=== PATIENT | female | born 1960 | race African-American/Black ===

== ENCOUNTER → 2016-05-15 | Outpatient (CLI) | payer BC ==
[~2016-05-15] MED LIST: AMLO10TA PO; AMLO5TAB2 PO; CARV25TA PO; CLAR1TAB2 PO; CO Q100C10 PO; CO Q1CAP PO; CYCL10CAP PO; CYCLO25CA PO; DIOV160T2 PO; DIOV80TA3 PO; DRIS50002 PO; FISH1000 PO; FISH5CAP PO; FLON1SPR; FLUT1SPR2; FLUTISP; FOSR1000 PO; GING500C3 PO; HEPA1000VL IV; INSUDET SC; INSUH10VL SC; LASI40TA PO; LEVA500T PO; LEVE1INJ5 SC; LORA10TA2 PO; MUPI2OI TOP; MYCO500T PO; NIFE30TA7 PO; ONDA1TAB15 PO; POTA10CA PO; PRAV80TA PO; PRAV80TA2 PO; RENATAB5 PO; RENV2TAB PO; ROCA0.5C PO; SENS60TA PO; VALS1TAB47 PO; ZOFR20TA PO; [UNRECOGNIZED DRUG - CODE] INJ
[2016-05-15 21:17] LABS: MEAN CORPUSCULAR HEMOGLOBIN 33.4 pg (27.0-33.0); MEAN CORPUSCULAR HGB CONC 32.1 g/dl (32.0-36.5); RED CELL DISTRIBUTION WIDTH 14.9 % (11.5-14.5); WHITE BLOOD COUNT 7.8 K/mm3 (4.0-10.0)
[2016-05-15 21:40] LABS: CALCIUM LEVEL 9.4 MG/DL (8.5-10.1); CREATININE FOR GFR 5.35 MG/DL (0.55-1.02); GLOMERULAR FILTRATION RATE 10.7 (>51); POTASSIUM SERUM 4.2 MEQ/L (3.5-5.1)
== END ==
LOC: M LAB 20:28
PROVIDERS: ATTEND Dentist
DX: K04.7 Periapical abscess without sinus (principal)

== ENCOUNTER → 2016-05-31 | Outpatient (REF) | payer BC ==
[2016-05-31 12:00] LABS: BASO % 0.6 % (0.0-1.0); EOS # 0.1 K/mm3 (0.0-0.50); EOS % 2.6 % (0.0-3.0); LARGE UNSTAINED CELL # 0.1 K/mm3 (0.0-0.4); LARGE UNSTAINED CELL % 2.2 % (0.0-4.0); LYMPH # 1.5 K/mm3 (1.5-4.5); MEAN CORPUSCULAR HEMOGLOBIN 33.9 pg (27.0-33.0); MEAN CORPUSCULAR HGB CONC 32.8 g/dl (32.0-36.5); MEAN CORPUSCULAR VOLUME 103.4 fl (80.0-96.0); MONO # 0.3 K/mm3 (0.0-0.8); MONO % 5.1 % (0.0-5.0); NEUTROPHILS # 3.5 K/mm3 (1.8-7.7); NEUTROPHILS % 63.5 % (36.0-66.0); PLATELET COUNT, AUTOMATED 199 k/mm3 (150-450); RED CELL DISTRIBUTION WIDTH 14.3 % (11.5-14.5); WHITE BLOOD COUNT 5.5 K/mm3 (4.0-10.0)
[2016-05-31 12:13] LABS: ALBUMIN 3.8 GM/DL (3.2-5.2); ALKALINE PHOSPHATASE 172 U/L (45-117); ALT/SGPT 23 U/L (12-78); ANION GAP 14 MEQ/L (8-16); AST/SGOT 20 U/L (15-37); BILIRUBIN,TOTAL 0.5 MG/DL (0.2-1.0); BLOOD UREA NITROGEN 32 MG/DL (7-18); CALCIUM LEVEL 8.4 MG/DL (8.5-10.1); CARBON DIOXIDE LEVEL 27 MEQ/L (21-32); CHLORIDE LEVEL 100 MEQ/L (98-107); CHOLESTEROL LEVEL 134 MG/DL (<200); CREATININE FOR GFR 8.91 MG/DL (0.55-1.02); GLOMERULAR FILTRATION RATE 5.9 (>51); GLUCOSE, FASTING 216 MG/DL (70-105); POTASSIUM SERUM 4.1 MEQ/L (3.5-5.1); SODIUM LEVEL 141 MEQ/L (136-145); TOTAL PROTEIN 7.6 GM/DL (6.4-8.2); TRIGLYCERIDES LEVEL 171 MG/DL (<150); URIC ACID 4.4 MG/DL (2.6-6.0)
[2016-05-31 12:19] LABS: VITAMIN B12 LEVEL 1923 PG/ML
[2016-05-31 12:20] LABS: FOLATE > 24.0 NG/ML
== END ==
LOC: M LABDRAW1 11:43
PROVIDERS: ATTEND Family Medicine
DX: E11.29 Type 2 diabetes mellitus with other diabetic kidney complication (principal); D63.1 Anemia in chronic kidney disease; I12.0 Hypertensive chronic kidney disease with stage 5 chronic kidney disease or end stage renal disease; N18.5 Chronic kidney disease, stage 5; E78.2 Mixed hyperlipidemia

== ENCOUNTER → 2016-06-11 | Outpatient (REF) | payer BC, MEDICARE, MEDICAID | LOC: M SFHCWAGY 12:52 | PROVIDERS: ATTEND Nurse Practitioner Family | DX: Z12.4 Encounter for screening for malignant neoplasm of cervix (principal) ==

== ENCOUNTER → 2016-06-11 | Outpatient (CLI) | payer BC, MEDICARE, MEDICAID ==
--- NOTE | 2016-06-11 12:07 | REPMRS ---
Patient History The patient states she had a clinical breast exam in 05/2016. Patient is postmenopausal. No known family history of cancer. Digital Woman Screen Mammo: June 11, 2016 - Exam #: [id number] Bilateral CC and MLO view(s) were taken. Technologist: Dolores Sewell, Technologist Prior study comparison: June 02, 2015, digital woman screen mammo performed at [facility]. 2009, bilateral screening mammogram, performed at [place], [place]. FINDINGS: The breast tissue is heterogeneously dense. This may lower the sensitivity of mammography. There has been no change in the appearance of the mammogram from the prior studies. There is a moderate amount of residual fibroglandular tissue which is fairly symmetric. There is no interval development of dominant mass, areas of architectural distortion, or clustered microcalcification typical of malignancy. ASSESSMENT: BI-RADS/ACR category 1 mammogram. Negative. Recommendation Routine screening mammogram in 1 year (for women over age 40). This mammogram was interpreted with the aid of an FDA-approved computer-aided dectection system. Electronically Signed By: Tay Bell MD 06/11/16 [id number]
== END ==
LOC: M WHC 10:32
PROVIDERS: ATTEND Nurse Practitioner Family
DX: Z12.31 Encounter for screening mammogram for malignant neoplasm of breast (principal)

== ENCOUNTER → 2016-06-18 | Outpatient (CLI) | payer BC, MEDICARE, MEDICAID ==
--- NOTE | 2016-06-18 11:59 | REP ---
Clinical: Right adnexal pain and possible mass . Technique: Transabdominal pelvic ultrasound followed by transvaginal examination for better evaluation of the endometrium and adnexa. Findings: Bladder is collapsed. Anteverted uterus measures 7.9 x 6.4 x 5.4 cm with sub centimeter right anterior intramural fibroid. The endometrial complex measures up to 12 mm thickness. No discrete endometrial abnormalities are appreciated. Bilateral ovaries are normal in appearance and vascularity without evidence for torsion. Right ovary measures 3.1 x 2.5 x 2.5. Left ovary measures 4.1 x 3.3 x 2.0 cm. Transplant kidney in the right hemipelvis measures 9.0 x 5.9 x 5.3 cm and without hydronephrosis. Impression: 1. Anteverted uterus with sub centimeter intramural fibroid. 2. Transplant kidney in the right hemipelvis.
== END ==
LOC: M WHC 09:17
PROVIDERS: ATTEND Nurse Practitioner Family
DX: N85.4 Malposition of uterus (principal); D25.1 Intramural leiomyoma of uterus; Z94.0 Kidney transplant status

== ENCOUNTER → 2016-07-02 | Outpatient (CLI) | payer BC, MEDICARE, MEDICAID ==
--- NOTE | 2016-07-02 13:24 | REP ---
RIGHT HIP, TWO VIEWS: HISTORY: Pain. There is no acute fracture or dislocation. There joint space is normal in appearance. A 1 cm lucency is present in the distal iliac bone. This likely represents a subchondral cyst. A catheter is present in the pelvis. IMPRESSION: There is no acute fracture or dislocation. Signed by Abdoulaye Perry MD 07/02/2016 01:26 P
== END ==
LOC: M RAD 11:54
PROVIDERS: ATTEND Internal Medicine Nephrology
DX: M25.551 Pain in right hip (principal); N18.6 End stage renal disease; N25.81 Secondary hyperparathyroidism of renal origin

== ENCOUNTER → 2016-08-10 | Outpatient (CLI) | payer BC, MEDICARE, MEDICAID ==
[2016-08-10 09:46] LABS: BASO % 0.7 % (0.0-1.0); EOS # 0.2 K/mm3 (0.0-0.50); EOS % 2.4 % (0.0-3.0); LARGE UNSTAINED CELL # 0.1 K/mm3 (0.0-0.4); LARGE UNSTAINED CELL % 2.1 % (0.0-4.0); LYMPH # 1.6 K/mm3 (1.5-4.5); LYMPH % 23.9 % (24.0-44.0); MEAN CORPUSCULAR HEMOGLOBIN 32.6 pg (27.0-33.0); MEAN CORPUSCULAR HGB CONC 31.8 g/dl (32.0-36.5); MEAN CORPUSCULAR VOLUME 102.3 fl (80.0-96.0); MONO # 0.4 K/mm3 (0.0-0.8); MONO % 5.7 % (0.0-5.0); NEUTROPHILS # 4.3 K/mm3 (1.8-7.7); NEUTROPHILS % 65.2 % (36.0-66.0); PLATELET COUNT, AUTOMATED 172 k/mm3 (150-450); RED CELL DISTRIBUTION WIDTH 13.7 % (11.5-14.5); WHITE BLOOD COUNT 6.6 K/mm3 (4.0-10.0)
[2016-08-10 09:59] LABS: INR 1.14
[2016-08-10 10:03] LABS: CALCIUM LEVEL 9.3 MG/DL (8.5-10.1); CREATININE FOR GFR 8.49 MG/DL (0.55-1.02); GLOMERULAR FILTRATION RATE 6.2 (>51)
== END ==
LOC: M LAB 08:58
DX: Z01.812 Encounter for preprocedural laboratory examination (principal)

== ENCOUNTER → 2016-10-21 | Outpatient (REF) | payer BC, MEDICARE ==
[2016-10-21 19:20] LABS: BASO % 0.4 % (0.0-1.0); EOS # 0.1 K/mm3 (0.0-0.50); EOS % 0.8 % (0.0-3.0); LARGE UNSTAINED CELL # 0.1 K/mm3 (0.0-0.4); LYMPH # 1.5 K/mm3 (1.5-4.5); LYMPH % 16.7 % (24.0-44.0); MEAN CORPUSCULAR HEMOGLOBIN 33.8 pg (27.0-33.0); MEAN CORPUSCULAR HGB CONC 32.5 g/dl (32.0-36.5); MONO # 0.4 K/mm3 (0.0-0.8); MONO % 5.2 % (0.0-5.0); NEUTROPHILS # 6.3 K/mm3 (1.8-7.7); NEUTROPHILS % 75.9 % (36.0-66.0); PLATELET COUNT, AUTOMATED 184 k/mm3 (150-450); RED CELL DISTRIBUTION WIDTH 14.2 % (11.5-14.5); WHITE BLOOD COUNT 8.3 K/mm3 (4.0-10.0)
[2016-10-21 20:13] LABS: CALCIUM LEVEL 8.6 MG/DL (8.5-10.1); CREATININE FOR GFR 12.2 MG/DL (0.55-1.02); GLOMERULAR FILTRATION RATE 4.1 (>51)
[2016-10-21 20:25] LABS: POTASSIUM SERUM 5.7 MEQ/L (3.5-5.1)
== END ==
LOC: M LABDRAW1 17:22
PROVIDERS: ATTEND Family Medicine
DX: E11.29 Type 2 diabetes mellitus with other diabetic kidney complication (principal); D63.1 Anemia in chronic kidney disease; N18.5 Chronic kidney disease, stage 5

== ENCOUNTER 2016-12-03 09:35 | Day surgery (SDC) | payer BC, MEDICARE ==
[~2016-12-03] VITALS: Ht 168.9 cm; Wt 86.2 kg
[~2016-12-03 09:35] MED LIST changes: +CO Q100C PO; -CO Q1CAP PO; +INSUHUMDS SC; +LEVA1TAB2 PO; -LEVA500T PO; -ONDA1TAB15 PO; +ONDA4TAB5 PO; +TOUJ1.2I SC
[2016-12-03] MEDS ORDERED: MIDAZOLAM INJ 2 MG/2 ML VIAL (J2250) As Ordered ONE (09:45)
[2016-12-03] MEDS ORDERED: PROPOFOL 200 MG/20 ML VIAL As Ordered ONE (09:45)
[2016-12-03] MEDS ORDERED: fentaNYL 100 MCG/2 ML INJECTION (J3010) As Ordered ONE (09:45)
[2016-12-03] MEDS ORDERED: D5W/0.2% SODIUM CHLORIDE 250 ML IV ONE (09:45)
[2016-12-03] MEDS ORDERED: NS 1,000 ML IV SCH (09:45)
[2016-12-03] MEDS ORDERED: LIDOCAINE 2% INJ 100 MG/5 ML SDV (FOR ANES.) As Ordered ONE (09:45)
[2016-12-03] MEDS ORDERED: LIDOCAINE 1% SDV INJ 30 ML VIAL As Ordered ONE (10:23)
[2016-12-03] MEDS ORDERED: DEXTROSE 50% 50 ML SYRINGE As Ordered ONE (11:20)
[2016-12-03] MEDS ORDERED: DEXTROSE 50% 50 ML SYRINGE IV ONE (11:30)
[2016-12-03] MEDS ORDERED: dexameTHASONE 4 MG/ML 1ML VIAL (J1100) As Ordered ONE (12:45)
[2016-12-03] MEDS ORDERED: ONDANSETRON 4MG/2ML VIAL (J2405) As Ordered ONE (12:45)
[2016-12-03] MEDS ORDERED: BUPIVACAINE/EPIN 0.25% 30 ML VIAL As Ordered ONE (13:02)
[2016-12-03] MEDS ORDERED: KETAMINE HCL 200 MG/20 ML VIAL As Ordered ONE (13:11)
[2016-12-03 14:25] VITALS: BP 153/70
[2016-12-03] MEDS ORDERED: NORCO, ANEXSIA 5/325MG TABLET (HYDROcodone/ACETAMINOPHEN) As Ordered ONE (14:48)
[2016-12-03] MEDS ORDERED: ONDANSETRON 4MG/2ML VIAL (J2405) IV PRN (15:00)
[2016-12-03] MEDS ORDERED: NORCO, ANEXSIA 5/325MG TABLET (HYDROcodone/ACETAMINOPHEN) PO PRN (15:00)
[2016-12-03] MEDS ORDERED: LR 1,000 ML IV SCH (15:00)
--- NOTE | 2017-01-22 06:19 | RO ---
DATE OF PROCEDURE: 12/03/2016 PREOPERATIVE DIAGNOSIS: Nonfunctioning/infected peritoneal dialysis catheter. POSTOPERATIVE DIAGNOSIS: Nonfunctioning/infected peritoneal dialysis catheter. PROCEDURE: Removal of infected dialysis catheter. SURGEON: Dr. Willem Silva CUSHION ASSEMBLER: ANESTHESIA: Local with sedation. BRIEF PROCEDURE SUMMARY: The patient was brought to the operating room and was given IV sedation. She was prepped and draped in the usual sterile fashion. The patient had a dialysis catheter that was in place and right at the dialysis catheter site there was some purulent discharge around the exit site. This was new since the last time I had seen her, but definitely she had developed some cellulitis in this area, inflammation and some purulent discharge, all consistent with an infected dialysis catheter. This has been nonfunctioning for quite awhile now and she is getting hemodialysis as we speak. In any case, an elliptical incision was made around the abscess/exit site to include this abscess/inflamed tissue and I anticipate that this was a cuff that was infected at the skin level with some drainage. I was able to get past this area into the deeper subcutaneous tissue down mobilizing the tissue itself using a combination of blunt and sharp dissection all the way to the level of fascia. The catheter could be seen going up to the fascia and the cuff was incorporated into the rectus muscles/abdominal wall fascia. This was dissected off this tissue using some blunt dissection as well as electrocautery and eventually the catheter was able to be removed in its entirety. The site was closed with a [id number] #0 Vicryl suture. Given that this was an infected wound, I felt that closing this wound it would overwhelmingly become infected again. Thus, it was packed with gauze and after closing some minimal tissue over the fascia itself and the skin incision was left open, a dry sterile gauze was placed over the packing. The patient was awakened from her sedation and brought to the recovery room awake, alert and hemodynamically stable. Sponge and needle counts correct times two.
== END 2016-12-03 15:05 | disposition home or self-care (01) ==
LOC: M SDC 09:35
PROVIDERS: ATTEND Surgery
DX: T85.691A Other mechanical complication of intraperitoneal dialysis catheter, initial encounter (principal); N18.9 Chronic kidney disease, unspecified; I10 Essential (primary) hypertension; E78.00 Pure hypercholesterolemia, unspecified; E10.9 Type 1 diabetes mellitus without complications; Z79.4 Long term (current) use of insulin; D64.9 Anemia, unspecified; E21.3 Hyperparathyroidism, unspecified; Z88.8 Allergy status to other drugs, medicaments and biological substances; Z79.899 Other long term (current) drug therapy
CPT/HCPCS: 36415; 49422; 84132; 85014; 85018; 87070; 87077; 87186; 88300; J1100; J2250; J2405; J3010

== ENCOUNTER → 2016-12-16 | Outpatient (REF) | payer BC, MEDICARE | LOC: M LAB REF 10:36 | PROVIDERS: ATTEND Surgery | DX: S31.105D Unspecified open wound of abdominal wall, periumbilic region without penetration into peritoneal cavity, subsequent encounter (principal); X58.XXXA Exposure to other specified factors, initial encounter; Y92.9 Unspecified place or not applicable ==

== ENCOUNTER 2017-05-19 19:22 | Emergency (ER) | payer BC, MEDICARE, MEDICAID | END 2017-05-19 22:00 | disposition home or self-care (01) | LOC: M ED 19:22 | DX: S93.402A Sprain of unspecified ligament of left ankle, initial encounter (principal); S70.01XA Contusion of right hip, initial encounter; S80.02XA Contusion of left knee, initial encounter; W01.198A Fall on same level from slipping, tripping and stumbling with subsequent striking against other object, initial encounter; Y92.099 Unspecified place in other non-institutional residence as the place of occurrence of the external cause; Y93.01 Activity, walking, marching and hiking | CPT/HCPCS: 73560 ==

== ENCOUNTER → 2017-06-04 | Outpatient (REF) | payer BC, MEDICARE ==
[2017-06-04 14:42] LABS: HEMATOCRIT 26.9 % (36.0-47.0); HEMOGLOBIN 8.9 g/dl (12.0-16.0); MEAN CORPUSCULAR HEMOGLOBIN 33.5 pg (27.0-33.0); MEAN CORPUSCULAR HGB CONC 33.1 g/dl (32.0-36.5); MEAN CORPUSCULAR VOLUME 101.1 fl (80.0-96.0); PLATELET COUNT, AUTOMATED 169 10^3/uL (150-450); RED BLOOD COUNT 2.66 10^6/uL (4.00-5.40); RED CELL DISTRIBUTION WIDTH 12.5 % (11.5-14.5)
[2017-06-04 15:08] LABS: ALBUMIN 3.8 GM/DL (3.2-5.2); ALBUMIN/GLOBULIN RATIO 1.15 (1.00-1.93); ALKALINE PHOSPHATASE 288 U/L (45-117); ALT/SGPT 17 U/L (12-78); ANION GAP 11 MEQ/L (8-16); AST/SGOT 13 U/L (7-37); BILIRUBIN,TOTAL 0.5 MG/DL (0.2-1.0); BLOOD UREA NITROGEN 62 MG/DL (7-18); CALCIUM LEVEL 8.6 MG/DL (8.5-10.1); CARBON DIOXIDE LEVEL 30 MEQ/L (21-32); CHLORIDE LEVEL 92 MEQ/L (98-107); GLOMERULAR FILTRATION RATE 5.5 (>51); GLUCOSE, FASTING 205 MG/DL (70-100); PHOSPHORUS LEVEL 3.7 MG/DL (2.5-4.9); POTASSIUM SERUM 4.1 MEQ/L (3.5-5.1); SODIUM LEVEL 133 MEQ/L (136-145); TOTAL PROTEIN 7.1 GM/DL (6.4-8.2)
[2017-06-04 15:38] LABS: CREATININE FOR GFR 9.52 MG/DL (0.55-1.30)
[2017-06-04 16:23] LABS: BLOOD UREA NITROGEN 30 MG/DL (7-18)
== END ==
LOC: M LAB REF 14:29
DX: N18.6 End stage renal disease (principal)
CPT/HCPCS: 84100

== ENCOUNTER → 2017-07-02 | Outpatient (REF) | payer BC, MEDICARE ==
[2017-07-02 12:09] LABS: HEMATOCRIT 24.5 % (36.0-47.0); HEMOGLOBIN 7.8 g/dl (12.0-16.0); MEAN CORPUSCULAR HEMOGLOBIN 33.1 pg (27.0-33.0); MEAN CORPUSCULAR HGB CONC 31.8 g/dl (32.0-36.5); MEAN CORPUSCULAR VOLUME 103.8 fl (80.0-96.0); PLATELET COUNT, AUTOMATED 187 10^3/uL (150-450); RED BLOOD COUNT 2.36 10^6/uL (4.00-5.40); WHITE BLOOD COUNT 7.7 10^3/uL (4.0-10.0)
[2017-07-02 12:38] LABS: BLOOD UREA NITROGEN 21 MG/DL (7-18)
[2017-07-02 12:55] LABS: PTH INTACT 1031.5 PG/ML (18.5-88.0)
[2017-07-02 13:10] LABS: ALBUMIN 3.4 GM/DL (3.2-5.2); ALBUMIN/GLOBULIN RATIO 0.97 (1.00-1.93); ALKALINE PHOSPHATASE 213 U/L (45-117); ALT/SGPT 12 U/L (12-78); ANION GAP 11 MEQ/L (8-16); AST/SGOT 17 U/L (7-37); BILIRUBIN,TOTAL 0.5 MG/DL (0.2-1.0); BLOOD UREA NITROGEN 42 MG/DL (7-18); CALCIUM LEVEL 8.6 MG/DL (8.5-10.1); CARBON DIOXIDE LEVEL 31 MEQ/L (21-32); CHLORIDE LEVEL 94 MEQ/L (98-107); GLOMERULAR FILTRATION RATE 6.5 (>51); GLUCOSE, FASTING 87 MG/DL (70-100); PHOSPHORUS LEVEL 3.2 MG/DL (2.5-4.9); POTASSIUM SERUM 4.1 MEQ/L (3.5-5.1); SODIUM LEVEL 136 MEQ/L (136-145); TOTAL PROTEIN 6.9 GM/DL (6.4-8.2)
[2017-07-02 13:34] LABS: CREATININE FOR GFR 8.23 MG/DL (0.55-1.30)
[2017-07-05 00:07] LABS: QUANTIFERON GOLD TB Negative (Negative); TB Test (QFT) Antigen 0.04 IU/mL (.); TB Test (QFT) Mitogen >10.00 IU/mL (.); TB Test (QFT) Nil 0.04 IU/mL (.)
== END ==
LOC: M LAB REF 11:47
DX: N18.6 End stage renal disease (principal)
CPT/HCPCS: 84100

== ENCOUNTER → 2017-07-07 | Outpatient (REF) | payer BC, MEDICARE ==
[2017-07-07 16:40] LABS: HEMATOCRIT 23.1 % (36.0-47.0); HEMOGLOBIN 7.2 g/dl (12.0-16.0)
[2017-07-07 17:34] LABS: FERRITIN 916 NG/ML (8-252); IRON (FE) 33 UG/DL (50-170); PERCENT SATURATION 15.7 % (13.2-45.0); TOTAL IRON BINDING CAPACITY 210 UG/DL (250-450)
== END ==
LOC: M LAB REF 16:21
DX: N18.6 End stage renal disease (principal)
CPT/HCPCS: 83550

== ENCOUNTER → 2017-07-14 | Outpatient (REF) | payer BC, MEDICARE ==
[2017-07-14 09:58] LABS: HEMATOCRIT 22.5 % (36.0-47.0); HEMOGLOBIN 7.4 g/dl (12.0-16.0)
[2017-07-14 10:24] LABS: FERRITIN 1087 NG/ML (8-252); IRON (FE) 48 UG/DL (50-170); PERCENT SATURATION 22.6 % (13.2-45.0); TOTAL IRON BINDING CAPACITY 212 UG/DL (250-450)
== END ==
LOC: M LAB REF 09:47
DX: N18.6 End stage renal disease (principal); Z88.8 Allergy status to other drugs, medicaments and biological substances
CPT/HCPCS: 83550

== ENCOUNTER 2017-07-16 00:30 | Observation (INO) | payer BC, MEDICARE ==
[2017-07-16] MEDS: ASPIRIN 81 MG CHEW TABLET PO ×3 (02:09)
[2017-07-16] MEDS: NITROGLYCERIN 0.4 MG SUBL TABLET SL ×3 (02:09)
[2017-07-16 02:14] LABS: ALBUMIN 3.2 GM/DL (3.2-5.2); ALBUMIN/GLOBULIN RATIO 0.86 (1.00-1.93); ALKALINE PHOSPHATASE 207 U/L (45-117); ALT/SGPT 17 U/L (12-78); ANION GAP 10 MEQ/L (8-16); AST/SGOT 16 U/L (7-37); BILIRUBIN,DIRECT 0.1 MG/DL (0.0-0.2); BILIRUBIN,TOTAL 0.4 MG/DL (0.2-1.0); BLOOD UREA NITROGEN 36 MG/DL (7-18); CARBON DIOXIDE LEVEL 32 MEQ/L (21-32); CHLORIDE LEVEL 94 MEQ/L (98-107); CPK CREATINE PHOSPHOKINASE 104 U/L (26-192); CREATININE FOR GFR 7.59 MG/DL (0.55-1.30); FREE T4 1.09 NG/DL (0.76-1.46); GLOMERULAR FILTRATION RATE 7.1 (>51); GLUCOSE, FASTING 101 MG/DL (70-100); LIPASE 245 U/L (73-393); SODIUM LEVEL 136 MEQ/L (136-145); TOTAL PROTEIN 6.9 GM/DL (6.4-8.2); TROPONIN I 0.02 NG/ML (< 0.10)
[2017-07-16 02:20] LABS: MB/CK RELATIVE INDEX 0.96 (< OR =4)
[2017-07-16 02:41] LABS: BASO % 0.4 % (0.0-1.0); EOS # 0.2 10^3/uL (0.0-0.50); EOS % 2.4 % (0.0-3.0); HEMATOCRIT 21.5 % (36.0-47.0); IMMATURE GRANULOCYTE % 0.4 % (0-3.0); LYMPH # 1.5 10^3/uL (1.5-4.5); LYMPH % 17.7 % (24.0-44.0); MEAN CORPUSCULAR HEMOGLOBIN 32.9 pg (27.0-33.0); MEAN CORPUSCULAR HGB CONC 32.6 g/dl (32.0-36.5); MEAN CORPUSCULAR VOLUME 100.9 fl (80.0-96.0); MONO # 0.8 10^3/uL (0.0-0.8); MONO % 9.4 % (0.0-5.0); NEUTROPHILS # 5.9 10^3/uL (1.8-7.7); NEUTROPHILS % 69.7 % (36.0-66.0); PLATELET COUNT, AUTOMATED 150 10^3/uL (150-450); RED BLOOD COUNT 2.13 10^6/uL (4.00-5.40); RED CELL DISTRIBUTION WIDTH 12.9 % (11.5-14.5); WHITE BLOOD COUNT 8.4 10^3/uL (4.0-10.0)
[2017-07-16 02:55] LABS: PROTHROMBIN TIME 14.4 SECONDS (12.4-14.5)
[2017-07-16 02:56] LABS: PARTIAL THROMBOPLASTIN TIME 45.3 SECONDS (26.8-37.9)
[2017-07-16] MEDS ORDERED: ACETAMINOPHEN TAB 650MG DOSE (2X325MG) PO ×3 (04:15)
[2017-07-16] MEDS ORDERED: GLUCAGON FOR INJ 1 MG VIAL (J1610) SC ×3 (04:15)
[2017-07-16] MEDS ORDERED: DEXTROSE 50% 50 ML SYRINGE IV ×3 (04:15)
[2017-07-16] MEDS ORDERED: GLUCOSE 4 GM CHEW TABLET PO ×3 (04:15)
[2017-07-16 04:50] LABS: IMMEDIATE SPIN CROSSMATCH 1 2
[2017-07-16] MEDS: HEPARIN SOD (PORCINE) 5000 UNITS/ML VIAL SC ×3 (06:49)
[2017-07-16 07:22] LABS: MEAN CORPUSCULAR HEMOGLOBIN 32.9 pg (27.0-33.0); MEAN CORPUSCULAR HGB CONC 33.3 g/dl (32.0-36.5); MEAN CORPUSCULAR VOLUME 98.8 fl (80.0-96.0); PLATELET COUNT, AUTOMATED 154 10^3/uL (150-450); RED BLOOD COUNT 2.43 10^6/uL (4.00-5.40); RED CELL DISTRIBUTION WIDTH 13.9 % (11.5-14.5); WHITE BLOOD COUNT 7.7 10^3/uL (4.0-10.0)
[2017-07-16] MEDS: HumaLOG INSULIN (NovoLOG) PER UNIT SC ×3 (07:30)
[2017-07-16 07:38] LABS: ANION GAP 8 MEQ/L (8-16); BLOOD UREA NITROGEN 43 MG/DL (7-18); CALCIUM LEVEL 8.1 MG/DL (8.5-10.1); CARBON DIOXIDE LEVEL 32 MEQ/L (21-32); CHLORIDE LEVEL 96 MEQ/L (98-107); GLOMERULAR FILTRATION RATE 6.5 (>51); GLUCOSE, FASTING 84 MG/DL (70-100); POTASSIUM SERUM 3.8 MEQ/L (3.5-5.1); SODIUM LEVEL 136 MEQ/L (136-145)
[2017-07-16 07:46] LABS: CREATININE FOR GFR 8.18 MG/DL (0.55-1.30)
[2017-07-16] MEDS: ASCORBIC ACID 500 MG TAB PO ×3 (08:28)
[2017-07-16] MEDS: CINACALCET 30 MG TAB (SENSIPAR) PO ×3 (08:28)
[2017-07-16] MEDS: VALSARTAN 80 MG TAB (DIOVAN) PO ×3 (08:29)
[2017-07-16] MEDS: LANTHANUM CARBONATE 500 MG CHEW TABLET PO ×3 (08:29)
[2017-07-16] MEDS: CALCITRIOL 0.25 MCG CAP (S0169) PO ×3 (08:29)
[2017-07-16] MEDS: CARVedilol 12.5 MG TAB PO ×3 (08:30)
[2017-07-16 10:51] LABS: HEMATOCRIT 28.6 % (36.0-47.0); HEMOGLOBIN 9.4 g/dl (12.0-16.0)
[2017-07-16] MEDS ORDERED: amLODIPine 5 MG TAB PO ×3 (21:00)
[2017-07-16] MEDS ORDERED: CARVedilol 12.5 MG TAB PO ×3 (21:00)
[2017-07-16] MEDS ORDERED: PRAVASTATIN 20 MG TAB PO ×3 (21:00)
[2017-07-16] MEDS ORDERED: HumaLOG INSULIN (NovoLOG) PER UNIT SC ×3 (21:00)
[2017-07-16] MEDS ORDERED: LEVEMIR (INSULIN DETEMIR) 1 UNITS/0.01ML SC ×3 (21:00)
[2017-07-17] MEDS ORDERED: FERROUS SULFATE 325MG TAB PO ×3 (12:00)
== END 2017-07-16 11:30 | disposition home or self-care (01) ==
LOC: M ED 00:30 → M ED INP 00:31
DX: D53.8 Other specified nutritional anemias (principal); D63.1 Anemia in chronic kidney disease; N18.6 End stage renal disease; Z99.2 Dependence on renal dialysis; E11.9 Type 2 diabetes mellitus without complications; I12.0 Hypertensive chronic kidney disease with stage 5 chronic kidney disease or end stage renal disease; E21.3 Hyperparathyroidism, unspecified; Z94.0 Kidney transplant status; Z88.8 Allergy status to other drugs, medicaments and biological substances; Z91.048 Other nonmedicinal substance allergy status; Z79.899 Other long term (current) drug therapy; Z79.4 Long term (current) use of insulin
CPT/HCPCS: 71046

== ENCOUNTER → 2017-07-28 | Outpatient (REF) | payer BC, MEDICARE ==
[2017-07-28 14:28] LABS: HEMATOCRIT 25.6 % (36.0-47.0); HEMOGLOBIN 8.3 g/dl (12.0-15.5)
== END ==
LOC: M LAB REF 13:57
DX: N18.6 End stage renal disease (principal)
CPT/HCPCS: 85014

== ENCOUNTER → 2017-07-29 | Outpatient (REF) | payer MEDICARE, BC | LOC: M LAB REF 09:09 | DX: N18.6 End stage renal disease (principal) | CPT/HCPCS: 82270 ==

== ENCOUNTER 2017-07-30 15:29 | Observation (INO) | payer MEDICARE, BC ==
[2017-07-30 16:31] LABS: BASO # 0.1 10^3/uL (0.0-0.2); BASO % 0.8 % (0.0-1.0); EOS # 0.2 10^3/uL (0.0-0.50); EOS % 2.8 % (0.0-3.0); HEMATOCRIT 26.2 % (36.0-47.0); HEMOGLOBIN 8.7 g/dl (12.0-15.5); IMMATURE GRANULOCYTE % 0.1 % (0-3.0); LYMPH # 1.3 10^3/uL (1.5-4.5); LYMPH % 16.7 % (24.0-44.0); MEAN CORPUSCULAR HEMOGLOBIN 32.2 pg (27.0-33.0); MEAN CORPUSCULAR HGB CONC 33.2 g/dl (32.0-36.5); MONO # 0.6 10^3/uL (0.0-0.8); MONO % 8.2 % (0.0-5.0); NEUTROPHILS # 5.4 10^3/uL (1.8-7.7); NEUTROPHILS % 71.4 % (36.0-66.0); PLATELET COUNT, AUTOMATED 138 10^3/uL (150-450); RED CELL DISTRIBUTION WIDTH 13.4 % (11.5-14.5); WHITE BLOOD COUNT 7.6 10^3/uL (4.0-10.0)
[2017-07-30 16:43] LABS: PROTHROMBIN TIME 14.4 SECONDS (12.4-14.5)
[2017-07-30 17:05] LABS: ALBUMIN 3.6 GM/DL (3.2-5.2); ALKALINE PHOSPHATASE 224 U/L (45-117); ALT/SGPT 18 U/L (12-78); ANION GAP 7 MEQ/L (8-16); AST/SGOT 15 U/L (7-37); BILIRUBIN,DIRECT 0.1 MG/DL (0.0-0.2); BILIRUBIN,TOTAL 0.4 MG/DL (0.2-1.0); BLOOD UREA NITROGEN 29 MG/DL (7-18); CARBON DIOXIDE LEVEL 33 MEQ/L (21-32); CHLORIDE LEVEL 93 MEQ/L (98-107); CPK CREATINE PHOSPHOKINASE 134 U/L (26-192); GLOMERULAR FILTRATION RATE 10.7 (>51); GLUCOSE, FASTING 179 MG/DL (70-100); LIPASE 210 U/L (73-393); POTASSIUM SERUM 3.6 MEQ/L (3.5-5.1); SODIUM LEVEL 133 MEQ/L (136-145); TOTAL PROTEIN 7.2 GM/DL (6.4-8.2); TROPONIN I 0.02 NG/ML (< 0.10)
[2017-07-30 17:10] LABS: CK-MB VALUE MASS 1.3 NG/ML (<3.6); MB/CK RELATIVE INDEX 0.97 (< OR =4); NT-PRO BNP 4857 PG/ML (<125)
[2017-07-30] MEDS: ASPIRIN 81 MG CHEW TABLET PO (17:41)
[2017-07-30] MEDS ORDERED: ACETAMINOPHEN TAB 650MG DOSE (2X325MG) PO (20:00)
[2017-07-30 20:23] LABS: IMMEDIATE SPIN CROSSMATCH 1 1
[2017-07-30] MEDS ORDERED: DEXTROSE 50% 50 ML SYRINGE IV (21:00)
[2017-07-30] MEDS ORDERED: GLUCOSE 4 GM CHEW TABLET PO (21:00)
[2017-07-30] MEDS ORDERED: GLUCAGON FOR INJ 1 MG VIAL (J1610) SC (21:00)
[2017-07-30] MEDS: HumaLOG INSULIN (NovoLOG) PER UNIT SC (21:00)
[2017-07-30] MEDS: PRAVASTATIN 20 MG TAB PO (21:00)
[2017-07-30] MEDS: CARVedilol 12.5 MG TAB PO (21:26)
[2017-07-30] MEDS: amLODIPine 5 MG TAB PO (21:26)
[2017-07-30] MEDS: LEVEMIR (INSULIN DETEMIR) 1 UNITS/0.01ML SC (21:27)
[2017-07-30 21:29] LABS: BEDSIDE GLUCOSE 155 MG/DL (70-105)
[2017-07-31 06:56] LABS: HEMATOCRIT 30.5 % (36.0-47.0); MEAN CORPUSCULAR HEMOGLOBIN 31.3 pg (27.0-33.0); MEAN CORPUSCULAR HGB CONC 32.8 g/dl (32.0-36.5); MEAN CORPUSCULAR VOLUME 95.6 fl (80.0-96.0); PLATELET COUNT, AUTOMATED 148 10^3/uL (150-450); RED BLOOD COUNT 3.19 10^6/uL (4.00-5.40); RED CELL DISTRIBUTION WIDTH 13.9 % (11.5-14.5); WHITE BLOOD COUNT 7.7 10^3/uL (4.0-10.0)
[2017-07-31 07:25] LABS: TROPONIN I 0.03 NG/ML (< 0.10)
[2017-07-31] MEDS: HumaLOG INSULIN (NovoLOG) PER UNIT SC ×4 (07:30→21:00)
[2017-07-31 07:45] LABS: RETIC HEMOGLOBIN EQUIVALENT 36.4 pg (24-36); RETICULOCYTE # 92.9 10^9/L (17-77); RETICULOCYTE % 2.9 % (0.5-1.5)
[2017-07-31 07:48] LABS: REASON FOR REVIEW ANEMIA / RBC MORPH; SLIDE REVIEW Report; SOURCE PERIPHERAL SMEAR
[2017-07-31] MEDS: CALCITRIOL 0.25 MCG CAP (S0169) PO (08:21)
[2017-07-31] MEDS: CARVedilol 12.5 MG TAB PO ×2 (08:22→21:42)
[2017-07-31] MEDS: VALSARTAN 80 MG TAB (DIOVAN) PO (08:22)
[2017-07-31] MEDS: LANTHANUM CARBONATE 500 MG CHEW TABLET PO ×3 (08:22→17:47)
[2017-07-31] MEDS: CINACALCET 30 MG TAB (SENSIPAR) PO (08:23)
[2017-07-31 08:26] LABS: BEDSIDE GLUCOSE 66 MG/DL (70-105)
[2017-07-31 08:41] LABS: FERRITIN 1274 NG/ML (8-252); IRON (FE) 75 UG/DL (50-170); PERCENT SATURATION 34.1 % (13.2-45.0); TOTAL IRON BINDING CAPACITY 220 UG/DL (250-450)
[2017-07-31] MEDS: SENOKOT S TAB PO ×2 (09:00→21:00)
[2017-07-31 11:47] LABS: VITAMIN B12 LEVEL 1656 PG/ML (247-911)
[2017-07-31 11:47] LABS: FOLATE > 24.0 NG/ML (>5.4)
[2017-07-31 11:48] LABS: CK-MB VALUE MASS < 1.0 NG/ML (<3.6); CPK CREATINE PHOSPHOKINASE 102 U/L (26-192); MB/CK RELATIVE INDEX 0.98 (< OR =4); TROPONIN I 0.02 NG/ML (< 0.10)
[2017-07-31] MEDS ORDERED: FERROUS SULFATE 325MG TAB PO (12:00)
[2017-07-31 17:17] LABS: BEDSIDE GLUCOSE 140 MG/DL (70-105)
[2017-07-31 20:44] LABS: HEMATOCRIT 28.8 % (36.0-47.0); HEMOGLOBIN 9.6 g/dl (12.0-15.5)
[2017-07-31 21:02] LABS: CK-MB VALUE MASS < 1.0 NG/ML (<3.6); CPK CREATINE PHOSPHOKINASE 107 U/L (26-192); MB/CK RELATIVE INDEX 0.93 (< OR =4); TROPONIN I < 0.02 NG/ML (< 0.10)
[2017-07-31] MEDS: amLODIPine 5 MG TAB PO (21:42)
[2017-07-31] MEDS: PRAVASTATIN 20 MG TAB PO (21:42)
[2017-07-31] MEDS: FERROUS SULFATE 325MG TAB PO (21:43)
[2017-07-31] MEDS: LEVEMIR (INSULIN DETEMIR) 1 UNITS/0.01ML SC (21:43)
[2017-07-31] MEDS: SIMETHICONE 80 MG CHEW TAB PO (22:53)
[2017-08-01 02:37] LABS: BEDSIDE GLUCOSE 181 MG/DL (70-105)
[2017-08-01 02:37] LABS: BEDSIDE GLUCOSE 277 MG/DL (70-105)
[2017-08-01 07:29] LABS: HEMATOCRIT 31.5 % (36.0-47.0); HEMOGLOBIN 10.5 g/dl (12.0-15.5); MEAN CORPUSCULAR HEMOGLOBIN 32.4 pg (27.0-33.0); MEAN CORPUSCULAR HGB CONC 33.3 g/dl (32.0-36.5); MEAN CORPUSCULAR VOLUME 97.2 fl (80.0-96.0); PLATELET COUNT, AUTOMATED 152 10^3/uL (150-450); RED BLOOD COUNT 3.24 10^6/uL (4.00-5.40); RED CELL DISTRIBUTION WIDTH 13.7 % (11.5-14.5); WHITE BLOOD COUNT 9.1 10^3/uL (4.0-10.0)
[2017-08-01] MEDS: HumaLOG INSULIN (NovoLOG) PER UNIT SC (07:30)
[2017-08-01 07:51] LABS: ALBUMIN 3.5 GM/DL (3.2-5.2); ANION GAP 12 MEQ/L (8-16); BLOOD UREA NITROGEN 60 MG/DL (7-18); CALCIUM LEVEL 8.5 MG/DL (8.5-10.1); CARBON DIOXIDE LEVEL 29 MEQ/L (21-32); CHLORIDE LEVEL 95 MEQ/L (98-107); GLOMERULAR FILTRATION RATE 5.1 (>51); GLUCOSE, FASTING 63 MG/DL (70-100); MAGNESIUM LEVEL 2.6 MG/DL (1.8-2.4); PHOSPHORUS LEVEL 4.5 MG/DL (2.5-4.9); POTASSIUM SERUM 3.8 MEQ/L (3.5-5.1); SODIUM LEVEL 136 MEQ/L (136-145)
[2017-08-01 08:46] LABS: LDH LACTATE DEHYDROGENASE 212 U/L (84-246)
[2017-08-01] MEDS: FERROUS SULFATE 325MG TAB PO (09:00)
[2017-08-01] MEDS: SENOKOT S TAB PO (09:00)
[2017-08-01] MEDS: LANTHANUM CARBONATE 500 MG CHEW TABLET PO (09:43)
[2017-08-01] MEDS: CARVedilol 12.5 MG TAB PO (09:44)
[2017-08-01] MEDS: VALSARTAN 80 MG TAB (DIOVAN) PO (09:44)
[2017-08-01] MEDS: CALCITRIOL 0.25 MCG CAP (S0169) PO (09:45)
[2017-08-01] MEDS: CINACALCET 30 MG TAB (SENSIPAR) PO (09:45)
[2017-08-01 10:02] LABS: TOTAL PROTEIN 7.3 GM/DL (6.4-8.2)
[2017-08-01 12:28] LABS: URINE TOTAL PROTEIN 228.9 MG/DL (0-12)
[2017-08-02 08:06] LABS: HAPTOGLOBIN 156 mg/dL (34-200)
[2017-08-04 14:27] LABS: ALBUMIN % 60.3 % (55.8-66.1); ALPHA-1-GLOBULINS 0.37 GM/DL (0.17-0.41); ALPHA-2-GLOBULINS 0.74 GM/DL (0.42-0.99); ALPHA-2-GLOBULINS % 10.2 % (7.1-11.8); BETA-1-GLOBULINS 0.34 GM/DL (0.28-0.60); BETA-1-GLOBULINS % 4.7 % (4.7-7.2); BETA-2-GLOBULINS 0.38 GM/DL (0.19-0.55); BETA-2-GLOBULINS % 5.2 % (3.2-6.5); GAMMA GLOBULIN % 14.6 % (11.1-18.8); GAMMA GLOBULINS 1.07 GM/DL (0.65-1.58)
[2017-08-07 14:51] LABS: UPEP INTERPRETATION NO M-SPIKE NOTED; URINE VOLUME RANDOM ML
== END 2017-08-01 13:00 | disposition home or self-care (01) ==
LOC: M ED 15:29 → M ED INP 19:56
DX: R07.89 Other chest pain (principal); D63.1 Anemia in chronic kidney disease; N18.6 End stage renal disease; Z99.2 Dependence on renal dialysis; E11.9 Type 2 diabetes mellitus without complications; E88.81 Metabolic syndrome and other insulin resistance; N25.0 Renal osteodystrophy; I51.7 Cardiomegaly; N25.81 Secondary hyperparathyroidism of renal origin; E78.5 Hyperlipidemia, unspecified; Z94.0 Kidney transplant status; Z79.899 Other long term (current) drug therapy; Z79.4 Long term (current) use of insulin; Z88.8 Allergy status to other drugs, medicaments and biological substances; Z91.048 Other nonmedicinal substance allergy status
CPT/HCPCS: 71045

== ENCOUNTER → 2017-08-11 | Outpatient (REF) | payer MEDICARE, BC, MEDICAID ==
[2017-08-11 11:01] LABS: HEMATOCRIT 28.4 % (36.0-47.0); HEMOGLOBIN 9.4 g/dl (12.0-15.5)
== END ==
LOC: M LAB REF 10:54
DX: N18.6 End stage renal disease (principal)
CPT/HCPCS: 85014

== ENCOUNTER 2017-08-12 07:54 | Outpatient (CLI) | payer MEDICARE, BC ==
[2017-08-12] MEDS: IRON SUCROSE 100 MG in NS 100 ML IV (08:54)
== END 2017-08-12 11:15 | disposition home or self-care (01) ==
LOC: M INFU 07:54
DX: D50.9 Iron deficiency anemia, unspecified (principal); I12.0 Hypertensive chronic kidney disease with stage 5 chronic kidney disease or end stage renal disease; N18.6 End stage renal disease; E21.3 Hyperparathyroidism, unspecified; E11.9 Type 2 diabetes mellitus without complications; Z79.899 Other long term (current) drug therapy; Z79.4 Long term (current) use of insulin; Z88.8 Allergy status to other drugs, medicaments and biological substances
CPT/HCPCS: J1756

== ENCOUNTER 2017-08-18 13:37 | Outpatient (CLI) | payer MEDICARE, BC ==
[2017-08-18] MEDS: IRON SUCROSE 100 MG in NS 100 ML IV (13:57)
== END 2017-08-18 16:30 | disposition home or self-care (01) ==
LOC: M INFU 13:37
DX: D50.9 Iron deficiency anemia, unspecified (principal); I12.0 Hypertensive chronic kidney disease with stage 5 chronic kidney disease or end stage renal disease; N18.6 End stage renal disease; E03.9 Hypothyroidism, unspecified; E11.9 Type 2 diabetes mellitus without complications; Z88.8 Allergy status to other drugs, medicaments and biological substances; Z91.048 Other nonmedicinal substance allergy status; Z79.4 Long term (current) use of insulin; Z79.899 Other long term (current) drug therapy
CPT/HCPCS: J1756

== ENCOUNTER → 2017-08-19 | Outpatient (REF) | payer MEDICARE, BC ==
[2017-08-19 11:33] LABS: HEMATOCRIT 24.5 % (36.0-47.0)
[2017-08-19 12:16] LABS: FERRITIN 1251 NG/ML (8-252); IRON (FE) 80 UG/DL (50-170); PERCENT SATURATION 41.5 % (13.2-45.0); TOTAL IRON BINDING CAPACITY 193 UG/DL (250-450)
== END ==
LOC: M LAB REF 09:37
DX: N18.6 End stage renal disease (principal)
CPT/HCPCS: 83550

== ENCOUNTER → 2017-08-25 | Outpatient (REF) | payer MEDICARE, BC ==
[2017-08-25 12:23] LABS: HEMATOCRIT 27.2 % (36.0-47.0); HEMOGLOBIN 8.9 g/dl (12.0-15.5)
[2017-08-25 12:41] LABS: FERRITIN 1291 NG/ML (8-252); IRON (FE) 66 UG/DL (50-170); PERCENT SATURATION 29.7 % (13.2-45.0); TOTAL IRON BINDING CAPACITY 222 UG/DL (250-450)
== END ==
LOC: M LAB REF 11:29
DX: N18.6 End stage renal disease (principal)
CPT/HCPCS: 83550

== ENCOUNTER → 2017-09-01 | Outpatient (REF) | payer MEDICARE, BC ==
[2017-09-01 13:51] LABS: HEMATOCRIT 25.2 % (36.0-47.0); HEMOGLOBIN 8.3 g/dl (12.0-15.5)
== END ==
LOC: M LAB REF 12:50
DX: N18.6 End stage renal disease (principal)
CPT/HCPCS: 85014

== ENCOUNTER → 2017-09-03 | Outpatient (CLI) | payer MEDICARE, BC ==
[2017-09-03 08:22] LABS: HEMATOCRIT 27.7 % (36.0-47.0); HEMOGLOBIN 9.2 g/dl (12.0-15.5)
[2017-09-04 17:48] LABS: IMMEDIATE SPIN CROSSMATCH 1 2
== END ==
LOC: M LAB 07:50
DX: D64.9 Anemia, unspecified (principal)
CPT/HCPCS: 85014

== ENCOUNTER 2017-09-04 13:06 | Outpatient (CLI) | payer MEDICARE, BC ==
[2017-09-04 13:58] LABS: BEDSIDE GLUCOSE 258 MG/DL (70-105)
[2017-09-04 18:15] LABS: BEDSIDE GLUCOSE 218 MG/DL (70-105)
== END 2017-09-04 21:45 | disposition home or self-care (01) ==
LOC: M OPCLI4PV 13:06 → M MSPAV 13:30 → M OPCLI4PV 21:45
DX: N18.9 Chronic kidney disease, unspecified (principal); D63.1 Anemia in chronic kidney disease; Z79.4 Long term (current) use of insulin; Z79.899 Other long term (current) drug therapy; Z91.048 Other nonmedicinal substance allergy status; Z88.8 Allergy status to other drugs, medicaments and biological substances
CPT/HCPCS: 36430

== ENCOUNTER → 2017-09-05 | Outpatient (REF) | payer MEDICARE, BC ==
[2017-09-05 11:32] LABS: HEMATOCRIT 29.7 % (36.0-47.0); HEMOGLOBIN 9.9 g/dl (12.0-15.5)
== END ==
LOC: M LAB REF 11:12
DX: N18.6 End stage renal disease (principal)
CPT/HCPCS: 85014

== ENCOUNTER → 2017-09-08 | Outpatient (REF) | payer MEDICARE, BC ==
[2017-09-08 17:49] LABS: HEMATOCRIT 30.7 % (36.0-47.0)
== END ==
LOC: M LAB REF 16:15
DX: N18.6 End stage renal disease (principal)
CPT/HCPCS: 85014

== ENCOUNTER → 2017-09-15 | Outpatient (REF) | payer MEDICARE, BC ==
[2017-09-15 14:26] LABS: HEMOGLOBIN 10.2 g/dl (12.0-15.5)
== END ==
LOC: M LAB REF 13:44
DX: N18.6 End stage renal disease (principal)
CPT/HCPCS: 85014

== ENCOUNTER → 2017-09-22 | Outpatient (REF) | payer MEDICARE, BC ==
[2017-09-22 12:11] LABS: HEMOGLOBIN 10.4 g/dl (12.0-15.5)
== END ==
LOC: M LAB REF 11:00
DX: N18.6 End stage renal disease (principal)
CPT/HCPCS: 85014

== ENCOUNTER → 2017-09-28 | Outpatient (REF) | payer MEDICARE, BC ==
[2017-09-29 09:43] LABS: HEMATOCRIT 33.3 % (36.0-47.0); HEMOGLOBIN 10.9 g/dl (12.0-15.5)
== END ==
LOC: M LAB REF 09-29 09:29
DX: N18.6 End stage renal disease (principal)
CPT/HCPCS: 85014

== ENCOUNTER → 2017-10-06 | Outpatient (REF) | payer MEDICARE, BC ==
[2017-10-06 18:47] LABS: HEMATOCRIT 32.8 % (36.0-47.0); HEMOGLOBIN 10.6 g/dl (12.0-15.5)
== END ==
LOC: M LAB REF 16:32
DX: N18.6 End stage renal disease (principal)
CPT/HCPCS: 85014

== ENCOUNTER → 2017-10-14 | Outpatient (REF) | payer MEDICARE, BC ==
[2017-10-14 19:16] LABS: BLOOD UREA NITROGEN 29 MG/DL (7-18)
[2017-10-14 19:23] LABS: ALBUMIN 3.7 GM/DL (3.2-5.2); ALBUMIN/GLOBULIN RATIO 1.48 (1.00-1.93); ALKALINE PHOSPHATASE 357 U/L (45-117); ALT/SGPT 22 U/L (12-78); ANION GAP 16 MEQ/L (8-16); AST/SGOT 20 U/L (7-37); BILIRUBIN,TOTAL 0.5 MG/DL (0.2-1.0); BLOOD UREA NITROGEN 60 MG/DL (7-18); CARBON DIOXIDE LEVEL 27 MEQ/L (21-32); CHLORIDE LEVEL 90 MEQ/L (98-107); GLOMERULAR FILTRATION RATE 5.8 (>51); GLUCOSE, FASTING 83 MG/DL (70-100); PHOSPHORUS LEVEL 3.9 MG/DL (2.5-4.9); POTASSIUM SERUM 4.4 MEQ/L (3.5-5.1); SODIUM LEVEL 133 MEQ/L (136-145); TOTAL PROTEIN 6.2 GM/DL (6.4-8.2)
[2017-10-14 19:26] LABS: CREATININE FOR GFR 8.97 MG/DL (0.55-1.30)
[2017-10-14 20:06] LABS: PTH INTACT 909.5 PG/ML (18.5-88.0)
== END ==
LOC: M LAB REF 16:36
DX: N18.6 End stage renal disease (principal)
CPT/HCPCS: 84100

== ENCOUNTER → 2017-10-27 | Outpatient (REF) | payer MEDICARE, BC ==
[2017-10-27 16:00] LABS: HEMATOCRIT 32.5 % (36.0-47.0); HEMOGLOBIN 10.5 g/dl (12.0-15.5)
== END ==
LOC: M LAB REF 15:36
DX: N18.6 End stage renal disease (principal)
CPT/HCPCS: 85014

== ENCOUNTER → 2017-11-10 | Outpatient (REF) | payer MEDICARE, BC ==
[2017-11-10 17:32] LABS: HEMATOCRIT 33.7 % (36.0-47.0); HEMOGLOBIN 10.8 g/dl (12.0-15.5)
== END ==
LOC: M LAB REF 16:32
DX: N18.6 End stage renal disease (principal)
CPT/HCPCS: 85014

== ENCOUNTER → 2017-11-18 | Outpatient (REF) | payer MEDICARE, BC ==
[2017-11-18 13:59] LABS: HEMATOCRIT 33.8 % (36.0-47.0); HEMOGLOBIN 10.6 g/dl (12.0-15.5)
== END ==
LOC: M LAB REF 13:43
DX: N18.6 End stage renal disease (principal)
CPT/HCPCS: 85014

== ENCOUNTER → 2017-11-24 | Outpatient (REF) | payer MEDICARE, BC ==
[2017-11-24 18:18] LABS: HEMATOCRIT 32.5 % (36.0-47.0); HEMOGLOBIN 10.5 g/dl (12.0-15.5)
== END ==
LOC: M LAB REF 17:50
DX: D50.9 Iron deficiency anemia, unspecified (principal)
CPT/HCPCS: 85014

== ENCOUNTER → 2017-12-08 | Outpatient (REF) | payer MEDICARE, BC ==
[2017-12-08 14:06] LABS: HEMATOCRIT 32.2 % (36.0-47.0); HEMOGLOBIN 10.5 g/dl (12.0-15.5)
== END ==
LOC: M LAB REF 13:28
DX: N18.6 End stage renal disease (principal)
CPT/HCPCS: 85014

== ENCOUNTER → 2017-12-08 | Outpatient (REF) | payer MEDICARE, BC | LOC: M LAB REF 13:17 | DX: N18.6 End stage renal disease (principal) ==

== ENCOUNTER → 2017-12-21 | Outpatient (REF) | payer MEDICARE, BC ==
[2017-12-21 17:46] LABS: HEMATOCRIT 34.6 % (36.0-47.0)
[2017-12-21 17:46] LABS: HEMOGLOBIN 11.5 g/dl (12.0-15.5)
== END ==
LOC: M LAB REF 17:26
DX: N18.6 End stage renal disease (principal)
CPT/HCPCS: 85014

== ENCOUNTER → 2018-02-02 | Outpatient (REF) | payer MEDICARE, BC ==
[2018-02-02 18:15] LABS: HEMATOCRIT 25.9 % (36.0-47.0); HEMOGLOBIN 8.3 g/dl (12.0-15.5)
== END ==
LOC: M LAB REF 17:29
DX: N18.6 End stage renal disease (principal)
CPT/HCPCS: 85014

== ENCOUNTER → 2018-02-09 | Outpatient (REF) | payer MEDICARE, BC ==
[2018-02-09 19:12] LABS: HEMATOCRIT 25.8 % (36.0-47.0); HEMOGLOBIN 8.2 g/dl (12.0-15.5)
== END ==
LOC: M LAB REF 17:25
DX: N18.6 End stage renal disease (principal)
CPT/HCPCS: 85014

== ENCOUNTER → 2018-02-15 | Outpatient (REF) | payer MEDICARE, BC | LOC: M LAB REF 23:00 | DX: N18.6 End stage renal disease (principal) | CPT/HCPCS: 85014 ==

== ENCOUNTER → 2018-02-22 | Outpatient (REF) | payer MEDICARE, BC ==
[2018-02-23 10:13] LABS: HEMATOCRIT 26.6 % (36.0-47.0); HEMOGLOBIN 8.2 g/dl (12.0-15.5)
== END ==
LOC: M LAB REF 02-23 09:09
DX: N18.6 End stage renal disease (principal)
CPT/HCPCS: 85014

== ENCOUNTER → 2018-03-02 | Outpatient (REF) | payer MEDICARE, BC ==
[2018-03-02 22:26] LABS: HEMATOCRIT 25.9 % (36.0-47.0)
[2018-03-02 22:26] LABS: HEMOGLOBIN 8.6 g/dl (12.0-15.5)
== END ==
LOC: M LAB REF 22:17
DX: N18.6 End stage renal disease (principal)
CPT/HCPCS: 85014

== ENCOUNTER → 2018-03-09 | Outpatient (REF) | payer BC, MEDICARE ==
[~2018-03-09] MED LIST changes: -AMLO5TAB2 PO; +AMLO5TAB6 PO; +AUGM875T28 PO; +CALC1CAP31 PO; +CARV12.5 PO; +DIOV40TA PO; -DRIS50002 PO; +DRIS50003 PO; +FERR1TAB8 PO; +FISH7.5C PO; +HUMA100I3 SC; +KLOR10TA76 PO; +KRIL1000 PO; -LASI40TA PO; +LASI40TA9 PO; +LORA-243 PO; -LORA10TA2 PO; +LOSA25TA14 PO; -POTA10CA PO; +SENS90TA PO; +TURM450C PO; +VALS1TAB46 PO; -ZOFR20TA PO; +ZOFR4TAB16 PO; +tumeric PO
[2018-03-10 00:20] LABS: HEMATOCRIT 26.2 % (36.0-47.0); HEMOGLOBIN 8.4 g/dl (12.0-15.5)
== END ==
LOC: M LAB 23:34 → EDSTATUS 05-12 15:19
PROVIDERS: ATTEND Internal Medicine
DX: N18.6 End stage renal disease (principal); Z88.8 Allergy status to other drugs, medicaments and biological substances

== ENCOUNTER → 2018-03-15 | Outpatient (REF) | payer MEDICARE, BC ==
[2018-03-15 15:13] LABS: HEMATOCRIT 27.5 % (36.0-47.0)
[2018-03-15 15:13] LABS: HEMOGLOBIN 8.8 g/dl (12.0-15.5)
== END ==
LOC: M LAB REF 14:53
DX: N18.9 Chronic kidney disease, unspecified (principal); D63.1 Anemia in chronic kidney disease
CPT/HCPCS: 85014

== ENCOUNTER → 2018-03-22 | Outpatient (REF) | payer MEDICARE, BC ==
[2018-03-22 18:36] LABS: HEMOGLOBIN 8.9 g/dl (12.0-15.5)
== END ==
LOC: M LAB REF 03-23 15:39
DX: N18.6 End stage renal disease (principal); D63.1 Anemia in chronic kidney disease
CPT/HCPCS: 85014

== ENCOUNTER 2018-03-28 18:37 | Inpatient (IN) | payer MEDICARE, BC ==
[2018-03-28 21:15] LABS: BASO # 0.1 10^3/uL (0.0-0.2); BASO % 0.6 % (0.0-1.0); EOS # 0.1 10^3/uL (0.0-0.50); EOS % 1.8 % (0.0-3.0); HEMATOCRIT 32.7 % (36.0-47.0); HEMOGLOBIN 10.9 g/dl (12.0-15.5); IMMATURE GRANULOCYTE % 0.3 % (0-3.0); LYMPH % 12.7 % (24.0-44.0); MEAN CORPUSCULAR HEMOGLOBIN 32.9 pg (27.0-33.0); MEAN CORPUSCULAR HGB CONC 33.3 g/dl (32.0-36.5); MEAN CORPUSCULAR VOLUME 98.8 fl (80.0-96.0); MONO # 0.8 10^3/uL (0.0-0.8); MONO % 9.6 % (0.0-5.0); NEUTROPHILS # 5.8 10^3/uL (1.8-7.7); PLATELET COUNT, AUTOMATED 157 10^3/uL (150-450); RED BLOOD COUNT 3.31 10^6/uL (4.00-5.40); RED CELL DISTRIBUTION WIDTH 14.9 % (11.5-14.5); WHITE BLOOD COUNT 7.8 10^3/uL (4.0-10.0)
[2018-03-28] MEDS ORDERED: ONDANSETRON 4MG/2ML VIAL (J2405) As Ordered (21:54)
[2018-03-28] MEDS: hydrALAZINE INJ 20 MG/ML VIAL IV ×2 (21:57→22:50)
[2018-03-28] MEDS: ONDANSETRON 4MG/2ML VIAL (J2405) IV (22:02)
[2018-03-28 23:26] LABS: ALBUMIN 3.9 GM/DL (3.2-5.2); ALBUMIN/GLOBULIN RATIO 1.03 (1.00-1.93); ALKALINE PHOSPHATASE 233 U/L (45-117); ALT/SGPT 28 U/L (12-78); ANION GAP 9 MEQ/L (8-16); AST/SGOT 61 U/L (7-37); BILIRUBIN,DIRECT 0.3 MG/DL (0.0-0.2); BILIRUBIN,TOTAL 1.7 MG/DL (0.2-1.0); BLOOD UREA NITROGEN 37 MG/DL (7-18); CALCIUM LEVEL 9.2 MG/DL (8.5-10.1); CARBON DIOXIDE LEVEL 32 MEQ/L (21-32); CHLORIDE LEVEL 95 MEQ/L (98-107); CPK CREATINE PHOSPHOKINASE 238 U/L (26-192); CREATININE FOR GFR 4.82 MG/DL (0.55-1.30); GLUCOSE, FASTING 146 MG/DL (70-100); LIPASE 306 U/L (73-393); MB/CK RELATIVE INDEX 0.59 (< OR =4); POTASSIUM SERUM 3.6 MEQ/L (3.5-5.1); SODIUM LEVEL 136 MEQ/L (136-145); TOTAL PROTEIN 7.7 GM/DL (6.4-8.2); TROPONIN I 0.09 NG/ML (< 0.10)
[2018-03-29] MEDS ORDERED: DEXTROSE 50% 50 ML SYRINGE IV (02:00)
[2018-03-29] MEDS ORDERED: GLUCAGON FOR INJ 1 MG VIAL (J1610) SC (02:00)
[2018-03-29] MEDS ORDERED: GLUCOSE 4 GM CHEW TABLET PO (02:00)
[2018-03-29] MEDS ORDERED: ONDANSETRON 4MG/2ML VIAL (J2405) IV (02:00)
[2018-03-29] MEDS: PIPERACILLIN/TAZOBACTAM SOD 2.25 GM in D5W MINI-BAG PLUS 50 ML IV ×3 (02:53→17:23)
[2018-03-29] MEDS: hydrALAZINE INJ 20 MG/ML VIAL IV ×2 (02:53→06:50)
[2018-03-29] MEDS: NS 1,000 ML IV (04:37)
[2018-03-29] MEDS: METOPROLOL 5 MG/5 ML VIAL IV (04:59)
[2018-03-29 06:14] LABS: BASO % 0.5 % (0.0-1.0); EOS # 0.1 10^3/uL (0.0-0.50); EOS % 1.5 % (0.0-3.0); HEMATOCRIT 35.3 % (36.0-47.0); HEMOGLOBIN 11.7 g/dl (12.0-15.5); IMMATURE GRANULOCYTE % 0.3 % (0-3.0); MEAN CORPUSCULAR HEMOGLOBIN 33.2 pg (27.0-33.0); MEAN CORPUSCULAR HGB CONC 33.1 g/dl (32.0-36.5); MEAN CORPUSCULAR VOLUME 100.3 fl (80.0-96.0); MONO # 0.9 10^3/uL (0.0-0.8); MONO % 10.4 % (0.0-5.0); NEUTROPHILS # 6.7 10^3/uL (1.8-7.7); NEUTROPHILS % 76.3 % (36.0-66.0); PLATELET COUNT, AUTOMATED 161 10^3/uL (150-450); RED BLOOD COUNT 3.52 10^6/uL (4.00-5.40); RED CELL DISTRIBUTION WIDTH 15.1 % (11.5-14.5); WHITE BLOOD COUNT 8.8 10^3/uL (4.0-10.0)
[2018-03-29 06:48] LABS: BEDSIDE GLUCOSE 159 MG/DL (70-105)
[2018-03-29] MEDS: HEPARIN SOD (PORCINE) 5000 UNITS/ML VIAL SC ×3 (06:50→21:17)
[2018-03-29] MEDS: HumaLOG INSULIN (NovoLOG) PER UNIT SC ×4 (06:51→21:22)
[2018-03-29 07:14] LABS: ALBUMIN 3.4 GM/DL (3.2-5.2); ALBUMIN/GLOBULIN RATIO 0.94 (1.00-1.93); ALKALINE PHOSPHATASE 214 U/L (45-117); ALT/SGPT 22 U/L (12-78); ANION GAP 11 MEQ/L (8-16); AST/SGOT 39 U/L (7-37); BILIRUBIN,TOTAL 1.1 MG/DL (0.2-1.0); BLOOD UREA NITROGEN 39 MG/DL (7-18); CALCIUM LEVEL 8.8 MG/DL (8.5-10.1); CARBON DIOXIDE LEVEL 31 MEQ/L (21-32); CHLORIDE LEVEL 95 MEQ/L (98-107); CPK CREATINE PHOSPHOKINASE 216 U/L (26-192); CREATININE FOR GFR 5.72 MG/DL (0.55-1.30); GLOMERULAR FILTRATION RATE 9.8 (>51); GLUCOSE, FASTING 157 MG/DL (70-100); MAGNESIUM LEVEL 1.9 MG/DL (1.8-2.4); MB/CK RELATIVE INDEX 0.51 (< OR =4); POTASSIUM SERUM 3.2 MEQ/L (3.5-5.1); SODIUM LEVEL 137 MEQ/L (136-145)
[2018-03-29] MEDS: LANTHANUM CARBONATE 500 MG CHEW TABLET PO ×3 (08:00→17:45)
[2018-03-29] MEDS: amLODIPine 5 MG TAB PO ×2 (09:16→21:23)
[2018-03-29] MEDS: CARVedilol 12.5 MG TAB PO ×2 (09:17→21:22)
[2018-03-29] MEDS: LOSARTAN 25 MG TAB PO (09:17)
[2018-03-29] MEDS: CINACALCET 30 MG TAB (SENSIPAR) PO ×2 (10:48→21:16)
[2018-03-29] MEDS: FERROUS SULFATE 325MG TAB PO ×2 (10:49→21:17)
[2018-03-29] MEDS: OMEGA-3 1000MG CAPSULE PO (10:49)
[2018-03-29] MEDS: CALCITRIOL 0.25 MCG CAP (S0169) PO (10:49)
[2018-03-29 12:38] LABS: BEDSIDE GLUCOSE 208 MG/DL (70-105)
[2018-03-29 17:27] LABS: BEDSIDE GLUCOSE 83 MG/DL (70-105)
[2018-03-29] MEDS: PRAVASTATIN 20 MG TAB PO (21:16)
[2018-03-29] MEDS: ACETAMINOPHEN TAB 650MG DOSE (2X325MG) PO (21:18)
[2018-03-29] MEDS: LEVEMIR (INSULIN DETEMIR) 1 UNITS/0.01ML SC (21:21)
[2018-03-29 21:31] LABS: BEDSIDE GLUCOSE 261 MG/DL (70-105)
[2018-03-30] MEDS: PIPERACILLIN/TAZOBACTAM SOD 2.25 GM in D5W MINI-BAG PLUS 50 ML IV ×3 (01:13→18:09)
[2018-03-30 04:32] LABS: HEMATOCRIT 32.6 % (36.0-47.0); HEMOGLOBIN 10.6 g/dl (12.0-15.5); MEAN CORPUSCULAR HEMOGLOBIN 32.4 pg (27.0-33.0); MEAN CORPUSCULAR HGB CONC 32.5 g/dl (32.0-36.5); MEAN CORPUSCULAR VOLUME 99.7 fl (80.0-96.0); PLATELET COUNT, AUTOMATED 160 10^3/uL (150-450); RED BLOOD COUNT 3.27 10^6/uL (4.00-5.40); RED CELL DISTRIBUTION WIDTH 14.5 % (11.5-14.5); WHITE BLOOD COUNT 7.7 10^3/uL (4.0-10.0)
[2018-03-30 04:58] LABS: ALBUMIN 3.3 GM/DL (3.2-5.2); ALBUMIN/GLOBULIN RATIO 0.97 (1.00-1.93); ALKALINE PHOSPHATASE 182 U/L (45-117); ALT/SGPT 16 U/L (12-78); ANION GAP 11 MEQ/L (8-16); AST/SGOT 18 U/L (7-37); BILIRUBIN,TOTAL 0.8 MG/DL (0.2-1.0); BLOOD UREA NITROGEN 64 MG/DL (7-18); CALCIUM LEVEL 8.3 MG/DL (8.5-10.1); CARBON DIOXIDE LEVEL 29 MEQ/L (21-32); CHLORIDE LEVEL 94 MEQ/L (98-107); CREATININE FOR GFR 8.93 MG/DL (0.55-1.30); GLOMERULAR FILTRATION RATE 5.9 (>51); GLUCOSE, FASTING 124 MG/DL (70-100); MAGNESIUM LEVEL 1.9 MG/DL (1.8-2.4); POTASSIUM SERUM 3.3 MEQ/L (3.5-5.1); SODIUM LEVEL 134 MEQ/L (136-145); TOTAL PROTEIN 6.7 GM/DL (6.4-8.2)
[2018-03-30] MEDS: HEPARIN SOD (PORCINE) 5000 UNITS/ML VIAL SC ×3 (06:00→21:08)
[2018-03-30] MEDS: OMEGA-3 1000MG CAPSULE PO (08:47)
[2018-03-30] MEDS: LANTHANUM CARBONATE 500 MG CHEW TABLET PO ×3 (08:47→18:10)
[2018-03-30] MEDS: HumaLOG INSULIN (NovoLOG) PER UNIT SC ×4 (08:47→21:00)
[2018-03-30] MEDS: CINACALCET 30 MG TAB (SENSIPAR) PO ×2 (08:47→21:08)
[2018-03-30] MEDS: CALCITRIOL 0.25 MCG CAP (S0169) PO (08:47)
[2018-03-30] MEDS: FERROUS SULFATE 325MG TAB PO ×2 (08:48→21:09)
[2018-03-30] MEDS: CARVedilol 12.5 MG TAB PO ×2 (08:48→21:09)
[2018-03-30] MEDS: LOSARTAN 25 MG TAB PO (08:48)
[2018-03-30 12:13] LABS: BEDSIDE GLUCOSE 215 MG/DL (70-105)
[2018-03-30 17:16] LABS: BEDSIDE GLUCOSE 174 MG/DL (70-105)
[2018-03-30] MEDS: PRAVASTATIN 20 MG TAB PO (21:08)
[2018-03-30] MEDS: amLODIPine 5 MG TAB PO (21:09)
[2018-03-30 21:17] LABS: BEDSIDE GLUCOSE 207 MG/DL (70-105)
[2018-03-30] MEDS: LEVEMIR (INSULIN DETEMIR) 1 UNITS/0.01ML SC (21:18)
[2018-03-31] MEDS: PIPERACILLIN/TAZOBACTAM SOD 2.25 GM in D5W MINI-BAG PLUS 50 ML IV ×2 (01:36→10:28)
[2018-03-31 05:02] LABS: HEMATOCRIT 29.8 % (36.0-47.0); HEMOGLOBIN 9.9 g/dl (12.0-15.5); MEAN CORPUSCULAR HGB CONC 33.2 g/dl (32.0-36.5); MEAN CORPUSCULAR VOLUME 99.3 fl (80.0-96.0); PLATELET COUNT, AUTOMATED 146 10^3/uL (150-450); RED CELL DISTRIBUTION WIDTH 13.7 % (11.5-14.5); WHITE BLOOD COUNT 8.3 10^3/uL (4.0-10.0)
[2018-03-31 05:36] LABS: ALBUMIN 3.1 GM/DL (3.2-5.2); ALBUMIN/GLOBULIN RATIO 0.89 (1.00-1.93); ALKALINE PHOSPHATASE 171 U/L (45-117); ALT/SGPT 19 U/L (12-78); ANION GAP 12 MEQ/L (8-16); AST/SGOT 19 U/L (7-37); BILIRUBIN,TOTAL 0.4 MG/DL (0.2-1.0); BLOOD UREA NITROGEN 75 MG/DL (7-18); CALCIUM LEVEL 7.6 MG/DL (8.5-10.1); CARBON DIOXIDE LEVEL 29 MEQ/L (21-32); CHLORIDE LEVEL 94 MEQ/L (98-107); GLOMERULAR FILTRATION RATE 4.5 (>51); GLUCOSE, FASTING 203 MG/DL (70-100); POTASSIUM SERUM 3.3 MEQ/L (3.5-5.1); SODIUM LEVEL 135 MEQ/L (136-145); TOTAL PROTEIN 6.6 GM/DL (6.4-8.2)
[2018-03-31] MEDS: HEPARIN SOD (PORCINE) 5000 UNITS/ML VIAL SC (05:39)
[2018-03-31 07:54] LABS: BEDSIDE GLUCOSE 166 MG/DL (70-105)
[2018-03-31] MEDS: FERROUS SULFATE 325MG TAB PO (08:22)
[2018-03-31] MEDS: OMEGA-3 1000MG CAPSULE PO (08:22)
[2018-03-31] MEDS: CINACALCET 30 MG TAB (SENSIPAR) PO (08:22)
[2018-03-31] MEDS: CALCITRIOL 0.25 MCG CAP (S0169) PO (08:22)
[2018-03-31] MEDS: LANTHANUM CARBONATE 500 MG CHEW TABLET PO (08:23)
[2018-03-31] MEDS: HumaLOG INSULIN (NovoLOG) PER UNIT SC (08:23)
[2018-03-31] MEDS: CARVedilol 12.5 MG TAB PO (08:23)
[2018-03-31] MEDS: LOSARTAN 25 MG TAB PO (08:24)
== END 2018-03-31 11:30 | disposition home or self-care (01) | DRG 391 ==
LOC: M ED INP 03-29 01:50 → M ICU 03-29 04:13 → M ED 18:37
DX: R11.2 Nausea with vomiting, unspecified (principal); N18.6 End stage renal disease; Z94.0 Kidney transplant status; N25.81 Secondary hyperparathyroidism of renal origin; I16.0 Hypertensive urgency; E11.9 Type 2 diabetes mellitus without complications; E78.5 Hyperlipidemia, unspecified; D63.1 Anemia in chronic kidney disease; Z79.899 Other long term (current) drug therapy; D50.9 Iron deficiency anemia, unspecified

== ENCOUNTER → 2018-04-03 | Outpatient (REF) | payer MEDICARE, BC ==
[2018-04-03 18:03] LABS: BASO # 0.1 10^3/uL (0.0-0.2); BASO % 0.8 % (0.0-1.0); EOS # 0.1 10^3/uL (0.0-0.50); EOS % 2.2 % (0.0-3.0); HEMATOCRIT 31.2 % (36.0-47.0); HEMOGLOBIN 10.2 g/dl (12.0-15.5); IMMATURE GRANULOCYTE % 0.2 % (0-3.0); LYMPH # 1.1 10^3/uL (1.5-4.5); LYMPH % 17.4 % (24.0-44.0); MEAN CORPUSCULAR HEMOGLOBIN 31.9 pg (27.0-33.0); MEAN CORPUSCULAR HGB CONC 32.7 g/dl (32.0-36.5); MEAN CORPUSCULAR VOLUME 97.5 fl (80.0-96.0); MONO # 0.7 10^3/uL (0.0-0.8); MONO % 11.5 % (0.0-5.0); NEUTROPHILS # 4.3 10^3/uL (1.8-7.7); NEUTROPHILS % 67.9 % (36.0-66.0); PLATELET COUNT, AUTOMATED 147 10^3/uL (150-450); RED CELL DISTRIBUTION WIDTH 13.2 % (11.5-14.5); WHITE BLOOD COUNT 6.3 10^3/uL (4.0-10.0)
[2018-04-03 18:07] LABS: ANION GAP 13 MEQ/L (8-16); BLOOD UREA NITROGEN 32 MG/DL (7-18); CARBON DIOXIDE LEVEL 31 MEQ/L (21-32); CHLORIDE LEVEL 93 MEQ/L (98-107); CREATININE FOR GFR 4.65 MG/DL (0.55-1.30); GLOMERULAR FILTRATION RATE 12.5 (>51); GLUCOSE, FASTING 96 MG/DL (70-100); POTASSIUM SERUM 3.2 MEQ/L (3.5-5.1); SODIUM LEVEL 137 MEQ/L (136-145)
== END ==
LOC: M LABDRAW1 16:56
DX: N18.5 Chronic kidney disease, stage 5 (principal); D63.1 Anemia in chronic kidney disease
CPT/HCPCS: 80048

== ENCOUNTER → 2018-04-12 | Outpatient (REF) | payer MEDICARE, BC ==
[~2018-04-12] MED LIST changes: +AMLO5TAB4 PO; -AMLO5TAB6 PO; +LASI40TA PO; -LASI40TA9 PO; -LOSA25TA14 PO; +LOSA25TA33 PO
[2018-04-13 10:38] LABS: HEMATOCRIT 30.8 % (36.0-47.0); HEMOGLOBIN 9.8 g/dl (12.0-15.5)
== END ==
LOC: M LAB REF 10:11
PROVIDERS: ATTEND Internal Medicine
DX: N18.6 End stage renal disease (principal)

== ENCOUNTER → 2018-04-13 | Outpatient (REF) | payer MEDICARE, BC ==
[2018-04-14 10:02] LABS: HEMATOCRIT 28.7 % (36.0-47.0); HEMOGLOBIN 9.2 g/dl (12.0-15.5); MEAN CORPUSCULAR HEMOGLOBIN 32.6 pg (27.0-33.0); MEAN CORPUSCULAR HGB CONC 32.1 g/dl (32.0-36.5); MEAN CORPUSCULAR VOLUME 101.8 fl (80.0-96.0); PLATELET COUNT, AUTOMATED 161 10^3/uL (150-450); RED BLOOD COUNT 2.82 10^6/uL (4.00-5.40); WHITE BLOOD COUNT 7.6 10^3/uL (4.0-10.0)
[2018-04-14 11:06] LABS: ALBUMIN 3.6 GM/DL (3.2-5.2); BILIRUBIN,TOTAL 0.5 MG/DL (0.2-1.0); CALCIUM LEVEL 8.3 MG/DL (8.5-10.1); CREATININE FOR GFR 8.29 MG/DL (0.55-1.30); GLOMERULAR FILTRATION RATE 6.4 (>51); PHOSPHORUS LEVEL 3.5 MG/DL (2.5-4.9); POTASSIUM SERUM 3.4 MEQ/L (3.5-5.1); TOTAL PROTEIN 6.9 GM/DL (6.4-8.2)
== END ==
LOC: M LAB REF 09:27
PROVIDERS: ATTEND Internal Medicine
DX: N18.6 End stage renal disease (principal)

== ENCOUNTER → 2018-05-04 | Outpatient (REF) | payer MEDICARE, BC ==
[~2018-05-04] MED LIST changes: -AMLO5TAB4 PO; +AMLO5TAB6 PO; -LASI40TA PO; +LASI40TA9 PO; +LOSA25TA14 PO; -LOSA25TA33 PO
[2018-05-04 14:48] LABS: HEMATOCRIT 24.7 % (36.0-47.0); HEMOGLOBIN 7.7 g/dl (12.0-15.5)
== END ==
LOC: M LAB REF 14:40
PROVIDERS: ATTEND Internal Medicine
DX: N18.6 End stage renal disease (principal); D63.1 Anemia in chronic kidney disease

== ENCOUNTER → 2018-05-11 | Outpatient (REF) | payer MEDICARE, BC ==
[2018-05-11 19:23] LABS: HEMATOCRIT 24.8 % (36.0-47.0); HEMOGLOBIN 7.8 g/dl (12.0-15.5)
== END ==
LOC: M LAB REF 17:32
PROVIDERS: ATTEND Internal Medicine
DX: N18.6 End stage renal disease (principal); D63.1 Anemia in chronic kidney disease

== ENCOUNTER → 2018-05-21 | Outpatient (CLI) | payer MEDICARE, BC ==
--- NOTE | 2018-05-21 17:06 | REP ---
PELVIS AND LEFT HIP: AP view of the pelvis and two views of the left hip are performed. There are no fracture or dislocation seen. There is mild bilateral joint space narrowing with subchondral sclerosis and spurring as well as mild subchondral cystic change in the acetabula. No pelvic phleboliths are seen in the pelvis. There are also scattered vascular calcifications extending into the lower extremities. IMPRESSION: Arthritic changes of the hips. Electronically Signed by Tay Bell MD 05/21/2018 07:46 P
== END ==
LOC: M WUC 15:15
PROVIDERS: ATTEND Physician Assistant
DX: M16.12 Unilateral primary osteoarthritis, left hip (principal); M25.552 Pain in left hip

== ENCOUNTER → 2018-05-25 | Outpatient (REF) | payer MEDICARE, BC ==
[2018-05-25 21:00] LABS: HEMATOCRIT 27.8 % (36.0-47.0); HEMOGLOBIN 8.6 g/dl (12.0-15.5)
== END ==
LOC: M LAB REF 19:07
PROVIDERS: ATTEND Internal Medicine
DX: N18.6 End stage renal disease (principal); D63.1 Anemia in chronic kidney disease

== ENCOUNTER → 2018-06-02 | Outpatient (REF) | payer MEDICARE, BC ==
[2018-06-02 13:54] LABS: HEMATOCRIT 25.1 % (36.0-47.0); HEMOGLOBIN 7.8 g/dl (12.0-15.5)
== END ==
LOC: M LAB REF 13:23
PROVIDERS: ATTEND Nurse Practitioner Gerontology
DX: N18.6 End stage renal disease (principal); D63.1 Anemia in chronic kidney disease

== ENCOUNTER → 2018-06-03 | Outpatient (REF) | payer MEDICARE, BC ==
[~2018-06-03] MED LIST changes: +AMLO10TA5 PO; +CLONI1TA PO; +COLA100C5 PO; +DARB100SYR IV; +MILK120011 PO; +RETA1000 INJ; +[UNRECOGNIZED DRUG - OTHER]
[2018-06-03 13:38] LABS: HEMATOCRIT 27.1 % (36.0-47.0); HEMOGLOBIN 8.6 g/dl (12.0-15.5); MEAN CORPUSCULAR HEMOGLOBIN 32.8 pg (27.0-33.0); MEAN CORPUSCULAR HGB CONC 31.7 g/dl (32.0-36.5); MEAN CORPUSCULAR VOLUME 103.4 fl (80.0-96.0); PLATELET COUNT, AUTOMATED 199 10^3/uL (150-450); RED BLOOD COUNT 2.62 10^6/uL (4.00-5.40); WHITE BLOOD COUNT 6.7 10^3/uL (4.0-10.0)
[2018-06-03 14:48] LABS: ALBUMIN 3.8 GM/DL (3.2-5.2); BILIRUBIN,TOTAL 0.6 MG/DL (0.2-1.0); CALCIUM LEVEL 8.6 MG/DL (8.5-10.1); CHOLESTEROL RISK RATIO 1.965 (<5); CREATININE FOR GFR 9.01 MG/DL (0.55-1.30); GLOMERULAR FILTRATION RATE 5.8 (>51); PHOSPHORUS LEVEL 3.9 MG/DL (2.5-4.9); POTASSIUM SERUM 3.9 MEQ/L (3.5-5.1); PTH INTACT 558.3 PG/ML (18.5-88.0); TOTAL PROTEIN 7.1 GM/DL (6.4-8.2)
== END ==
LOC: M LAB REF 12:29
PROVIDERS: ATTEND Internal Medicine
DX: N18.6 End stage renal disease (principal); D50.9 Iron deficiency anemia, unspecified

== ENCOUNTER → 2018-06-09 | Outpatient (REF) | payer MEDICARE, BC ==
[~2018-06-09] MED LIST changes: -AMLO10TA5 PO; -CLONI1TA PO; -COLA100C5 PO; -DARB100SYR IV; -MILK120011 PO; -RETA1000 INJ; -[UNRECOGNIZED DRUG - OTHER]
[2018-06-09 18:18] LABS: HEMATOCRIT 25.9 % (36.0-47.0); HEMOGLOBIN 8.5 g/dl (12.0-15.5)
== END ==
LOC: M LAB REF 16:55
PROVIDERS: ATTEND Internal Medicine
DX: N18.6 End stage renal disease (principal); D63.1 Anemia in chronic kidney disease

== ENCOUNTER → 2018-06-12 | Outpatient (REF) | payer MEDICARE, BC ==
[2018-06-12 21:05] LABS: HEMATOCRIT 26.8 % (36.0-47.0); HEMOGLOBIN 8.6 g/dl (12.0-15.5)
== END ==
LOC: M LAB REF 16:00
PROVIDERS: ATTEND Internal Medicine
DX: N18.6 End stage renal disease (principal); D63.1 Anemia in chronic kidney disease

== ENCOUNTER → 2018-06-16 | Outpatient (REF) | payer MEDICARE, BC ==
[2018-06-16 12:09] LABS: HEMATOCRIT 25.1 % (36.0-47.0); HEMOGLOBIN 8.2 g/dl (12.0-15.5)
== END ==
LOC: M LAB REF 10:03
PROVIDERS: ATTEND Internal Medicine
DX: N18.6 End stage renal disease (principal); D63.1 Anemia in chronic kidney disease

== ENCOUNTER → 2018-06-18 | Outpatient (REF) | payer MEDICARE, BC ==
[2018-06-18 20:28] LABS: HEMATOCRIT 26.2 % (36.0-47.0); HEMOGLOBIN 8.3 g/dl (12.0-15.5)
== END ==
LOC: M LAB REF 11:17
PROVIDERS: ATTEND Internal Medicine
DX: N18.6 End stage renal disease (principal); D63.1 Anemia in chronic kidney disease

== ENCOUNTER → 2018-06-24 | Outpatient (REF) | payer MEDICARE, BC ==
[~2018-06-24] MED LIST changes: +AMLO10TA5 PO; +CLONI1TA PO; +COLA100C5 PO; +DARB100SYR IV; +MILK120011 PO; +RETA1000 INJ; +[UNRECOGNIZED DRUG - OTHER]
[2018-06-24 13:48] LABS: HEMOGLOBIN 8.1 g/dl (12.0-15.5)
== END ==
LOC: M LAB REF 13:29
PROVIDERS: ATTEND Internal Medicine
DX: D64.9 Anemia, unspecified (principal)

== ENCOUNTER 2018-06-25 10:26 | Inpatient (IN) | payer MEDICARE ==
[~2018-06-25] VITALS: Ht 168.9 cm; Wt 90.1 kg
[~2018-06-25 10:26] MED LIST changes: -AMLO10TA5 PO; -CLONI1TA PO; -COLA100C5 PO; -DARB100SYR IV; -MILK120011 PO; -RETA1000 INJ; -[UNRECOGNIZED DRUG - OTHER]
[2018-06-25] MEDS ORDERED: [UNRECOGNIZED DRUG - OTHER] (11:57)
[2018-06-25 12:13] LABS: BASO % 0.4 % (0.0-1.0); EOS # 0.1 10^3/uL (0.0-0.50); EOS % 1.3 % (0.0-3.0); HEMATOCRIT 25.6 % (36.0-47.0); HEMOGLOBIN 8.4 g/dl (12.0-15.5); LYMPH # 0.8 10^3/uL (1.5-4.5); LYMPH % 11.6 % (24.0-44.0); MEAN CORPUSCULAR HEMOGLOBIN 33.6 pg (27.0-33.0); MEAN CORPUSCULAR HGB CONC 32.8 g/dl (32.0-36.5); MEAN CORPUSCULAR VOLUME 102.4 fl (80.0-96.0); MONO # 0.6 10^3/uL (0.0-0.8); MONO % 8.2 % (0.0-5.0); NEUTROPHILS # 5.3 10^3/uL (1.8-7.7); NEUTROPHILS % 78.1 % (36.0-66.0); PLATELET COUNT, AUTOMATED 155 10^3/uL (150-450); WHITE BLOOD COUNT 6.8 10^3/uL (4.0-10.0)
--- NOTE | 2018-06-25 12:38 | REP ---
Clinical: Cough and dyspnea. Comparison: 03/29/2018. Findings: Cardiomegaly and increased markings/opacities suggesting chronic change with possible superimposed pulmonary edema. No pneumothorax. Skeletal structures intact. Impression: Cardiomegaly and chronic appearing interstitial changes. Superimposed pulmonary edema cannot be excluded. Electronically Signed by Brian Gallardo MD 06/25/2018 12:28 P
[2018-06-25 12:55] LABS: BILIRUBIN,DIRECT 0.2 MG/DL (0.0-0.2); BILIRUBIN,TOTAL 0.6 MG/DL (0.2-1.0); CALCIUM LEVEL 8.3 MG/DL (8.5-10.1); CREATININE FOR GFR 4.61 MG/DL (0.55-1.30); GLOMERULAR FILTRATION RATE 12.5 (>51); MB/CK RELATIVE INDEX 1.13 (< OR =4); POTASSIUM SERUM 4.2 MEQ/L (3.5-5.1); TROPONIN I 0.04 NG/ML (< 0.10)
[2018-06-25 13:33] LABS: INFLUENZA A AMPLIFICATION NEGATIVE (NEGATIVE); INFLUENZA B AMPLIFICATION NEGATIVE (NEGATIVE)
[2018-06-25 17:39] VITALS: O2SAT 85
[2018-06-25] MEDS ORDERED: AMLO10TA5 PO (18:42)
[2018-06-25] MEDS ORDERED: COLA100C5 PO (18:42)
[2018-06-25] MEDS ORDERED: RETA1000 INJ (18:42)
[2018-06-25] MEDS ORDERED: MILK120011 PO (18:42)
[2018-06-25] MEDS ORDERED: CLONI1TA PO (18:42)
[2018-06-25] MEDS ORDERED: LEVEMIR (INSULIN DETEMIR) 1 UNITS/0.01ML SC SCH (21:00)
--- NOTE | 2018-06-25 21:56 | REPVR ---
EXAM: CT Chest Without Contrast EXAM DATE/TIME: 06/25/18 (8:53pm) CLINICAL HISTORY: 58 year old female with SOB TECHNIQUE: Axial computed tomography images of the chest without intravenous contrast. All CT scans at this facility use at least one of these dose optimization techniques: automated exposure control; mA and/or kV adjustment per patient size (includes targeted exams where dose is matched to clinical indication); or iterative reconstruction. Coronal and sagittal reformatted images were created and reviewed. MIP reconstructed images were created and reviewed. COMPARISON: CT CHEST of 07/30/17 FINDINGS: Lungs: No masses. Bibasilar atelectatic changes. Some consolidation and/or atelectasis at the right lung base. Possible vascular congestion. Pleural space: No pneumothorax. Small bilateral pleural effusions. Heart: Cardiomegaly. No pericardial effusion. Aorta: Normal. No aortic aneurysm. Lymph nodes: Nonspecific paratracheal adenopathy (unchanged). Bones/joints: No acute fracture. Generalized sclerosis of the bones (also seen 10 months ago). Soft tissues: Unremarkable. Thyroid gland: Enlarged thyroid gland (both lobes) (unchanged appearance). IMPRESSION: Small bilateral pleural effusions (not present 10 months ago). Bibasilar atelectatic changes. Cannot exclude RLL pneumonia (vs. atelectasis). Stable cardiomegaly. Possible vascular congestion. Generalized bony sclerosis (unchanged appearance). Enlarged thyroid gland (unchanged). See additional comments above. Electronically signed by: Melodie Yancey On 06/25/2018 21:56:16 PM
[2018-06-25] MEDS ORDERED: ACETAMINOPHEN TAB 650MG DOSE (2X325MG) PO ONE (22:15)
[2018-06-25] MEDS: CINACALCET 30 MG TAB (SENSIPAR) PO SCH (23:36)
[2018-06-25] MEDS: PRAVASTATIN 20 MG TAB PO SCH (23:37)
[2018-06-25] MEDS: LOSARTAN 25 MG TAB PO SCH (23:37)
[2018-06-25] MEDS: amLODIPine 10 MG TAB PO SCH (23:37)
[2018-06-25] MEDS: CARVedilol 12.5 MG TAB PO SCH (23:38)
[2018-06-25] MEDS: cloNIDine 0.1 MG TAB PO SCH (23:38)
[2018-06-26] MEDS: DOCUSATE SODIUM 100 MG CAP PO SCH ×2 (01:57→20:05)
[2018-06-26] MEDS: HEPARIN SOD (PORCINE) 5000 UNITS/ML VIAL SC SCH ×3 (05:54→22:24)
[2018-06-26 06:01] VITALS: BP 152/70
[2018-06-26 06:40] LABS: HEMATOCRIT 25.5 % (36.0-47.0); HEMOGLOBIN 8.2 g/dl (12.0-15.5); MEAN CORPUSCULAR HEMOGLOBIN 32.9 pg (27.0-33.0); MEAN CORPUSCULAR HGB CONC 32.2 g/dl (32.0-36.5); MEAN CORPUSCULAR VOLUME 102.4 fl (80.0-96.0); PLATELET COUNT, AUTOMATED 158 10^3/uL (150-450); RED BLOOD COUNT 2.49 10^6/uL (4.00-5.40); WHITE BLOOD COUNT 6.6 10^3/uL (4.0-10.0)
[2018-06-26 07:03] LABS: ALBUMIN 2.8 GM/DL (3.2-5.2); BILIRUBIN,TOTAL 0.5 MG/DL (0.2-1.0); CALCIUM LEVEL 8.3 MG/DL (8.5-10.1); CREATININE FOR GFR 6.97 MG/DL (0.55-1.30); GLOMERULAR FILTRATION RATE 7.8 (>51); POTASSIUM SERUM 3.8 MEQ/L (3.5-5.1)
[2018-06-26] MEDS: HumaLOG INSULIN (NovoLOG) PER UNIT SC SCH ×4 (07:30→20:47)
[2018-06-26 08:00] VITALS: BP 170/80
[2018-06-26] MEDS: LANTHANUM CARBONATE 500 MG CHEW TABLET PO SCH ×3 (08:00→18:53)
[2018-06-26] MEDS: FERROUS SULFATE 325MG TAB PO SCH (08:20)
[2018-06-26] MEDS: cloNIDine 0.1 MG TAB PO SCH ×2 (08:20→20:05)
[2018-06-26] MEDS: CALCITRIOL 0.25 MCG CAP (S0169) PO SCH ×2 (08:20→12:26)
[2018-06-26] MEDS: CARVedilol 12.5 MG TAB PO SCH ×2 (08:20→20:04)
[2018-06-26] MEDS: LOSARTAN 25 MG TAB PO SCH ×2 (08:21→20:05)
[2018-06-26] MEDS ORDERED: SLF 3 ML SYR IV PRN (08:45)
[2018-06-26 09:00] LABS: FERRITIN 857 NG/ML (8-252); IRON (FE) 39 UG/DL (50-170); THYROID STIMULATING HORMONE 0.852 uIU/ML (0.358-3.740); TROPONIN I 0.05 NG/ML (< 0.10)
[2018-06-26] MEDS ORDERED: GLUCAGON FOR INJ 1 MG VIAL (J1610) SC PRN (09:00)
[2018-06-26] MEDS ORDERED: DOCUSATE SODIUM 100 MG CAP PO SCH (09:00)
[2018-06-26] MEDS ORDERED: DEXTROSE 50% 50 ML SYRINGE IV PRN (09:00)
[2018-06-26] MEDS ORDERED: GLUCOSE 4 GM CHEW TABLET PO PRN (09:00)
[2018-06-26 09:31] LABS: HEPATITIS B SURFACE ANTIGEN NEGATIVE (NEGATIVE)
[2018-06-26 09:57] LABS: HEPATITIS B CORE ANTIBODY IGM NEGATIVE (NEGATIVE); HEPATITIS C VIRUS ABY INDEX < 0.0 INDEX (<0.8)
[2018-06-26 10:00] LABS: HEPATITIS A ANTIBODY IGM NEGATIVE (NEGATIVE)
--- NOTE | 2018-06-26 10:26 | HPE ---
DATE OF ADMISSION: 06/25/2018 CHIEF COMPLAINT: Progressive dyspnea on exertion. HISTORY OF PRESENT ILLNESS: The patient is a 58-year-old female. She has significant past medical history of end-stage renal disease (ESRD) on home dialysis. There is a documented history of noncompliance, hypertension, diabetes, hyperparathyroidism, anemia of chronic disease. She presents to the emergency room with worsening dyspnea on exertion for the past several weeks. She says exercise tolerance has diminished to the point that she can only walk a few steps before getting short of breath. She denies any chest pain. She also endorses some palpitations. She denies any abdominal pain, constipation. She no longer makes urine. The patient, as per documentation, again has history of noncompliance. She now does her dialysis at home for herself. She states she does it five times a week. She only removes 1.3 liters of fluid. X-ray of the chest appears to have chronic changes, possibly underlying pulmonary edema. She has peripheral edema on physical exam. She did spike a low-grade temperature in the emergency room. She no longer makes urine. She denies any cough, fevers, or chills at home. She does not appear toxic. She denies any abdominal pain, constipation, and diarrhea. PAST MEDICAL HISTORY: See history of present illness (HPI). PAST SURGICAL HISTORY: She has had arteriovenous (AV) fistula. She has a kidney transplant which failed in 2010, hernia repair, PD placement and replacement. FAMILY HISTORY: Of diabetes and hypertension. ALLERGIES: To LABETALOL, MORPHINE, NIFEDIPINE, and TAPE. REVIEW OF SYSTEMS: A 12-point review of system was completed, all of which were negative except those listed in the HPI. HOME MEDICATIONS: Include: - Norvasc - calcitriol - Coreg - Cinacalcet - clonidine - Colace - ferrous sulfate - Toujeo - losartan - milk of magnesium - Pravachol - Renetta-Guido SOCIAL HISTORY: She denies tobacco, alcohol, illicit drug use. VITAL SIGNS ON ADMISSION: Temperature 98.4, pulse of 77, maximum temperature (Tmax) of 100.5, blood pressure 185/81, saturating at 88% on room air. PHYSICAL EXAMINATION: GENERAL: She is well nourished, in no apparent distress. HEAD: Is normocephalic, atraumatic. EYES: Extraocular movements are intact. Pupils equal, round, reactive to light. NECK: Is supple. No JVP. LUNGS: Have diffuse crackles. No wheezing. CARDIOVASCULAR: Regular rate and rhythm. No murmurs, gallops, or rubs. ABDOMEN: Is soft, nontender, and nondistended. Positive bowel sounds. No rebound. No guarding. EXTREMITIES: 1+ pitting edema. No calf tenderness. SKIN: Is intact. No rashes, lesions, or breakdowns. NEUROLOGICAL EXAM: Alert and oriented (A and O) times three. No focal deficit appreciated on exam. LABS AND IMAGING COMPLETED IN THE EMERGENCY ROOM: White count of 6, hemoglobin and hematocrit of 8/25, platelet count of 155. Chemistry shows BUN and creatinine of 25/4.61, calcium of 8.3, lactate within normal limits. LFTs: AST 52, ALT 147, alkaline phosphatase of 147. Total bilirubin and direct bilirubin are within normal limits. Troponin is negative times one. Rapid flu is negative. Chest x-ray shows cardiomegaly and chronic appearing interstitial changes. Superimposed pulmonary edema, unable to rule out. ASSESSMENT AND PLAN: Acute hypoxic respiratory failure secondary to likely fluid overload, pulmonary edema in the setting of dialysis with inadequate fluid removal. Will also rule out a cardiac cause. Will get a baseline echocardiogram. Will trend troponin. Will get an EKG in the morning. Will check a thyroid-stimulating hormone (TSH). To be seen by renal in the morning. Patient no longer makes urine. Will continue oxygen as needed to maintain oxygen saturation greater than 94%. For anemia of chronic disease, to continue erythropoietin stimulating agents. Will continue iron supplements. Will check ferritin and iron. Hemoglobin at 8.4, which appears to be around her baseline. For hypertension, will continue Coreg, losartan, and clonidine. Hyperlipidemia. Will continue Pravachol. For elevated aminotransferases, which appears to be chronic, will send a hepatitis panel. Will continue to trend. Fever spike. The patient does not appear toxic. Blood culture sent. She does not make any urine. A CT of the chest, but she appears nontoxic, but also send a procalcitonin. Will continue to monitor off antibiotics. Supportive deep venous thrombosis (DVT) prophylaxis. Heparin subcutaneous. Gastrointestinal (GI) prophylaxis not indicated. Diet. Hemodialysis diet. For diabetes, will continue long-acting insulin as well as insulin sliding scale.
[2018-06-26] MEDS ORDERED: DARBEPOETIN 100 MCG/0.5 ML *DIALYSIS* SYRINGE (J0882) IV SCH (10:30)
[2018-06-26 10:49] LABS: PERCENT SATURATION 19.7 % (13.2-45.0)
[2018-06-26] MEDS ORDERED: IRON SUCROSE 100MG 5ML VIAL (J1756 PER 1MG) IV SCH (12:15)
[2018-06-26] MEDS: OMEGA-3 1000MG CAPSULE PO SCH (12:26)
[2018-06-26] MEDS: CINACALCET 30 MG TAB (SENSIPAR) PO SCH ×2 (12:31→20:05)
--- NOTE | 2018-06-26 13:11 | CR ---
DATE OF CONSULTATION: 06/26/2018 REQUESTING PHYSICIAN: Dr. Drew Leal from the emergency room. CONSULTING PHYSICIAN: Dr. Francisco REASON FOR CONSULTATION: Management of fluid overload in this patient with end-stage renal disease. CHIEF COMPLAINT: Patient presented to the emergency room yesterday with progressive shortness of breath on mild exertion. HISTORY OF PRESENT ILLNESS: Juany Zuñiga is a 58-year-old female with past medical history of end-stage renal disease, currently on home hemodialysis. She is well known to satellite installation technician's service from outpatient hemodialysis. She used to be a dialysis patient at [facility] in [place]; however, later on, because of her noncompliance, she left our center and went on home hemodialysis with another dialysis center. She is still noncompliant and does not follow the recommendations of her satellite installation technician. She was not pulling enough fluid with home hemodialysis, and she got progressive shortness of breath and presented to the emergency room yesterday. Imaging done in the emergency room showed evidence of pulmonary edema; however, patient is fixated at the idea that her current erythropoiesis stimulating agent is causing high blood pressure and shortness of breath. Patient is admitted under the hospitalist service overnight. Nephrology service was called for further help in the management of her fluid overload and arrangement of hemodialysis. I saw and evaluated the patient today morning at the bedside. She was getting the echocardiogram when I saw her. She was in mild respiratory distress, however, she was able to provide the history. She denies any chest pain at this point. PAST MEDICAL HISTORY: Past medical history of end-stage renal disease, currently on home hemodialysis, history of peritoneal dialysis in the past as well, hypertension with hypertensive heart disease, diabetes mellitus type 2, hyperlipidemia, anemia and end-stage renal disease, secondary hyperparathyroidism. PAST SURGICAL HISTORY: Status post right upper arm arteriovenous (AV) fistula placement. History of PD catheter placement in the past. History of a failed kidney transplant in 2010. Hernia repair surgery. ALLERGIES: She is ALLERGIC to LABETALOL, MORPHINE, NIFEDIPINE, TAPE. FAMILY HISTORY: No significant family history of end-stage renal disease requiring hemodialysis. There is positive family history of diabetes and hypertension. SOCIAL HISTORY: Patient lives at home. She has a boyfriend who helps her with the hemodialysis. She denies any smoking, illicit drug abuse, or alcohol abuse. REVIEW OF SYSTEMS: CONSTITUTIONAL: She denies any fevers or chills. EYES: She denies any blurry vision, double vision. EARS, NOSE, AND THROAT (ENT): She denies any dysphagia or odynophagia. CARDIOVASCULAR: She denies any chest pain, but she does report palpitation. RESPIRATORY: She reports shortness of breath on mild exertion. GASTROINTESTINAL (GI): She denies any nausea, vomiting. GENITOURINARY: She reports anuria. MUSCULOSKELETAL: She denies any muscle aches and pains. CENTRAL NERVOUS SYSTEM (INTERNAL GRINDING MACHINE OPERATOR): She denies any strokes or seizures. PSYCHIATRIC: She denies any depression or anxiety. SKIN: She denies any ulcers or rashes. ENDOCRINE: She reports history of secondary hyperparathyroidism and diabetes mellitus type 2. HEMATOLOGICAL/ONCOLOGICAL: She denies any easy bleeding or bruising. All other review of systems is negative. PHYSICAL EXAM: VITAL SIGNS: Temperature is 98.7 degrees Fahrenheit, blood pressure is 170.80, pulse is 72, respiratory rate of 19, saturating 97% on 2 liters via nasal cannula. INTAKE AND OUTPUT: Urine output only recorded as 200 mL overnight. GENERAL: Patient is awake, alert, oriented times three, lying in bed, no apparent distress. HEAD AND NECK EXAM: Extraocular muscles intact. Pupils equally round and reactive to light. Mucous membranes are moist. Neck is supple. There is moderately elevated jugular venous distention (JVD). CARDIOVASCULAR: S1, S2. Regular rate. 1+ edema in the bilateral lower extremities. RESPIRATORY: Mildly decreased breath sounds are the bases with mild inspiratory crackles bilaterally at the bases. ABDOMEN: Is soft, obese, positive bowel sounds. Nontender. No organomegaly. MUSCULOSKELETAL: No clubbing or cyanosis. 1+ edema in the bilateral lower extremities. CENTRAL NERVOUS SYSTEM (INTERNAL GRINDING MACHINE OPERATOR): No focal deficit. Power is 5/5 in all extremities. PSYCHOLOGICAL: Normal mood and affect. SKIN: No rashes or ulcers. ARTERIOVENOUS (AV) ACCESS: Right upper arm AV fistula with positive thrill and bruit. LAB REVIEW: CBC showed WBC 6.6, hemoglobin, 8.2, platelets 158. BMP showed sodium 135, potassium 3.8, chloride 94, bicarbonate 33, BUN is 38, creatinine is 6.9. Iron level is 41. Transferrin saturation is 19.7, ferritin is 857. Pro-BNP is 24,932, albumin is 2.8. MICROBIOLOGY: Her blood cultures are negative so far. IMAGING: A CAT scan of the chest was done yesterday, which showed small bilateral pleural effusions, bibasilar atelectasis, vascular congestion. CURRENT INPATIENT MEDICATIONS: Patient's inpatient medications include; - Tylenol P.M. - amlodipine 10 mg daily - calcitriol 0.5 mcg by mouth daily - Coreg 25 mg by mouth twice a day - Sensipar 60 mg by mouth twice a day - clonidine 0.1 mg by mouth twice a day - Colace 200 mg by mouth nightly - iron tablet 325 mg by mouth daily - heparin 5000 units subcu every 8 hourly - insulin Levemir, which has been stopped now - insulin lispro sliding scale - lanthanum 1 gram by mouth with meals - losartan 25 mg by mouth twice a day - omega 3 one capsule daily - pravastatin 80 mg nightly ASSESSMENT: 58-year-old female with history of end-stage renal disease on home hemodialysis five times a week, history of hypertension with hypertensive heart disease, diabetes mellitus type 2, anemia in end-stage renal disease, and secondary hyperparathyroidism, admitted this time with shortness of breath secondary to fluid overload. PLAN: 1. End-stage renal disease. Patient is home hemodialysis, however, she is noncompliant with the instructions of her satellite installation technician. She presented to the hospital with fluid overload because of inadequate dialysis and fluid removal at home. I am going to dialyze her for 3-1/2 hours today. I will try to remove at least 3 kg of fluid today as tolerated by her blood pressure. 2. Hypertension with hypertensive heart disease. Patient was getting echocardiogram when I saw her. Official report of echocardiogram is pending; however, whatever I could see on the imaging, she has left ventricular hypertrophy and diastolic dysfunction. Patient needs optimization of the volume status. Continue current dose of amlodipine 10 mg daily, Coreg 25 mg by mouth twice a day, clonidine 0.1 mg by mouth twice a day, losartan 25 mg by mouth twice a day. I believe if we optimize her volume status, she will need less antihypertensive medications. 3. Secondary hyperparathyroidism. Continue home dose of calcitriol 0.5 mcg daily and Sensipar 60 mg by mouth twice a day. 4. Anemia in end-stage renal disease. Patient reports that she was getting Procrit 10,000 units twice a week at home; however, Procrit is not available at the hospital. I have started her on Aranesp 100 mcg intravenous (IV) with hemodialysis. I am also going to start her on IV iron with hemodialysis because her transferrin saturation is low. 5. Hyponatremia. It is secondary to hypervolemia. Her pro-BNP is more than 24,000. Sodium level is expected to improve with improvement in the volume status. Thank you for involving me in the care of this patient. I shall be happy to follow the patient along with you tomorrow morning. Hopefully, once patient is hemodynamically stable by tomorrow morning, then she can be discharged and she can go home and do her home hemodialysis.
[2018-06-26] MEDS: SLF 3 ML SYR IV SCH ×2 (14:00→22:00)
--- NOTE | 2018-06-26 14:17 | ECGEPIP ---
Stationary ECG Study [facility] Test Date: 2018-06-26 Pat Name: GATITO MILLER Department: Room: [place] [id number] Gender: F It Technical Support Specialist: ARTURO : 1960 Requested By: RUSLAN FRIDAY Order Number: [id number] Reading MD: Ten Perdomo Measurements Intervals Noble Rate: 68 P: 60 NH: 204 QRS: 83 QRSD: 93 T: 34 QT: 430 QTc: 460 Interpretive Statements SINUS RHYTHM NONSPECIFIC ST & T-WAVE ABNORMALITY Electronically Signed On 06-26-2018 14:17:36 EST by Ten Perdomo
--- NOTE | 2018-06-26 17:50 | IPNPDOC ---
Text Note Date of Service The patient was seen on 06/26/18. NOTE Subjective: Patient is a 58 year old female with a PMHx of ESRD on home HD, HTN, DM2, Hyperparathyroidism, AOCD, Noncompliance who presented to the ER with complaints of worsening shortness of breath and a non-productive cough. Patient was admitted to the hospitalist service for fluid overload and nephrology was called on consultation. Patient was seen and examined at the bedside. This morning patient had some difficulty expressing herself and kept falling asleep. She denies any chest pain or palpitations. Reported some shortness of breath, but her cough has been pretty much at baseline. Denies any nausea, vomiting, abdominal pain, constipation, diarrhea. Patient notes that she seldomly makes urine. Objective: Vitals (See below) General: Lying in bed, no acute distress, comfortable, AAOx3 HEENT: NC, AT CVS: RRR, +S1S2 Lungs: Fair air entry b/l, auscultation with bilateral crackles noted, no evidence of wheezing or rhonchi Abdomen: Soft, ND, NT Extremities: +1 pitting edema b/l, - Calf tenderness Assessment and plan: Acute hypoxic respiratory failure - likely 2/2 fluid overload; less likely 2/2 infectious etiology - Patient noted increasing shortness of breath and has noted a weight gain over the last 1 week - Physical reveals 1+ pitting edema bilaterally and crackles at bilateral lung bases - Is requiring supplemental oxygen via 2 L nasal cannula - She remains afebrile - No evidence of leukocytosis or lactic acidosis - CXR 06/25: Cardiomegaly and chronic appearing interstitial changes. Superimposed pulmonary edema cannot be excluded. - CT chest 06/25: Small bilateral pleural effusions (not present 10 months ago). Bibasilar atelectatic changes. Cannot exclude RLL pneumonia (vs. atelectasis). Stable cardiomegaly. Possible vascular congestion. Generalized bony sclerosis (unchanged appearance). Enlarged thyroid gland (unchanged). See additional comments above. - Will repeat imaging after additional fluid is removed with dialysis Elevated liver enzymes - Hepatitis panel negative - Will check US abdomen HTN - BP moderately controlled - c/w Amlodipine, Carvedilol, Clonidine, Losartan IDDM2 with hypoglycemia - Patient had several episodes of hypoglycemia this morning - Will start ISS and reduce dose of Levemir by 50% DLP - c/w Pravastatin and Refugio 3 fatty acids Hyperparathyroidism - c/w Cinacalcet AOCD - Hg appears to be at baseline - Will continue to follow - c/w Venofer and Ferrous sulfate - c/w Darbepoetin Reported history of Noncompliance DVT prophylaxis - c/w Heparin VS,Fishbone, I+O VS, Fishbone, I+O Laboratory Tests 06/26/18 06:18 Red Blood Count 2.49 L, Mean Corpuscular Volume 102.4 H, Mean Corpuscular Hemoglobin 32.9, Mean Corpuscular Hemoglobin Concent 32.2, Red Cell Distribution Width 14.5, Calcium Level 8.3 L, Aspartate Amino Transf (AST/SGOT) 30, Alanine Aminotransferase (ALT/SGPT) 118 H, Alkaline Phosphatase 132 H, Total Bilirubin 0.5, Total Protein 6.0 L, Albumin 2.8 L Vital Signs Date Time Temp Pulse Resp B/P (MAP) Pulse Ox O2 Delivery O2 Flow Rate FiO2 06/26/18 08:21 170/80 06/26/18 08:20 72 06/26/18 08:00 98.7 19 97 2.0 06/25/18 18:11 Nasal Cannula I&O- Last 24 Hours up to 6 AM 06/26/18 06:00 Intake Total 0 ml Output Total 0 ml Balance 0 ml RACHEL MIRELES MD Jun 26, 2018 17:50
[2018-06-26 20:00] VITALS: BP 180/78
[2018-06-26] MEDS ORDERED: ACETAMINOPHEN TAB 650MG DOSE (2X325MG) PO PRN (20:00)
[2018-06-26] MEDS: PRAVASTATIN 20 MG TAB PO SCH (20:04)
[2018-06-26] MEDS: LEVEMIR (INSULIN DETEMIR) 1 UNITS/0.01ML SC SCH (20:06)
[2018-06-26] MEDS: amLODIPine 10 MG TAB PO SCH (20:06)
[2018-06-26 20:32] LABS: HEMATOCRIT 27.5 % (36.0-47.0); HEMOGLOBIN 8.8 g/dl (12.0-15.5); MEAN CORPUSCULAR HEMOGLOBIN 33.3 pg (27.0-33.0); MEAN CORPUSCULAR VOLUME 104.2 fl (80.0-96.0); PLATELET COUNT, AUTOMATED 164 10^3/uL (150-450); RED BLOOD COUNT 2.64 10^6/uL (4.00-5.40)
--- NOTE | 2018-06-26 20:56 | ECHO ---
DATE OF PROCEDURE: 06/26/2018 DATE OF : 1960 AGE: 58 REFERRING PROVIDER: Dr. Adame Friday PATIENT LOCATION: Room 3222 REASON FOR THE ECHOCARDIOGRAM: Shortness of breath. 2D MEASUREMENTS: IVS: 1.6 cm LV: 4.0 cm LVPW: 2.0 cm LA: 4.3 cm Aorta: 3.4 cm IVC: 2.2 cm DOPPLER MEASUREMENTS: Peak velocity across the aortic valve: 1.3 m/s Peak velocity across the LVOT: 1.2 m/s Mitral E: 1.3, Mitral A: 0.5 with a ratio of 2.6 Maximum tricuspid valve velocity: 3.3 m/s 2D COMMENTS: 1. Mildly increased left ventricular wall thickness with normal left ventricular size and normal global left ventricular systolic function. The estimated left ventricular systolic ejection fraction is 65-70%. 2. Mildly enlarged left atrium. The right atrium also appeared to be mildly enlarged. The right ventricular free wall was not well visualized. 3. The inferior vena cava appeared to be normal without evidence of defect or shunt. 4. Normal aortic root. 5. Trace pericardial effusion noted, no evidence of cardiac tamponade. 6. Mildly calcified aortic valve with normal leaflet excursion. Normal mitral valve and tricuspid valve. The pulmonic valve also appeared to be normal. The proximal pulmonary artery branches were not well visualized. 7. The inferior vena cava was mildly enlarged, central venous pressure might be elevated. DOPPLER: It detects mild to moderate mitral regurgitation, mild to moderate tricuspid regurgitation. The calculated pulmonary artery systolic pressure varies between 40-50 mmHg. A restrictive mitral inflow pattern was noted. IMPRESSION: 1. Normal global left ventricular systolic function. There were features of left ventricular diastolic dysfunction, a restrictive mitral inflow pattern was noted. 2. Mildly enlarged left atrium with mild to moderate mitral regurgitation. 3. Mild to moderate tricuspid regurgitation with moderate pulmonary hypertension and dilated right atrium. 4. There were features consistent with elevated central venous pressure, the inferior vena cava is mildly enlarged. 5. Trace pericardial effusion. 6. Above findings noted in this transthoracic echocardiogram have features of restrictive cardiomyopathy.
[2018-06-26 20:59] LABS: ERYTHROCYTE SEDIMENTATION RATE 37 mm/hr (0-30)
--- NOTE | 2018-06-26 21:42 | REP ---
Clinical: Shortness of breath. Comparison: 06/25/2018. Findings: Cardiac silhouette is stable. Diffuse bilateral alveolar infiltrates cannot be excluded but appears slightly improved when compared to prior examination and correlation is recommended. No obvious effusion. No pneumothorax. Skeletal structures intact. Impression: Continued scattered bilateral subtle alveolar infiltrates appear slightly improved as compared to prior examination. Electronically Signed by Brian Gallardo MD 06/26/2018 09:34 P
[2018-06-27 04:00] VITALS: BP 156/75
[2018-06-27] MEDS: SLF 3 ML SYR IV SCH ×3 (05:36→22:38)
[2018-06-27] MEDS: HEPARIN SOD (PORCINE) 5000 UNITS/ML VIAL SC SCH ×3 (05:36→22:37)
[2018-06-27 05:50] LABS: HEMOGLOBIN 8.6 g/dl (12.0-15.5); MEAN CORPUSCULAR HEMOGLOBIN 33.5 pg (27.0-33.0); MEAN CORPUSCULAR HGB CONC 31.9 g/dl (32.0-36.5); MEAN CORPUSCULAR VOLUME 105.1 fl (80.0-96.0); PLATELET COUNT, AUTOMATED 160 10^3/uL (150-450); RED BLOOD COUNT 2.57 10^6/uL (4.00-5.40); WHITE BLOOD COUNT 6.5 10^3/uL (4.0-10.0)
[2018-06-27 06:30] LABS: ALBUMIN 2.8 GM/DL (3.2-5.2); BILIRUBIN,TOTAL 0.5 MG/DL (0.2-1.0); CALCIUM LEVEL 8.5 MG/DL (8.5-10.1); CREATININE FOR GFR 5.23 MG/DL (0.55-1.30); GLOMERULAR FILTRATION RATE 10.8 (>51); POTASSIUM SERUM 4.8 MEQ/L (3.5-5.1); TOTAL PROTEIN 6.1 GM/DL (6.4-8.2)
--- NOTE | 2018-06-27 06:50 | ECGEPIP ---
Stationary ECG Study [facility] - ED Test Date: 2018-06-25 Pat Name: GATITO MILLER Department: Room: - Gender: F Aco Coordinator: INEZ : 1960 Requested By: Drew Page Order Number: [id number] Reading MD: Jackie Snow Measurements Intervals [place] Rate: 75 P: 80 IA: 220 QRS: 45 QRSD: 96 T: 85 QT: 397 QTc: 446 Interpretive Statements SINUS RHYTHM WITH FIRST DEGREE AV BLOCK NONSPECIFIC T-WAVE ABNORMALITY DELAYED R WAVE PROGRESSUIB 03/28/[address] T WAVE CHANGES Electronically Signed On 06-27-2018 6:50:01 EST by Jackie Snow
[2018-06-27 08:08] VITALS: BP 154/76
--- NOTE | 2018-06-27 08:14 | REP ---
Nickel: Fluid overload. Technique: PA and lateral. Comparison: 06/26/2018 Findings: Cardiomegaly is stable. Pulmonary vascular congestion cannot be excluded along with minimal bibasilar atelectasis (left greater than right). No effusion. No pneumothorax. Skeletal structures intact. Impression: Stable cardiomegaly. Cannot exclude mild pulmonary vascular congestion and trace basilar atelectasis Electronically Signed by Brian Gallardo MD 06/27/2018 08:06 A
--- NOTE | 2018-06-27 08:26 | REP ---
Clinical: Elevated liver function tests Technique: Bell scale ultrasound using curved array transducer. Findings: The liver and visualized pancreas are normal in contour, size, and echogenicity without focal hepatic or pancreatic lesions identified. Portions of the pancreas are incompletely evaluated due to interposed bowel gas. The The gallbladder is normal without gallstones, wall thickening or pericholecystic fluid. No biliary ductal dilatation is appreciated, and the common bile duct measures 3.9 mm diameter. The right kidney is echogenic and atrophic measuring 7.6 x 3.7 x 3.3 cm and includes few cysts including complex mid pole cyst measuring 1.6 x 1.1 x 1.5 cm. No hydronephrosis. No ascites in the visualized right upper quadrant. Impression: Atrophic and echogenic appearance to the right kidney including complex cyst suggesting medical renal disease. Electronically Signed by Brian Gallardo MD 06/27/2018 08:18 A
[2018-06-27] MEDS: CALCITRIOL 0.25 MCG CAP (S0169) PO SCH (09:07)
[2018-06-27] MEDS: CINACALCET 30 MG TAB (SENSIPAR) PO SCH ×2 (09:07→22:36)
[2018-06-27] MEDS: LANTHANUM CARBONATE 500 MG CHEW TABLET PO SCH ×3 (09:08→18:46)
[2018-06-27] MEDS: HumaLOG INSULIN (NovoLOG) PER UNIT SC SCH ×4 (09:08→22:37)
[2018-06-27] MEDS: LOSARTAN 25 MG TAB PO SCH ×2 (09:09→22:36)
[2018-06-27] MEDS: CARVedilol 12.5 MG TAB PO SCH ×2 (09:09→22:35)
[2018-06-27] MEDS: OMEGA-3 1000MG CAPSULE PO SCH (09:09)
[2018-06-27] MEDS: FERROUS SULFATE 325MG TAB PO SCH (09:10)
[2018-06-27] MEDS: cloNIDine 0.1 MG TAB PO SCH ×2 (09:10→22:34)
[2018-06-27 12:00] VITALS: BP 148/70
--- NOTE | 2018-06-27 12:42 | REP ---
Clinical: Fever and congestion. Technique: Axial noncontrast images from the thoracic inlet to the upper abdomen with coronal and sagittal re-formations. Comparison: 06/25/2018. Findings: The lung jennings demonstrate mild bibasilar and lingular atelectasis without significant focal consolidation. No effusion or pneumothorax. The tracheobronchial tree is patent. Evaluation of the mediastinum again demonstrates cardiomegaly along with atherosclerotic changes to the thoracic aorta and prominent pulmonary vasculature suggesting elements of pulmonary vascular congestion. Mediastinal adenopathy is again suggested and unchanged. Stable thyromegaly again noted. Musculoskeletal structures demonstrate degenerative changes. Limited upper abdomen demonstrates chronic renal disease. Impression: 1. Mild bibasilar and lingular atelectasis without focal consolidation or effusion. 2. Cardiomegaly and evidence for pulmonary vascular congestion. 3. Further chronic changes as described above. Electronically Signed by Brian Gallardo MD 06/27/2018 12:33 P
--- NOTE | 2018-06-27 14:04 | IPNPDOC ---
Text Note Date of Service The patient was seen on 06/27/18. NOTE Subjective: Patient is a 58 year old female with a PMHx of ESRD on home HD, HTN, DM2, Hyperparathyroidism, AOCD, Noncompliance who presented to the ER with complaints of worsening shortness of breath and a non-productive cough. Patient was admitted to the hospitalist service for fluid overload and nephrology was called on consultation. Patient was seen and examined at the bedside. Patient has received hemodialysis yesterday. This morning she is doing well and not as sleepy as she was. Blood glucose levels have remained normal. Patient still notes some shortness of breath. She notes some chest discomfort and palpitations. She denies any nausea, vomiting, abdominal pain, constipation or diarrhea. She does not make any significant amount of urine. Objective: Vitals (See below) General: Lying in bed, no acute distress, comfortable, AAOx3 HEENT: NC, AT CVS: RRR, +S1S2 Lungs: Fair air entry b/l, auscultation again reveals some bilateral crackles, no evidence of wheezing or rhonchi Abdomen: Soft, nondistended without tenderness Extremities: no significant LE edema, - Calf tenderness Assessment and plan: Acute hypoxic respiratory failure - likely 2/2 fluid overload; less likely 2/2 infectious etiology - Patient noted increasing shortness of breath and has noted a weight gain over the last 1 week - Physical reveals 1+ pitting edema bilaterally and crackles at bilateral lung bases - Requiring supplemental oxygen via 2 L nasal cannula; patient was ambulating this morning, but was experiencing episodes where her saturation dropped to 85% on RA - Yesterday evening patient had a fever of 101.3F - No evidence of leukocytosis or lactic acidosis - CXR 06/25: Cardiomegaly and chronic appearing interstitial changes. Superimposed pulmonary edema cannot be excluded. - CT chest 06/25: Small bilateral pleural effusions (not present 10 months ago). Bibasilar atelectatic changes. Cannot exclude RLL pneumonia (vs. atelectasis). Stable cardiomegaly. Possible vascular congestion. Generalized bony sclerosis (unchanged appearance). Enlarged thyroid gland (unchanged). See additional comments above. - CT chest 06/27: 1. Mild bibasilar and lingular atelectasis without focal consolidation or effusion. 2. Cardiomegaly and evidence for pulmonary vascular congestion. 3. Further chronic changes as described above. - Nephrology on consultation; will be going for additional HD today Elevated liver enzymes - Improving - Hepatitis panel negative - US abdomen 06/27: liver and visualized pancreas are normal in contour, size, and echogenicity without focal hepatic or pancreatic lesions identified. Atrophic and echogenic appearance to the right kidney including complex cyst suggesting medical renal disease. HTN - BP moderately controlled - c/w Amlodipine, Carvedilol, Clonidine, Losartan IDDM2 with hypoglycemia - Patient had several episodes of hypoglycemia this morning - c/w ISS and reduce dose of Levemir DLP - c/w Pravastatin and [place] 3 fatty acids Hyperparathyroidism - c/w Cinacalcet AOCD - Hg appears to be at baseline - Will continue to follow - c/w Venofer and Ferrous sulfate - c/w Darbepoetin Reported history of Noncompliance DVT prophylaxis - c/w Heparin VS,Fishbone, I+O VS, Fishbone, I+O Laboratory Tests 06/26/18 20:19 Red Blood Count 2.64 L, Mean Corpuscular Volume 104.2 H, Mean Corpuscular Hemoglobin 33.3 H, Mean Corpuscular Hemoglobin Concent 32.0, Red Cell Distribution Width 14.6 H 06/27/18 05:26 Red Blood Count 2.57 L, Mean Corpuscular Volume 105.1 H, Mean Corpuscular Hemoglobin 33.5 H, Mean Corpuscular Hemoglobin Concent 31.9 L, Red Cell Distribution Width 14.6 H, Calcium Level 8.5, Aspartate Amino Transf (AST/SGOT) 25, Alanine Aminotransferase (ALT/SGPT) 99 H, Alkaline Phosphatase 130 H, Total Bilirubin 0.5, Total Protein 6.1 L, Albumin 2.8 L Vital Signs Date Time Temp Pulse Resp B/P (MAP) Pulse Ox O2 Delivery O2 Flow Rate FiO2 06/27/18 12:00 2.0 06/27/18 12:00 99.5 70 22 148/70 (96) 93 06/25/18 18:11 Nasal Cannula I&O- Last 24 Hours up to 6 AM 06/27/18 05:59 Intake Total 600 ml Output Total 3200 ml Balance -2600 ml RACHEL MIRELES MD Jun 27, 2018 14:04
[2018-06-27 18:30] VITALS: BP 170/88
[2018-06-27 22:00] VITALS: BP 149/77
[2018-06-27] MEDS: DOCUSATE SODIUM 100 MG CAP PO SCH (22:34)
[2018-06-27] MEDS: amLODIPine 10 MG TAB PO SCH (22:36)
[2018-06-27] MEDS: PRAVASTATIN 20 MG TAB PO SCH (22:36)
[2018-06-27] MEDS: LEVEMIR (INSULIN DETEMIR) 1 UNITS/0.01ML SC SCH (22:37)
[2018-06-27] MEDS: MOM 30ML SUSPENSION UDC PO PRN (22:39)
[2018-06-28 02:40] VITALS: BP 158/82
[2018-06-28 06:00] VITALS: BP 154/84
[2018-06-28 06:21] LABS: HEMATOCRIT 29.1 % (36.0-47.0); MEAN CORPUSCULAR HEMOGLOBIN 33.1 pg (27.0-33.0); MEAN CORPUSCULAR HGB CONC 30.9 g/dl (32.0-36.5); PLATELET COUNT, AUTOMATED 171 10^3/uL (150-450); RED BLOOD COUNT 2.72 10^6/uL (4.00-5.40); WHITE BLOOD COUNT 6.4 10^3/uL (4.0-10.0)
[2018-06-28] MEDS: SLF 3 ML SYR IV SCH ×3 (06:39→21:24)
[2018-06-28] MEDS: HEPARIN SOD (PORCINE) 5000 UNITS/ML VIAL SC SCH ×3 (06:39→21:21)
[2018-06-28 06:51] LABS: ALBUMIN 2.9 GM/DL (3.2-5.2); BILIRUBIN,TOTAL 0.5 MG/DL (0.2-1.0); CALCIUM LEVEL 8.5 MG/DL (8.5-10.1); CREATININE FOR GFR 5.55 MG/DL (0.55-1.30); GLOMERULAR FILTRATION RATE 10.1 (>51); POTASSIUM SERUM 4.5 MEQ/L (3.5-5.1); TOTAL PROTEIN 6.4 GM/DL (6.4-8.2)
--- NOTE | 2018-06-28 08:30 | IPN ---
DATE OF SERVICE: 06/27/2018 SUBJECTIVE: The patient was seen and examined at the bedside today morning. She is afebrile and hemodynamically stable. She reports that her breathing is getting better. She is currently on oxygen 2 liters via nasal cannula. She was dialyzed yesterday, 3 liters of fluid was removed. OBJECTIVE: VITAL SIGNS: Temperature 98 degrees Fahrenheit, blood pressure 154/76, pulse 72, respiratory rate 18, saturating 98% on 2 liters via nasal cannula. INTAKE AND OUTPUT: Urine output recorded as only 200 mL. Ultrafiltration with hemodialysis was 3 liters yesterday. Weight on the bed scale was 90.1 kg before dialysis yesterday. PHYSICAL EXAMINATION: GENERAL: Patient is awake, alert, oriented times three, laying in bed in no apparent distress. HEAD AND NECK EXAM: Extraocular muscles intact. Pupils equally round and reactive to light. Mucous membranes are moist. Neck is supple. There is no jugular venous distention (JVD). CARDIOVASCULAR: S1 and S2. Regular rate. No edema of the bilateral lower extremities. RESPIRATORY: Mildly decreased breath sounds are the bases with mild inspiratory crackles at the bases. ABDOMEN: Is soft, obese, positive bowel sounds. Nontender. No organomegaly. MUSCULOSKELETAL: No clubbing or cyanosis. Pulses are 2+. No edema of the extremities. CENTRAL NERVOUS SYSTEM (CAREER DEVELOPMENT COORDINATOR/TEACHER): No focal deficit. Power is 5/5 in all extremities. LAB REVIEW: CBC showed WBC 6.5, hemoglobin, 8.6, platelets 160. BMP showed sodium 140, potassium 4.8, chloride 103, bicarbonate 29, BUN 23, creatinine is 5.2. Calcium 8.5. Iron is 41. Transferrin saturation 19.7. Ferritin was 857 yesterday. ALT is 99. Alkaline phosphatase is 130. Albumin is 2.8. IMAGING: Abdominal ultrasound was done yesterday which showed atrophic and echogenic right kidney. Liver was normal and contour, size and echogenicity. CURRENT INPATIENT MEDICATIONS: The patient's medications were all reviewed by me. There is no change in the medications today as compared with yesterday. ASSESSMENT AND PLAN: 1. End-stage renal disease. Patient has home hemodialysis. She does five sessions of hemodialysis at home. However, she was noncompliant with the instructions of her apparatus repair mechanic. She came to the hospital with fluid overload. She got dialysis done yesterday, 3 liters of fluid was removed. Oxygen is being weaned off today. If patient is stable on room air, then she can be discharged home and she can do her home hemodialysis tonight. 2. Hypertension with hypertensive heart disease. Patient has diastolic dysfunction on the echocardiogram with restrictive cardiomyopathy. Continue home dose of amlodipine, Coreg, clonidine and losartan. Further optimization of fluid status will also help improve the blood pressure. 3. Anemia and end-stage renal disease. The patient was started on Aranesp and IV iron. She has iron deficiency. She needs Venofer 100 mg times ten doses. She can finish the rest of the doses when she goes home. The patient takes Procrit at home. 4. Secondary hyperparathyroidism. Continue current dose of calcitriol and Sensipar. 5. Chronic kidney disease mineral bone disease. Continue current dose of lanthanum. 6. Disposition. The patient had a fever spike yesterday. The CAT scan done on admission could not rule out right lower lobe pneumonia. If patient remains hypoxemic on room air, she will need a repeat chest x-ray or a CT scan and will need antibiotics.
[2018-06-28] MEDS ORDERED: DARB100SYR IV (09:12)
[2018-06-28] MEDS: CALCITRIOL 0.25 MCG CAP (S0169) PO SCH (09:29)
[2018-06-28] MEDS: FERROUS SULFATE 325MG TAB PO SCH (09:29)
[2018-06-28] MEDS: HumaLOG INSULIN (NovoLOG) PER UNIT SC SCH ×4 (09:29→21:21)
[2018-06-28] MEDS: CARVedilol 12.5 MG TAB PO SCH ×2 (09:29→21:24)
[2018-06-28] MEDS: OMEGA-3 1000MG CAPSULE PO SCH (09:29)
[2018-06-28] MEDS: CINACALCET 30 MG TAB (SENSIPAR) PO SCH ×2 (09:29→21:23)
[2018-06-28] MEDS: LANTHANUM CARBONATE 500 MG CHEW TABLET PO SCH ×3 (09:30→18:17)
[2018-06-28] MEDS: cloNIDine 0.1 MG TAB PO SCH ×2 (09:30→21:24)
[2018-06-28] MEDS: LOSARTAN 25 MG TAB PO SCH ×2 (09:33→21:24)
--- NOTE | 2018-06-28 12:41 | IPNPDOC ---
Text Note Date of Service The patient was seen on 06/28/18. NOTE Subjective: Patient is a 58 year old female with a PMHx of ESRD on home HD, HTN, DM2, Hyperparathyroidism, AOCD, Noncompliance who presented to the ER with complaints of worsening shortness of breath and a non-productive cough. Patient was admitted to the hospitalist service for fluid overload and nephrology was called on consultation. Patient was seen and examined at the bedside. , Currently patient notes that her breathing is doing better. She denies any chest pain, shortness of breath or palpitations. She does report fatigue. She denies any nausea or vomiting. Denies any abdominal pain, constipation or diarrhea. Notes that her lower extremity swelling has resolved. Objective: Vitals (See below) General: Lying in bed, no acute distress, comfortable, AAOx3 HEENT: NC, AT CVS: RRR, +S1S2 Lungs: Fair air entry b/l, there does not appear to be any auscultated evidence of crackles on physical exam this morning, no rhonchi or wheezing Abdomen: Soft, nondistended without tenderness Extremities: No significant LE edema, - Calf tenderness Assessment and plan: s/p Acute hypoxic respiratory failure - likely 2/2 fluid overload - likely 2/2 acute diastolic CHF / ESRD; less likely 2/2 infectious etiology - Patient noted increasing shortness of breath and has noted a weight gain over the last 1 week - Physical reveals 1+ pitting edema bilaterally and crackles at bilateral lung bases - Requiring supplemental oxygen via 2 L nasal cannula; patient was ambulating this morning, but was experiencing episodes where her saturation dropped to 85% on RA - Patient has remained afebrile over last 24 hours - No evidence of leukocytosis or lactic acidosis - ECHO 06/26: Diastolic dysfunction, moderate MR, mild-moderate TR, moderate Pulmonary HTN, elevated CVP - CXR 06/25: Cardiomegaly and chronic appearing interstitial changes. Superimposed pulmonary edema cannot be excluded. - CT chest 06/25: Small bilateral pleural effusions (not present 10 months ago). Bibasilar atelectatic changes. Cannot exclude RLL pneumonia (vs. atelectasis). Stable cardiomegaly. Possible vascular congestion. Generalized bony sclerosis (unchanged appearance). Enlarged thyroid gland (unchanged). See additional comments above. - CT chest 06/27: 1. Mild bibasilar and lingular atelectasis without focal consolidation or effusion. 2. Cardiomegaly and evidence for pulmonary vascular congestion. 3. Further chronic changes as described above. - Has received 2 sessions of hemodialysis with fluid removal of approximately 5.6 Liters - Nephrology on consultation; appreciate their input Weakness / Fatigue - likely 2/2 above - c/w PT; awaiting clearance Fever - etiology unclear - Review of systems is negative for any infection - Physical without any signs of infection - Last fever noted on 06/26/18 PM - No leukocytosis, No lactic acidosis - Patient does not make urine - Imaging without any definitive infection - Will hold off on antibiotics Elevated liver enzymes - Improving - Hepatitis panel negative - US abdomen 06/27: liver and visualized pancreas are normal in contour, size, and echogenicity without focal hepatic or pancreatic lesions identified. Atrophic and echogenic appearance to the right kidney including complex cyst suggesting medical renal disease. HTN - BP moderately controlled - c/w Amlodipine, Carvedilol, Clonidine, Losartan IDDM2 with hypoglycemia - Patient had several episodes of hypoglycemia on 06/26 AM - c/w ISS and reduce dose of Levemir DLP - c/w Pravastatin and [place] 3 fatty acids Hyperparathyroidism - c/w Cinacalcet AOCD - Hg appears to be at baseline - Will continue to follow - c/w Venofer and Ferrous sulfate - c/w Darbepoetin Reported history of Noncompliance DVT prophylaxis - c/w Heparin Disposition: - Awaiting clearance from PT VS,Fishbone, I+O VS, Fishbone, I+O Laboratory Tests 06/28/18 05:28 Red Blood Count 2.72 L, Mean Corpuscular Volume 107.0 H, Mean Corpuscular Hemoglobin 33.1 H, Mean Corpuscular Hemoglobin Concent 30.9 L, Red Cell Distribution Width 14.5, Calcium Level 8.5, Aspartate Amino Transf (AST/SGOT) 22, Alanine Aminotransferase (ALT/SGPT) 85 H, Alkaline Phosphatase 128 H, Total Bilirubin 0.5, Total Protein 6.4, Albumin 2.9 L Vital Signs Date Time Temp Pulse Resp B/P (MAP) Pulse Ox O2 Delivery O2 Flow Rate FiO2 06/28/18 09:29 73 154/70 06/28/18 06:00 98.6 15 96 06/27/18 12:00 1.0 2/28/19 18:11 Nasal Cannula l I&O- Last 24 Hours up to 6 AM 06/28/18 06:00 Intake Total 930 ml Output Total 3750 ml Balance -2820 ml RACHEL MIRELES MD Jun 28, 2018 12:41
[2018-06-28 14:00] VITALS: BP 128/60
[2018-06-28] MEDS: PRAVASTATIN 20 MG TAB PO SCH (21:22)
[2018-06-28] MEDS: LEVEMIR (INSULIN DETEMIR) 1 UNITS/0.01ML SC SCH (21:22)
[2018-06-28] MEDS: DOCUSATE SODIUM 100 MG CAP PO SCH (21:23)
[2018-06-28] MEDS: amLODIPine 10 MG TAB PO SCH (21:24)
[2018-06-28] MEDS: MOM 30ML SUSPENSION UDC PO PRN (21:26)
[2018-06-28 22:00] VITALS: BP 166/64
[2018-06-29] MEDS: HEPARIN SOD (PORCINE) 5000 UNITS/ML VIAL SC SCH ×2 (05:36→13:45)
[2018-06-29] MEDS: SLF 3 ML SYR IV SCH ×2 (05:38→13:45)
[2018-06-29 06:00] VITALS: BP 154/67
[2018-06-29 06:48] LABS: HEMATOCRIT 26.6 % (36.0-47.0); HEMOGLOBIN 8.4 g/dl (12.0-15.5); MEAN CORPUSCULAR HEMOGLOBIN 33.1 pg (27.0-33.0); MEAN CORPUSCULAR HGB CONC 31.6 g/dl (32.0-36.5); MEAN CORPUSCULAR VOLUME 104.7 fl (80.0-96.0); PLATELET COUNT, AUTOMATED 194 10^3/uL (150-450); RED BLOOD COUNT 2.54 10^6/uL (4.00-5.40)
[2018-06-29 07:21] LABS: ALBUMIN 2.9 GM/DL (3.2-5.2); BILIRUBIN,TOTAL 0.5 MG/DL (0.2-1.0); CREATININE FOR GFR 8.13 MG/DL (0.55-1.30); GLOMERULAR FILTRATION RATE 6.5 (>51); POTASSIUM SERUM 5.2 MEQ/L (3.5-5.1); TOTAL PROTEIN 6.3 GM/DL (6.4-8.2)
[2018-06-29] MEDS: HumaLOG INSULIN (NovoLOG) PER UNIT SC SCH ×2 (08:17→12:26)
[2018-06-29 08:18] VITALS: BP 154/70
[2018-06-29] MEDS: LOSARTAN 25 MG TAB PO SCH (08:18)
[2018-06-29] MEDS: CALCITRIOL 0.25 MCG CAP (S0169) PO SCH (08:18)
[2018-06-29] MEDS: cloNIDine 0.1 MG TAB PO SCH (08:19)
[2018-06-29] MEDS: LANTHANUM CARBONATE 500 MG CHEW TABLET PO SCH ×2 (08:19→12:25)
[2018-06-29] MEDS: CINACALCET 30 MG TAB (SENSIPAR) PO SCH (08:20)
[2018-06-29] MEDS: CARVedilol 12.5 MG TAB PO SCH (08:21)
[2018-06-29] MEDS: FERROUS SULFATE 325MG TAB PO SCH (08:21)
[2018-06-29] MEDS: OMEGA-3 1000MG CAPSULE PO SCH (09:00)
--- NOTE | 2018-06-29 11:41 | IPN ---
DATE: 06/28/2018 Patient is seen and examined this morning at the bedside. She reports she has been ambulating and walking with physical therapy. Her shortness of breath and dyspnea on exertion have improved. She has had net removal of 6.5 liters of fluid with hemodialysis on Friday and Friday. VITAL SIGNS: Temperature 97.2, pulse 74, respiratory rate 17, blood pressure 128/60, saturating 93 to 96% on room air. Intake yesterday 750. Dialysis yesterday removed 3500. Urine yesterday 250. Net negative 3 liters. Weight on the bed scale today is not recorded. GENERAL: Patient is seen sitting up in bed, awake, alert, oriented times three in no acute distress. HEENT: Extraocular muscles intact. Tongue is moist. Neck is supple. Jugular veins are not elevated. CARDIAC: S1, S2 regular rate and rhythm. LUNGS: Symmetric air entry bilaterally. No crackles or rales. ABDOMEN: Soft and nontender. There are bowel sounds. EXTREMITIES: Negative for edema or cyanosis. Her right upper extremity fistula has a thrill and a bruit. SKIN: Normal temperature and turgor. LABS: 6.4, hemoglobin 9.0, platelet 171. Sodium 138, potassium 4.5. Microbiology: Blood cultures with no growth for 72 hours times two sets. IMPATIENT MEDICATIONS: Reviewed by myself. No change from prior. PROBLEMS: 1. End-stage renal disease on home hemodialysis. Patient does five treatments weekly. She came in fluid over-loaded. She has not been performing adequate ultrafiltration at home. She was dialyzed on Friday and Friday. A total of 6.5 liters of fluid were removed over those two treatments. Her volume status has improved. She is off of supplemental oxygen. I had discussed with her regarding need for increased ultrafiltration and close monitoring of her weight at home along with fluid restriction. 2. Hypertension with hypertensive heart disease and diastolic congestive heart failure with exacerbation. Recent echocardiogram is noted volume status is principally regulated via dialysis and volume status has improved with the past two hemodialysis treatments. Her next treatment will be on Friday and this can be done at home if she clears physical therapy. 3. Anemia related to iron deficiency and chronic failure. Target hemoglobin is 10-11. Patient received Aranesp and is receiving iron with hemodialysis. Her transferrin saturation was suboptimal at 19%. Part of the anemia was also related to anemia of hemodilution from fluid overload. Her hemoglobin has improved and is up to 9.0 today. 4. Hypertension: Blood pressures have improved nicely with ultrafiltration and fluid removal and no changes are being made to her current regimen of amlodipine, carvedilol, clonidine and losartan.
[2018-06-29] MEDS ORDERED: TOUJ1.2I SC (14:26)
--- NOTE | 2018-06-29 14:33 | DS.PDOC ---
Discharge Summary General Date of Admission Jun 25, 2018 at 20:21 Date of Discharge 06/29/2018 Discharge Summary PROCEDURES PERFORMED DURING STAY: [None]. ADMITTING DIAGNOSES / DISCHARGE DIAGNOSES: s/p Acute hypoxic respiratory failure - likely 2/2 fluid overload - likely 2/2 acute diastolic CHF / ESRD; less likely 2/2 infectious etiology Weakness / Fatigue - likely 2/2 above Fever - etiology unclear Elevated liver enzymes HTN IDDM2 with hypoglycemia DLP Hyperparathyroidism AOCD Reported history of Noncompliance DVT prophylaxis COMPLICATIONS/CHIEF COMPLAINT: Shortness of breath HISTORY OF PRESENT ILLNESS: Patient is a 58 year old female with a PMHx of ESRD on home HD, HTN, DM2, Hyperparathyroidism, AOCD, Noncompliance who presented to the ER with complaints of worsening shortness of breath and a non-productive cough. Patient was admitted to the hospitalist service for fluid overload and nephrology was called on consultation. HOSPITAL COURSE: s/p Acute hypoxic respiratory failure - likely 2/2 fluid overload - likely 2/2 acute diastolic CHF / ESRD; less likely 2/2 infectious etiology - Clinically patient has full resolution of her shortness of breath - Physical without any signs of fluid overload - No longer requiring any supplemental oxygen - ECHO 06/26: Diastolic dysfunction, moderate MR, mild-moderate TR, moderate Pulmonary HTN, elevated CVP - CXR 06/25: Cardiomegaly and chronic appearing interstitial changes. Superimposed pulmonary edema cannot be excluded. - CT chest 06/25: Small bilateral pleural effusions (not present 10 months ago). Bibasilar atelectatic changes. Cannot exclude RLL pneumonia (vs. atelectasis). Stable cardiomegaly. Possible vascular congestion. Generalized bony sclerosis (unchanged appearance). Enlarged thyroid gland (unchanged). See additional com ments above. - CT chest 06/27: 1. Mild bibasilar and lingular atelectasis without focal consolidation or effusion. 2. Cardiomegaly and evidence for pulmonary vascular congestion. 3. Further chronic changes as described above. - Has received 2 sessions of hemodialysis with fluid removal of approximately 5.6 Liters - Nephrology on consultation; appreciate their input - Has cleared physical therapy Weakness / Fatigue - likely 2/2 above - c/w PT; awaiting clearance Fever - etiology unclear - Review of systems is negative for any infection - Physical without any signs of infection - Last fever noted on 06/26/18 PM - No evidence of leukocytosis or lactic acidosis - Patient does not make urine - Imaging without any definitive infection - Will hold off on antibiotics Elevated liver enzymes - Improving - Hepatitis panel negative - US abdomen 06/27: liver and visualized pancreas are normal in contour, size, and echogenicity without focal hepatic or pancreatic lesions identified. Atrophic a nd echogenic appearance to the right kidney including complex cyst suggesting medical renal disease. HTN - BP moderately controlled - c/w Amlodipine, Carvedilol, Clonidine, Losartan IDDM2 with hypoglycemia - Patient had several episodes of hypoglycemia on 06/26 AM - c/w ISS and reduce dose of Levemir; will continue with reduced dose on discharge DLP - c/w Pravastatin and [place] 3 fatty acids Hyperparathyroidism - c/w Cinacalcet AOCD - Hg appears to be at baseline - Will continue to follow - c/w Venofer and Ferrous sulfate - c/w Darbepoetin Reported history of Noncompliance DVT prophylaxis - c/w Heparin DISCHARGE MEDICATIONS: Please see below. ALLERGIES: Please see below. PHYSICAL EXAMINATION ON DISCHARGE: Vitals (See below) General: Lying in bed, no acute distress, comfortable, AAOx3 HEENT: NC, AT CVS: RRR, +S1S2 Lungs: Fair air entry b/l, there does not appear to be any auscultated evidence of crackles on physical exam this morning, no rhonchi or wheezing Abdomen: Soft, nondistended without tenderness Extremities: No significant LE edema, - Calf tenderness LABORATORY DATA: Please see below. ACTIVITY: [As tolerated]. DISCHARGE PLAN: Follow-up with Dr. Bette Rock within 7 days Remained compliant with treatment plan and medications Return to the ER if you experience any problems DISPOSITION: Home with services DISCHARGE CONDITION: [Stable]. TIME SPENT ON DISCHARGE: Greater than [35] minutes. Vital Signs/I&Os Vital Signs Date Time Temp Pulse Resp B/P (MAP) Pulse Ox O2 Delivery O2 Flow Rate FiO2 06/29/18 08:18 154/70 06/29/18 06:00 98.9 73 18 95 06/27/18 12:00 1.0 06/25/18 18:11 Nasal Cannula I&O- Last 24 Hours up to 6 AM 06/29/18 06:00 Intake Total 1370 ml Output Total 0 ml Balance 1370 ml Laboratory Data Labs 24H Laboratory Tests 2 06/28/18 17:19: Bedside Glucose (Misc Panel) 222H 06/28/18 20:13: Bedside Glucose (Misc Panel) 284H 06/29/18 06:02: Nucleated Red Blood Cells % (auto) 0.0, Anion Gap 8, Glomerular Filtration Rate 6.5L, Blood Urea Nitrogen 44#H, Creatinine 8.13*H, Sodium Level 138, Potassium Level 5.2H, Chloride Level 100, Carbon Dioxide Level 30, Calcium Level 9.0, Aspartate Amino Transf (AST/SGOT) 17, Alanine Aminotransferase (ALT/SGPT) 66, Alkaline Phosphatase 127H, Total Bilirubin 0.5, Total Protein 6.3L, Albumin 2.9L, Albumin/Globulin Ratio 0.85L 06/29/18 12:03: Bedside Glucose (Misc Panel) 173H CBC/BMP Laboratory Tests 06/29/18 06:02 Red Blood Count 2.54 L, Mean Corpuscular Volume 104.7 H, Mean Corpuscular Hemoglobin 33.1 H, Mean Corpuscular Hemoglobin Concent 31.6 L, Red Cell Distribution Width 14.6 H, Calcium Level 9.0, Aspartate Amino Transf (AST/SGOT) 17, Alanine Aminotransferase (ALT/SGPT) 66, Alkaline Phosphatase 127 H, Total Bilirubin 0.5, Total Protein 6.3 L, Albumin 2.9 L FSBS Laboratory Tests Test 06/28/18 17:19 06/28/18 20:13 06/29/18 12:03 Range/Units Bedside Glucose (Misc Panel) 222 284 173 70-105 MG/DL Microbiology Microbiology 06/25/18 Blood Culture - Preliminary, Resulted No Growth after 72 hours. All specime... 06/25/18 Blood Culture - Preliminary, Resulted No Growth after 72 hours. All specime... Discharge Medications Scheduled (Renetta-Guido) 1 Tab Tab, 1 TAB PO DAILY, (Reported) (Alesha Ha) 300 Unit/Ml Inj, 40 UNIT SC QPM, (Reported) TAKES AT DINNERTIME Amlodipine Besylate (Amlodipine Besylate) 10 Mg Tab, 10 MG PO QHS, (Reported) Calcitriol (Rocaltrol) 0.5 Mcg Cap, 0.5 MCG PO DAILY, (Reported) Carvedilol (Carvedilol) 25 Mg Tab, 25 MG PO BID, (Reported) Cinacalcet Hydrochloride (Sensipar) 60 Mg Tab, 60 MG PO BID, (Reported) Clonidine Hcl (Catapres) 0.1 Mg Tab, 0.1 MG PO BID, (Reported) Darbepoetin (Aranesp Albumin Free) 100 Mcg/0.5 Ml Inj, 100 MCG IV HD Docusate Sodium (Colace) 100 Mg Cap, 200 MG PO DAILY, (Reported) Ferrous Sulfate (Ferrous Sulfate) 325 Mg Tab, 325 MG PO DAILY, (Reported) Insulin Human Lispro (Humalog) 100 Unit/Ml Inj, 1 DOSE SC AC, (Reported) PER SLIDING SCALE Lanthanum Carbonate (Fosrenol) 1,000 Mg Chw, 1,000 MG PO WM, (Reported) Losartan Potassium (Losartan Potassium) 25 Mg Tab, 25 MG PO BID, (Reported) [place] 3 Polyunsat Fatty Acids (Fish Oil 1000 mg) 1 Cap Cap, 1,000 MG PO DAILY, (Reported) Pravastatin Sodium (Pravachol) 80 Mg Tab, 80 MG PO QHS, (Reported) Scheduled PRN Milk Of Magnesia (Milk of Magnesia) 1,200 Mg/15 Ml Etresa, 30 ML PO DAILY PRN for CONSTIPATION, (Reported) Allergies Coded Allergies: Morphine (Verified Allergy, Intermediate, vomiting, 03/28/18) TAPE (Verified Allergy, Intermediate, JEANNIE DRESSING, paper tape, 11/26/16) Iodixanol (Unverified Allergy, Unknown, LETICIA JOHNSONS, 10/17/14) Labetalol (Unverified Allergy, Unknown, BRONCHOSPASM, 10/17/14) Nifedipine (Unverified Allergy, Unknown, 12/27/15) RACHEL MIRELES MD Jun 29, 2018 14:32
--- NOTE | 2018-06-30 06:46 | IPN ---
DATE OF SERVICE: 06/29/2018 SUBJECTIVE: Juany is seen and examined this morning walking around the room and at the bedside. She denies any overnight events or issues. She has been working with physical therapy and has been cleared by physical therapy. She reports she had some dyspnea on exertion while climbing a flight of stairs, otherwise denies shortness of breath. Temperature 98.9, pulse 73, respiratory rate 18, blood pressure 154/67, saturating 95% on room air. Intake yesterday was 1490. Weight on the bed scale today is not recorded. General: The patient is seen sitting upright at the edge of the beds, legs dangling, awake, alert, oriented times three, in no acute distress, smiling, pleasant. Extraocular muscles are intact. Tongue is moist. Neck is supple. Jugular veins are not elevated. Cardiac: S1, S2. Regular rate and rhythm. Lungs are clear to auscultation bilaterally. No crackle or rale. Abdomen is soft. Nontender. There are bowel sounds present. Extremities are negative for edema or cyanosis. The upper extremity fistula has thrill and bruit. Skin normal temperature and turgor. LABS: White count 7.0, hemoglobin 8.4, platelets 194. Sodium 138, potassium 5.2, bicarbonate 30. MICROBIOLOGY: Blood cultures are no growth for 72 hours times two sets. INPATIENT MEDICATIONS: Reviewed by myself and no change from prior. PROBLEMS: 1. End stage renal disease on home hemodialysis. The patient has five treatments weekly. She is discharge pending today. Her volume status has clinically improved. She has serial hemodialysis on Friday and Friday. I advised her that she should most definitely do a session of home hemodialysis today for further control of her volume status and also in view of mild hyperkalemia on today's labs. I have also discussed with her the need for close monitoring of her weights at home and watch on her fluid restriction. She will follow up with her primary sales negotiator as an outpatient. She is symptomatically improved. 2. Hypertension with hypertensive heart disease and diastolic congestive heart failure with recent exacerbation. Volume status has improved with serial dialysis on Friday and Friday. She should do a session of home hemodialysis today. She is advised of the same. Her blood pressures have improved nicely over the course of this admission with ultra filtration and fluid removal and she can challenge her dry weight as tolerated with discussion with her primary sales negotiator as an outpatient. 3. Anemia related to iron deficiency and chronic renal failure. The patient received a dose of Aranesp while admitted and Venofer with hemodialysis. She will continue with anemia protocol of end stage renal disease in the outpatient setting. 4. Complex cyst in the right kidney. I reviewed the patient's abdominal ultrasound with her and advised her that she does have a complex cyst in the right kidney and that she can discuss appropriate surveillance with her primary sales negotiator as an outpatient. All questions were answered to the patient's satisfaction. DISPOSITION: Patient is discharge pending today.
== END 2018-06-29 14:49 | disposition home or self-care (01) | DRG 291 ==
LOC: EDBD 10:26 → M ED 10:26 → M ED INP 20:21 → M PCU 06-26 05:37 → M MSPAV 06-27 17:25
PROVIDERS: ADMIT Internal Medicine; ATTEND Internal Medicine
PROC: 5A1D70Z Performance of Urinary Filtration, Intermittent, Less than 6 Hours Per Day (ICD-10-PCS; principal; 2018-06-26)
DX: I13.0 Hypertensive heart and chronic kidney disease with heart failure and stage 1 through stage 4 chronic kidney disease, or unspecified chronic kidney disease (principal); N18.6 End stage renal disease; I50.31 Acute diastolic (congestive) heart failure; J96.01 Acute respiratory failure with hypoxia; N25.81 Secondary hyperparathyroidism of renal origin; Z94.0 Kidney transplant status; E87.1 Hypo-osmolality and hyponatremia; E11.649 Type 2 diabetes mellitus with hypoglycemia without coma; Z91.19 Patient's noncompliance with other medical treatment and regimen; Z79.899 Other long term (current) drug therapy; Z79.4 Long term (current) use of insulin; Z88.5 Allergy status to narcotic agent; Z88.8 Allergy status to other drugs, medicaments and biological substances; D63.1 Anemia in chronic kidney disease; Z95.0 Presence of cardiac pacemaker; E78.5 Hyperlipidemia, unspecified

== ENCOUNTER → 2018-07-01 | Outpatient (REF) | payer MEDICARE ==
[~2018-07-01] MED LIST changes: +AMLO10TA5 PO; +ASPI81TA85 PO; +CLONI1TA PO; +COLA100C5 PO; +DARB100SYR IV; -DIOV160T2 PO; +DIOV160T3 PO; +MILK120011 PO; +MUPI1OIN2 TOP; -MUPI2OI TOP; +NORV5TAB PO; +RETA1000 INJ; -VALS1TAB46 PO; -VALS1TAB47 PO; +VALS1TAB66 PO; +VALS1TAB67 PO; +[UNRECOGNIZED DRUG - OTHER]
[2018-07-01 15:52] LABS: HEMATOCRIT 27.7 % (36.0-47.0); HEMOGLOBIN 8.5 g/dl (12.0-15.5)
== END ==
LOC: M LAB REF 15:16
PROVIDERS: ATTEND Internal Medicine
DX: N18.6 End stage renal disease (principal); D63.1 Anemia in chronic kidney disease

== ENCOUNTER → 2018-07-06 | Outpatient (REF) | payer MEDICARE ==
[~2018-07-06] MED LIST changes: -ASPI81TA85 PO; +DIOV160T2 PO; -DIOV160T3 PO; -MUPI1OIN2 TOP; +MUPI2OI TOP; -NORV5TAB PO; +VALS1TAB46 PO; +VALS1TAB47 PO; -VALS1TAB66 PO; -VALS1TAB67 PO
[2018-07-06 15:56] LABS: BASO # 0.1 10^3/uL (0.0-0.2); BASO % 0.8 % (0.0-1.0); EOS # 0.2 10^3/uL (0.0-0.50); EOS % 2.5 % (0.0-3.0); HEMATOCRIT 28.4 % (36.0-47.0); HEMOGLOBIN 9.2 g/dl (12.0-15.5); LYMPH # 1.3 10^3/uL (1.5-4.5); LYMPH % 20.7 % (24.0-44.0); MEAN CORPUSCULAR HEMOGLOBIN 32.6 pg (27.0-33.0); MEAN CORPUSCULAR HGB CONC 32.4 g/dl (32.0-36.5); MEAN CORPUSCULAR VOLUME 100.7 fl (80.0-96.0); MONO # 0.6 10^3/uL (0.0-0.8); NEUTROPHILS # 4.1 10^3/uL (1.8-7.7); NEUTROPHILS % 66.8 % (36.0-66.0); PLATELET COUNT, AUTOMATED 192 10^3/uL (150-450); RED BLOOD COUNT 2.82 10^6/uL (4.00-5.40); WHITE BLOOD COUNT 6.1 10^3/uL (4.0-10.0)
[2018-07-06 16:04] LABS: CALCIUM LEVEL 9.3 MG/DL (8.5-10.1); CREATININE FOR GFR 5.07 MG/DL (0.55-1.30); GLOMERULAR FILTRATION RATE 11.2 (>51); MAGNESIUM LEVEL 2.1 MG/DL (1.8-2.4); POTASSIUM SERUM 3.4 MEQ/L (3.5-5.1)
== END ==
LOC: M LABDRAW1 15:32
PROVIDERS: ATTEND Physician Assistant
DX: N18.5 Chronic kidney disease, stage 5 (principal); I49.9 Cardiac arrhythmia, unspecified

== ENCOUNTER 2018-09-09 10:51 | Inpatient (IN) | payer MEDICARE ==
[~2018-09-09] VITALS: Ht 167.6 cm; Wt 85.6 kg
[~2018-09-09 10:51] MED LIST changes: +ASPI81TA85 PO; -DIOV160T2 PO; +DIOV160T3 PO; +MUPI1OIN2 TOP; -MUPI2OI TOP; +NORV5TAB PO; -VALS1TAB46 PO; -VALS1TAB47 PO; +VALS1TAB66 PO; +VALS1TAB67 PO
[2018-09-09] MEDS ORDERED: PROC20004 SC (11:21)
[2018-09-09] MEDS ORDERED: ASPIRIN 81 MG CHEW TABLET PO ONE (12:30)
[2018-09-09] MEDS: NITROGLYCERIN 0.4 MG SUBL TABLET SL PRN ×2 (12:31→12:38)
[2018-09-09 12:37] LABS: BASO % 0.4 % (0.0-1.0); EOS # 0.1 10^3/uL (0.0-0.50); HEMATOCRIT 26.6 % (36.0-47.0); HEMOGLOBIN 8.8 g/dl (12.0-15.5); LYMPH # 1.3 10^3/uL (1.5-4.5); LYMPH % 18.8 % (24.0-44.0); MEAN CORPUSCULAR HEMOGLOBIN 34.4 pg (27.0-33.0); MEAN CORPUSCULAR HGB CONC 33.1 g/dl (32.0-36.5); MEAN CORPUSCULAR VOLUME 103.9 fl (80.0-96.0); MONO # 0.6 10^3/uL (0.0-0.8); MONO % 7.9 % (0.0-5.0); NEUTROPHILS % 70.8 % (36.0-66.0); PLATELET COUNT, AUTOMATED 140 10^3/uL (150-450); RED BLOOD COUNT 2.56 10^6/uL (4.00-5.40); WHITE BLOOD COUNT 7.1 10^3/uL (4.0-10.0)
[2018-09-09] MEDS ORDERED: GI COCKTAIL 50ML BTL(HYOSCYAMINE/MAALOX/LIDOCAINE VISCOUS)(1:3:1) PO ONE (12:45)
[2018-09-09 13:09] LABS: ALBUMIN 3.6 GM/DL (3.2-5.2); ALT/SGPT 20 U/L (12-78); BILIRUBIN,DIRECT 0.2 MG/DL (0.0-0.2); BILIRUBIN,TOTAL 0.6 MG/DL (0.2-1.0); BLOOD UREA NITROGEN 67 MG/DL (7-18); CALCIUM LEVEL 8.7 MG/DL (8.5-10.1); CARBON DIOXIDE LEVEL 31 MEQ/L (21-32); CHLORIDE LEVEL 98 MEQ/L (98-107); CK-MB VALUE MASS < 1.0 NG/ML (<3.6); CPK CREATINE PHOSPHOKINASE 102 U/L (26-192); GLOMERULAR FILTRATION RATE 4.7 (>51); GLUCOSE, FASTING 108 MG/DL (70-100); MB/CK RELATIVE INDEX 0.98 (< OR =4); NT-PRO BNP 9879 PG/ML (<125); SODIUM LEVEL 137 MEQ/L (136-145); TOTAL PROTEIN 6.6 GM/DL (6.4-8.2); TROPONIN I 0.02 NG/ML (< 0.10)
--- NOTE | 2018-09-09 13:41 | ECGEPIP ---
Stationary ECG Study [facility] - ED Test Date: 2018-09-09 Pat Name: GATITO MILLER Department: Room: - Gender: F Babbitt Spinner: JGarrett : 1960 Requested By: Drew Page Order Number: [id number] Reading MD: Rosa Pittman Measurements Intervals [place] Rate: 62 P: 78 UT: 214 QRS: 87 QRSD: 95 T: 58 QT: 412 QTc: 419 Interpretive Statements SINUS RHYTHM WITH FIRST DEGREE AV BLOCK NSTTW ABNORMALITY SIMILAR 06/26/18 Electronically Signed On 09-09-2018 13:40:49 EDT by Rosa Pittman
--- NOTE | 2018-09-09 13:44 | ECGEPIP ---
Stationary ECG Study [facility] - ED Test Date: 2018-09-09 Pat Name: GATITO MILLER Department: Room: - Gender: F [employer] Specialist: JGarrett : 1960 Requested By: MARY Delgadillo Order Number: [id number] Reading MD: Rosa Pittman Measurements Intervals [place] Rate: 61 P: 62 MO: 218 QRS: 83 QRSD: 98 T: 61 QT: 420 QTc: 423 Interpretive Statements SINUS RHYTHM WITH FIRST DEGREE AV BLOCK NSTTW ABNORMALITY SIMILAAR 11:10 Electronically Signed On 09-09-2018 13:44:27 EDT by Rosa Pittman
--- NOTE | 2018-09-09 14:26 | REP ---
Portable chest x-ray: Single view. History: Weakness. Comparison chest x-ray: June 27, 2018. Findings: Moderate cardiomegaly is observed. Pulmonary vasculature is cephalized and somewhat congested. There are increased markings in the right lung base medially. This may reflect discoid atelectasis or infiltrate. EKG electrodes are seen. No pleural effusion is seen. Impression: Atelectasis versus infiltrate right base. Cardiomegaly. Vascular congestion, CHF pattern. Electronically Signed by Yaakov Morataya MD 09/09/2018 04:31 P
[2018-09-09] MEDS ORDERED: DEXTROSE 50% 50 ML SYRINGE IV STA (14:38)
[2018-09-09] MEDS ORDERED: HumuLIN R (REGULAR) INSULIN (NovoLIN R) **100U/ML** PER UNIT IV STA (14:38)
[2018-09-09] MEDS ORDERED: PATIROMER SORBITEX CALCIUM 8.4 GM POWDER PACKET (VELTASSA) PO ONE (14:45)
[2018-09-09] MEDS ORDERED: CALCIUM CHLORIDE 10% 1 GM in D5W 100 ML IV ONE (15:00)
[2018-09-09] MEDS ORDERED: TOUJ1.2I SC (15:09)
[2018-09-09] MEDS ORDERED: UBID200C5 PO (15:09)
[2018-09-09] MEDS ORDERED: CLON0.2T PO (15:09)
--- NOTE | 2018-09-09 15:10 | REP ---
CT Head without contrast HISTORY: Headache COMPARISON: None Areas of decreased attenuation are present in the periventricular and subcortical white matter. This represents small-vessel ischemic disease. There is no intraparenchymal hemorrhage, acute infarct, mass or midline shift. The ventricular system and cortical sulci are dilated consistent with minimal volume loss. There is no extra cerebral collection. There is no fracture. The visualized sinuses are clear. IMPRESSION: 1. Small-vessel ischemic disease. 2. Minimal volume loss. Electronically Signed by Abdoulaye Perry MD 09/09/2018 03:00 P
--- NOTE | 2018-09-09 15:16 | REP ---
CT of the chest without IV contrast: Comparison is the plain film study earlier today. There is cardiomegaly. There is no pericardial effusion. There is diffuse bilateral interstitial coarsening compatible with interstitial infiltrates. There is a small volume of fluid in the major fissures bilaterally and in the posterior sulci bilaterally compatible with small bilateral pleural effusions. Next There is minor atelectasis in the posterior sulci bilaterally. Thoracic aorta is unremarkable. The visualized unenhanced upper abdominal contents are unremarkable except for bilateral renal cortical atrophy and multiple nonobstructive bilateral calculi. Impression: Diffuse bilateral interstitial infiltrates. Small bilateral pleural effusions. Minor atelectasis in the posterior sulci bilaterally. Cardiomegaly. Electronically Signed by Tay Montaño MD 09/09/2018 03:08 P
[2018-09-09] MEDS ORDERED: MOM 30ML SUSPENSION UDC PO PRN (15:30)
[2018-09-09] MEDS ORDERED: DEXTROSE 50% 50 ML SYRINGE IV PRN (15:30)
[2018-09-09] MEDS ORDERED: GLUCAGON FOR INJ 1 MG VIAL (J1610) SC PRN (15:30)
[2018-09-09] MEDS ORDERED: MAALOX 30 ML SUSP *UDC PO PRN (15:30)
[2018-09-09] MEDS ORDERED: ACETAMINOPHEN TAB 650MG DOSE (2X325MG) PO PRN (15:30)
[2018-09-09] MEDS ORDERED: GLUCOSE 4 GM CHEW TABLET PO PRN (15:30)
--- NOTE | 2018-09-09 15:43 | HPEPDOC ---
General Date of Admission Attending Physician: TOY IRWIN MD Chief Complaint The patient is a 58-year-old female admitted with a reason for visit of Syncope. Source: Patient, Family Exam Limitations: No limitations Timing/Duration: Momentarily Severity: Severe Associated Symptoms: Syncope History of Present Illness 58 years old -B[place] female with past medical history of hypertension, diabetes mellitus, hyperlipidemia, end-stage renal disease on hemodialysis, sustained an episode of syncope for a few seconds and she fell in her shower chair, as per patient, she does not recall or are complete loss of consciousness. No palpitations. No chest pains. No headache. Patient was brought to ER for further workup and is being admitted for possible hemodialysis as she missed her hemodialysis session today Home Medications Scheduled Amlodipine Besylate (Norvasc) 5 Mg Tablet, 5 MG PO QHS, (Reported) PATIENT INDICATES THAT SHE TAKES THIS MEDICATION IN THE MORNING ON FRIDAY, FRIDAY, FRIDAY (DIALYSIS DAYS) AND IN THE EVENING AT HOME ALL OTHER DAYS Aspirin (Aspir 81) 81 Mg Tablet.dr, 81 MG PO DAILY, (Reported) Calcitriol (Rocaltrol) 0.5 Mcg Cap, 0.5 MCG PO DAILY, (Reported) Carvedilol (Carvedilol) 25 Mg Tab, 25 MG PO BID, (Reported) Cinacalcet HCl (Sensipar) 60 Mg Tab, 60 MG PO BID, (Reported) Clonidine HCl (Clonidine HCl) 0.2 Mg Tablet, 0.2 MG PO BID, (Reported) PATIENT STATES THAT SHE BREAKS TABLET IN HALF IF HER BP IS LOWER THAN 120 SYSTOLIC Docusate Sodium (Colace) 100 Mg Cap, 200 MG PO DAILY, (Reported) Epoetin Victor Manuel (Procrit) 20,000 Unit/1 Ml Vial, 4,000 UNIT SC 2XW, (Reported) TUESDAYS AND THURSDAYS Ferrous Sulfate (Ferrous Sulfate) 325 Mg Tab, 325 MG PO DAILY, (Reported) Folic Acid/Vit B Complex and C (Renetta-Guido Tablet) 1 Tab Tab, 1 TAB PO DAILY, (Reported) Insulin Glargine,Hum.rec.anlog (Alesha Da Silvaar) 300 Unit/1 Ml Insuln.pen, 36 UNIT SC QPM, (Reported) AT DINNER Insulin Lispro (Humalog) 100 Unit/Ml Inj, 1 DOSE SC AC, (Reported) PER SLIDING SCALE Lanthanum Carbonate (Fosrenol) 1,000 Mg Chw, 1,000 MG PO WM, (Reported) Losartan Potassium (Losartan Potassium) 25 Mg Tab, 25 MG PO BID, (Reported) Trinity-3/Dha/Epa/Fish Oil (Fish Oil EC 1,000 mg Softgel) 1 Cap Cap, 2,000 MG PO DAILY, (Reported) Pravastatin Sodium (Pravachol) 80 Mg Tab, 80 MG PO QHS, (Reported) Ubidecarenone (Coenzyme Q10) 200 Mg Capsule, 200 MG PO DAILY, (Reported) Allergies Coded Allergies: iodixanol (Verified Allergy, Severe, Inman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, 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 History of surgery has a PD dialysis catheter placement Family History Significant Family History: No pertinent family hx Social History * Smoker: Denies Alcohol: Denies Drugs: denies A-FIB/CHADSVASC A-FIB History Current/History of A-Fib/PAF?: No Review of Systems Constitutional: Denies: Chills, Fever, Malaise, Night Sweats, Weakness, Fatigue, Weight Loss, Lethargy, Other Eyes: Denies: Pain, Vision change, Conjunctivae inflammation, Eyelid inflammation, Redness, Other ENT: Denies: Head Aches, Ear Pain, Dysphagia, Sinus Congestion, Post Nasal Drip, Sore Throat, Epistaxis, Other Symptoms Skin: Denies: Rash, Lesions, Jaundice, Bruising, Itching, Dry, Breakdown, Nail Changes, Other Pulmonary: Denies: Dyspnea, Cough, Pleuritic Chest Pain, Other Symptoms Cardiovascular: Denies: Chest Pain, Palpitations, Orthopnea, Paroxysmal Noc. Dyspnea, Edema, Lt Headedness, Other Symptoms Gastrointestinal: Denies: Nausea, Vomiting, Abdominal Pain, Diarrhea, Constipation, Melena, Hematochezia, Other Symptoms Genitourinary: Denies: Dysuria, Frequency, Incontinence, Hematuria, Retention, Other Symptoms Hematologic: Denies: Bruising, Bleeding Excessively, Petecchia, Purpura, Enlarged Lymph Nodes, Other Hematologic Endocrine: Denies: Polydipsia, Polyphagia, Polyuria, Heat Intolerance, Cold Intolerance, Other Endocrine Sx Musculoskeletal: Denies: Neck Pain, Back Pain, Shoulder Pain, Arm Pain, Hand Pain, Leg Pain, Foot Pain, Joint Pain, Muscle Pain, Spasms, Other Symptoms Neurological: Reports: Other Symptoms Psych: Denies: Mood Normal, Anxiety, Depression, Memory Issues, Thoughts of Self Harm, Anger, Thoughts of Harming Other, Other Psych Physical Examination General Exam: Positive: Alert, Cooperative Eye Exam: Positive: PERRLA, Conjunctiva & lids normal ENT Exam: Positive: Atraumatic, Mucous membr. moist/pink Neck Exam: Positive: Supple Chest Exam: Positive: Clear to auscultation, Normal air movement Heart Exam: Positive: Rate Normal, Normal S1, Normal S2 Abdomen Exam: Positive: Normal bowel sounds Skin Exam: Positive: Nl turgor and temperature Neuro Exam: Positive: Normal Speech, Cranial Nerves 3-12 NL Psych Exam: Positive: Mental status NL, Mood NL Vital Signs Vital Signs Date Time Temp Pulse Resp B/P (MAP) Pulse Ox O2 Delivery O2 Flow Rate FiO2 09/09/18 14:00 61 98 09/09/18 13:05 150/75 (100) 09/09/18 11:06 97.2 19 Room Air Laboratory Data Labs 24H Laboratory Tests 2 09/09/18 12:18: Bedside Glucose (Misc Panel) 108H 09/09/18 12:19: Immature Granulocyte % (Auto) 0.1, White Blood Count 7.1, Red Blood Count 2.56L, Hemoglobin 8.8L, Hematocrit 26.6L, Mean Corpuscular Volume 103.9H, Mean Corpuscu lar Hemoglobin 34.4H, Mean Corpuscular Hemoglobin Concent 33.1, Red Cell Distribution Width 13.2, Platelet Count 140L, Neutrophils (%) (Auto) 70.8H, Lymphocytes (%) (Auto) 18.8L, Monocytes (%) (Auto) 7.9H, Eosinophils (%) (Auto) 2.0, Basophils (%) (Auto) 0.4, Neutrophils # (Auto) 5.0, Lymphocytes # (Auto) 1.3L, Monocytes # (Auto) 0.6, Eosinophils # (Auto) 0.1, Basophils # (Auto) 0.0, Nucleated Red Blood Cells % (auto) 0.0, Anion Gap 8, Glomerular Filtration Rate 4.7L, Calcium Level 8.7, Aspartate Amino Transf (AST/SGOT) 13, Alanine Aminotransferase (ALT/SGPT) 20, Alkaline Phosphatase 98, Total Bilirubin 0.6, Direct Bilirubin 0.2, Total Creatine Kinase 102, Creatine Kinase MB < 1.0, Creatine Kinase MB Relative Index 0.98, Troponin I 0.02, [id number]-Type Natriuretic Peptide 9879H, Total Protein 6.6, Albumin 3.6, Albumin/Globulin Ratio 1.20, Thyroid Stimulating Hormone (TSH) 1.260 09/09/18 15:19: CBC/BMP Laboratory Tests 09/09/18 12:19 Red Blood Count 2.56 L, Mean Corpuscular Volume 103.9 H, Mean Corpuscular Hemoglobin 34.4 H, Mean Corpuscular Hemoglobin Concent 33.1, Red Cell Distribution Width 13.2, Neutrophils (%) (Auto) 70.8 H, Lymphocytes (%) (Auto) 18.8 L, Monocytes (%) (Auto) 7.9 H, Eosinophils (%) (Auto) 2.0, Basophils (%) (Auto) 0.4, Neutrophils # (Auto) 5.0, Lymphocytes # (Auto) 1.3 L, Monocytes # (Auto) 0.6, Eosinophils # (Auto) 0.1, Basophils # (Auto) 0.0 Microbiology Microbiology 09/09/18 Blood Culture, Received Pending 09/09/18 Blood Culture, Received Pending Problems (1) Syncope Status: Acute Problem Text: Syncope most likely vasovagal of postural hypotension Patient is completely asymptomatic with stable vital signs CT head has been ordered Needs a bilateral carotid Doppler and echocardiogram Patient will be admitted to PCU with newspaper inserter Will continue all her home meds DVT prophylaxis with heparin PT, OT a well (2) ESRD on hemodialysis Status: Acute Problem Text: As below (3) Hyperkalemia Status: Acute Problem Text: Hyperkalemia as patient missed her hemodialysis session today . She did receive calcium with insulin and glucose from ED And is scheduled for hemodialysis today and will repeat potassium level ED spoke with Dr. Luong and he will at arrange for dialysis Plan / VTE VTE Prophylaxis Ordered?: Yes TOY IRWIN MD September 09, 2018 15:43
[2018-09-09 16:07] LABS: MB/CK RELATIVE INDEX 1.03 (< OR =4); TROPONIN I 0.02 NG/ML (< 0.10)
--- NOTE | 2018-09-09 16:49 | REP ---
Bilateral carotid artery duplex ultrasound: Peak flow velocity analysis: RIGHT LEFT ICA Peak flow velocity cm/sec 81.3 78.6 ICA Diastolic flow velocity cm/sec 17.9 17.8 ICA/CCA Ratio 1.17 1.10 ECA Peak flow velocity cm/sec 74.4 90.2 CCA Peak flow velocity cm/sec 69.3 71.5 There is shallow atheromatous plaque in the bulbs bilaterally extending into the proximal ICA is and ECA bilaterally. Peak flow velocities are normal bilaterally. The findings indicate there is less than 50% narrowing on the right and on the left. There is no significant stenosis . There is antegrade flow in the vertebral arteries bilaterally. 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 The the patient states that he he had a right jugular vein central line placed 14 years ago. The thyroid gland is diffusely heterogeneous with multiple thyroid nodules. Follow-up thyroid ultrasonography might be considered. Electronically Signed by Tay Montaño MD 09/09/2018 04:41 P
[2018-09-09] MEDS: LANTHANUM CARBONATE 500 MG CHEW TABLET PO SCH (18:00)
[2018-09-09] MEDS: HumaLOG INSULIN (NovoLOG) PER UNIT SC SCH (18:38)
[2018-09-09] MEDS: CINACALCET 30 MG TAB (SENSIPAR) PO SCH (20:25)
[2018-09-09] MEDS: DOCUSATE SODIUM 100 MG CAP PO SCH (20:27)
[2018-09-09] MEDS: cloNIDine 0.2 MG TAB PO SCH (20:27)
[2018-09-09] MEDS: CARVedilol 12.5 MG TAB PO SCH (20:27)
[2018-09-09] MEDS: LOSARTAN 25 MG TAB PO SCH (20:27)
[2018-09-09] MEDS ORDERED: PRAVASTATIN 20 MG TAB PO SCH (21:00)
[2018-09-09] MEDS ORDERED: amLODIPine 5 MG TAB PO SCH (21:00)
[2018-09-09] MEDS ORDERED: HumaLOG INSULIN (NovoLOG) PER UNIT SC SCH (21:00)
--- NOTE | 2018-09-09 21:27 | CR ---
DATE OF CONSULTATION: 09/09/2018 CONSULTATION FOR: Dr. Irving REASON FOR CONSULTATION: Hyperkalemia in this lady with end-stage renal disease who is being admitted with syncope. HISTORY OF PRESENT ILLNESS: Mrs. Zuñiga is a 58-year-old female with known history of end-stage renal disease, hypertension, type 2 diabetes, and hyperlipidemia. She has been doing home hemodialysis and is being followed by [facility]. She presented to our emergency room today with episode of syncope at home. She was found to have hypervolemia here on clinical assessment and imaging. She was also noticed to have a potassium level of 6.0. A nephrology consultation was requested, and emergent dialysis is being arranged because of her hyperkalemia and hypervolemia. HOME MEDICATIONS: Her home medications include: - amlodipine 5 mg daily - aspirin 81 mg daily - calcitriol 0.5 mcg daily - carvedilol 25 mg twice a day - Sensipar 60 mg twice a day - clonidine 0.2 mg twice a day - Colace 100 mg daily - Epogen 20,000 units per mL, 4000 units she gets twice a week - ferrous sulfate 325 mg daily - multivitamin one tablet daily - Toujeo insulin 36 units at bedtime - Humalog insulin per sliding scale - Fosrenol 1000 mg three times a day with meals - losartan 25 mg twice a day - pravastatin 80 mg daily - coenzyme Q10 at 200 mg daily ALLERGIES: The allergies include MORPHINE, NIFEDIPINE, LABETALOL and IODIXANOL. PERSONAL AND SOCIAL HISTORY: The patient has no history of smoking, alcohol, or drug use. FAMILY HISTORY: Negative for end-stage renal disease. REVIEW OF SYSTEMS: The patient presented to the emergency room after syncope at home, where she fell in her shower chair. She denied any loss of complete consciousness. No fever or chills reported. Eyes: Negative for any visual changes. There is no pain or inflammation reported. Ears, nose, and throat are unremarkable. No history of nosebleeds, sore throat, hearing problems. Cardiovascular system negative for chest pain at home; however, she did report some chest pain here in the emergency department (ED). No history of palpitations or arrhythmias known in the past. Pulmonary system is negative for hemoptysis or pleuritic-type of chest pain. Gastrointestinal (GI) system negative for nausea, vomiting, or diarrhea. Genitourinary () system negative for dysuria or hematuria. Endocrine system is significant for type 2 diabetes and secondary hyperparathyroidism. Musculoskeletal system is significant for a fall at home. She does have mild lower extremity edema. Neurological system is as per history of present illness. She did have an episode of syncope at home. Psychosocial system is negative for depression or anxiety. PHYSICAL EXAMINATION: The patient is awake and alert without any acute distress. Temperature is 98 degrees Fahrenheit, heart rate 66 per minute, respiratory rate 16 per minute, blood pressure right now 176/75 mm of mercury, and oxygen saturation is about 90%. Head is atraumatic. Neck is supple, and jugular venous distention (JVD) is minimally elevated. She has no oral thrush or ulcers. Ears, nose, and throat are unremarkable. Pupils are equal and reactive to light, and sclerae are anicteric. Extraocular muscles are intact. Heart sounds are regular, and lungs clear to auscultation bilaterally. Abdomen is soft and nontender, and bowel sounds are normal. Extremities have no cyanosis or clubbing. Arteriovenous (AV) fistula in her right arm is patent. She has no peripheral edema. Neurologically, at present she is awake, alert, and at her baseline mentation. LABORATORY DATA: WBC count 7.1, hemoglobin 8.8, hematocrit 26.6, platelets 140. Sodium 137, potassium 6.0, CO2 of 31, BUN 67, and creatinine 10.7. Glucose 108 and calcium 8.7. Troponin is 0.02 and 0.02. A BNP level is 9879. Chest x-ray done in the emergency room is reviewed independently. She has cardiomegaly and mild vascular congestion. Small infiltrate versus atelectasis at right base. PROBLEMS: 1. Hyperkalemia related to end-stage renal disease. She is doing home dialysis, and last dialysis was done on Friday. We will dialyze her with 2.0 mEq potassium bath and try to bring her potassium level down to about 4.0. Electrolytes will be repeated again tomorrow morning. 2. End-stage renal disease. The patient has been doing home hemodialysis on Friday, Friday, and Friday schedule. She performed last dialysis on Friday. We are going to dialyze her right now and dialyze her for 3 hours today. 3. Congestive heart failure. She has mild hypervolemia, however, does not have any peripheral edema at present. We are going to remove about 2.5-3 liters of fluid with dialysis today as tolerated. 4. Anemia. This is chronic and related to her end-stage renal disease. At present, there is no emergent need for a transfusion. Complete blood count (CBC) should be repeated tomorrow again after fluid removal. 5. Syncope. I do not believe that her syncope is related to end-stage renal disease. Workup by hospitalist service is in progress. Thank you for involving me in the care of Mrs. Zuñiga. I will follow her along with you.
[2018-09-09] MEDS: HEPARIN SOD (PORCINE) 5000 UNITS/ML VIAL SC SCH (21:44)
[2018-09-09 23:00] VITALS: BP 158/70
[2018-09-10 00:17] LABS: MAGNESIUM LEVEL 2.1 MG/DL (1.8-2.4); MB/CK RELATIVE INDEX 1.18 (< OR =4); TROPONIN I 0.03 NG/ML (< 0.10)
[2018-09-10 04:00] VITALS: BP 156/72
[2018-09-10] MEDS: HumaLOG INSULIN (NovoLOG) PER UNIT SC SCH (07:30)
[2018-09-10 08:00] VITALS: BP 142/64
[2018-09-10] MEDS: LOSARTAN 25 MG TAB PO SCH (08:46)
[2018-09-10] MEDS: HEPARIN SOD (PORCINE) 5000 UNITS/ML VIAL SC SCH (08:47)
[2018-09-10] MEDS: CINACALCET 30 MG TAB (SENSIPAR) PO SCH (08:47)
[2018-09-10] MEDS: LANTHANUM CARBONATE 500 MG CHEW TABLET PO SCH (08:47)
[2018-09-10] MEDS: CARVedilol 12.5 MG TAB PO SCH (08:47)
[2018-09-10 08:48] VITALS: BP 142/64
[2018-09-10] MEDS: cloNIDine 0.2 MG TAB PO SCH (08:48)
[2018-09-10] MEDS: DOCUSATE SODIUM 100 MG CAP PO SCH (08:48)
[2018-09-10] MEDS ORDERED: ASPIRIN 81 MG ENTERIC TAB PO SCH (09:00)
[2018-09-10] MEDS ORDERED: CALCITRIOL 0.25 MCG CAP (S0169) PO SCH (09:00)
[2018-09-10] MEDS ORDERED: DOCUSATE SODIUM 100 MG CAP PO SCH (09:00)
[2018-09-10] MEDS ORDERED: FERROUS SULFATE 325MG TAB PO SCH (09:00)
[2018-09-10] MEDS ORDERED: OMEGA-3 1000MG CAPSULE PO SCH (09:00)
[2018-09-10 09:15] LABS: HEMATOCRIT 25.8 % (36.0-47.0); HEMOGLOBIN 8.4 g/dl (12.0-15.5); MEAN CORPUSCULAR HEMOGLOBIN 32.9 pg (27.0-33.0); MEAN CORPUSCULAR HGB CONC 32.6 g/dl (32.0-36.5); MEAN CORPUSCULAR VOLUME 101.2 fl (80.0-96.0); PLATELET COUNT, AUTOMATED 142 10^3/uL (150-450); RED BLOOD COUNT 2.55 10^6/uL (4.00-5.40); WHITE BLOOD COUNT 5.7 10^3/uL (4.0-10.0)
[2018-09-10 09:42] LABS: ALBUMIN 3.5 GM/DL (3.2-5.2); CALCIUM LEVEL 9.2 MG/DL (8.5-10.1); CREATININE FOR GFR 7.67 MG/DL (0.55-1.30); PHOSPHORUS LEVEL 3.6 MG/DL (2.5-4.9); POTASSIUM SERUM 4.7 MEQ/L (3.5-5.1)
--- NOTE | 2018-09-10 13:01 | IPN ---
DATE OF VISIT: 09/10/2018 Mrs. Zuñiga is seen this morning on her bedside. She just completed her echocardiogram. She was admitted with syncope yesterday and was noticed to have hyperkalemia and congestive heart failure. She was dialyzed immediately after admission and we removed about 3 liters of fluid. She is feeling better but still weak and dizzy. She denies any fever, chills, dyspnea or chest pain. On physical exam, temperature 98.6 degrees Fahrenheit, heart rate 80 per minute and respiratory rate 18 per minute. Blood pressure 142/64 mmHg and oxygen saturation 95%. Head is atraumatic. Neck is supple and jugular venous distention (JVD) is not abnormally elevated. Heart sounds are regular and lungs clear to auscultation. Abdomen soft and nontender, and bowel sounds are normal. Extremities have no cyanosis or clubbing. Neurologically, she is awake, alert and oriented times three. Today's labs show WBC count 5.7, hemoglobin 8.4 and hematocrit 25.8. Platelets 142. Sodium 139, potassium 4.6, CO2 31, BUN 35 and creatinine 7.67. Glucose was 64 this morning and calcium 9.2. Her fingerstick blood sugar is now 148. PROBLEMS: 1. End-stage renal disease. Patient was dialyzed yesterday and there is no need for another dialysis session today. 2. Hyperkalemia related to end-stage renal disease and dietary noncompliance. Her hyperkalemia corrected with dialysis and no other intervention is indicated. 3. Congestive heart failure. Volume status has also improved and corrected. We removed about 3 liters of fluid yesterday. At this point, there is no emergent need for dialysis today. We will plan on dialyzing her tomorrow. 4. Anemia. She does have significant anemia related to end-stage renal disease. She is being dialyzed in [place] currently and is receiving Procrit. She feels that Procrit is not working well for her. I will add iron studies and see how her iron status is. We can give her a dose of Aranesp with dialysis tomorrow. 5. Hypertension. Blood pressure is well-controlled on current medications and no changes are being made today.
[2018-09-10 13:15] LABS: PERCENT SATURATION 22.8 % (13.2-45.0)
--- NOTE | 2018-09-10 13:34 | DS.PDOC ---
Discharge Summary General Date of Admission September 09, 2018 at 15:17 Date of Discharge 09/10/18 Attending Physician: TOY IRWIN MD Discharge Summary PROCEDURES PERFORMED DURING STAY: None. ADMITTING DIAGNOSES: 1. Hyperkalemia, syncope. DISCHARGE DIAGNOSES: 1. Hyperkalemia, syncope. COMPLICATIONS/CHIEF COMPLAINT: Syncope. HISTORY OF PRESENT ILLNESS: 58 years old -Lebanese female with past medical history of hypertension, diabetes mellitus, hyperlipidemia, end-stage renal disease on hemodialysis, sustained an episode of syncope for a few seconds and she fell in her shower chair, as per patient, she does not recall or are complete loss of consciousness. No palpitations. No chest pains. No headache. Patient was brought to ER for further workup and is being admitted for possible hemodialysis as she missed her hemodialysis session today. HOSPITAL COURSE: Patient presented with hyperkalemia and possible syncope as well. She was in shower and she had a near syncopal episode and she fell in the shower chair. Patient was found to have a hyperkalemia and was treated with calcium, insulin and D50 in the ED. Also was found to have a peaked K T waves and EKG. Patient was seen by nephrology by Dr. Luong. Patient had a hemodialysis done yesterday and is scheduled again tomorrow has been signed off from nephrology Regarding her near syncope. Echocardiogram was done. Official report is pending but preliminary report does not show any abnormalities and bilateral carotid Dopplers and CT of the head essentially within normal limits, most likely causes vasovagal syncope Patient advised to follow with her conciliator and PCP in 1-2 weeks. DISCHARGE MEDICATIONS: Please see below. ALLERGIES: Please see below. PHYSICAL EXAMINATION ON DISCHARGE: VITAL SIGNS: Please see below. GENERAL: Within normal limits. HEENT: PERRLA. Extraocular muscles intact NECK: Supple, no JVD CARDIOVASCULAR EXAMINATION: S1, S2, regular RESPIRATORY EXAMINATION: Clear to A&P ABDOMINAL EXAMINATION: , Soft, nontender, bowel sounds present EXTREMITIES: No clubbing, cyanosis, edema SKIN: Normal NEUROLOGICAL EXAMINATION: . No focal motor or sensory deficit PSYCHIATRIC EXAMINATION: Within normal limits LABORATORY DATA: Please see below. IMAGING: As per EMR PROGNOSIS: Good ACTIVITY: As tolerated. DIET: Renal diet DISCHARGE PLAN: Follow with Dr. Luong in 1-2 weeks DISPOSITION: . DISCHARGE INSTRUCTIONS: 1. As above. ITEMS TO FOLLOWUP ON ON OUTPATIENT: 1. As above. DISCHARGE CONDITION: Stable. TIME SPENT ON DISCHARGE: 40 minutes. Vital Signs/I&Os Vital Signs Date Time Temp Pulse Resp B/P (MAP) Pulse Ox O2 Delivery O2 Flow Rate FiO2 09/10/18 08:48 142/64 09/10/18 08:47 80 09/10/18 08:00 98.6 18 95 09/09/18 11:06 Room Air I&O- Last 24 Hours up to 6 AM 09/10/18 06:00 Intake Total 0 ml Output Total 2500 ml Balance -2500 ml Laboratory Data Labs 24H Laboratory Tests 2 09/09/18 15:19: Total Creatine Kinase 97, Creatine Kinase MB 1.0, Creatine Kinase MB Relative Index 1.03, Troponin I 0.02 09/09/18 16:12: Bedside Glucose (Misc Panel) 71 09/09/18 17:10: Bedside Glucose (Misc Panel) 86 09/09/18 21:37: Bedside Glucose (Misc Panel) 200H 09/09/18 23:39: Magnesium Level 2.1, Total Creatine Kinase 85, Creatine Kinase MB 1.0, Creatine Kinase MB Relative Index 1.18, Troponin I 0.03# 09/10/18 06:30: Bedside Glucose (Misc Panel) 56L 09/10/18 06:50: Bedside Glucose (Misc Panel) 95 09/10/18 08:32: Nucleated Red Blood Cells % (auto) 0.0, Blood Urea Nitrogen 35H, Creatinine 7.67H, Sodium Level 139, Potassium Level 4.7#, Chloride Level 100, Carbon Dioxide Level 31, Anion Gap 8, Glomerular Filtration Rate 7.0L, Calcium Level 9.2, Phosphorus Level 3.6, Iron Level 51, Total Iron Binding Capacity 224L, Transferrin % Saturation 22.8, Albumin 3.5 09/10/18 08:35: Bedside Glucose (Misc Panel) 61L 09/10/18 11:13: Bedside Glucose (Misc Panel) 148H 09/10/18 12:23: Bedside Glucose (Misc Panel) 178H CBC/BMP Laboratory Tests 09/10/18 08:32 Red Blood Count 2.55 L, Mean Corpuscular Volume 101.2 H, Mean Corpuscular Hemoglobin 32.9, Mean Corpuscular Hemoglobin Concent 32.6, Red Cell Distribution Width 13.0, Anion Gap 8 FSBS Laboratory Tests Test 09/09/18 16:12 09/09/18 17:10 09/09/18 21:37 09/10/18 06:30 Range/Units Bedside Glucose (Misc Panel) 71 86 200 56 70-105 MG/DL Test 09/10/18 06:50 09/10/18 08:35 09/10/18 11:13 09/10/18 12:23 Range/Units Bedside Glucose (Misc Panel) 95 61 148 178 70-105 MG/DL Microbiology Microbiology 09/09/18 Blood Culture, Received Pending 09/09/18 Blood Culture, Received Pending Discharge Medications Scheduled Amlodipine Besylate (Norvasc) 5 Mg Tablet, 5 MG PO QHS, (Reported) PATIENT INDICATES THAT SHE TAKES THIS MEDICATION IN THE MORNING ON FRIDAY, FRIDAY, FRIDAY (DIALYSIS DAYS) AND IN THE EVENING AT HOME ALL OTHER DAYS Aspirin (Aspir 81) 81 Mg Tablet.dr, 81 MG PO DAILY, (Reported) Calcitriol (Rocaltrol) 0.5 Mcg Cap, 0.5 MCG PO DAILY, (Reported) Carvedilol (Carvedilol) 25 Mg Tab, 25 MG PO BID, (Reported) Cinacalcet HCl (Sensipar) 60 Mg Tab, 60 MG PO BID, (Reported) Clonidine HCl (Clonidine HCl) 0.2 Mg Tablet, 0.2 MG PO BID, (Reported) PATIENT STATES THAT SHE BREAKS TABLET IN HALF IF HER BP IS LOWER THAN 120 SYSTOLIC Docusate Sodium (Colace) 100 Mg Cap, 200 MG PO DAILY, (Reported) Epoetin Victor Manuel (Procrit) 20,000 Unit/1 Ml Vial, 4,000 UNIT SC 2XW, (Reported) TUESDAYS AND THURSDAYS Ferrous Sulfate (Ferrous Sulfate) 325 Mg Tab, 325 MG PO DAILY, (Reported) Folic Acid/Vit B Complex and C (Renetta-Guido Tablet) 1 Tab Tab, 1 TAB PO DAILY, (Reported) Insulin Glargine,Hum.rec.anlog (Touwaldoo Solostar) 300 Unit/1 Ml Insuln.pen, 36 UNIT SC QPM, (Reported) AT DINNER Insulin Lispro (Humalog) 100 Unit/Ml Inj, 1 DOSE SC AC, (Reported) PER SLIDING SCALE Lanthanum Carbonate (Fosrenol) 1,000 Mg Chw, 1,000 MG PO WM, (Reported) Losartan Potassium (Losartan Potassium) 25 Mg Tab, 25 MG PO BID, (Reported) Chester-3/Dha/Epa/Fish Oil (Fish Oil EC 1,000 mg Softgel) 1 Cap Cap, 2,000 MG PO DAILY, (Reported) Pravastatin Sodium (Pravachol) 80 Mg Tab, 80 MG PO QHS, (Reported) Ubidecarenone (Coenzyme Q10) 200 Mg Capsule, 200 MG PO DAILY, (Reported) Allergies Coded Allergies: iodixanol (Verified Allergy, Severe, Inman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, 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
--- NOTE | 2018-09-10 18:17 | ECHO ---
DATE OF PROCEDURE: 09/10/2018 REFERRING PHYSICIAN: Dr. Irving INDICATIONS: Syncope. Height 168 cm, weight 84 kg. DIMENSIONS: IVS: 1.5 LV: 4.2 LVPW: 1.9 LA: 4.2 Aorta: 3.79 IVC: 1.9 Mitral E wave velocity: 116 A wave: 73 E prime septal: 4.1 E prime lateral: 5.9 FINDINGS: Study is of good technical quality. The patient is in sinus rhythm. Left ventricle is of normal size. There is moderate left ventricle hypertrophy. There is a granular pattern to the myocardium raising suspicion for potential infiltrative process. Overall estimated left ventricular ejection fraction (LVEF) approximately 70-75%. I do not appreciate any segmental wall motion abnormalities. Right ventricle does not appear grossly enlarged. Left atrium is at least mildly enlarged. Right atrium appears grossly normal. Aortic, mitral, tricuspid and pulmonic valves all appear normal. Trace pericardial effusion is noted. Inferior vena cava is of normal size and collapses with respiration, indicative of likely normal central venous pressure. Aortic root is normal. Aortic arch was not visualized. Abdominal aorta appears normal. Doppler interrogation reveals no aortic stenosis or insufficiency. There is mild mitral and mild tricuspid insufficiency. Calculated pulmonary artery pressure is around 40 mmHg corresponding to moderate pulmonary hypertension. Pulmonic valve is functionally competent. Mitral inflow pattern and tissue Doppler imaging of mitral annulus revealed grade 2 diastolic dysfunction. CONCLUSIONS: 1. Study is of excellent technical quality. 2. Normal left ventricular (LV) size with moderate left ventricular hypertrophy (LVH) and hyperdynamic LV systolic function. Grade 2 diastolic dysfunction. 3. No significant valvular disease. 4. Likely normal central venous pressure and approximately moderate pulmonary hypertension. COMMENT: Subacute bacterial endocarditis (SBE) prophylaxis is not recommended. The granular appearance of the myocardium is raising some suspicion for infiltrative process. No findings to provide obvious explanation for syncopal event.
--- NOTE | 2018-09-10 19:12 | ECGEPIP ---
Stationary ECG Study [facility] Test Date: 2018-09-09 Pat Name: GATITO MILLER Department: Room: [place] [address] Gender: F Stencil Inspector: ULICES : 1960 Requested By: ELIZABETH HANSEN Order Number: [id number] Reading MD: Gino Samaniego Measurements Intervals [place] Rate: 62 P: 72 [place]: 207 QRS: 67 QRSD: 97 T: 55 QT: 428 QTc: 438 Interpretive Statements SINUS RHYTHM WITH OCCASIONAL VENTRICULAR PREMATURE COMPLEXES NONSPECIFIC T-WAVE ABNORMALITY SIMILAR TO 09/09/18 Electronically Signed On 09-10-2018 19:12:20 EDT by Gino Samaniego
--- NOTE | 2018-09-10 19:16 | ECGEPIP ---
Stationary ECG Study [facility] Test Date: 2018-09-10 Pat Name: GATITO MILLER Department: Room: [place] [address] Gender: F Adobe Block Maker: NITISH : 1960 Requested By: TOY IRWIN Order Number: [id number] Reading MD: Gino Samaniego Measurements Intervals [place] Rate: 67 P: 50 [place]: 205 QRS: 60 QRSD: 94 T: 31 QT: 413 QTc: 438 Interpretive Statements SINUS RHYTHM WITH FIRST DGR AV BLOCK SIMILAR TO 09/09/18 Electronically Signed On 09-10-2018 19:15:41 EDT by Gino Samaniego
== END 2018-09-10 13:27 | disposition home or self-care (01) | DRG 640 ==
LOC: M ED 10:51 → EDBD 10:51 → M ED INP 15:17 → M PCU 19:50
PROVIDERS: ADMIT Internal Medicine; ATTEND Internal Medicine
PROC: 5A1D70Z Performance of Urinary Filtration, Intermittent, Less than 6 Hours Per Day (ICD-10-PCS; principal; 2018-09-09)
DX: E87.5 Hyperkalemia (principal); N18.6 End stage renal disease; N25.81 Secondary hyperparathyroidism of renal origin; I13.2 Hypertensive heart and chronic kidney disease with heart failure and with stage 5 chronic kidney disease, or end stage renal disease; R55 Syncope and collapse; E11.9 Type 2 diabetes mellitus without complications; E78.5 Hyperlipidemia, unspecified; Z79.899 Other long term (current) drug therapy; Z79.82 Long term (current) use of aspirin; Z88.5 Allergy status to narcotic agent; Z88.8 Allergy status to other drugs, medicaments and biological substances; Z79.4 Long term (current) use of insulin; I50.9 Heart failure, unspecified; D63.1 Anemia in chronic kidney disease; Z91.11 Patient's noncompliance with dietary regimen

== ENCOUNTER 2018-12-14 02:35 | Inpatient (IN) | payer MEDICARE ==
[~2018-12-14] VITALS: Ht 167.6 cm; Wt 76.8 kg
[~2018-12-14 02:35] MED LIST changes: +CLON0.2T PO; +MIRC50IN INJ; +PROC20004 SC; +UBID200C5 PO; -[UNRECOGNIZED DRUG - CODE] INJ
[2018-12-14 03:46] LABS: BASO % 0.3 % (0.0-1.0); EOS # 0.2 10^3/uL (0.0-0.50); EOS % 2.1 % (0.0-3.0); HEMATOCRIT 24.5 % (36.0-47.0); HEMOGLOBIN 7.6 g/dl (12.0-15.5); LYMPH # 0.9 10^3/uL (1.5-4.5); LYMPH % 10.6 % (24.0-44.0); MEAN CORPUSCULAR HEMOGLOBIN 32.1 pg (27.0-33.0); MEAN CORPUSCULAR VOLUME 103.4 fl (80.0-96.0); MONO # 0.5 10^3/uL (0.0-0.8); MONO % 5.5 % (0.0-5.0); NEUTROPHILS # 7.2 10^3/uL (1.8-7.7); NEUTROPHILS % 81.1 % (36.0-66.0); PLATELET COUNT, AUTOMATED 204 10^3/uL (150-450); RED BLOOD COUNT 2.37 10^6/uL (4.00-5.40); WHITE BLOOD COUNT 8.9 10^3/uL (4.0-10.0)
[2018-12-14 04:32] LABS: BLOOD UREA NITROGEN 58 MG/DL (7-18); CALCIUM LEVEL 9.5 MG/DL (8.5-10.1); CARBON DIOXIDE LEVEL 33 MEQ/L (21-32); CHLORIDE LEVEL 98 MEQ/L (98-107); CK-MB VALUE MASS < 1.0 NG/ML (<3.6); CPK CREATINE PHOSPHOKINASE 61 U/L (26-192); GLOMERULAR FILTRATION RATE 4.7 (>51); GLUCOSE, FASTING 243 MG/DL (70-100); MB/CK RELATIVE INDEX 1.64 (< OR =4); NT-PRO BNP 48834 PG/ML (<125); POTASSIUM SERUM 4.9 MEQ/L (3.5-5.1); SODIUM LEVEL 140 MEQ/L (136-145); TROPONIN I 0.03 NG/ML (< 0.10)
[2018-12-14] MEDS ORDERED: IPRATROPIUM 0.5MG/ALBUTEROL 2.5MG INH SOL UD 3ML (DUONEB)(J7620) NEB ONE (04:45)
--- NOTE | 2018-12-14 06:10 | REPVR ---
EXAM: CT Chest Without Contrast EXAM DATE/TIME: 12/14/2018 4:31 AM CLINICAL HISTORY: 58 years old, female; Shortness of breath; Additional info: SOB, chf, eval for underlying infiltrate TECHNIQUE: Imaging protocol: Axial computed tomography images of the chest without intravenous contrast. Coronal and sagittal reformatted images were created and reviewed. 3D rendering: MIP reconstructed images were created and reviewed. Radiation optimization: All CT scans at this facility use at least one of these dose optimization techniques: automated exposure control; mA and/or kV adjustment per patient size (includes targeted exams where dose is matched to clinical indication); or iterative reconstruction. COMPARISON: CT Chest without contrast 09/09/2018 2:35 PM FINDINGS: Thyroid: Partially visualized enlargement of thyroid gland. Lungs: Diffuse interstitial vascular accentuation and suspected interstitial edema. Stranding areas of superimposed atelectasis or scarring with partial compressive atelectasis of the lower lungs posteriorly. Slightly greater opacity in the left lower lobe. 0.2 CM nodule right middle lobe series 201 image 40. 0.3 CM nodule right middle lobe series 201 image 43. Pleural space: Bilateral pleural effusions greater on the right. Pleural-based nodular density right middle lobe laterally series 201 image 40. Heart: Cardiac enlargement. Mediastinum: Fluid or soft tissue density within the anterior mediastinum. Aorta: Atherosclerotic calcification thoracic aorta. Borderline dilated ascending thoracic aorta 4.1 CM. Lymph nodes: Mediastinal vascular accentuation or adenopathy. Bones/joints: Degenerative change of thoracic spine. Thoracic curvatures upper thoracic spine right concavity and lower thoracic spine left concavity. Scattered small foci of lucency within thoracic spine, proximal right humerus are nonspecific. Soft tissues: Unremarkable. Kidneys and ureters: Right intrarenal calculus. Other findings: Limitation by the lack of contrast media. IMPRESSION: 1. Limitation by the lack of contrast media 2. Atherosclerosis aorta with borderline dilated ascending thoracic aorta.Recommend clinical assessment and follow-up. Diameter is stable compared to prior CT of 09/09/18. 3. Cardiomegaly. 4. Mediastinal adenopathy with difficult distinction of accentuated vasculature. 5. Bilateral pleural effusions greater on the right and slightly increased compared to previous. 6. Diffuse interstitial edema. 7. Atelectasis or scarring throughout both lungs most noted in the lower lobe of lungs greater on the left. Correlate for symptoms of pneumonia. 8. Pulmonary nodules as described above.For patients at low risk (minimal or absent history of smoking and of other known risk factors), no routine follow-up is indicated. For patients at high risk (history of smoking or of other known risk factors), consider optional CT at 12 months. (Maddison et al., Fleischner Society, 2017) Electronically signed by: Joyce Adams On 12/14/2018 06:09:57 AM
--- NOTE | 2018-12-14 07:23 | REP ---
Portable chest, 03:37 a.m., single AP view with the patient upright: Comparisons are 09/09/2018, 06/27/2018 and 12/19/2015. There are bilateral interstitial infiltrates. Questionably there is a left pleural effusion. Cardiac size is enlarged. There is thoracic scoliosis convex left at the upper thoracic spine, unchanged. Impression: Cardiomegaly, bilateral interstitial infiltrates, probable left pleural effusion. Electronically Signed by Tay Montaño MD 12/14/2018 07:15 A
--- NOTE | 2018-12-14 08:46 | HPEPDOC ---
General Date of Admission 12/14/18 Date of Service: Dec 14, 2018 Primary Care Physician: A Attending Physician: MARYBETH SIERRA DO Chief Complaint The patient is a 58-year-old female admitted with a reason for visit of SOB. Source: Patient Exam Limitations: No limitations Timing/Duration: Day(s) History of Present Illness Patient is 58 years old female with past medical history of end-stage renal disease on dialysis Friday, Friday, Friday, type 2 diabetes, CHF with preserved ejection fraction, hypertension presented to hospital with increased shortness of breath, orthopnea. Patient stated that her last dialysis was on Friday12/11/18 in [place]. Patient stated that around 2 days ago she started feeling increased work of breathing, she developed orthopnea. Yesterday, she inc reased dyspnea even more. The dyspnea was associated with nausea and loss of appetite. She slept on the chair. Today in the emergency room patient was found bilateral pleural effusion on the chest x-ray. Chest CT confirmed bilateral pleural effusion, and showed diffuse interstitial edema and cardiomegaly. Lab results significant for anemia with hemoglobin of 7.6, hematocrit 24.5, BNP 29136. Patient received oxygen via nasal cannula 2 L with oxygen saturation of 93% Home Medications Scheduled Amlodipine Besylate (Norvasc) 5 Mg Tablet, 5 MG PO QHS, (Reported) PATIENT INDICATES THAT SHE TAKES THIS MEDICATION IN THE MORNING ON FRIDAY, FRIDAY, FRIDAY (DIALYSIS DAYS) AND IN THE EVENING AT HOME ALL OTHER DAYS Aspirin (Aspir 81) 81 Mg Tablet.dr, 81 MG PO DAILY, (Reported) Carvedilol (Carvedilol) 25 Mg Tab, 25 MG PO BID, (Reported) Clonidine HCl (Clonidine HCl) 0.2 Mg Tablet, 0.2 MG PO BID, (Reported) PATIENT STATES THAT SHE BREAKS TABLET IN HALF IF HER BP IS LOWER THAN 120 SYSTOLIC Folic Acid/Vit B Complex and C (Renetta-Guido Tablet) 1 Tab Tab, 1 TAB PO DAILY, (Reported) Insulin Glargine,Hum.rec.anlog (Toujane Solostar) 300 Unit/1 Ml Insuln.pen, 30 UNIT SC QPM, (Reported) AT DINNER Insulin Lispro (Humalog) 100 Unit/Ml Inj, 1 DOSE SC AC, (Reported) PER SLIDING SCALE Lanthanum Carbonate (Fosrenol) 1,000 Mg Chw, 1,000 MG PO WM, (Reported) [place]-3/Dha/Epa/Fish Oil (Fish Oil EC 1,000 mg Softgel) 1 Cap Cap, 2,000 MG PO DAILY, (Reported) Pravastatin Sodium (Pravachol) 80 Mg Tab, 80 MG PO QHS, (Reported) Ubidecarenone (Coenzyme Q10) 200 Mg Capsule, 200 MG PO DAILY, (Reported) Valsartan (Valsartan) 160 Mg Tablet, 160 MG PO DAILY, (Reported) Scheduled PRN Docusate Sodium (Colace) 100 Mg Cap, 200 MG PO DAILY PRN for CONSTIPATION, (Reported) Allergies Coded Allergies: iodixanol (Verified Allergy, Severe, [place]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, 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) labetalol (Verified Allergy, Severe, Bronchospasm, 08/04/18) nifedipine (Verified Allergy, Unknown, 08/04/18) morphine (Verified Adverse Reaction, Intermediate, Vomiting, 08/04/18) Past Medical History Medical History End-stage renal disease on dialysis Friday, Friday, hypertension, type 2 diabetes on insulin, hypertension Family History Mom has diabetes, her sister from end-stage renal dizziness Social History * Smoker: Denies Alcohol: Denies Drugs: denies Psychosocial History: No pertinent psych hx A-FIB/CHADSVASC A-FIB History Current/History of A-Fib/PAF?: No Current PO Anticoag Therapy: No Review of Systems Constitutional: Reports: Malaise, Fatigue Eyes: Denies: Pain, Vision change ENT: Denies: Head Aches, Ear Pain, Dysphagia Skin: Denies: Rash, Lesions Pulmonary: Reports: Dyspnea Cardiovascular: Reports: Orthopnea, Paroxysmal Noc. Dyspnea, Edema; Denies: Chest Pain, Palpitations Gastrointestinal: Reports: Nausea Genitourinary: Denies: Dysuria, Frequency Hematologic: Denies: Bruising, Bleeding Excessively Endocrine: Denies: Polydipsia, Polyphagia Musculoskeletal: Denies: Neck Pain, Back Pain Neurological: Denies: Weakness, Numbness Psych: Reports: Mood Normal Physical Examination General Exam: Positive: Alert, Cooperative Eye Exam: Positive: PERRLA, Conjunctiva & lids normal ENT Exam: Positive: Atraumatic, Mucous membr. moist/pink Neck Exam: Positive: Supple; Negative: JVD Chest Exam: Positive: Rales Heart Exam: Positive: Rate Normal Abdomen Exam: Positive: Normal bowel sounds Extremity Exam: Negative: Clubbing, Cyanosis Skin Exam: Negative: Nl turgor and temperature, Rash Neuro Exam: Positive: Strength at 5/5 X4 ext, Cranial Nerves 3-12 NL Psych Exam: Positive: Mental status NL, Oriented x 3 Vital Signs Vital Signs Date Time Temp Pulse Resp B/P (MAP) Pulse Ox O2 Delivery O2 Flow Rate FiO2 12/14/18 06:37 63 16 162/77 (105) 93 12/14/18 04:11 98.1 12/14/18 02:45 Nasal Cannula 2.0 Laboratory Data Labs 24H Laboratory Tests 2 12/14/18 03:32: Immature Granulocyte % (Auto) 0.4, White Blood Count 8.9, Red Blood Count 2.37L, Hemoglobin 7.6L, Hematocrit 24.5L, Mean Corpuscular Volume 103.4H, Mean Corpuscular Hemoglobin 32.1, Mean Corpuscular Hemoglobin Concent 31.0L, Red Cell Distribution Width 15.7H, Platelet Count 204, Neutrophils (%) (Auto) 81.1H, Lymphocytes (%) (Auto) 10.6L, Monocytes (%) (Auto) 5.5H, Eosinophils (%) (Auto) 2.1, Basophils (%) (Auto) 0.3, Neutrophils # (Auto) 7.2, Lymphocytes # (Auto) 0.9L, Monocytes # (Auto) 0.5, Eosinophils # (Auto) 0.2, Basophils # (Auto) 0.0, Nucleated Red Blood Cells % (auto) 0.0, Anion Gap 9, Glomerular Filtration Rate 4.7L, Lactic Acid Level 0.8, Blood Urea Nitrogen 58H, Creatinine 10.80*H, Sodium Level 140, Potassium Level 4.9, Chloride Level 98, Carbon Dioxide Level 33H, Calcium Level 9.5, Total Creatine Kinase 61, Creatine Kinase MB < 1.0, Creatine Kinase MB Relative Index 1.64, Troponin I 0.03, LM-Egn-R-Type Natriuretic Peptide [id number] CBC/BMP Laboratory Tests 12/14/18 03:32 Red Blood Count 2.37 L, Mean Corpuscular Volume 103.4 H, Mean Corpuscular Hemoglobin 32.1, Mean Corpuscular Hemoglobin Concent 31.0 L, Red Cell Distribution Width 15.7 H, Neutrophils (%) (Auto) 81.1 H, Lymphocytes (%) (Auto) 10.6 L, Monocytes (%) (Auto) 5.5 H, Eosinophils (%) (Auto) 2.1, Basophils (%) (Auto) 0.3, Neutrophils # (Auto) 7.2, Lymphocytes # (Auto) 0.9 L, Monocytes # (Auto) 0.5, Eosinophils # (Auto) 0.2, Basophils # (Auto) 0.0, Calcium Level 9.5, Total Creatine Kinase 61 Microbiology Microbiology 12/14/18 Blood Culture, Received Pending 12/14/18 Blood Culture, Received Pending Assessment/Plan Patient is 58 years old female with past medical history of end-stage renal disease on dialysis Friday, Friday, Friday, type 2 diabetes, CHF with preserved ejection fraction, hypertension presented to hospital with increased shortness of breath, orthopnea. Patient was found to have volume significantly overload. Chest CT showed bilateral pleural effusion. Emergent dialysis ordered Problems (1) Fluid overload Status: Acute Problem Text: Secondary to end-stage renal diseases Emergent dialysis I talked to , dialysis today (2) Hypoxia Status: Acute Problem Text: Secondary to volume overload Emergent dialysis (3) End stage renal disease Status: Acute Problem Text: Dialysis today (4) Fatigue Status: Acute Problem Text: Secondary to volume overload CHF exacerbation in top of end-stage renal disease anemia (5) Symptomatic anemia Status: Acute Problem Text: Patient will need blood transfusion during dialysis (6) Anemia in end-stage renal disease Status: Acute Problem Text: Blood transfusion for now one unit (7) ESRD on hemodialysis Status: Acute Problem Text: above (8) Nausea & vomiting Problem Text: Zofran when necessary (9) Diabetes Status: Acute Problem Text: Insulin detemir 30 units daily at bedtime Diabetes diet Insulin sliding scale (10) Hyperparathyroidism Status: Acute Problem Text: Secondary to renal failure Continue home medications (11) CHF exacerbation Problem Text: Secondary to hypervolemia Emergent dialysis Continue home cardioprotective medications Plan / VTE VTE Prophylaxis Ordered?: Yes Plan Diet: Continue Current Activity: Continue Current Respiratory: Pulse Ox on Room Air MARYBETH SIERRA DO Dec 14, 2018 08:45
[2018-12-14] MEDS ORDERED: VALS1TAB67 PO (08:48)
[2018-12-14] MEDS ORDERED: LEVEMIR (INSULIN DETEMIR) 1 UNITS/0.01ML SC SCH ×2 (09:00→21:00)
[2018-12-14] MEDS ORDERED: GLUCOSE 4 GM CHEW TABLET PO PRN (09:00)
[2018-12-14] MEDS ORDERED: DEXTROSE 50% 50 ML SYRINGE IV PRN (09:00)
[2018-12-14] MEDS ORDERED: GLUCAGON FOR INJ 1 MG VIAL (J1610) SC PRN (09:00)
[2018-12-14] MEDS ORDERED: ONDANSETRON 4MG/2ML VIAL (J2405) IV PRN (09:15)
[2018-12-14] MEDS: DOCUSATE SODIUM 100 MG CAP PO SCH ×2 (09:33→21:06)
[2018-12-14] MEDS: CARVedilol 12.5 MG TAB PO SCH ×2 (09:34→21:05)
[2018-12-14] MEDS: cloNIDine 0.2 MG TAB PO SCH ×2 (09:34→19:10)
[2018-12-14] MEDS: ASPIRIN 81 MG ENTERIC TAB PO SCH (09:35)
[2018-12-14] MEDS: VALSARTAN 80 MG TAB (DIOVAN) PO SCH (09:38)
[2018-12-14] MEDS: HEPARIN SOD (PORCINE) 5000 UNITS/ML VIAL SC SCH ×2 (09:47→21:05)
[2018-12-14] MEDS: HumaLOG INSULIN (NovoLOG) PER UNIT SC SCH ×2 (10:14→18:59)
[2018-12-14] MEDS: NS 1,000 ML IV SCH (11:00)
[2018-12-14] MEDS ORDERED: HEPARIN 1,000 UNITS/ML 10ML VIAL (FOR RADIOLOGY& DIALYSIS ONLY) IV ONE (12:15)
[2018-12-14] MEDS ORDERED: LIDOCAINE 1% SDV 5 ML VIAL SQ ONE (12:15)
[2018-12-14] MEDS: LANTHANUM CARBONATE 500 MG CHEW TABLET PO SCH ×2 (12:30→18:00)
[2018-12-14 18:50] VITALS: BP 198/80
[2018-12-14 20:00] VITALS: BP 190/72
[2018-12-14] MEDS: PRAVASTATIN 20 MG TAB PO SCH (21:05)
[2018-12-14] MEDS: amLODIPine 5 MG TAB PO SCH (21:06)
[2018-12-14] MEDS ORDERED: SLF 3 ML SYR IV PRN (21:30)
[2018-12-14 21:45] VITALS: O2SAT 96
[2018-12-14] MEDS: SLF 3 ML SYR IV SCH (22:00)
[2018-12-14 22:15] VITALS: O2SAT 96
[2018-12-14] MEDS ORDERED: ACETAMINOPHEN TAB 650MG DOSE (2X325MG) PO ONE (22:45)
[2018-12-14 23:00] VITALS: O2SAT 96
[2018-12-14 23:59] VITALS: BP 186/74
[2018-12-15] VITALS (14 sets, daily range): BP systolic 135–188; BP diastolic 60–90; O2SAT 90–100
[2018-12-15 05:15] LABS: HEMATOCRIT 28.8 % (36.0-47.0); MEAN CORPUSCULAR HEMOGLOBIN 31.8 pg (27.0-33.0); MEAN CORPUSCULAR HGB CONC 31.3 g/dl (32.0-36.5); MEAN CORPUSCULAR VOLUME 101.8 fl (80.0-96.0); PLATELET COUNT, AUTOMATED 198 10^3/uL (150-450); RED BLOOD COUNT 2.83 10^6/uL (4.00-5.40); WHITE BLOOD COUNT 9.1 10^3/uL (4.0-10.0)
[2018-12-15 05:36] LABS: ALBUMIN 2.6 GM/DL (3.2-5.2); BILIRUBIN,TOTAL 0.8 MG/DL (0.2-1.0); CREATININE FOR GFR 7.04 MG/DL (0.55-1.30); GLOMERULAR FILTRATION RATE 7.7 (>51); MAGNESIUM LEVEL 2.8 MG/DL (1.8-2.4); POTASSIUM SERUM 4.5 MEQ/L (3.5-5.1); TOTAL PROTEIN 6.8 GM/DL (6.4-8.2)
[2018-12-15] MEDS: SLF 3 ML SYR IV SCH ×3 (06:00→20:14)
[2018-12-15] MEDS: HEPARIN SOD (PORCINE) 5000 UNITS/ML VIAL SC SCH ×2 (06:24→20:14)
[2018-12-15] MEDS: DOCUSATE SODIUM 100 MG CAP PO SCH ×2 (06:24→20:13)
[2018-12-15] MEDS: cloNIDine 0.2 MG TAB PO SCH ×2 (06:25→20:14)
[2018-12-15] MEDS: VALSARTAN 80 MG TAB (DIOVAN) PO SCH (06:26)
[2018-12-15] MEDS: ASPIRIN 81 MG ENTERIC TAB PO SCH (06:26)
[2018-12-15] MEDS: CARVedilol 12.5 MG TAB PO SCH ×2 (06:26→20:13)
[2018-12-15] MEDS: HumaLOG INSULIN (NovoLOG) PER UNIT SC SCH ×3 (07:30→17:37)
[2018-12-15] MEDS: LANTHANUM CARBONATE 500 MG CHEW TABLET PO SCH ×3 (07:56→17:37)
--- NOTE | 2018-12-15 10:13 | ECGEPIP ---
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
[2018-12-15] MEDS: NS 1,000 ML IV SCH (11:00)
[2018-12-15] MEDS ORDERED: HEPARIN 1,000 UNITS/ML 10ML VIAL (FOR RADIOLOGY& DIALYSIS ONLY) IV ONE (11:15)
[2018-12-15] MEDS: hydrALAZINE INJ 20 MG/ML VIAL IV PRN (13:45)
--- NOTE | 2018-12-15 15:50 | CR ---
DATE OF CONSULTATION: 12/14/2018 NEPHROLOGY CONSULTATION FOR: Wade Shukla DO REASON FOR CONSULTATION: Shortness of breath in this lady with end-stage renal disease. HISTORY OF PRESENT ILLNESS: Mrs. Zuñiga is a 58-year-old -[place] female with known history of end-stage renal disease, type 2 diabetes, hypertension, congestive heart failure secondary to diastolic dysfunction, recurrent anemia and hyperlipidemia. She is regularly dialyzed in [place] on Friday, Friday and Friday schedule and reports that she was last dialyzed on Friday. The patient states that she has been feeling short of breath for last couple of weeks as her anemia has been worsening and over the weekend she became more short of breath due to which she presented to emergency room this morning. She was found to be hypervolemic with bilateral pleural effusions, larger on the right than left. Her oxygen saturation was in high 90s on 2 liters oxygen. A nephrology consultation was requested and patient is seen in the emergency room. PAST MEDICAL AND SURGICAL HISTORY (significant for): 1. Type 2 diabetes. 2. Hypertension. 3. End-stage renal disease. 4. Anemia. 5. Secondary hyperparathyroidism. 6. Hyperlipidemia. MEDICATIONS: Her home medications include: - amlodipine 5 mg daily - aspirin 81 mg daily - Carvedilol 25 mg twice a day - clonidine 0.2 mg twice a day - multivitamin 1 tablet daily - insulin Toujeo 30 units daily - Humalog per sliding scale - Fosrenol 1000 mg three times a day with meals - [place]-3 fatty acid capsule 1000 mg 2 capsules daily - pravastatin 80 mg daily - valsartan 160 mg daily - coenzyme Q 200 mg daily ALLERGIES: She has allergy to LABETALOL, NIFEDIPINE, MORPHINE, and IODIXANOL. PERSONAL AND SOCIAL HISTORY: Patient reports that her partner a couple of weeks ago. She does not smoke or drink. Family history is negative for end-stage renal disease. REVIEW OF SYSTEMS: Patient denies any fever or chills. She has been short of breath; over the weekend it got worse. Ears, nose, and throat are unremarkable. Cardiovascular system is significant for diastolic congestive heart failure and hypervolemia even in the past. Gastrointestinal (GI) system is negative for nausea, vomiting or diarrhea. Genitourinary () system is negative for dysuria or hematuria. Endocrine system is significant for type 2 diabetes. She also has secondary hyperparathyroidism. Hematological system is significant for recurrent anemia requiring transfusions. Psychosocial system is negative for depression or anxiety. Neurological system negative for seizures or stroke. Musculoskeletal system is significant for chronic back pain but no leg edema. PHYSICAL EXAM: Patient is awake and without any acute distress. She is using oxygen via nasal cannula. Temperature is 98.1 degrees Fahrenheit, heart rate 68 per minute and respiratory rate 18 per minute. Blood pressure 156/70 mmHg and oxygen saturation 95% on 2 liters oxygen. She has some facial edema. Head is atraumatic. Neck is supple and jugular venous distention (JVD) moderately elevated. Heart sounds are regular, and lungs with bilateral inspiratory rales. Abdomen: Soft and nontender. Bowel sounds are normal. Extremities have no cyanosis or clubbing. Neurologically, she is awake, alert and at her baseline mentation. LAB DATA: WBC count 8.9, hemoglobin 7.6 and hematocrit 24.5. Platelets 204. Sodium 140, potassium 4.9, CO2 of 33, BUN 58 and creatinine 10.8. Troponin 0.03 and BNP level 48,834. She had a CT scan of chest done in the emergency room without contrast, which showed pulmonary vascular congestion and interstitial edema. Small left and larger right pleural effusion. Mediastinal adenopathy and pulmonary nodules. PROBLEMS: 1. Shortness of breath related to volume overload. Patient is being admitted and will be dialyzed urgently today. We will try to remove about 3 liters of fluid as tolerated. We will also consider to dialyze her tomorrow again. She does have chronic hypervolemia and pleural effusions and is likely to require frequent dialysis. 2. Anemia. Her anemia is significant and she is short of breath. We will give her 1 unit of packed red blood cells (RBCs) during dialysis today. 3. Hypertension. All her chronic antihypertensive meds should continue. Thank you for involving me in the care of Mrs. Zuñiga. I will follow her along with you.
--- NOTE | 2018-12-15 16:59 | IPNPDOC ---
Text Note Date of Service The patient was seen on 12/15/18. NOTE Subjective: Patient complains of increased frequency of cough with increased amount of sputum. Dialysis was done today. After dialysis patient states that breathing improved. Patient did have some episodes of hypertension today with systolic blood pressure more 180. Objective: General Exam: Positive: Alert, Cooperative Eye Exam: Positive: PERRLA, Conjunctiva & lids normal ENT Exam: Positive: Atraumatic, Mucous membr. moist/pink Neck Exam: Positive: Supple; Negative: JVD Chest Exam: Positive: Rales Heart Exam: Positive: Rate Normal Lungs: Mild coarse sounds bilaterally, some rales at the base Abdomen Exam: Positive: Normal bowel sounds Extremity Exam: Negative: Clubbing, Cyanosis Skin Exam: Negative: Nl turgor and temperature, Rash Neuro Exam: Positive: Strength at 5/5 X4 ext, Cranial Nerves 3-12 NL Assessment/Plan Patient is 58 years old female with past medical history of end-stage renal disease on dialysis Friday, Friday, Friday, type 2 diabetes, CHF with preserved ejection fraction, hypertension presented to hospital with increased s hortness of breath, orthopnea. Patient was found to have volume significantly overload. Chest CT showed bilateral pleural effusion. Patient received treatment. with dialysis for volume control. Pt c/o cough, yellowish sputum, there is concern for pneumonia. Levaquin by mouth Problems (1) Fluid overload Status: Acute Problem Text: Secondary to end-stage renal diseases Repeated dialysis today [employer] team follows her (2) Hypoxia Improved. Patient is on room air, sat O2 94% Problem Text: Secondary to volume overload Continue dialysis (3) End stage renal disease Status: Acute Problem Text: Dialysis today (4) Fatigue Status: Acute Problem Text: Secondary to volume overload CHF exacerbation in top of the end- stage renal disease anemia (5) Symptomatic anemia Status: Acute Problem Text: Patient received blood transfusion during dialysis yesterday Hemoglobin today 9 (6) Anemia in end-stage renal disease Status: Acute Problem Text: Blood transfusion done yesterday (7) ESRD on hemodialysis Status: Acute Problem Text: above (8) Nausea & vomiting Problem Text: Zofran when necessary (9) Diabetes Status: Acute Problem Text: Insulin detemir 30 units daily at bedtime Diabetes diet Insulin sliding scale (10) Hyperparathyroidism Status: Acute Problem Text: Secondary to renal failure Continue home medications (11) CHF exacerbation Problem Text: Secondary to hypervolemia Volume controlled by dialysis Continue home cardioprotective medications 12 Cough Patient stated that she has been increasing cough and sputum production. There is concern for pneumonia. Chest x-ray Sputum analysis Levofloxacin by mouth 13. Hypertensive urgency Hydralazine IV when necessary VS,Fishbone, I+O VS, Fishbone, I+O Laboratory Tests 12/15/18 05:01 Red Blood Count 2.83 L, Mean Corpuscular Volume 101.8 H, Mean Corpuscular Hemoglobin 31.8, Mean Corpuscular Hemoglobin Concent 31.3 L, Red Cell Distribution Width 15.8 H, Calcium Level 10.0, Aspartate Amino Transf (AST/SGOT) 20, Alanine Aminotransferase (ALT/SGPT) 56, Alkaline Phosphatase 151 H, Total Bilirubin 0.8, Total Protein 6.8, Albumin 2.6 L Vital Signs Date Time Temp Pulse Resp B/P (MAP) Pulse Ox O2 Delivery O2 Flow Rate FiO2 12/15/18 16:00 98.4 77 18 142/60 (87) 91 12/15/18 12:55 4.0 12/15/18 05:00 Nasal Cannula I&O- Last 24 Hours up to 6 AM 12/15/18 06:00 Intake Total 520 ml Output Total 3000 ml Balance -2480 ml MARYBETH SIERRA DO Dec 15, 2018 16:59
--- NOTE | 2018-12-15 17:25 | REP ---
HISTORY: History of CHF, pleural effusion, cough and dyspnea. COMPARISON: Multiple, the latest portable examination obtained yesterday. There is cardiomegaly. There is a diffuse increase in the interstitial markings with a diffuse haziness throughout the pulmonary vascularity and evidence of [place]-B lines. The left lower lobe opacity is unchanged. The osseous structures are stable and intact. IMPRESSION: CHF. Electronically Signed by Franck León DO 12/16/2018 12:35 P
[2018-12-15] MEDS ORDERED: LevoFLOXacin 500 MG TABLET PO SCH (18:00)
--- NOTE | 2018-12-15 19:48 | IPN ---
DATE: 12/15/2018 Mrs. Zuñiga was seen yesterday for shortness of breath in the setting of end-stage renal disease. She underwent hemodialysis yesterday and we removed 3 liters of fluid which she tolerated well. She reports that through the night her oxygen saturation dropped and she required 4 liters oxygen, though her record shows oxygen saturation between 97-100%. She has no fever and her dyspnea has improved. She denies any nausea or vomiting. PHYSICAL EXAMINATION: Temperature 97.8 degrees Fahrenheit, heart rate 68 per minute and respiratory rate 18 per minute. Blood pressure 152/64 mmHg and oxygen saturation 100% on 4 liters oxygen. Head is atraumatic. Neck is supple and JVD difficult to be assessed. Her lungs have diminished breath sounds at bases but no wheezing or audible rales today. Heart sounds are regular. Abdomen soft and nontender and bowel sounds are normal. Extremities have no cyanosis or clubbing. Neurologically she is awake, alert and oriented times three. Today's labs show WBC count 9.1, hemoglobin 9.0 and hematocrit 28.8. Sodium 138, potassium 4.5, CO2 33, BUN 29 and creatinine 7.04. Glucose 121 and calcium 10.0. PROBLEMS: 1. Shortness of breath. The patient was volume overloaded and dialyzed yesterday. Three liters fluid was removed yesterday and we are ultrafiltrating her again today for an extra 3 liters of fluid removal. She is tolerating it well so far. Her regular dialysis days are Friday, Friday and Friday and we will plan to dialyze her again tomorrow if she is still here. She did have hypervolemia and pleural effusions. We will order a followup chest x-ray after dialysis today and make plans for further fluid removal with her next regular dialysis tomorrow. 2. Anemia. The patient was transfused 1 unit of packed RBCs yesterday and her anemia has improved. It is likely to improve further with fluid removal. 3. End-stage renal disease. The patient is regularly dialyzed on Friday, Friday and Friday schedule. She had her regular dialysis yesterday and we will plan her next dialysis tomorrow if she is still in the hospital. If she gets discharged then she can go to her outpatient dialysis clinic.
[2018-12-15] MEDS: PRAVASTATIN 20 MG TAB PO SCH (20:12)
[2018-12-15] MEDS: amLODIPine 5 MG TAB PO SCH (20:13)
[2018-12-15] MEDS: LEVEMIR (INSULIN DETEMIR) 1 UNITS/0.01ML SC SCH (20:15)
[2018-12-16] VITALS (22 sets, daily range): BP systolic 141–189; BP diastolic 68–78; O2SAT 88–100
[2018-12-16] MEDS: SLF 3 ML SYR IV SCH ×3 (06:14→21:36)
[2018-12-16] MEDS: DOCUSATE SODIUM 100 MG CAP PO SCH ×2 (06:14→21:35)
[2018-12-16] MEDS: HEPARIN SOD (PORCINE) 5000 UNITS/ML VIAL SC SCH ×2 (06:14→21:35)
[2018-12-16] MEDS: cloNIDine 0.2 MG TAB PO SCH ×2 (06:15→21:35)
[2018-12-16] MEDS: CARVedilol 12.5 MG TAB PO SCH ×2 (06:16→21:35)
[2018-12-16] MEDS: ASPIRIN 81 MG ENTERIC TAB PO SCH (06:16)
[2018-12-16] MEDS: VALSARTAN 80 MG TAB (DIOVAN) PO SCH (06:16)
[2018-12-16] MEDS: HumaLOG INSULIN (NovoLOG) PER UNIT SC SCH ×3 (07:30→18:17)
[2018-12-16] MEDS: LANTHANUM CARBONATE 500 MG CHEW TABLET PO SCH ×3 (08:57→18:17)
[2018-12-16 10:28] LABS: BASO % 0.5 % (0.0-1.0); EOS # 0.3 10^3/uL (0.0-0.50); EOS % 3.1 % (0.0-3.0); HEMATOCRIT 30.5 % (36.0-47.0); HEMOGLOBIN 9.7 g/dl (12.0-15.5); LYMPH # 0.7 10^3/uL (1.5-4.5); LYMPH % 8.7 % (24.0-44.0); MEAN CORPUSCULAR HEMOGLOBIN 32.3 pg (27.0-33.0); MEAN CORPUSCULAR HGB CONC 31.8 g/dl (32.0-36.5); MEAN CORPUSCULAR VOLUME 101.7 fl (80.0-96.0); MONO # 0.8 10^3/uL (0.0-0.8); MONO % 8.9 % (0.0-5.0); NEUTROPHILS # 6.7 10^3/uL (1.8-7.7); NEUTROPHILS % 78.4 % (36.0-66.0); PLATELET COUNT, AUTOMATED 227 10^3/uL (150-450); WHITE BLOOD COUNT 8.5 10^3/uL (4.0-10.0)
[2018-12-16] MEDS ORDERED: IRON SUCROSE 100MG 5ML VIAL (J1756 PER 1MG) IV SCH (10:30)
[2018-12-16] MEDS ORDERED: DARBEPOETIN 100 MCG/0.5 ML *DIALYSIS* SYRINGE (J0882) IV SCH (10:30)
[2018-12-16 10:57] LABS: ALBUMIN 2.7 GM/DL (3.2-5.2); CALCIUM LEVEL 9.9 MG/DL (8.5-10.1); CREATININE FOR GFR 8.26 MG/DL (0.55-1.30); GLOMERULAR FILTRATION RATE 6.4 (>51); PERCENT SATURATION 24.8 % (13.2-45.0); PHOSPHORUS LEVEL 4.5 MG/DL (2.5-4.9); POTASSIUM SERUM 4.6 MEQ/L (3.5-5.1)
[2018-12-16] MEDS ORDERED: HEPARIN 1,000 UNITS/ML 10ML VIAL (FOR RADIOLOGY& DIALYSIS ONLY) IV ONE (11:00)
[2018-12-16] MEDS: hydrALAZINE INJ 20 MG/ML VIAL IV PRN (18:05)
--- NOTE | 2018-12-16 20:10 | IPNPDOC ---
Subjective Date Seen The patient was seen on 12/16/18. Subjective Chief Complaint/HPI Patient presented with short of breath and admitted for volume overload.She has ESRD.She underwent dialysis today and she is feeling much better. General: Reports: Normal Appetite Constitutional: Reports: Other (feeling much improved.); Denies: Chills, Fever, Night Sweats Eyes: Denies: Pain, Vision change ENT: Denies: Head Aches, Ear Pain, Dysphagia Skin: Denies: Rash, Lesions, Breakdown Pulmonary: Denies: Dyspnea, Cough Cardiovascular: Denies: Chest Pain, Palpitations, Orthopnea, Paroxysmal Noc. Dyspnea, Lt Headedness Gastrointestinal: Denies: Nausea, Vomiting, Abdominal Pain, Diarrhea, Constipation Genitourinary: Denies: Dysuria, Frequency, Incontinence, Retention Hematologic: Denies: Bruising, Bleeding Excessively Musculoskeletal: Denies: Neck Pain, Back Pain, Joint Pain, Muscle Pain, Spasms Neurological: Denies: Weakness, Numbness, Change in speech, Confusion Psych: Reports: Mood Normal; Denies: Depression, Memory Issues Objective Physical Examination General Exam: Positive: Alert, Cooperative Eye Exam: Positive: PERRLA, Conjunctiva & lids normal ENT Exam: Positive: Atraumatic, Mucous membr. moist/pink Neck Exam: Positive: Supple; Negative: JVD Chest Exam: Positive: Rales Heart Exam: Positive: Rate Normal Abdomen Exam: Positive: Normal bowel sounds Extremity Exam: Negative: Clubbing, Cyanosis Skin Exam: Negative: Nl turgor and temperature, Rash Neuro Exam: Positive: Strength at 5/5 X4 ext, Cranial Nerves 3-12 NL Psych Exam: Positive: Mental status NL, Oriented x 3 Assessment /Plan Problems (1) Fluid overload Status: Resolved Problem Text: Secondary to end-stage renal diseases Emergent dialysis Patient had dialysis today and she is much improved.Walking around without short of breath (2) Hypoxia Status: Resolved Problem Text: Secondary to volume overload Had emergent dialysis (3) End stage renal disease Status: Chronic Problem Text: Dialysis today (4) Fatigue Status: Resolved Problem Text: Secondary to volume overload CHF exacerbation in top of end-stage renal disease anemia.Patient now walking around,feeling stronger. (5) Symptomatic anemia Status: Acute Problem Text: Patient received 1 unit of blood transfusion.Hgb 8.5 today,will monitor (6) Anemia in end-stage renal disease Status: Chronic Problem Text: Received one unit of blood transfusion. (7) ESRD on hemodialysis Status: Chronic Problem Text: On dialysis M/W/F.Had dialysis today (8) Nausea & vomiting Status: Resolved Problem Text: Zofran when necessary (9) Diabetes Status: Acute Problem Text: Insulin detemir 30 units daily at bedtime Diabetes diet Insulin sliding scale (10) Hyperparathyroidism Status: Chronic Problem Text: Secondary to renal failure Continue home medications (11) CHF exacerbation Problem Text: Secondary to hypervolemia Had Emergent dialysis Continue home cardioprotective medications. Plan/VTE VTE Prophylaxis Ordered?: Yes Plan Diet: Continue Current Activity: Continue Current Respiratory: Pulse Ox on Room Air Plan of care as above,discussed with patient Disposition Possibly tomorrow VS, I&O, 24H, Fishbone Vital Signs/I&O Vital Signs Date Time Temp Pulse Resp B/P (MAP) Pulse Ox O2 Delivery O2 Flow Rate FiO2 12/16/18 18:43 98.7 79 18 173/73 (106) 96 12/16/18 18:00 Room Air 12/16/18 15:40 I&O- Last 24 Hours up to 6 AM 12/16/18 06:00 Intake Total 870 ml Output Total 3000 ml Balance -2130 ml Laboratory Data 24H LABS Laboratory Tests 2 12/15/18 20:17: Bedside Glucose (Misc Panel) 208H 12/16/18 07:52: Bedside Glucose (Misc Panel) 45L 12/16/18 08:39: Bedside Glucose (Misc Panel) 73 12/16/18 09:11: Immature Granulocyte % (Auto) 0.4, White Blood Count 8.5, Red Blood Count 3.00L, Hemoglobin 9.7L, Hematocrit 30.5L, Mean Corpuscular Volume 101.7H, Mean Corpuscular Hemoglobin 32.3, Mean Corpuscular Hemoglobin Concent 31.8L, Red Cell Distribution Width 15.4H, Platelet Count 227, Neutrophils (%) (Auto) 78.4H, Lymphocytes (%) (Auto) 8.7L, Monocytes (%) (Auto) 8.9H, Eosinophils (%) (Auto) 3.1H, Basophils (%) (Auto) 0.5, Neutrophils # (Auto) 6.7, Lymphocytes # (Auto) 0.7L, Monocytes # (Auto) 0.8, Eosinophils # (Auto) 0.3, Basophils # (Auto) 0.0, Nucleated Red Blood Cells % (auto) 0.0, Blood Urea Nitrogen 47#H, Creatinine 8.26*H, Sodium Level 138, Potassium Level 4.6, Chloride Level 99, Carbon Dioxide Level 30, Anion Gap 9, Glomerular Filtration Rate 6.4L, Calcium Level 9.9, Phosphorus Level 4.5, Iron Level 38L, Total Iron Binding Capacity 153L, Transferrin % Saturation 24.8, Ferritin 1477H, Albumin 2.7L 12/16/18 13:21: Bedside Glucose (Misc Panel) 149H 12/16/18 17:31: Bedside Glucose (Misc Panel) 260H 12/16/18 18:23: Magnesium Level 2.8H CBC/BMP Laboratory Tests 12/16/18 09:11 Red Blood Count 3.00 L, Mean Corpuscular Volume 101.7 H, Mean Corpuscular Hemoglobin 32.3, Mean Corpuscular Hemoglobin Concent 31.8 L, Red Cell Distribution Width 15.4 H, Neutrophils (%) (Auto) 78.4 H, Lymphocytes (%) (Auto) 8.7 L, Monocytes (%) (Auto) 8.9 H, Eosinophils (%) (Auto) 3.1 H, Basophils (%) (Auto) 0.5, Neutrophils # (Auto) 6.7, Lymphocytes # (Auto) 0.7 L, Monocytes # (Auto) 0.8, Eosinophils # (Auto) 0.3, Basophils # (Auto) 0.0, Anion Gap 9 Microbiology Microbiology 12/14/18 Blood Culture - Preliminary, Resulted No Growth after 48 hours. All Specime... 12/14/18 Blood Culture - Preliminary, Resulted No Growth after 48 hours. All Specime... KIARA FLORES MD Dec 16, 2018 20:10
[2018-12-16] MEDS: PRAVASTATIN 20 MG TAB PO SCH (21:34)
[2018-12-16] MEDS: amLODIPine 5 MG TAB PO SCH (21:35)
[2018-12-16] MEDS: LEVEMIR (INSULIN DETEMIR) 1 UNITS/0.01ML SC SCH (21:36)
[2018-12-17] VITALS (24 sets, daily range): BP systolic 122–172; BP diastolic 60–82; O2SAT 92–99
[2018-12-17] MEDS: SLF 3 ML SYR IV SCH ×3 (04:48→20:56)
[2018-12-17] MEDS: HumaLOG INSULIN (NovoLOG) PER UNIT SC SCH ×3 (07:30→18:20)
[2018-12-17] MEDS: CARVedilol 12.5 MG TAB PO SCH ×2 (09:44→20:55)
[2018-12-17] MEDS: LANTHANUM CARBONATE 500 MG CHEW TABLET PO SCH ×3 (09:44→18:20)
[2018-12-17] MEDS: DOCUSATE SODIUM 100 MG CAP PO SCH ×2 (09:45→20:55)
[2018-12-17] MEDS: cloNIDine 0.2 MG TAB PO SCH ×2 (09:45→20:55)
[2018-12-17] MEDS: VALSARTAN 80 MG TAB (DIOVAN) PO SCH (09:45)
[2018-12-17] MEDS: ASPIRIN 81 MG ENTERIC TAB PO SCH (09:45)
[2018-12-17] MEDS: HEPARIN SOD (PORCINE) 5000 UNITS/ML VIAL SC SCH ×2 (11:05→20:53)
--- NOTE | 2018-12-17 13:11 | IPN ---
DATE: 12/16/2018 SUBJECTIVE: The patient was seen and examined at the bedside today morning during hemodialysis procedure. The patient is tolerating the hemodialysis procedure well. She denies any active complaints. The patient was dialyzed and ultrafiltered [id number] for the last 2 days and despite that she had significant fluid overload and she is getting more fluid removed during dialysis today. OBJECTIVE: VITAL SIGNS: Temperature is 97.6 degrees Fahrenheit, blood pressure 141/68, pulse is 66, respiratory rate of 18, saturating 94% on nasal cannula at 2 liters. INTAKE AND OUTPUT: There is no urine output recorded. Weight in the bed scale is 79.4 kg. PHYSICAL EXAMINATION: GENERAL: The patient is awake, alert, oriented times three, laying in bed getting hemodialysis done, no apparent distress. HEAD AND NECK EXAM: Extraocular muscles intact. Pupils equally round and reactive to light. Mucous membranes are moist. Neck is supple. There is no JVD. CARDIOVASCULAR: S1, S2, regular rate. Trace edema of the bilateral lower extremities. RESPIRATORY: Chest is clear to auscultation bilaterally. Bilateral equal air entry. No rales or rhonchi. ABDOMEN: Soft. Positive bowel sounds. Nontender. No organomegaly. MUSCULOSKELETAL: No clubbing or cyanosis. Pulses are 2+. LIFE SCIENTIST: No focal deficit, power is 5/5 in all extremities. AV AXIS: she has a right upper arm AV fistula which is being used for dialysis. LABORATORY REVIEW: CBC showed WBC of 8.5, hemoglobin 9.7, platelets are 227. BMP showed sodium 138, potassium 4.6, chloride 99, bicarbonate 30, BUN 47, creatinine is 8.2, iron is 38, TIBC is 153, transferrin saturation 24.8, ferritin is 1477. CURRENT INPATIENT MEDICATIONS: The patient's medications were all reviewed by me. I have started the patient on Aranesp 200 mcg IV with dialysis and I have also started her on Venofer 100 mg IV with dialysis times five doses. ASSESSMENT/PLAN: 1. End-stage renal disease on hemodialysis. The patient is being dialyzed today according to Friday, Friday, Friday schedule. Ultrafiltration goal will be around 3 liters as tolerated by her blood pressure. 2. Anemia in end-stage renal disease. The patient's hemoglobin is still suboptimal. I have started her on Aranesp and Venofer. She is status post 1 unit PRBC transfusion during this hospitalization. 3. Acute decompensated diastolic congestive heart failure. The patient has grade 2 diastolic dysfunction. She has significant volume overload on the imaging. Ultrafiltration during hemodialysis will be 3 liters. She already got 6 liters of fluid removed in the last 2 days. 4. Hypertension with end-stage renal disease and hypertensive heart disease. Continue current dose of amlodipine, Coreg, clonidine, and valsartan. 5. Chronic kidney disease-mineral bone disease. Continue current dose of PhosLo with meals three times a day,
--- NOTE | 2018-12-17 16:33 | IPNPDOC ---
Date Seen The patient was seen on 12/17/18. Progress Note SUBJECTIVE: breathing is significantly improved no complaints OBJECTIVE PHYSICAL EXAMINATION: VITAL SIGNS: Please see below. GENERAL: NAD RESPIRATORY: CTAB EXTREMITIES: no c/c/e LABORATORY DATA, IMAGING STUDIES, MICROBIOLOGY: Please see below. Echocardiogram: . DVT prophylaxis ordered?: ASSESSMENT AND PLAN: (1) Fluid overload Status: Resolved Problem Text: Secondary to end-stage renal diseases Cont HD with UF per nephro (2) Hypoxia Status: Resolved Problem Text: Secondary to volume overload (3) End stage renal disease Status: Chronic Problem Text: per nephro (4) Fatigue Status: Resolved Problem Text: Secondary to volume overload CHF exacerbation in top of end-stage renal disease anemia.Patient now walking around,feeling stronger. (5) Symptomatic anemia Status: Acute Problem Text: Patient received 1 unit of blood transfusion. Aranesp and Venofer per nephro (6) Anemia in end-stage renal disease Status: Chronic Problem Text: Received one unit of blood transfusion. (7) ESRD on hemodialysis Status: Chronic Problem Text: On dialysis M/W/F. (8) Nausea & vomiting Status: Resolved Problem Text: Zofran when necessary (9) Diabetes Status: Acute Problem Text: Insulin detemir 30 units daily at bedtime Diabetes diet Insulin sliding scale (10) Hyperparathyroidism Status: Chronic Problem Text: Secondary to renal failure Continue home medications (11) CHF exacerbation Problem Text: Secondary to hypervolemia Had Emergent dialysis Continue home cardioprotective medications. . VS, I&O, 24H, Fishbone Vital Signs/I&O Vital Signs Date Time Temp Pulse Resp B/P (MAP) Pulse Ox O2 Delivery O2 Flow Rate FiO2 12/17/18 16:00 98.6 68 18 122/82 (95) 95 12/17/18 06:00 Room Air 12/16/18 23:00 2.0 I&O- Last 24 Hours up to 6 AM 12/17/18 05:59 Intake Total 840 ml Output Total 3000 ml Balance -2160 ml Laboratory Data 24H LABS Laboratory Tests 2 12/16/18 17:31: Bedside Glucose (Misc Panel) 260H 12/16/18 18:23: Magnesium Level 2.8H 12/16/18 21:17: Bedside Glucose (Misc Panel) 190H 12/17/18 07:34: Bedside Glucose (Misc Panel) 83 12/17/18 11:32: Bedside Glucose (Misc Panel) 160H Microbiology Microbiology 12/14/18 Blood Culture - Preliminary, Resulted No Growth after 72 hours. All specime... 12/14/18 Blood Culture - Preliminary, Resulted No Growth after 72 hours. All specime... TOBI ANGEL MD Dec 17, 2018 16:33
[2018-12-17] MEDS: LevoFLOXacin 500 MG TABLET PO SCH (18:20)
[2018-12-17] MEDS: LEVEMIR (INSULIN DETEMIR) 1 UNITS/0.01ML SC SCH (20:53)
[2018-12-17] MEDS: PRAVASTATIN 20 MG TAB PO SCH (20:55)
[2018-12-17] MEDS: amLODIPine 5 MG TAB PO SCH (20:56)
--- NOTE | 2018-12-17 21:22 | IPN ---
DATE: 12/17/2018 SUBJECTIVE: The patient was seen and examined at the bedside today morning. She is afebrile, hemodynamically stable. She was dialyzed yesterday, 3 liters of fluid was removed. She reports her shortness of breath is better. Her blood pressure is also better controlled now. She denies any active complaints at this time. OBJECTIVE: Vital signs: Temperature is 98.6 degrees Fahrenheit, blood pressure 122/82, pulse is 68, respiratory rate of 18, saturating 95% on room air. Intake and output: There is no urine output recorded. Ultrafiltration with hemodialysis was 3 liters yesterday. Weight in the bed scale is 74.7 kg. PHYSICAL EXAMINATION: General: The patient is awake, alert, oriented times three, laying in bed in no apparent distress. Head and neck exam: Extraocular muscles intact. Pupils equally round and reactive to light. Mucous membranes are moist. Neck is supple. There is no JVD. Cardiovascular: S1, S2, regular rate. No edema of the bilateral lower extremities. Respiratory: Chest is clear to auscultation bilaterally. Bilateral equal air entry. No rales or rhonchi. Abdomen: Soft, obese, positive bowel sounds. Nontender. No organomegaly. Musculoskeletal: No clubbing or cyanosis. Pulses are 2+. COMPUTER LAB ASSISTANT: No focal deficit, power is 5/5 in all extremities. AV access: The patient has a right upper arm AV fistula. LABORATORY REVIEW: CBC and BMP is from yesterday. There are no new labs available from today. CURRENT INPATIENT MEDICATIONS: The patient's medications were all reviewed by me. There is no change in the medications today as compared with yesterday. ASSESSMENT/PLAN: 1. End-stage renal disease on hemodialysis. The patient was dialyzed yesterday. Next hemodialysis will be tomorrow morning. Volume status is better optimized. 2. Anemia in end-stage renal disease. The patient was started on Aranesp. She got the first dose yesterday. She is also getting IV Venofer with dialysis. Hemoglobin level is improving. 3. Acute decompensated diastolic congestive heart failure. The patient got fluid removal 3 days in a row, a total of 9 liters of fluid has been removed in 3 days. Right now her shortness of breath is better and there is no evidence of edema at this time. 4. Hypertension with end-stage renal disease and hypertensive heart disease. Continue current dose of valsartan, clonidine, Coreg, and amlodipine.
[2018-12-18] VITALS (10 sets, daily range): BP systolic 140–164; BP diastolic 60–90; O2SAT 86–99
[2018-12-18] MEDS: ACETAMINOPHEN 500 MG TAB PO PRN (02:06)
[2018-12-18 06:11] LABS: CALCIUM LEVEL 9.8 MG/DL (8.5-10.1); CREATININE FOR GFR 9.3 MG/DL (0.55-1.30); GLOMERULAR FILTRATION RATE 5.6 (>51); POTASSIUM SERUM 4.9 MEQ/L (3.5-5.1)
[2018-12-18] MEDS: SLF 3 ML SYR IV SCH ×3 (06:30→20:51)
[2018-12-18] MEDS: ASPIRIN 81 MG ENTERIC TAB PO SCH (06:30)
[2018-12-18] MEDS: LANTHANUM CARBONATE 500 MG CHEW TABLET PO SCH ×3 (07:26→18:22)
[2018-12-18] MEDS: HumaLOG INSULIN (NovoLOG) PER UNIT SC SCH ×3 (07:27→18:21)
[2018-12-18] MEDS: VALSARTAN 80 MG TAB (DIOVAN) PO SCH (08:12)
[2018-12-18] MEDS: DOCUSATE SODIUM 100 MG CAP PO SCH ×2 (08:13→20:40)
[2018-12-18] MEDS: cloNIDine 0.2 MG TAB PO SCH ×2 (08:13→20:50)
[2018-12-18] MEDS: CARVedilol 12.5 MG TAB PO SCH ×2 (08:13→20:50)
[2018-12-18] MEDS: HEPARIN SOD (PORCINE) 5000 UNITS/ML VIAL SC SCH ×2 (08:14→20:51)
[2018-12-18 10:28] LABS: BASO # 0.1 10^3/uL (0.0-0.2); BASO % 0.6 % (0.0-1.0); EOS # 0.5 10^3/uL (0.0-0.50); EOS % 6.6 % (0.0-3.0); HEMATOCRIT 29.8 % (36.0-47.0); HEMOGLOBIN 9.2 g/dl (12.0-15.5); LYMPH # 1.3 10^3/uL (1.5-4.5); LYMPH % 15.8 % (24.0-44.0); MEAN CORPUSCULAR HEMOGLOBIN 31.5 pg (27.0-33.0); MEAN CORPUSCULAR HGB CONC 30.9 g/dl (32.0-36.5); MEAN CORPUSCULAR VOLUME 102.1 fl (80.0-96.0); MONO # 0.8 10^3/uL (0.0-0.8); MONO % 9.5 % (0.0-5.0); NEUTROPHILS # 5.3 10^3/uL (1.8-7.7); PLATELET COUNT, AUTOMATED 264 10^3/uL (150-450); RED BLOOD COUNT 2.92 10^6/uL (4.00-5.40)
[2018-12-18] MEDS ORDERED: HEPARIN 1,000 UNITS/ML 10ML VIAL (FOR RADIOLOGY& DIALYSIS ONLY) IV ONE (11:30)
[2018-12-18] MEDS ORDERED: AMLO5TAB6 PO (16:50)
[2018-12-18] MEDS ORDERED: HYDR10TAB PO (16:50)
--- NOTE | 2018-12-18 17:28 | IPN ---
DATE: 12/18/2018 Patient this morning denies any complaints of shortness of breath, chest pain, pressure or tightness, palpitations, lightheadedness or dizziness. She mentions that her partner has recently two weeks ago from leukemia for which he was diagnosed just three months ago. She is alone at home, has a daughter with a grandchild but with an estranged relationship. She currently only has [employer] as her friend who helps her out at home. Her neighbor has offered for her to come over and sleep in her neighbor's house due to feelings of helplessness and depression at home since the passing of her significant other. Patient otherwise denies any suicidal ideation, plan. Denies any homicidal tendencies. She is tearful at the bedside and recalling the past two weeks and says that "he wanted me to take care of myself even when he was dying." Temperature is 97.2, pulse 70, respiratory rate 20, blood pressure 142/68, 97% on two liters nasal cannula. Input overnight 720, output 0. Hemodialysis on 12/16/2018 was three liters out. Current weight is 76.7 kg with a peak weight on admission of 88.1 kg. GENERAL: Patient is awake, alert, and oriented times three. Anicteric. No jaundice. She is able to speak in full sentences. Extraocular muscles are intact. Neck is supple. No jugular venous distention. No thyromegaly. HEART: S1, S2, regular rate and rhythm. No murmurs, rubs or gallops. LUNGS: Clear to auscultation. No wheezes, rales, or rhonchi. ABDOMEN: Soft, nontender, nondistended. Positive bowel sounds. No rebound or guarding. EXTREMITIES: No pitting edema, clubbing or cyanosis, 2+ pulses. She has a right arm arteriovenous (AV) fistula. LABORATORY DATA: 12/18/2018: White count 8, hemoglobin 9.2, hematocrit 29, platelet count 264. Sodium 138, potassium 4.9, chloride 100, bicarbonate 27, BUN 51, creatinine 9.3, glucose of 201, calcium 9.8, magnesium 2.8. Microbiology: Two sets of blood cultures 12/14/2018, no growth after 72 hours. Chest x-ray on 12/15/2018: CHF. ASSESSMENT AND PLAN: This is a 58-year-old -[place] female with end- stage renal disease, type 2 diabetes, congestive heart failure (CHF) with preserved ejection fraction, diastolic dysfunction, recurrent anemia, hyperlipidemia and hypertension, dialyzed in [place] on Friday, Friday, Friday, admitted for symptomatic anemia and decompensated congestive heart failure. ACTIVE ISSUES: 1. Congestive heart failure, acute exacerbation with preserved ejection fraction, diastolic dysfunction, managed by dialysis, 12/16/2018 output of three liters via dialysis. Volume status is improved significantly and patient has no significant complaints of congestion. Denies any shortness of breath, paroxysmal nocturnal dyspnea, or orthopnea. She has no lower extremity edema or jugular venous distention (JVD) on examination. She is kept on strict intake and output, daily weights, fluid restriction, and managed by nephrology for fluid status and diuresis via dialysis. 2. End-stage renal disease on maintenance hemodialysis usually done in [place] Friday, Friday, Friday, emergently done by nephrology associated, Dr. Francisco, at [facility]. 3. Anemia secondary to end-stage renal disease, status post IV Venofer with dialysis and Aranesp. First dose during this admission. Hemoglobin is adequate. Denies any hematemesis, bright red blood per rectum, or melena. She did receive one unit of red blood cell (RBC) transfusion, leukocyte reduced. 4. Acute hypoxia secondary to decompensated congestive heart failure exacerbation. This has resolved. She is currently on room air and appears to be at baseline with euvolemia. 5. Type 2 diabetes. Currently on Levemir 30 units at bedtime, consistent-carbohydrate diet, insulin sliding scale with coverage. We will adjust for better glycemic control. 6. Hyperparathyroidism secondary to renal failure which is a chronic condition. We will continue on home medications. 7.Presumed Community Acquired Pneumonia on renally dosed levaquin. afebrile,no white count. no cough, or chills. blood cx negative. will repeat cxr in am and dc antibiotics in AM. 8. Right middle lobe pulmonary nodule outpatient fu with repeat ct chest 9. Incidental finding of 4.1 cm Ascending thoracic Aortic Aneurysm continue with judicious titration of antihypertensive medications to optimize blood pressure control. will need outpt fu with repeat imaging in 6months. DISPOSITION: Physical therapy has been consulted to assess for functional capacity. She is independent at home, ambulated well. She is not safe for discharge home pending stairs, ambulation consistency, and will need home physical therapy. KAYLEEN
--- NOTE | 2018-12-18 17:35 | IPN ---
DATE: 12/18/2018 SUBJECTIVE: The patient was seen and examined at the bedside today morning during hemodialysis procedure. She is tolerating the hemodialysis procedure well. She denies any active complaints. OBJECTIVE: VITAL SIGNS: Temperature is 97.2 degrees Fahrenheit, blood pressure 142/68, pulse is 70, respiratory rate of 20, saturating 97% on room air. INTAKE AND OUTPUT: There is no urine output recorded. Weight in the bed scale is 76.7 kg. PHYSICAL EXAMINATION: GENERAL: The patient is awake, alert and oriented times three, laying in bed, getting hemodialysis done. HEAD AND NECK: Extraocular is intact. Pupils equally round and reactive to light. Mucous membranes are moist. Neck is supple. There is no jugular venous distention (JVD). CARDIOVASCULAR: S1, S2, regular rate. No edema of the bilateral lower extremities. RESPIRATORY: Chest is clear to auscultation bilaterally. Bilateral equal air entry. No rales or rhonchi. ABDOMEN: Soft, obese, positive bowel sounds. Nontender. No organomegaly. MUSCULOSKELETAL: No clubbing or cyanosis. Pulses are 2+. CENTRAL NERVOUS SYSTEM (CHURCH MUSICIAN): No focal deficit. Power is 5/5 in all extremities. ARTERIOVENOUS (AV) ACCESS: Right upper arm AV fistula is being used for dialysis. LABORATORY REVIEW: CBC showed a WBC of 8, hemoglobin 9.2, platelets are 264. BMP showed sodium 138, potassium 4.9, chloride 100, bicarbonate 27, BUN 51, creatinine is 9.3. CURRENT INPATIENT MEDICATIONS: The patient's medications were all reviewed by me. There is no change in the medications today as compared with yesterday. ASSESSMENT AND PLAN: 1. End-stage renal disease on hemodialysis. The patient is being dialyzed today according to her regular schedule. Three liters of ultrafiltration will be done as tolerated by her blood pressure. 2. Anemia and end-stage renal disease. The patient is getting Aranesp and iron. Hemoglobin level is stable. No need of blood transfusion at this time. 3. Acute decompensated diastolic congestive heart failure. The patient got a total of nine liters of fluid removed so far during this hospitalization. I will remove three more liter of fluid today. Volume status is optimal. 4. Hypertension with end-stage renal disease and hypertensive heart disease. Continue current dose of Coreg, amlodipine, clonidine and valsartan.
[2018-12-18] MEDS: PRAVASTATIN 20 MG TAB PO SCH (20:49)
[2018-12-18] MEDS: amLODIPine 5 MG TAB PO SCH (20:50)
[2018-12-18] MEDS: LEVEMIR (INSULIN DETEMIR) 1 UNITS/0.01ML SC SCH (20:51)
[2018-12-19] VITALS (10 sets, daily range): BP systolic 144–174; BP diastolic 3–79; O2SAT 94–98
[2018-12-19] MEDS: SLF 3 ML SYR IV SCH ×4 (05:05→22:00)
[2018-12-19 05:14] LABS: BASO # 0.1 10^3/uL (0.0-0.2); BASO % 0.7 % (0.0-1.0); EOS # 0.6 10^3/uL (0.0-0.50); EOS % 7.2 % (0.0-3.0); HEMATOCRIT 32.5 % (36.0-47.0); HEMOGLOBIN 10.1 g/dl (12.0-15.5); LYMPH # 1.4 10^3/uL (1.5-4.5); LYMPH % 16.9 % (24.0-44.0); MEAN CORPUSCULAR HEMOGLOBIN 31.5 pg (27.0-33.0); MEAN CORPUSCULAR HGB CONC 31.1 g/dl (32.0-36.5); MEAN CORPUSCULAR VOLUME 101.2 fl (80.0-96.0); MONO # 0.8 10^3/uL (0.0-0.8); MONO % 9.9 % (0.0-5.0); NEUTROPHILS # 5.4 10^3/uL (1.8-7.7); NEUTROPHILS % 64.9 % (36.0-66.0); PLATELET COUNT, AUTOMATED 256 10^3/uL (150-450); RED BLOOD COUNT 3.21 10^6/uL (4.00-5.40); WHITE BLOOD COUNT 8.3 10^3/uL (4.0-10.0)
[2018-12-19 05:35] LABS: ERYTHROCYTE SEDIMENTATION RATE 63 mm/hr (0-30)
[2018-12-19 05:40] LABS: C REACTIVE PROTEIN QUANTITATIV 0.76 MG/DL (0.00-0.30); MAGNESIUM LEVEL 2.6 MG/DL (1.8-2.4)
[2018-12-19] MEDS: DOCUSATE SODIUM 100 MG CAP PO SCH ×2 (08:41→21:08)
[2018-12-19] MEDS: amLODIPine 5 MG TAB PO SCH ×2 (08:43→21:08)
[2018-12-19] MEDS: LANTHANUM CARBONATE 500 MG CHEW TABLET PO SCH ×3 (08:43→18:17)
[2018-12-19] MEDS: CARVedilol 12.5 MG TAB PO SCH ×2 (08:43→21:08)
[2018-12-19] MEDS: ASPIRIN 81 MG ENTERIC TAB PO SCH (08:44)
[2018-12-19] MEDS: VALSARTAN 80 MG TAB (DIOVAN) PO SCH (08:44)
[2018-12-19] MEDS: HEPARIN SOD (PORCINE) 5000 UNITS/ML VIAL SC SCH ×2 (08:45→21:09)
[2018-12-19] MEDS: cloNIDine 0.2 MG TAB PO SCH ×2 (08:45→22:13)
[2018-12-19] MEDS: HumaLOG INSULIN (NovoLOG) PER UNIT SC SCH ×3 (08:53→18:17)
--- NOTE | 2018-12-19 09:20 | REP ---
Portable chest, 08:50 a.m., single AP view with the patient upright: Comparisons are the portable chest studies of 12/14/2018 and 12/15/[address] dated a 2018. The interstitial infiltrates have improved. No pleural effusions are identified. There is cardiomegaly, unchanged. The marley, mediastinum, skeletal structures are unremarkable. Impression: Improved interstitial infiltrates. No pleural effusions. Cardiomegaly. Electronically Signed by Tay Montaño MD 12/19/2018 09:12 A
[2018-12-19 10:50] LABS: CALCIUM LEVEL 11.1 MG/DL (8.5-10.1); CREATININE FOR GFR 7.83 MG/DL (0.55-1.30); GLOMERULAR FILTRATION RATE 6.8 (>51); POTASSIUM SERUM 4.6 MEQ/L (3.5-5.1)
[2018-12-19] MEDS: LevoFLOXacin 500 MG TABLET PO SCH (18:17)
[2018-12-19] MEDS: PRAVASTATIN 20 MG TAB PO SCH (21:07)
[2018-12-19] MEDS: LEVEMIR (INSULIN DETEMIR) 1 UNITS/0.01ML SC SCH (21:09)
[2018-12-20 06:00] VITALS: BP 170/74
[2018-12-20] MEDS: SLF 3 ML SYR IV SCH ×3 (06:00→20:58)
[2018-12-20] MEDS: HumaLOG INSULIN (NovoLOG) PER UNIT SC SCH ×3 (07:30→18:17)
[2018-12-20] MEDS ORDERED: amLODIPine 5 MG TAB PO ONE (07:45)
[2018-12-20] MEDS ORDERED: CARVedilol 12.5 MG TAB PO ONE (07:45)
[2018-12-20] MEDS ORDERED: **hydrALAZINE** 10 MG TAB PO ONE (07:45)
[2018-12-20] MEDS ORDERED: VALSARTAN 80 MG TAB (DIOVAN) PO ONE (07:45)
[2018-12-20] MEDS: ACETAMINOPHEN 500 MG TAB PO PRN (08:17)
[2018-12-20] MEDS: ASPIRIN 81 MG ENTERIC TAB PO SCH (08:17)
[2018-12-20] MEDS: HEPARIN SOD (PORCINE) 5000 UNITS/ML VIAL SC SCH ×2 (08:18→20:55)
[2018-12-20] MEDS: LANTHANUM CARBONATE 500 MG CHEW TABLET PO SCH ×3 (08:18→18:16)
[2018-12-20] MEDS: cloNIDine 0.2 MG TAB PO SCH ×2 (08:19→20:54)
[2018-12-20] MEDS: DOCUSATE SODIUM 100 MG CAP PO SCH ×2 (08:20→20:55)
[2018-12-20 11:00] LABS: HEMATOCRIT 31.9 % (36.0-47.0); HEMOGLOBIN 9.8 g/dl (12.0-15.5); MEAN CORPUSCULAR HEMOGLOBIN 31.1 pg (27.0-33.0); MEAN CORPUSCULAR HGB CONC 30.7 g/dl (32.0-36.5); MEAN CORPUSCULAR VOLUME 101.3 fl (80.0-96.0); PLATELET COUNT, AUTOMATED 271 10^3/uL (150-450); RED BLOOD COUNT 3.15 10^6/uL (4.00-5.40); WHITE BLOOD COUNT 7.9 10^3/uL (4.0-10.0)
[2018-12-20 11:37] LABS: CALCIUM LEVEL 10.2 MG/DL (8.5-10.1); CREATININE FOR GFR 10.1 MG/DL (0.55-1.30); GLOMERULAR FILTRATION RATE 5.1 (>51); POTASSIUM SERUM 5.8 MEQ/L (3.5-5.1)
[2018-12-20] MEDS ORDERED: SOD POLYSTYRENE SULFONATE SUSP 15 GM/60 ML UD PO ONE (13:00)
[2018-12-20 14:00] VITALS: BP 158/73
[2018-12-20 20:47] VITALS: BP 170/70
[2018-12-20 20:51] VITALS: BP 162/68
[2018-12-20] MEDS: PRAVASTATIN 20 MG TAB PO SCH (20:54)
[2018-12-20] MEDS: CARVedilol 12.5 MG TAB PO SCH (20:54)
[2018-12-20] MEDS: LEVEMIR (INSULIN DETEMIR) 1 UNITS/0.01ML SC SCH (20:55)
[2018-12-20] MEDS: amLODIPine 5 MG TAB PO SCH (20:55)
[2018-12-21] MEDS: ASPIRIN 81 MG ENTERIC TAB PO SCH (05:58)
[2018-12-21] MEDS: DOCUSATE SODIUM 100 MG CAP PO SCH ×2 (05:59→20:35)
[2018-12-21] MEDS: LANTHANUM CARBONATE 500 MG CHEW TABLET PO SCH ×3 (05:59→17:25)
[2018-12-21] MEDS: HEPARIN SOD (PORCINE) 5000 UNITS/ML VIAL SC SCH ×2 (05:59→20:35)
[2018-12-21 06:00] VITALS: BP 168/72
[2018-12-21] MEDS: cloNIDine 0.2 MG TAB PO SCH ×2 (06:00→20:36)
[2018-12-21] MEDS: CARVedilol 12.5 MG TAB PO SCH ×2 (06:00→20:36)
[2018-12-21] MEDS: amLODIPine 5 MG TAB PO SCH ×2 (06:00→20:36)
[2018-12-21] MEDS: VALSARTAN 80 MG TAB (DIOVAN) PO SCH (07:33)
[2018-12-21] MEDS: ACETAMINOPHEN 500 MG TAB PO PRN (07:33)
[2018-12-21] MEDS: HumaLOG INSULIN (NovoLOG) PER UNIT SC SCH ×3 (07:38→17:26)
--- NOTE | 2018-12-21 09:18 | IPN ---
DATE: 12/19/2018 SUBJECTIVE: The patient was seen and examined at the bedside today morning. She is afebrile, hemodynamically stable. She was getting ready to eat her breakfast when I saw her. She was dialyzed yesterday. She tolerated the hemodialysis procedure well, about 3 liters of fluid was removed. OBJECTIVE: Vital Signs: Temperature is 98.4 degrees [place]. Blood pressure 144/63. Pulse is 77. Respiratory rate of 18. Saturating 95% on room air. Intake and Output: There is no urine output recorded. Ultrafiltration with hemodialysis was 3 liters. Weight in the bed scale is 74.5 kg. PHYSICAL EXAMINATION: General: The patient is awake, alert, oriented times three, sitting up in the bed in no apparent distress. Head and Neck Exam: Extraocular muscles intact. Pupils equally round and reactive to light. Mucous membranes are moist. Neck is supple. There is no jugular venous distention (JVD). Cardiovascular: S1 and S2, regular rate. No edema of the bilateral lower extremities. Respiratory: Chest is clear to auscultation bilaterally. Bilateral equal air entry. No rales or rhonchi. Abdomen: Soft. Positive bowel sounds. Nontender. No organomegaly. Musculoskeletal: No clubbing or cyanosis. Pulses are 2+. INFANT ROOM TEACHER: No focal deficit. Power is 5/5 in all extremities. AV axis right upper arm, AV fistula with thrill and bruit. LAB REVIEW: CBC showed a WBC of 8.3, hemoglobin 10.1, platelets 256. Procalcitonin level is pending. C-reactive protein is 0.76. Pro-BNP is 21,877. Magnesium is 2.6. CURRENT INPATIENT MEDICATIONS: The patient's medications were all reviewed by me. Amlodipine dose has been changed to 5 mg by mouth twice a day. No other change in the medications today as compared with yesterday. ASSESSMENT/PLAN: 1. End-stage renal disease on hemodialysis. The patient was dialyzed yesterday. Volume status is optimal. Next hemodialysis will be done after the weekend. 2. Anemia in end-stage renal disease. The patient continues on Aranesp and iron. Hemoglobin level is within the acceptable range now. 3. Hypertension with hypertensive heart disease in end-stage renal disease. Continue current dose of clonidine, losartan and Coreg. Amlodipine dose has been increased by the primary team. Blood pressure levels are optimal. 4. Acute decompensated diastolic congestive heart failure. The patient has grade 2 diastolic dysfunction on the latest echocardiogram. She needed [id number] ultrafiltration and hemodialysis. Volume status is OK. Dry weight needs to be adjusted to around 74 kg as outpatient. 5. Disposition. The patient is optimized from nephrology standpoint whenever she is cleared from physical therapy to be discharged home.
--- NOTE | 2018-12-21 09:22 | IPN ---
DATE: 12/19/2018 The patient was easily arousable this morning. She states that she had a better night and was able to sleep better. Despite feeling increasing guilt with the recent of her significant other 2 weeks ago, the patient's appetite is slightly improved. She has contacted her friend from [place], who will be staying with her after hospital discharge. It is a childhood friend who is a retired principal. She also has Oliva, her friend here in [place] to accompany her today and keep her occupied. She otherwise says that her breathing is much improved. She has no chest pain, pressure, tightness. No lightheadedness, dizziness, or changes in vision. Despite blood pressure of 150, the patient denies any headaches, changes in vision, chest pain, shortness of breath. Due to fatigue and weakness, she had told physical therapy (PT) to reevaluate her today. She is improved from her heart failure and had received dialysis with net negative balance with improvement in weight from admission peak weight of 88.1 kg to current weight of 74.5 kilograms. Telemetry had no issues. The patient is medically stable to transfer to medical/surgical floor. Per RN, the patient has lost peripheral venous access. She is currently not requiring intravenous hydralazine and has been placed on hydralazine orally every 6 hours for systolic blood pressure greater than 160. The patient otherwise denies any cough, fever, chills. No change in sputum production. She had been on Levaquin. Repeat chest x-ray showed improvement in the bilateral infiltrates. Procalcitonin level is still pending. Sed rate is slightly elevated at 63 and C-reactive protein is slightly elevated at 0.76. PHYSICAL EXAMINATION: Temperature 98.4, pulse 71, respiratory rate 18, blood pressure 144/63, 95% on room air. GENERAL: The patient is awake, alert, oriented times three. Able to provide appropriate history. She is using no respiratory accessory muscles. No jugular venous distention (JVD). No thyromegaly. No cervical lymphadenopathy. LUNGS: Clear to auscultation. There is no wheezing or rales. HEART: S1, S2. Sinus rhythm. No murmurs, rubs or gallops. ABDOMEN: Obese, soft, nontender, nondistended. EXTREMITIES: No pitting edema. LABORATORY DATA: 12/19/2018, white count 8.3, hemoglobin 10, hematocrit 32, platelet count 256. BNP is 21,877. Albumin 2.7. ASSESSMENT AND PLAN: This is a 58-year-old female with a history of end stage renal disease on maintenance hemodialysis in [place], congestive heart failure (CHF) with preserved ejection fraction, diastolic dysfunction, type 2 diabetes, recurrent anemia, hyperlipidemia, hypertensive heart disease, dialyzed Friday, Friday, Friday in [place], who was admitted for decompensated congestive heart failure (CHF) and symptomatic anemia requiring blood transfusion. ACTIVE ISSUES: 1. Congestive heart failure (CHF) with acute exacerbation with preserved ejection fraction, diastolic dysfunction, improved with dialysis, managed by nephrology. The patient has a net negative balance since. Currently denies any shortness of breath, paroxysmal nocturnal dyspnea or orthopnea. Has no lower extremity edema or jugular venous distention (JVD). She is kept on strict input and output, daily weights, fluid restriction. Appears to be significantly improved. 2. Presumed community acquired pneumonia. The patient is currently on Levaquin renally dosed. Repeat chest x-ray shows improvement in infiltrates. She has had no fever or chills. Will complete a 7-day course. 3. End stage renal disease. On maintenance hemodialysis, usually done in [place] on Friday, Friday, Friday. Emergently done during this admission by narrow gauge brakeman and currently managed by nephrology. 4. Anemia secondary to end stage renal disease. Status post IV Venofer with dialysis and Aranesp. Hemoglobin is currently adequate. She has received 1 unit of leukocyte reduced RBCs transfusion. She currently denies any hematemesis, bright red blood per rectum, melena, black/tarry stools. 5. Acute hypoxia secondary to decompensated congestive heart failure (CHF) exacerbation with preserved ejection fraction, currently resolved. She is comfortable on room air and baseline with euvolemia. 6. Type 2 diabetes. On consistent carbohydrate renal diet. Levemir insulin 30 units at night, sliding scale with coverage. We will need to adjust for better glycemic control if needed. 7. Hyperparathyroidism secondary to renal failure, which is a chronic condition. Continue home medications. 8. Right middle lobe pulmonary nodule. Outpatient followup with repeat CT of the chest in 6 months' time. 9. Incidental finding of 4.1 cm ascending thoracic aortic aneurysm. Continue with blood pressure control and monitor as an outpatient by primary care provider. 10. Hypertensive heart disease. The patient is currently on Norvasc increased to 5 mg twice a day, hydralazine orally as needed for systolic blood pressure greater than 160. The patient has lost IV access and currently unable to administer IV hydralazine. She is on Coreg 25 mg twice a day, clonidine 0.2 mg twice a day and Valsartan 160 mg daily with better control. DISPOSITION: Await euvolemia and physical therapy (PT) clearance. Possible discharge on Friday. MTDD
--- NOTE | 2018-12-21 11:08 | IPN ---
DATE: 12/20/2018 The patient was found to have blood pressure of 170 systolic this morning, but denies any headaches, changes in vision, blurred vision, diplopia, chest pain, pressure or tightness, shortness of breath, lightheadedness, dizziness, nausea or vomiting. The patient has been dialyzed a total of 12 liters via dialysis since admission, appears to be euvolemic. She complains of feeling weak this morning. Unable to work with physical therapy due to severe fatigue. The patient has been grieving for her loved one who had passed on two weeks ago. She was encouraged to ambulate and to become more involved socially. Due to severe grievance, she did ask her friend from [place] to come and fly and live with her for a little while and that friend will be arriving some time this weekend. Her friend Oliva has been visiting her in the hospital and has been provided a good social support system. The patient otherwise did not have any suicidal ideation or homicidal ideation. She appears to be in better spirits this morning, but still complains of feeling tired. Temperature 97.9, pulse 78, respiratory rate 18, blood pressure 170/74, 96% on room air. Generally, the patient is awake, alert, oriented to person, place and time, answering questions appropriately. She has no use of respiratory accessory muscles. She is speaking in full sentences. Neck is supple. No jugular venous distention or thyromegaly. No cervical lymphadenopathy. Lungs are clear to auscultation. No wheezing, rales or rhonchi. Heart: S1 and S2. Regular rate and rhythm. No murmurs, rubs or gallops. Abdomen: Soft. Nontender. Nondistended. Positive bowel sounds. No rebound, guarding or hepatosplenomegaly. Extremities: She has no pitting edema. Right AV arm fistula. 2+ pulses noted dorsalis pedis, posterior tibialis. LABORATORY DATA: 12/19/2018: CBC and metabolic panel have been reviewed. 12/20/2018: Labs are not available. Procalcitonin 0.27. ASSESSMENT AND PLAN: This is a 58-year-old -[place] Islander female with end stage renal disease who had been on peritoneal dialysis and currently on maintenance hemodialysis in [place], type 2 diabetes, congestive heart failure with preserved ejection fraction, diastolic dysfunction, recurrent anemia of renal failure, hyperlipidemia, hypertensive heart disease, usually dialyzed in [place] on Friday, Friday and Friday, admitted for symptomatic anemia and decompensated congestive heart failure requiring emergent hemodialysis. Active Issues: 1. Acute congestive heart failure exacerbation with preserved ejection fraction and diastolic dysfunction. Managed by dialysis. The patient has had a total of 12 liters output via dialysis with improvement in her clinical condition. She currently appears to be euvolemic. Denies any paroxysmal nocturnal dyspnea (PND), orthopnea or lower extremity edema. Has no shortness of breath or dyspnea on exertion. She is kept on strict ins and outs, daily weights and fluid restriction and managed by nephrology for fluid status and diuresis via hemodialysis. 2. Generalized fatigue. Most likely secondary to acute congestive heart failure exacerbation which is now improved. Physical therapy has been consulted, but patient has been refusing therapy due to increased fatigue and weakness. 3. End stage renal disease on maintenance hemodialysis usually done in [place] Friday, Friday and Friday, but emergently done when the patient was admitted due to acute hypoxia. The patient is managed by nephrology, Dr. Francisco, for her dialysis needs. 4. Anemia secondary to end stage renal disease. She denies any GI loss of blood. Currently managed with IV Venofer via dialysis and Aranesp. She did receive one unit of red blood cell (RBC) transfusion. 5. Acute hypoxia secondary to decompensated congestive heart failure, resolved. She is currently on room air at baseline and appears to be euvolemic. 6. Type 2 diabetes. She is continued on a consistent carbohydrate renal diet with insulin sliding scale before meals and at bedtime with coverage. Finger sticks before meals and at bedtime. On Levemir 30 units at bedtime. 7. Hyperparathyroidism secondary to renal failure which is chronic. She is continued on her home medications. 8. Presumed community acquired pneumonia, on renally dosed Levaquin. Afebrile. No white count. No cough or chills. Chest x-ray continues to show bilateral infiltrates, but some improvement. Prolactin level is 0.27 with less than 0.24 being unlikely for bacterial infection. There is low risk of progression to severe sepsis or septic shock at this time. DISPOSITION: Awaiting physical therapy clearance prior to discharge home. The patient currently is grieving for the loss of her significant other which may be hindering her emotionally with complaints of fatigue and weakness despite current active medical issues. I have spoken with her and counseled her at length that it might be best to be living with a friend or a friend to live with her as she goes through this difficult time in her life. She was agreeable and is waiting for her friend to fly in from [place]. She is being encouraged to ambulate three times a day and to participate with physical therapy. KAYLEEN
--- NOTE | 2018-12-21 11:30 | IPN ---
DATE OF SERVICE: 12/20/2018 SUBJECTIVE: The patient was seen and examined at the bedside today morning. She is afebrile, hemodynamically stable. She denies any active complaints. The patient has hyperkalemia today. She is not on potassium or fluid restriction diet. OBJECTIVE: Vital signs: Temperature is 97.9 degree Fahrenheit, blood pressure 170/74, pulse is 78, respiratory of 18, saturating 96% on room air. Intake and output - There is no urine output recorded. Weight in the bed scale is not available. PHYSICAL EXAMINATION: General: The patient is awake, alert, oriented times three, laying in bed in no apparent distress. Head and neck exam extraocular muscles intact. Pupils equally round and reactive to light. Mucous membranes are moist. Neck is supple. There is no jugular venous distention (JVD). Cardiovascular: S1, S2, regular rate. No edema of the bilateral lower extremities. Respiratory: Chest is clear to auscultation bilaterally. Bilateral equal air entry. No rales or rhonchi. Abdomen: Soft, obese, positive bowel sounds. Nontender. No organomegaly. Musculoskeletal: No clubbing or cyanosis. Pulses are 2+. 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 AV axis right upper arm AV fistula with thrill and bruit. LAB REVIEW: CBC showed a WBC 7.9, hemoglobin 9.8, platelets 271. BMP showed sodium 137, potassium 5.8, chloride 100, bicarb 27, BUN 51, creatinine is 10.1, calcium 10.2. CURRENT INPATIENT MEDICATIONS: The patient's medications were all reviewed by me. ASSESSMENT AND PLAN: 1. End-stage renal disease on hemodialysis. The patient was dialyzed on Friday. Next hemodialysis session will be tomorrow morning. Ultrafiltration goal will be at least 3-3.5 kg as tolerated by the blood pressure. 2. Anemia in end-stage renal disease. The patient is getting IV Aranesp and IV iron with dialysis, hemoglobin level is improving. 3. Acute decompensated diastolic congestive heart failure. The patient is not on fluid restriction. I put the patient on of 1.5 liters fluid restriction. Ultrafiltration will be done tomorrow with dialysis. Volume status is optimal. 4. Hyperkalemia. The patient is not on a low potassium diet. She admits to eating a lot of potatoes. I have changed her diet to 2 gram potassium diet. 5. Hypercalcemia. Patient is not on any calcimimetics at this time. She is not taking any vitamin D. I am going to check the PTH levels. If the PTH levels are high. The patient will be started on Sensipar. 6. Hypertension with end-stage renal disease. Continue amlodipine Coreg, clonidine and Valsartan. Further optimization of her fluid status tomorrow morning would help improve blood pressure as well. MTDD
[2018-12-21] MEDS: CALCITRIOL 0.25 MCG CAP (S0169) PO SCH (13:14)
[2018-12-21 14:00] VITALS: BP 148/69
--- NOTE | 2018-12-21 17:21 | IPNPDOC ---
Date Seen The patient was seen on 12/21/18. Progress Note subjective; denies any headaches, changes in vision, blurred vision, diplopia, chest pain, pressure or tightness, shortness of breath, lightheadedness, dizziness, nausea or vomiting. s/p 18 output via dialysis since admission, with decreased weight from 88 kg to 76 kgappears to be euvolemic. objective: physical exam vitals: pls see below Generally, the patient is awake, alert, oriented to person, place and time, answering questions appropriately. She has no use of respiratory accessory muscles. She is speaking in full sentences. Neck is supple. No jugular venous distention or thyromegaly. No cervical lymphadenopathy. Lungs are clear to auscultation. No wheezing, rales or rhonchi. Heart: S1 and S2. Regular rate and rhythm. No murmurs, rubs or gallops. Abdomen: Soft. Nontender. Nondistended. Positive bowel sounds. No rebound, guarding or hepatosplenomegaly. Extremities: She has no pitting edema. Right AV arm fistula. 2+ pulses noted dorsalis pedis, posterior tibialis. LABORATORY DATA:reviewed ASSESSMENT AND PLAN: This is a 58-year-old -[place] female with end stage renal disease who had been on peritoneal dialysis and currently on maintenance hemodialysis in [place], type 2 diabetes, congestive heart failure with preserved ejection fraction, diastolic dysfunction, recurrent anemia of renal failure, hyperlipidemia, hypertensive heart disease, usually dialyzed in [place] on Friday, Friday and Friday, admitted for symptomatic anemia and decompensated congestive heart failure requiring emergent hemodialysis. Active Issues: 1. Acute congestive heart failure exacerbation with preserved ejection fraction and diastolic dysfunction, resolved Managed by dialysis. The patient has had a total of 18 liters output via dialysis with improvement in her clinical condition. She currently appears to be euvolemic. Denies any paroxysmal nocturnal dyspnea (PND), orthopnea or lower extremity edema. Has no shortness of breath or dyspnea on exertion. She is kept on strict ins and outs, daily weights and fluid restriction and managed by nephrology for fluid status and diuresis via hemodialysis. 88kg to 76 kg weight since admission 2. Generalized fatigue. Most likely secondary to acute congestive heart failure exacerbation which is now improved. Physical therapy has been consulted, but patient has been refusing therapy due to increased fatigue and weakness. 3. End stage renal disease on maintenance hemodialysis usually done in [place] Friday, Friday and Friday, but emergently done when the patient was admitted due to acute hypoxia. The patient is managed by nephrology, Dr. Francisco, for her dialysis needs. 4. Anemia secondary to end stage renal disease. She denies any GI loss of blood. Currently managed with IV Venofer via dialysis and Aranesp. She did receive one unit of red blood cell (RBC) transfusion. 5. Acute hypoxia secondary to decompensated congestive heart failure, resolved. She is currently on room air at baseline and appears to be euvolemic. 6. Type 2 diabetes. She is continued on a consistent carbohydrate renal diet with insulin sliding scale before meals and at bedtime with coverage. Finger sticks before meals and at bedtime. On Levemir 30 units at bedtime. 7. Hyperparathyroidism secondary to renal failure which is chronic. She is continued on her home medications. 8. Presumed community acquired pneumonia, on renally dosed Levaquin. Afebrile. No white count. No cough or chills. Chest x-ray continues to show bilateral infiltrates, but some improvement. Prolactin level is 0.27 with less than 0.24 being unlikely for bacterial infection. There is low risk of progression to severe sepsis or septic shock at this time. DISPOSITION: Awaiting physical therapy clearance prior to discharge home. encouraged to ambulate three times a day and to participate with physical therapy. VS, I&O, 24H, Fishbone Vital Signs/I&O Vital Signs Date Time Temp Pulse Resp B/P (MAP) Pulse Ox O2 Delivery O2 Flow Rate FiO2 12/21/18 14:00 99.0 72 18 148/69 (95) 94 12/19/18 06:00 Room Air 12/18/18 04:00 2.0 I&O- Last 24 Hours up to 6 AM0 12/21/18 06:00 Intake Total 1320 ml Balance 1320 ml Laboratory Data 24H LABS Laboratory Tests 2 12/20/18 20:49: Bedside Glucose (Misc Panel) 206H 12/21/18 05:18: Bedside Glucose (Misc Panel) 237H 12/21/18 13:13: Bedside Glucose (Misc Panel) 84 12/21/18 16:42: Bedside Glucose (Misc Panel) 231H Microbiology Microbiology 12/14/18 Blood Culture - Final, Complete NO GROWTH AFTER 5 DAYS 12/14/18 Blood Culture - Final, Complete NO GROWTH AFTER 5 DAYS MARGARITA AVELAR MD Dec 21, 2018 17:17
[2018-12-21] MEDS: LevoFLOXacin 500 MG TABLET PO SCH (17:24)
[2018-12-21 17:41] LABS: BASO # 0.1 10^3/uL (0.0-0.2); BASO % 0.6 % (0.0-1.0); EOS # 0.2 10^3/uL (0.0-0.50); EOS % 2.9 % (0.0-3.0); HEMATOCRIT 33.8 % (36.0-47.0); HEMOGLOBIN 10.6 g/dl (12.0-15.5); LYMPH % 11.5 % (24.0-44.0); MEAN CORPUSCULAR HEMOGLOBIN 31.5 pg (27.0-33.0); MEAN CORPUSCULAR HGB CONC 31.4 g/dl (32.0-36.5); MEAN CORPUSCULAR VOLUME 100.6 fl (80.0-96.0); MONO # 0.7 10^3/uL (0.0-0.8); MONO % 8.1 % (0.0-5.0); NEUTROPHILS # 6.4 10^3/uL (1.8-7.7); NEUTROPHILS % 76.8 % (36.0-66.0); PLATELET COUNT, AUTOMATED 256 10^3/uL (150-450); RED BLOOD COUNT 3.36 10^6/uL (4.00-5.40); WHITE BLOOD COUNT 8.3 10^3/uL (4.0-10.0)
[2018-12-21 18:20] LABS: CREATININE FOR GFR 6.71 MG/DL (0.55-1.30); GLOMERULAR FILTRATION RATE 8.1 (>51); POTASSIUM SERUM 4.1 MEQ/L (3.5-5.1)
[2018-12-21] MEDS: PRAVASTATIN 20 MG TAB PO SCH (20:35)
[2018-12-21] MEDS: **hydrALAZINE** 10 MG TAB PO PRN (20:36)
[2018-12-21] MEDS: LEVEMIR (INSULIN DETEMIR) 1 UNITS/0.01ML SC SCH (20:37)
--- NOTE | 2018-12-21 21:21 | IPN ---
DATE: 12/21/2018 Mrs. Zuñiga is seen this morning during hemodialysis. She is feeling better and her dyspnea and hypoxemia has improved. She denies any nausea, vomiting, fever or chills. She still has some cough, but denies any hemoptysis or pleuritic type of chest pain. PHYSICAL EXAMINATION: Temperature 98.4 degrees Fahrenheit, heart rate 70 per minute and respiratory rate 16 per minute. Blood pressure 162/68 mmHg and oxygen saturation 92% on room air. Head is atraumatic. Neck is supple and JVD not abnormally distended. Heart sounds are regular and lungs sound clear to auscultation. Abdomen: Soft and nontender and bowel sounds are normal. Extremities have no cyanosis or clubbing. Neurologically, she is awake, alert and oriented x3. The patient did not have any new labs done today. Yesterday, her sodium was 137 and potassium 5.8. An intact PTH level has come back at 552 today. Yesterday, her hemoglobin was 9.8 and hematocrit 31.9. PROBLEMS: 1. Congestive heart failure. She was admitted with volume overload and shortness of breath. With aggressive dialysis and fluid removal, her volume status has improved and well compensated now. She is being dialyzed today and we are removing about 3 liters of fluid. She is tolerating it well. 2. End-stage renal disease. The patient is regularly dialyzed on Friday, Friday and Friday schedule. She is being dialyzed today. The patient has previously expressed her desire to transfer her care to [place] [facility] facility. I will defer it to her to make a final decision and she can certainly be accepted in [facility] dialysis unit if she wishes to transfer. She does not have much social chitina in [place] and has been very depressed since the of her partner about 3 weeks ago. 3. Anemia. Anemia is improving and she is receiving Aranesp 200 mcg once a week, which will be continued. 4. Hypertension. Blood pressure is reasonably well-controlled on current antihypertensive medications. 5. Hyperparathyroidism. This is related to end-stage renal disease. She is currently not on any medication and I am going to start her on calcitriol 0.25 mcg three times a week.
[2018-12-21 22:00] VITALS: BP 162/72
[2018-12-22 06:00] VITALS: BP 159/78
[2018-12-22] MEDS: LANTHANUM CARBONATE 500 MG CHEW TABLET PO SCH ×3 (08:14→18:34)
[2018-12-22] MEDS: HumaLOG INSULIN (NovoLOG) PER UNIT SC SCH ×3 (08:14→18:34)
[2018-12-22] MEDS: CARVedilol 12.5 MG TAB PO SCH ×2 (08:15→21:27)
[2018-12-22] MEDS: cloNIDine 0.2 MG TAB PO SCH ×2 (08:15→21:26)
[2018-12-22] MEDS: DOCUSATE SODIUM 100 MG CAP PO SCH ×2 (08:16→21:26)
[2018-12-22] MEDS: amLODIPine 5 MG TAB PO SCH ×2 (08:17→21:27)
[2018-12-22] MEDS: VALSARTAN 80 MG TAB (DIOVAN) PO SCH (08:17)
[2018-12-22] MEDS: ASPIRIN 81 MG ENTERIC TAB PO SCH (08:17)
[2018-12-22] MEDS: HEPARIN SOD (PORCINE) 5000 UNITS/ML VIAL SC SCH ×2 (08:18→21:28)
[2018-12-22] MEDS ORDERED: DARBEPOETIN 100 MCG/0.5 ML *DIALYSIS* SYRINGE (J0882) IV SCH (11:30)
--- NOTE | 2018-12-22 13:58 | IPNPDOC ---
Date Seen The patient was seen on 12/22/18. Progress Note subjective c/o felix after walking 2x around the floor yesterday, slight cough, but dry. no sputum no fever or chills. repeat cxr: improved infiltrates. despite [id number], no c/o headache, changes in vision, nausea, chest pressure, tightness. she wants to fu w [facility] in the winter due to increment weather around the [facility] area making it difficult to receive 3x/wk dialysis in [place]. She prefers to have home hemodialysis, but now that Rolando, her partner has , she has not found a partner to help her. She denies depression. "I'm grieving." appetite has picked up. Fatigue has improved. Her friend Oliva has offered to have her stay with her once she is discharged from the hospital. She says, "I'm trying to find someone who can help me with home hemodialysis. there is an REHABILITATION PROGRAM COORDINATOR in my neighborhood. He's qualified, but he needs to check with his girlfriend." Pt appears to be getting back to making plans for her outpt needs, and looks to be in a better mood than a few days ago. she has been more receptive to physical therapy, and has been working with them . objective: physical exam vitals: pls see below Generally: supine in bed no pallor anicteric no jaundice moist mucus membranes the patient is awake, alert, oriented to person, place and time, answering questions appropriately. She has no use of respiratory accessory muscles. She is speaking in full sentences. Neck is supple. No jugular venous distention or thyromegaly. No cervical lymphadenopathy. Lungs are clear to auscultation. No wheezing, rales or rhonchi. Heart: S1 and S2. Regular rate and rhythm. No murmurs, rubs or gallops. Abdomen: Soft. Nontender. Nondistended. Positive bowel sounds. No rebound, guarding or hepatosplenomegaly. Extremities: She has no pitting edema. Right AV arm fistula. 2+ pulses noted dorsalis pedis, posterior tibialis. LABORATORY DATA, IMAGING STUDIES, MICROBIOLOGY::reviewed ASSESSMENT AND PLAN: This is a 58-year-old -[place] female with end stage renal disease who had been on peritoneal dialysis and currently on maintenance hemodialysis in [place], type 2 diabetes, congestive heart failure with preserved ejection fraction, diastolic dysfunction, recurrent anemia of renal failure, hyperlipidemia, hypertensive heart disease, usually dialyzed in [place] on Friday, Friday and Friday, admitted for symptomatic anemia and decompensated congestive heart failure requiring emergent hemodialysis. Active Issues: 1. Acute congestive heart failure exacerbation with preserved ejection fraction and diastolic dysfunction, resolved Managed by dialysis. The patient has had a total of 15 liters output via dialysis with improvement in her clinical condition. She currently appears to be euvolemic. Denies any paroxysmal nocturnal dyspnea (PND), orthopnea or lower extremity edema. still with c/o dyspnea on exertion after ambulation with her walker. She is kept on strict ins and outs, daily weights and fluid restriction and managed by nephrology for fluid status and diuresis via hemodialysis. 88kg to 74 kg weight since admission 2. Generalized fatigue. Most likely secondary to acute congestive heart failure exacerbation which is now improved. Physical therapy has been consulted. Pt has been encouraged to work with PT, still needing walker. 3. End stage renal disease on maintenance hemodialysis usually done in [place] Friday, Friday and Friday, but emergently done when the patient was admitted due to acute hypoxia. The patient is managed by nephrology for her dialysis needs.she wants to fu w [facility] in the winter due to increment weather around the [facility] area making it difficult to receive 3x/wk dialysis in [place]. She prefers to have home hemodialysis, but now that Rolando, her partner has , she has not found a partner to help her. 4. Anemia secondary to end stage renal disease. She denies any GI loss of blood. Currently managed with IV Venofer via dialysis and Aranesp. She did receive one unit of red blood cell (RBC) transfusion. 5. Acute hypoxia secondary to decompensated congestive heart failure, resolved. She is currently on room air at baseline and appears to be euvolemic. 6. Type 2 diabetes. She is continued on a consistent carbohydrate renal diet with insulin sliding scale before meals and at bedtime with coverage. Finger sticks before meals and at bedtime. On Levemir 30 units at bedtime. 7. Hyperparathyroidism secondary to renal failure which is chronic. She is continued on her home medications. 8. Presumed community acquired pneumonia, on renally dosed Levaquin. Afebrile. No white count. No cough or chills. Chest x-ray continues to show bilateral infiltrates, but some improvement. Prolactin level is 0.27 with less than 0.24 being unlikely for bacterial infection. There is low risk of progression to severe sepsis or septic shock at this time. Therefore, after receiving 4doses of levaquin, discontinued antibiotics as the infiltrates are most likey from fluid overload than pneumonia. DISPOSITION: Awaiting physical therapy clearance prior to discharge home. encouraged to ambulate three times a day and to participate with physical therapy. VS, I&O, [facility] Vital Signs/I&O Vital Signs Date Time Temp Pulse Resp B/P (MAP) Pulse Ox O2 Delivery O2 Flow Rate FiO2 12/22/18 08:17 67 159/78 12/22/18 06:00 98.1 18 98 12/19/18 06:00 Room Air 12/18/18 04:00 2.0 I&O- Last 24 Hours up to 6 AM 12/22/18 06:00 Intake Total 840 ml Output Total 3000 ml Balance -2160 ml Laboratory Data 24H LABS Laboratory Tests 2 12/21/18 16:42: Bedside Glucose (Misc Panel) 231H 12/21/18 17:24: Immature Granulocyte % (Auto) 0.1, White Blood Count 8.3, Red Blood Count 3.36L, Hemoglobin 10.6L, Hematocrit 33.8L, Mean Corpuscular Volume 100.6H, Mean Corpuscular Hemoglobin 31.5, Mean Corpuscular Hemoglobin Concent 31.4L, Red Cell Distribution Width 16.1H, Platelet Count 256, Neutrophils (%) (Auto) 76.8H, Lymphocytes (%) (Auto) 11.5L, Monocytes (%) (Auto) 8.1H, Eosinophils (%) (Auto) 2.9, Basophils (%) (Auto) 0.6, Neutrophils # (Auto) 6.4, Lymphocytes # (Auto) 1.0L, Monocytes # (Auto) 0.7, Eosinophils # (Auto) 0.2, Basophils # (Auto) 0.1, Nucleated Red Blood Cells % (auto) 0.0, Anion Gap 6L, Glomerular Filtration Rate 8.1L, Blood Urea Nitrogen 28H, Creatinine 6.71H, Sodium Level 137, Potassium Level 4.1#, Chloride Level 100, Carbon Dioxide Level 31, Calcium Level 10.0 12/21/18 20:18: Bedside Glucose (Misc Panel) 327H 12/22/18 05:20: Bedside Glucose (Misc Panel) 189H 12/22/18 12:07: Bedside Glucose (Misc Panel) 134H CBC/BMP Laboratory Tests 12/21/18 17:24 Red Blood Count 3.36 L, Mean Corpuscular Volume 100.6 H, Mean Corpuscular Hemoglobin 31.5, Mean Corpuscular Hemoglobin Concent 31.4 L, Red Cell Distribution Width 16.1 H, Neutrophils (%) (Auto) 76.8 H, Lymphocytes (%) (Auto) 11.5 L, Monocytes (%) (Auto) 8.1 H, Eosinophils (%) (Auto) 2.9, Basophils (%) (Auto) 0.6, Neutrophils # (Auto) 6.4, Lymphocytes # (Auto) 1.0 L, Monocytes # (Auto) 0.7, Eosinophils # (Auto) 0.2, Basophils # (Auto) 0.1, Calcium Level 10.0 Microbiology Microbiology 12/14/18 Blood Culture - Final, Complete NO GROWTH AFTER 5 DAYS 12/14/18 Blood Culture - Final, Complete NO GROWTH AFTER 5 DAYS MARGARITA AVELAR MD Dec 22, 2018 13:21
[2018-12-22 14:00] VITALS: BP 164/74
[2018-12-22 15:00] VITALS: BP 144/66
[2018-12-22 15:21] LABS: BASO # 0.1 10^3/uL (0.0-0.2); BASO % 0.8 % (0.0-1.0); EOS # 0.3 10^3/uL (0.0-0.50); EOS % 3.4 % (0.0-3.0); HEMATOCRIT 33.4 % (36.0-47.0); HEMOGLOBIN 10.6 g/dl (12.0-15.5); LYMPH # 1.1 10^3/uL (1.5-4.5); LYMPH % 14.6 % (24.0-44.0); MEAN CORPUSCULAR HEMOGLOBIN 32.2 pg (27.0-33.0); MEAN CORPUSCULAR HGB CONC 31.7 g/dl (32.0-36.5); MEAN CORPUSCULAR VOLUME 101.5 fl (80.0-96.0); MONO # 0.8 10^3/uL (0.0-0.8); MONO % 9.7 % (0.0-5.0); NEUTROPHILS # 5.5 10^3/uL (1.8-7.7); NEUTROPHILS % 71.2 % (36.0-66.0); PLATELET COUNT, AUTOMATED 275 10^3/uL (150-450); RED BLOOD COUNT 3.29 10^6/uL (4.00-5.40); WHITE BLOOD COUNT 7.7 10^3/uL (4.0-10.0)
[2018-12-22 15:54] LABS: C REACTIVE PROTEIN QUANTITATIV 0.37 MG/DL (0.00-0.30); CALCIUM LEVEL 10.8 MG/DL (8.5-10.1); CREATININE FOR GFR 9.31 MG/DL (0.55-1.30); GLOMERULAR FILTRATION RATE 5.6 (>51); POTASSIUM SERUM 4.9 MEQ/L (3.5-5.1)
[2018-12-22 15:57] LABS: ERYTHROCYTE SEDIMENTATION RATE 60 mm/hr (0-30)
--- NOTE | 2018-12-22 16:38 | REP ---
PA and lateral chest: Comparisons are 12/15/2018 and 12/19/2018. The interstitial infiltrates have resolved. There are no pleural effusions. There is cardiomegaly, unchanged. The marley, mediastinum, skeletal structures are unchanged. There is thoracic scoliosis convex right in the lower thoracic spine, unchanged. Impression: The interstitial infiltrates have resolved. Electronically Signed by Tay Montaño MD 12/22/2018 04:30 P
--- NOTE | 2018-12-22 20:51 | IPN ---
DATE: 12/22/2018 Mrs. Zuñiga is seen this morning on her bedside. She is sitting in the chair at the time of my visit. She is feeling better and reports that her strength is improving. She did walk in the hallway, however has not been on the stairs so far. She reports that she has 13 stairs at home. Her dyspnea has improved and she has no leg edema. She denies any other complaints. PHYSICAL EXAMINATION: Temperature 98 degrees Fahrenheit, heart rate 67 per minute and respiratory rate 18 per minute. Blood pressure 159/78 mmHg and oxygen saturation 98% on room air. Head is atraumatic. Neck is supple and without JVD or thyroid enlargement. Heart sounds are regular and lungs sound clear to auscultation. Abdomen soft and nontender and bowel sounds normal. Extremities without any cyanosis or clubbing. She has no peripheral edema. Neurologically she is awake, alert and oriented times three. PROBLEMS: 1. End-stage renal disease. The patient was dialyzed yesterday and her next regular dialysis day will be tomorrow. At present there is no emergent need for dialysis today. 2. Shortness of breath and hypervolemia. Her volume status is now very well compensated with dialysis treatments. She should remain on fluid restriction of 1500 mL per day. We have been removing about 3 liters of fluid with each dialysis. 3. Hypertension. Blood pressure is reasonably well-controlled on current medications and no changes are being made today. 4. Anemia. She was hemodiluted on admission and also received 1 unit of packed RBC initially. Now her anemia is optimized. No urgent intervention is needed as she has been receiving Aranesp 200 mcg during dialysis. I will cut down the dose of Aranesp to 100 mcg due to risk of over correction. 5. Generalized weakness and deconditioning. The patient is feeling much better. She is hoping to walk up stairs with physical therapist today. Once she gets cleared by physical therapy then she can probably be ready for discharge.
[2018-12-22] MEDS: PRAVASTATIN 20 MG TAB PO SCH (21:27)
[2018-12-22] MEDS: LEVEMIR (INSULIN DETEMIR) 1 UNITS/0.01ML SC SCH (21:28)
[2018-12-22 22:00] VITALS: BP 160/69
[2018-12-23] VITALS (8 sets, daily range): BP systolic 144–178; BP diastolic 70–90
[2018-12-23] MEDS: HEPARIN SOD (PORCINE) 5000 UNITS/ML VIAL SC SCH ×2 (05:59→20:40)
[2018-12-23] MEDS: LANTHANUM CARBONATE 500 MG CHEW TABLET PO SCH ×3 (06:00→17:28)
[2018-12-23] MEDS: ASPIRIN 81 MG ENTERIC TAB PO SCH (06:00)
[2018-12-23] MEDS: DOCUSATE SODIUM 100 MG CAP PO SCH ×2 (06:00→20:41)
[2018-12-23] MEDS: CALCITRIOL 0.25 MCG CAP (S0169) PO SCH (06:00)
[2018-12-23] MEDS: amLODIPine 5 MG TAB PO SCH (06:01)
[2018-12-23] MEDS: VALSARTAN 80 MG TAB (DIOVAN) PO SCH (06:01)
[2018-12-23] MEDS: cloNIDine 0.2 MG TAB PO SCH (06:01)
[2018-12-23] MEDS: CARVedilol 12.5 MG TAB PO SCH ×2 (06:02→20:40)
[2018-12-23] MEDS: HumaLOG INSULIN (NovoLOG) PER UNIT SC SCH ×3 (07:30→17:28)
[2018-12-23] MEDS ORDERED: HEPARIN 1,000 UNITS/ML 10ML VIAL (FOR RADIOLOGY& DIALYSIS ONLY) IV ONE (10:30)
[2018-12-23] MEDS: **hydrALAZINE** 10 MG TAB PO PRN (14:14)
[2018-12-23] MEDS ORDERED: NITROGLYCERIN 0.3 MG SUBL TAB SL STA (14:26)
[2018-12-23] MEDS ORDERED: PANTOPRAZOLE 40MG INJ (PROTONIX) (C9113) IV ONE (14:30)
[2018-12-23] MEDS ORDERED: FAMOTIDINE INJ 20MG/2ML VIAL (S0028) IVP ONE (14:30)
--- NOTE | 2018-12-23 14:44 | IPNPDOC ---
Date Seen The patient was seen on 12/23/18. Progress Note subjective c/o chest pressure "like a goat is sitting on my chest," after eating her lunch. sbp 170mmHg, given nitroglycerin, clonidine, and hydralazine. no sob, n/v/epigastric pain, feeling of impending doom, diaphoresis, cough, fever chills, pnd orthopnea. cardiac markers ekg pending. unchanged by position. Pt prefers to be managed in [place] for her dialysis needs home HD is preferred as opposed to HD center, but she wants to call [place] and transition her care. She asked [facility] to allow her to do this on her own. She passed HSE. objective: physical exam vitals: pls see below Generally: supine in bed no pallor anicteric no jaundice moist mucus membranes the patient is awake, alert, oriented to person, place and time, answering questions appropriately. She has no use of respiratory accessory muscles. She is speaking in full sentences. Neck is supple. No jugular venous distention or thyromegaly. No cervical lymphadenopathy. Lungs are clear to auscultation. No wheezing, rales or rhonchi. Heart: S1 and S2. Regular rate and rhythm. No murmurs, rubs or gallops. Abdomen: Soft. Nontender. Nondistended. Positive bowel sounds. No rebound, guarding or hepatosplenomegaly. Extremities: She has no pitting edema. Right AV arm fistula. 2+ pulses noted dorsalis pedis, posterior tibialis. LABORATORY DATA, IMAGING STUDIES, MICROBIOLOGY::reviewed ASSESSMENT AND PLAN: This is a 58-year-old -[place] female with end stage renal disease who had been on peritoneal dialysis and currently on maintenance hemodialysis in [place], type 2 diabetes, congestive heart failure with preserved ejection fraction, diastolic dysfunction, recurrent anemia of renal failure, hyperlipidemia, hypertensive heart disease, usually dialyzed in [place] on Friday, Friday and Friday, admitted for symptomatic anemia and decompensated congestive heart failure requiring emergent hemodialysis. Atypical Chest pain DDX: uncontrolled HTN, GERD, Dyspepsia, ACS trial of PPI, famotidine, ntg, clonidine, hydralazine. cycle cardiac markers and ekg if worsens, transfer to tele unit. Uncontrolled HTN resumed on home meds. additional clonidine and hydralazine for better control. discharge postponed. Acute congestive heart failure exacerbation with preserved ejection fraction and diastolic dysfunction, resolved Managed by dialysis. The patient has had a total of 15 liters output via dialysis with improvement in her clinical condition. She currently appears to be euvolemic. Denies any paroxysmal nocturnal dyspnea (PND), orthopnea or lower extremity edema. still with c/o dyspnea on exertion after ambulation with her walker. She is kept on strict ins and outs, daily weights and fluid restriction and managed by nephrology for fluid status and diuresis via hemodialysis. 88kg to 74 kg weight since admission Generalized fatigue. Most likely secondary to acute congestive heart failure exacerbation which is now improved. passed Physical therapy End stage renal disease on maintenance hemodialysis usually done in [place] Friday, Friday and Friday, but emergently done when the patient was admitted due to acute hypoxia. The patient is managed by nephrology for her dialysis needs.she wants to fu w [place] [facility] in the winter due to increment weather around the [facility] area making it difficult to receive 3x/wk dialysis in [place]. She prefers to have home hemodialysis, but now that Rolando, her partner has , she has not found a partner to help her. Anemia secondary to end stage renal disease. She denies any GI loss of blood. Currently managed with IV Venofer via dialysis and Aranesp. She did receive one unit of red blood cell (RBC) transfusion. Acute hypoxia secondary to decompensated congestive heart failure, resolved. She is currently on room air at baseline and appears to be euvolemic. Type 2 diabetes. She is continued on a consistent carbohydrate renal diet with insulin sliding scale before meals and at bedtime with coverage. Finger sticks before meals and at bedtime. On Levemir 30 units at bedtime. Hyperparathyroidism secondary to renal failure which is chronic. She is continued on her home medications. Presumed community acquired pneumonia, s/p renally dosed Levaquin. Afebrile. No white count. No cough or chills. Chest x-ray continues to show bilateral infiltrates, but some improvement. Prolactin level is 0.27 with less than 0.24 being unlikely for bacterial infection. There is low risk of progression to severe sepsis or septic shock at this time. Therefore, after receiving 4doses of levaquin, discontinued antibiotics as the infiltrates are most likely from fluid overload than pneumonia. DISPOSITION: discharge postponed due to chest pain most likely from uncontrolled HTN> VS, I&O, 24H, [facility] Vital Signs/I&O Vital Signs Date Time Temp Pulse Resp B/P (MAP) Pulse Ox O2 Delivery O2 Flow Rate FiO2 12/23/18 14:14 172/80 12/23/18 14:08 98.1 70 17 97 12/19/18 06:00 Room Air 12/18/18 04:00 2.0 I&O- Last 24 Hours up to 6 AM 12/23/18 05:59 Intake Total 540 ml Balance 540 ml Laboratory Data 24H LABS Laboratory Tests 2 12/22/18 14:56: Immature Granulocyte % (Auto) 0.3, White Blood Count 7.7, Red Blood Count 3.29L, Hemoglobin 10.6L, Hematocrit 33.4L, Mean Corpuscular Volume 101.5H, Mean C orpuscular Hemoglobin 32.2, Mean Corpuscular Hemoglobin Concent 31.7L, Red Cell Distribution Width 16.1H, Platelet Count 275, Neutrophils (%) (Auto) 71.2H, Lymphocytes (%) (Auto) 14.6L, Monocytes (%) (Auto) 9.7H, Eosinophils (%) (Auto) 3.4H, Basophils (%) (Auto) 0.8, Neutrophils # (Auto) 5.5, Lymphocytes # (Auto) 1.1L, Monocytes # (Auto) 0.8, Eosinophils # (Auto) 0.3, Basophils # (Auto) 0.1, Nucleated Red Blood Cells % (auto) 0.0, Erythrocyte Sedimentation Rate 60H, Anion Gap 11, Glomerular Filtration Rate 5.6L, Blood Urea Nitrogen 46#H, Creatinine 9.31*H, Sodium Level 136, Potassium Level 4.9, Chloride Level 99, Carbon Dioxide Level 26, Calcium Level 10.8H, C-Reactive Protein, Quantitative 0.37H 12/22/18 16:51: Bedside Glucose (Misc Panel) 165H 12/22/18 20:48: Bedside Glucose (Misc Panel) 245H 12/23/18 07:33: Bedside Glucose (Misc Panel) 101 12/23/18 13:25: Bedside Glucose (Misc Panel) 92 CBC/BMP Laboratory Tests 12/22/18 14:56 Red Blood Count 3.29 L, Mean Corpuscular Volume 101.5 H, Mean Corpuscular Hemoglobin 32.2, Mean Corpuscular Hemoglobin Concent 31.7 L, Red Cell Distribution Width 16.1 H, Neutrophils (%) (Auto) 71.2 H, Lymphocytes (%) (Auto) 14.6 L, Monocytes (%) (Auto) 9.7 H, Eosinophils (%) (Auto) 3.4 H, Basophils (%) (Auto) 0.8, Neutrophils # (Auto) 5.5, Lymphocytes # (Auto) 1.1 L, Monocytes # (Auto) 0.8, Eosinophils # (Auto) 0.3, Basophils # (Auto) 0.1, Calcium Level 10.8 H Microbiology Microbiology 12/14/18 Blood Culture - Final, Complete NO GROWTH AFTER 5 DAYS 12/14/18 Blood Culture - Final, Complete NO GROWTH AFTER 5 DAYS MARGARITA AVELAR MD Dec 23, 2018 14:35
[2018-12-23] MEDS ORDERED: FAMOTIDINE 20 MG TAB PO ONE ×2 (14:45→15:00)
[2018-12-23] MEDS ORDERED: **hydrALAZINE** 10 MG TAB PO ONE (15:00)
[2018-12-23 15:20] LABS: CK-MB VALUE MASS < 1.0 NG/ML (<3.6); CPK CREATINE PHOSPHOKINASE 41 U/L (26-192); MB/CK RELATIVE INDEX 2.44 (< OR =4); TROPONIN I 0.02 NG/ML (< 0.10)
[2018-12-23] MEDS ORDERED: GI COCKTAIL 50ML BTL(HYOSCYAMINE/MAALOX/LIDOCAINE VISCOUS)(1:3:1) PO ONE (16:00)
[2018-12-23] MEDS ORDERED: cloNIDine 0.2 MG TAB PO ONE (16:00)
--- NOTE | 2018-12-23 18:38 | IPN ---
DATE: 12/23/2018 Mrs. Zuñiga is seen this morning during hemodialysis. She is resting comfortably at present. She was admitted with shortness of breath and was found to have significant hypervolemia. She has been dialyzed with aggressive fluid removal and her volume status has now improved. She has been oxygenating up to 98% on room air. She has been feeling weak and depressed. She is getting rehabilitation. PHYSICAL EXAMINATION: Temperature 98.2 degrees Fahrenheit, heart rate 70 per minute and respiratory rate 18 per minute. Blood pressure 158/72 mmHg and oxygen saturation 96% on room air. Head is atraumatic. Neck is supple and without jugular venous distention (JVD) or thyroid enlargement. Heart sounds regular. Lungs have been clear to auscultation. Abdomen is soft and nontender and bowel sounds normal. Extremities have no cyanosis or clubbing. Neurologically, she has been grossly intact. She has been ambulating without any problem. The patient did not have any new laboratories done today. PROBLEMS: 1. End-stage renal disease. The patient is being dialyzed today and she is tolerating her dialysis treatment well. We are removing 2 kg of fluid. Her arteriovenous (AV) fistula is working very well and electrolytes have been within normal range. 2. Hypervolemia. Her volume status has improved and well-compensated now. We will continue to manage with dialysis. She understands to follow her fluid restriction of 1500 mL per day. Two liters of fluid is being removed today. 3. Hypertension. Blood pressure is well-controlled on current medications and no changes are being made today.
[2018-12-23] MEDS: LEVEMIR (INSULIN DETEMIR) 1 UNITS/0.01ML SC SCH (20:40)
[2018-12-23] MEDS: PRAVASTATIN 20 MG TAB PO SCH (20:40)
[2018-12-23] MEDS: cloNIDine 0.1 MG TAB PO SCH (20:41)
[2018-12-23] MEDS ORDERED: amLODIPine 10 MG TAB PO SCH (21:00)
[2018-12-23] MEDS ORDERED: MOM 30ML SUSPENSION UDC PO ONE (21:30)
[2018-12-23] MEDS ORDERED: GI COCKTAIL 50ML BTL(HYOSCYAMINE/MAALOX/LIDOCAINE VISCOUS)(1:3:1) PO PRN (22:00)
[2018-12-24 06:00] VITALS: BP 164/74
--- NOTE | 2018-12-24 06:04 | ECGEPIP ---
[facility] Test Date: 2018-12-23 Pat Name: GATITO MILLER Department: Room: [place] [address] Gender: Female Contract Processor: ARTURO : 1960 Requested By: MARGARITA Mata Order Number: [id number] Reading MD: Cinthya Prescott Measurements Intervals [place] Rate: 72 P: 57 [place]: 198 QRS: 53 QRSD: 94 T: 20 QT: 405 QTc: 445 Interpretive Statements SINUS RHYTHM WITH OCCASIONAL VENTRICULAR PREMATURE COMPLEXES BORDERLINE 1ST DEGREE BLOCK PRWP LATERAL ST & T-WAVE ABNORMALITY MORE MARKED PVC NEW C/W12/14/18 Electronically Signed on 12-24-2018 6:04:10 EDT by Cinthya Prescott
[2018-12-24] MEDS: LANTHANUM CARBONATE 500 MG CHEW TABLET PO SCH ×2 (08:00→08:27)
[2018-12-24] MEDS: ASPIRIN 81 MG ENTERIC TAB PO SCH (08:27)
[2018-12-24] MEDS: DOCUSATE SODIUM 100 MG CAP PO SCH (08:27)
[2018-12-24] MEDS: HEPARIN SOD (PORCINE) 5000 UNITS/ML VIAL SC SCH (08:28)
[2018-12-24] MEDS: CARVedilol 12.5 MG TAB PO SCH (08:28)
[2018-12-24] MEDS: cloNIDine 0.1 MG TAB PO SCH (08:29)
[2018-12-24] MEDS: HumaLOG INSULIN (NovoLOG) PER UNIT SC SCH (08:30)
[2018-12-24] MEDS: VALSARTAN 80 MG TAB (DIOVAN) PO SCH (08:30)
[2018-12-24] MEDS ORDERED: CLONI1TA PO (09:28)
[2018-12-24] MEDS ORDERED: HYDR10TAB PO (09:28)
[2018-12-24] MEDS ORDERED: AMLO10TA5 PO (09:28)
--- NOTE | 2018-12-24 12:10 | DS.PDOC ---
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 leyva, dr. butts Discharge diagnoses: Acute congestive heart failure exacerbation with preserved ejection fraction and diastolic dysfunction, resolved Uncontrolled HTN Borderline dilated ascending thoracic aorta 4.1 CM. Generalized fatigue. End stage renal disease on maintenance hemodialysis Anemia secondary to end stage renal disease. Acute hypoxia secondary to decompensated congestive heart failure Type 2 diabetes Hyperparathyroidism secondary to renal failure Abnormal CXR with bilateral infiltrates Discharge Medications: please see below Discharge Instructions: Repeat CT chest in 3months to monitor thoracic aortic aneurysm 4.1 cm, hemodialysis as previously scheduled Hospital course This is a 58-year-old -[place] female with end stage renal disease who had been on peritoneal dialysis and currently on maintenance hemodialysis in [place], type 2 diabetes, congestive heart failure with preserved ejection fraction, diastolic dysfunction, recurrent anemia of renal failure, hyperlipidemia, hypertensive heart disease, usually dialyzed in [place] on Friday, Friday and Friday, admitted for symptomatic anemia and decompensated congestive heart failure requiring emergent hemodialysis. Acute congestive heart failure exacerbation with preserved ejection fraction and diastolic dysfunction, resolved Managed by dialysis. The patient has had a total of 16.5 liters output via dialysis with improvement in her clinical condition. She currently appears to be euvolemic. Denies any paroxysmal nocturnal dyspnea (PND), orthopnea or lower extremity edema. 88kg to 74 kg weight since admission she wanted to change to [facility], and dianelys make arrangements to transition as outpt. Uncontrolled HTN resumed on home meds. additional clonidine and hydralazine for better control. pt says she has blood pressure machine at home to check bp prior to taking meds and when she doesn't feel right. Generalized fatigue. Most likely secondary to acute congestive heart failure exacerbation which is now improved. passed Physical therapy End stage renal disease on maintenance hemodialysis usually done in [place] Friday, Friday and Friday, but emergently done when the patient was admitted due to acute hypoxia. The patient is managed by nephrology for her dialysis needs.she wants to fu w [facility] in the winter due to increment weather around the [facility] area making it difficult to receive 3x/wk dialysis in [place]. She prefers to have home hemodialysis, but now that Rolando, her partner has , she has not found a partner to help her. Anemia secondary to end stage renal disease. She denies any GI loss of blood. Currently managed with IV Venofer via dialysis and Aranesp. She did receive one unit of red blood cell (RBC) transfusion. Acute hypoxia secondary to decompensated congestive heart failure, resolved. She is currently on room air at baseline and appears to be euvolemic. Type 2 diabetes. She is continued on a consistent carbohydrate renal diet with insulin sliding scale before meals and at bedtime with coverage. Finger sticks before meals and at bedtime. On Levemir 30 units at bedtime. Hyperparathyroidism secondary to renal failure which is chronic. She is continued on her home medications. Abnormal CXR with bilateral infiltrates intially thought to be pneumonia, s/p renally dosed Levaquin. Afebrile. No white count. No cough or chills. CXR showed resolution of infiltrates after diuresis. Prolactin level is 0.27 with less than 0.24 being unlikely for bacterial infection. There is low risk of progression to severe sepsis or septic shock at this time. Therefore, after receiving 4doses of levaquin, discontinued antibiotics as the infiltrates are most likely from fluid overload than pneumonia. Discharge Physical Examination vitals see below vitals: pls see below Generally: supine in bed no pallor anicteric no jaundice moist mucus membranes the patient is awake, alert, oriented to person, place and time, answering questions appropriately. She has no use of respiratory accessory muscles. She is speaking in full sentences. Neck is supple. No jugular venous distention or thyromegaly. No cervical lymphadenopathy. Lungs are clear to auscultation. No wheezing, rales or rhonchi. Heart: S1 and S2. Regular rate and rhythm. No murmurs, rubs or gallops. Abdomen: Soft. Nontender. Nondistended. Positive bowel sounds. No rebound, guarding or hepatosplenomegaly. Extremities: She has no pitting edema. Right AV arm fistula. 2+ pulses noted dorsalis pedis, posterior tibialis. Discharge laboratory data, imaging studies, microbiology: pls see below Time spent on hospital discharge: 30 minutes Vital Signs/I&Os Vital Signs Date Time Temp Pulse Resp B/P (MAP) Pulse Ox O2 Delivery O2 Flow Rate FiO2 12/24/18 06:00 98.4 71 18 164/74 (104) 99 12/19/18 06:00 Room Air 8/23/19 04:00 2.0 I&O- Last 24 Hours up to 6 AM 12/24/18 06:00 Intake Total 1220 ml Output Total 1500 ml Balance -280 ml Laboratory Data Labs 24H Laboratory Tests 2 12/23/18 13:25: Bedside Glucose (Misc Panel) 92 12/23/18 14:46: Total Creatine Kinase 41, Creatine Kinase MB < 1.0, Creatine Kinase MB Relative Index 2.44, Troponin I 0.02 12/23/18 17:16: Bedside Glucose (Misc Panel) 276H 12/23/18 19:56: Bedside Glucose (Misc Panel) 326H 12/24/18 05:39: Bedside Glucose (Misc Panel) 136H FSBS Laboratory Tests Test 12/23/18 13:25 12/23/18 17:16 12/23/18 19:56 12/24/18 05:39 Range/Units Bedside Glucose (Misc Panel) 92 276 326 136 70-105 MG/DL Microbiology Microbiology 12/14/18 Blood Culture - Final, Complete NO GROWTH AFTER 5 DAYS 12/14/18 Blood Culture - Final, Complete NO GROWTH AFTER 5 DAYS Discharge Medications Scheduled Amlodipine Besylate (Norvasc) 5 Mg Tablet, 5 MG PO QHS, (Reported) PATIENT INDICATES THAT SHE TAKES THIS MEDICATION IN THE MORNING ON FRIDAY, FRIDAY, FRIDAY (DIALYSIS DAYS) AND IN THE EVENING AT HOME ALL OTHER DAYS Amlodipine Besylate (Amlodipine Besylate) 10 Mg Tablet, 10 MG PO QHS Aspirin (Aspir 81) 81 Mg Tablet.dr, 81 MG PO DAILY, (Reported) Carvedilol (Carvedilol) 25 Mg Tab, 25 MG PO BID, (Reported) Clonidine Hcl (Clonidine HCl) 0.1 Mg Tablet, 0.3 MG PO BID Folic Acid/Vit B Complex and C (Renetta-Guido Tablet) 1 Tab Tab, 1 TAB PO DAILY, (Reported) Insulin Glargine,Hum.rec.anlog (Toujane Solostar) 300 Unit/1 Ml Insuln.pen, 30 UNIT SC QPM, (Reported) AT DINNER Insulin Lispro (Humalog) 100 Unit/Ml Inj, 1 DOSE SC AC, (Reported) PER SLIDING SCALE Lanthanum Carbonate (Fosrenol) 1,000 Mg Chw, 1,000 MG PO WM, (Reported) [place]-3/Dha/Epa/Fish Oil (Fish Oil EC 1,000 mg Softgel) 1 Cap Cap, 2,000 MG PO DAILY, (Reported) Pravastatin Sodium (Pravachol) 80 Mg Tab, 80 MG PO QHS, (Reported) Ubidecarenone (Coenzyme Q10) 200 Mg Capsule, 200 MG PO DAILY, (Reported) Valsartan (Valsartan) 160 Mg Tablet, 160 MG PO DAILY, (Reported) Scheduled PRN Docusate Sodium (Colace) 100 Mg Cap, 200 MG PO DAILY PRN for CONSTIPATION, (Reported) Hydralazine HCl (Hydralazine HCl) 10 Mg Tablet, 10 MG PO Q6HP PRN for sbp>140 Allergies Coded Allergies: iodixanol (Verified Allergy, Severe, Inman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, 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
== END 2018-12-24 09:30 | disposition home health service (06) | DRG 291 ==
LOC: M ED 02:35 → M ED INP 08:14 → M PCU 18:49 → M MS5PR 12-19 12:41
PROVIDERS: ADMIT Internal Medicine; ATTEND General Practice
PROC: 30233N1 Transfusion of Nonautologous Red Blood Cells into Peripheral Vein, Percutaneous Approach (ICD-10-PCS; principal; 2018-12-14)
PROC: 5A1D70Z Performance of Urinary Filtration, Intermittent, Less than 6 Hours Per Day (ICD-10-PCS; 2018-12-14)
DX: I13.2 Hypertensive heart and chronic kidney disease with heart failure and with stage 5 chronic kidney disease, or end stage renal disease (principal); N18.6 End stage renal disease; I50.33 Acute on chronic diastolic (congestive) heart failure; N25.81 Secondary hyperparathyroidism of renal origin; E87.70 Fluid overload, unspecified; R91.1 Solitary pulmonary nodule; R09.02 Hypoxemia; I71.2 Thoracic aortic aneurysm, without rupture; R11.2 Nausea with vomiting, unspecified; R53.83 Other fatigue; E83.52 Hypercalcemia; K21.9 Gastro-esophageal reflux disease without esophagitis; E87.5 Hyperkalemia; D63.1 Anemia in chronic kidney disease; E11.22 Type 2 diabetes mellitus with diabetic chronic kidney disease; Z99.2 Dependence on renal dialysis; Z79.4 Long term (current) use of insulin; Z79.82 Long term (current) use of aspirin; Z79.899 Other long term (current) drug therapy; Z88.5 Allergy status to narcotic agent; Z88.8 Allergy status to other drugs, medicaments and biological substances

== ENCOUNTER 2019-04-15 07:13 | Day surgery (SDC) | payer MEDICARE ==
[~2019-04-15] VITALS: Ht 167.6 cm; Wt 78.0 kg
[~2019-04-15 07:13] MED LIST changes: +HYDR10TAB PO; +NS 1,000 ML IV ONE
[2019-04-15] MEDS ORDERED: PROPOFOL 200 MG/20 ML VIAL As Ordered ONE ×2 (09:33→09:41)
--- NOTE | 2019-04-15 09:43 | ROOR ---
Patient Name: Juany Zuñiga Procedure Date: 04/15/2019 9:23 AM Date of : 1960 Age: 58 Room: [facility] Gender: Female Note Status: Finalized Procedure: Colonoscopy Indications: High risk colon cancer surveillance: Personal history of colonic polyps Providers: Willem Silva Jr, MD Referring MD: Bette WHITFIELD DO Requesting Provider: Medicines: Propofol per Anesthesia Complications: No immediate complications. Procedure: Pre-Anesthesia Assessment: - Prior to the procedure, a History and Physical was performed, and patient medications and allergies were reviewed. The patient is competent. The risks and benefits of the procedure and the sedation options and risks were discussed with the patient. All questions were answered and informed consent was obtained. Patient identification and proposed procedure were verified by the physician and the nurse in the pre-procedure area and in the procedure room. Mental Status Examination: alert and oriented. Airway Examination: normal oropharyngeal airway and neck mobility. Respiratory Examination: clear to auscultation. CV Examination: normal. ASA Grade Assessment: II - A patient with mild systemic disease. After reviewing the risks and benefits, the patient was deemed in satisfactory condition to undergo the procedure. The anesthesia plan was to use moderate sedation / analgesia (conscious sedation). Immediately prior to administration of medications, the patient was re-assessed for adequacy to receive sedatives. The heart rate, respiratory rate, oxygen saturations, blood pressure, adequacy of pulmonary ventilation, and response to care were monitored throughout the procedure. The physical status of the patient was re-assessed after the procedure. The Colonoscope was introduced through the anus and advanced to the cecum, identified by appendiceal orifice and ileocecal valve. The colonoscopy was performed without difficulty. The patient tolerated the procedure well. The quality of the bowel preparation was fair. Findings: The rectum, recto-sigmoid colon, sigmoid colon, descending colon, transverse colon, ascending colon, cecum, appendiceal orifice and ileocecal valve appeared normal. External and internal hemorrhoids were found during endoscopy. The hemorrhoids were Grade II (internal hemorrhoids that prolapse but reduce spontaneously) and Grade III (internal hemorrhoids that prolapse but require manual reduction). Impression: - Preparation of the colon was fair. - The rectum, recto-sigmoid colon, sigmoid colon, descending colon, transverse colon, ascending colon, cecum, appendiceal orifice and ileocecal valve are normal. - External and internal hemorrhoids. - No specimens collected. Recommendation: - Discharge patient to home (ambulatory). - Repeat colonoscopy in 5 years for surveillance. Willem Silva MD Willem Silva Jr, MD 04/15/2019 9:43:22 AM Electronically signed by Willem Silva Jr, MD Number of Addenda: 0 Note Initiated On: 04/15/2019 9:23 AM Estimated Blood Loss: Estimated blood loss: none.
[2019-04-15 10:10] VITALS: BP 150/91
== END 2019-04-15 10:29 | disposition home or self-care (01) ==
LOC: M OPP 07:13
PROVIDERS: ATTEND Surgery
DX: Z86.010 Personal history of colon polyps (principal); K64.2 Third degree hemorrhoids; N18.6 End stage renal disease; I50.32 Chronic diastolic (congestive) heart failure; E11.22 Type 2 diabetes mellitus with diabetic chronic kidney disease; Z79.82 Long term (current) use of aspirin; Z79.84 Long term (current) use of oral hypoglycemic drugs; Z79.899 Other long term (current) drug therapy; Z88.5 Allergy status to narcotic agent; Z88.8 Allergy status to other drugs, medicaments and biological substances

== ENCOUNTER → 2019-09-28 | Outpatient (CLI) | payer OTHER ==
[~2019-09-28] MED LIST changes: +NIFE1TAB52 PO; -NIFE30TA7 PO; -NS 1,000 ML IV ONE; +ONDA-83 PO; -ONDA4TAB5 PO
--- NOTE | 2019-09-29 02:54 | REP ---
Clinical: Renal transplant recipient. Technique: Axial noncontrast images from the lung bases to the pubic symphysis with coronal and sagittal re-formations. Comparison: 03/29/2018 Findings: Liver, spleen, pancreas, collapsed gallbladder and bilateral adrenal glands are relatively normal / stable for noncontrast evaluation. The [place] kidneys appear atrophic and include multiple bilateral hypodensities compatible with chronic cystic changes as well as small punctate scattered calcifications up to approximately 3 mm. No perinephric stranding or hydroureteronephrosis. The enteric system is without obstruction or acute inflammatory process. Scattered colonic diverticulosis noted without acute diverticulitis. A transplant kidney is identified in the right lower quadrant which appears mildly atrophic and includes two 1.6 cm hypodense lesions possibly representing cysts. No perinephric stranding or hydronephrosis noted. Pelvis demonstrates partially collapsed bladder and suspected chronic myomatous changes to the uterus. No ascites. No free air. No obvious adenopathy. Significant atherosclerotic disease to the aorta and vasculature noted. Musculoskeletal structures demonstrate age-related degenerative changes without acute osseous abnormality. Lung bases are clear. Impression: 1. Atrophic [place] kidneys with underlying small cystic changes and scattered calcifications. 2. Mildly atrophic appearance to the right lower quadrant transplant kidney demonstrating hypodensities suggesting small cysts. No acute perinephric stranding or hydronephrosis noted. 3. Colonic diverticulosis Electronically Signed by Brian Gallardo MD 09/29/2019 02:45 A
== END ==
LOC: M RAD 11:28
PROVIDERS: ATTEND Internal Medicine Nephrology
DX: Z01.818 Encounter for other preprocedural examination (principal); Z94.0 Kidney transplant status; N26.1 Atrophy of kidney (terminal); K57.90 Diverticulosis of intestine, part unspecified, without perforation or abscess without bleeding

== ENCOUNTER → 2019-11-04 | Outpatient (CLI) | payer MEDICARE ==
[~2019-11-04] MED LIST changes: +AMIT25TA PO; -AMLO10TA5 PO; +AMLO1TAB24 PO; +AMLO1TAB25 PO; -AMLO5TAB6 PO; +ASPI-161 PO; -ASPI81TA85 PO; +ASPI81TA86 PO; +CINA30TA5 PO; +CYCL5TAB PO; +GABA-1171 PO; +LIDO1PAD TOP; +MIRA3350 PO; +OMEGCAP4 PO; +PEG1POW PO; +PERCOCET PO; +SILV50CR TOP; +VALT500T PO
== END ==
LOC: M LAB 12:04
PROVIDERS: ATTEND Internal Medicine Nephrology
DX: N18.6 End stage renal disease (principal); D63.1 Anemia in chronic kidney disease

== ENCOUNTER 2019-11-05 11:50 | Outpatient (CLI) | payer MEDICARE ==
[~2019-11-05] VITALS: Ht 167.6 cm; Wt 78.0 kg
[2019-11-05] VITALS (8 sets, daily range): BP systolic 118–164; BP diastolic 59–74
[~2019-11-05 11:50] MED LIST changes: -AMIT25TA PO; -ASPI-161 PO; -CINA30TA5 PO; -CYCL5TAB PO; -GABA-1171 PO; -LIDO1PAD TOP; -MIRA3350 PO; -OMEGCAP4 PO; -PEG1POW PO; -PERCOCET PO; -SILV50CR TOP; -VALT500T PO
[2019-11-05] MEDS ORDERED: ACETAMINOPHEN 325 MG TAB PO ONE (12:00)
== END 2019-11-05 17:30 | disposition home or self-care (01) ==
LOC: M INFU 11:50
PROVIDERS: ATTEND Internal Medicine Nephrology
DX: D64.9 Anemia, unspecified (principal)
CPT/HCPCS: 36430; P9016

== ENCOUNTER 2019-12-28 16:19 | Emergency (ER) | payer MEDICARE ==
[~2019-12-28] VITALS: Ht 167.6 cm; Wt 81.0 kg
[2019-12-28 17:54] LABS: BASO # 0.1 10^3/uL (0.0-0.2); BASO % 0.7 % (0.0-1.0); EOS # 0.3 10^3/uL (0.0-0.5); EOS % 4.4 % (0.0-3.0); HEMATOCRIT 32.5 % (36.0-47.0); HEMOGLOBIN 10.7 g/dl (12.0-15.5); LYMPH # 0.8 10^3/uL (1.5-5.0); LYMPH % 10.4 % (24.0-44.0); MEAN CORPUSCULAR HEMOGLOBIN 33.5 pg (27.0-33.0); MEAN CORPUSCULAR HGB CONC 32.9 g/dl (32.0-36.5); MEAN CORPUSCULAR VOLUME 101.9 fl (80.0-96.0); MONO # 0.8 10^3/uL (0.0-0.8); MONO % 10.3 % (0.0-5.0); NEUTROPHILS # 5.4 10^3/uL (1.5-8.5); NEUTROPHILS % 73.9 % (36.0-66.0); PLATELET COUNT, AUTOMATED 147 10^3/uL (150-450); RED BLOOD COUNT 3.19 10^6/uL (4.00-5.40); WHITE BLOOD COUNT 7.3 10^3/uL (4.0-10.0)
--- NOTE | 2019-12-28 17:55 | REPVR ---
PROCEDURE INFORMATION: Exam: XR Chest, 1 View Exam date and time: 12/28/2019 4:55 PM Age: 59 years old Clinical indication: Chest pain; Type not specified TECHNIQUE: Imaging protocol: XR of the chest Views: 1 view. COMPARISON: [facility] PORTABLE CHEST X-RAY 12/19/2018 8:46 AM FINDINGS: Lungs: Degree of lung inflation is normal. No evidence of pulmonary edema. No focal consolidation or parenchymal lung mass. Pleural space: No pleural effusion or pneumothorax. Heart/Mediastinum: Cardiac silhouette appears prominent. No adenopathy or hilar mass. Bones/joints: Osseous structures show no concerning abnormality. Idiopathic pattern of thoracolumbar scoliosis is present. IMPRESSION: 1. No acute or focal cardiopulmonary process. But unchanged 2. Prominent size cardiac silhouette and pulmonary outflow tract without evidence of active pulmonary edema Electronically signed by: Clif Ornelas On 12/28/2019 17:55:01 PM
[2019-12-28 18:05] LABS: INR 1.14; PROTHROMBIN TIME 14.9 SECONDS (11.8-14.0)
[2019-12-28 18:06] LABS: PARTIAL THROMBOPLASTIN TIME 31.5 SECONDS (25.0-38.4)
[2019-12-28 18:24] VITALS: BP 165/76
[2019-12-28] MEDS ORDERED: ACETAMINOPHEN 500 MG TAB PO ONE (18:30)
[2019-12-28] MEDS ORDERED: CYCLOBENZAPRINE 5MG TABLET PO ONE (18:30)
[2019-12-28] MEDS ORDERED: ONDANSETRON 4 MG ORAL DISINTEGRATING TAB PO ONE (18:30)
[2019-12-28 18:33] LABS: ALBUMIN 3.7 GM/DL (3.2-5.2); ALT/SGPT 25 U/L (12-78); BILIRUBIN,DIRECT < 0.1 MG/DL (0.0-0.2); BILIRUBIN,TOTAL 0.6 MG/DL (0.2-1.0); FREE T4 1.19 NG/DL (0.76-1.46); LIPASE 185 U/L (73-393); NT-PRO BNP 7094 PG/ML (<125); THYROID STIMULATING HORMONE 0.834 uIU/ML (0.358-3.740); TOTAL PROTEIN 7.6 GM/DL (6.4-8.2)
[2019-12-28] MEDS ORDERED: CYCL5TAB PO (19:09)
[2019-12-28] MEDS ORDERED: ZOFR4TAB16 PO (19:10)
--- NOTE | 2020-01-10 11:11 | ECGEPIP ---
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
== END 2019-12-28 19:45 | disposition home or self-care (01) ==
LOC: M ED 16:19 → EDBD 16:19 → M ED 19:45
DX: M62.830 Muscle spasm of back (principal); M54.5 Low back pain; R07.9 Chest pain, unspecified; I11.9 Hypertensive heart disease without heart failure; I10 Essential (primary) hypertension; E78.5 Hyperlipidemia, unspecified; N18.6 End stage renal disease; Z88.6 Allergy status to analgesic agent; Z88.8 Allergy status to other drugs, medicaments and biological substances; Z79.82 Long term (current) use of aspirin; Z79.899 Other long term (current) drug therapy
CPT/HCPCS: 36415; 71045; 80047; 80076; 83690; 83880; 84439; 84443; 84484; 85025; 85610; 85730; 93005; 93041; 94760; 99284; Q0162

== ENCOUNTER 2020-01-04 23:15 | Inpatient (IN) | payer MEDICARE ==
[~2020-01-04] VITALS: Ht 167.6 cm; Wt 81.6 kg
[~2020-01-04 23:15] MED LIST changes: +CYCL5TAB PO
[2020-01-04] MEDS ORDERED: cloNIDine 0.1 MG TAB PO ONE (23:45)
[2020-01-04] MEDS ORDERED: GABAPENTIN 300 MG CAP PO ONE (23:45)
[2020-01-05] MEDS ORDERED: LIDOCAINE 5% (LIDODERM) PATCH As Ordered ONE (00:50)
[2020-01-05] MEDS ORDERED: LIDOCAINE 5% (LIDODERM) PATCH TD ONE (01:00)
[2020-01-05] MEDS ORDERED: HYDROMORPHONE HCL 0.5 MG/ 0.5 ML SYRINGE (J1170 PER 1) IM ONE (01:30)
[2020-01-05 03:24] LABS: BASO % 0.4 % (0.0-1.0); EOS % 0.2 % (0.0-3.0); HEMATOCRIT 30.5 % (36.0-47.0); HEMOGLOBIN 9.9 g/dl (12.0-15.5); LYMPH # 0.8 10^3/uL (1.5-5.0); LYMPH % 14.8 % (24.0-44.0); MEAN CORPUSCULAR HEMOGLOBIN 33.2 pg (27.0-33.0); MEAN CORPUSCULAR HGB CONC 32.5 g/dl (32.0-36.5); MEAN CORPUSCULAR VOLUME 102.3 fl (80.0-96.0); MONO # 0.3 10^3/uL (0.0-0.8); MONO % 5.1 % (0.0-5.0); NEUTROPHILS # 4.5 10^3/uL (1.5-8.5); NEUTROPHILS % 79.1 % (36.0-66.0); PLATELET COUNT, AUTOMATED 115 10^3/uL (150-450); RED BLOOD COUNT 2.98 10^6/uL (4.00-5.40); WHITE BLOOD COUNT 5.7 10^3/uL (4.0-10.0)
--- NOTE | 2020-01-05 03:25 | HPEPDOC ---
[facility] Medical History & Physical Date of Admission Jan 05, 2020 Date of Service: Jan 05, 2020 Attending Physician: Navya Ledezma MD History and Physical CHIEF COMPLAINT: left back/breast pain, chest pain HISTORY OF PRESENT ILLNESS: Patient is 59 years old female with past medical history of end-stage renal disease on dialysis MWF, type 2 diabetes, CHF with preserved ejection fraction, hypertension, HLD, hyperparathyroidism who presented to hospital with worsening left back/breast pain and chest pain over the past 1 week. Per patient, she was diagnosed with herpes zoster on 12/30/19 and started on valacyclovir that same day. She had worsening pain in the area over the left breast and across the left side of back when the zoster blisters popped this AM. Pain was so severe that she came to the ER today after dialysis. She states she had an episode of nausea with flank and chest pain today, pain 10/10, sharp and shooting in different areas of the left back at times. No radiation to the neck, no numbness or tingling. In the ER, patient continued to complain of chest pain. VS showed BP 210-252/92-116. She was given hydralazine 20 mg IV which brought BP down to 150/80 Potassium 6.9, given 10 units regular insulin and dextrose. Troponin was neg, ECG abnormal but no peaked T waves. CXR showed pulmonary edema. CT chest pending to r/o dissection. She was given dilaudid in the ER with little improvement of zoster pain. She was admitted for further management of hypertensive urgency, hyperkalemia, chest pain r/o ACS, uncontrolled neuropathic pain2/2 to herpes zoster . ROS: negative except for what is mentioned above. PAST MEDICAL HISTORY: End-stage renal disease on HD MWF HTN DM type II HLD anemia hyperparathyroidism PAST SURGICAL HISTORY: Right wrist fistula Right forearm fistula PD catheter placement PD catheter removal SOCIAL HISTORY: Denies smoking, alcohol or drug use history. 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 PCP. Leona Alonzo. Hand I Blocker- Dr. Francisco FAMILY HISTORY: Mom has diabetes, HTN. at 60 y/o Father- HTN. at 70 y/o Sister- ESRD, HTN. . ALLERGIES: Please see below. HOME MEDICATIONS: Please see below. PHYSICAL EXAMINATION: VITAL SIGNS: Please see below GENERAL APPEARANCE: well nourished female, resting in bed, NAD HEENT: AT/NC, PERRLA, EOM intct CARDIOVASCULAR: S1S2 +, no M/R/G LUNGS: CTAB, no wheezing, rhonchi, rales ABDOMEN: soft, nontender, nondistended, obese, BS + in 4 quad MUSCULOSKELETAL: normal ROM, no cyanosis or clubbing EXTREMITIES: nonpitting edema in b/l extremities, INTEGUMENTARY: multiple areas on the left breast, left flank and left upper back in dermatomal fashion where blisters have popped, tender to touch, not weeping or suppurative, no foul smell, appear clean, some areas with lidocaine patches covering. NEUROLOGICAL: No focal deficits, CN2-12 intact PSYCHIATRIC: Mood and affect appropriate LABORATORY/MICRO/IMAGING: Please see below CXR: 1. Mild interstitial thickening, not seen previously, an increase in size of the vascular pedicles, and a small left pleural effusion, probably representing pulmonary vascular congestion and mild interstitial pulmonary edema. 2. Right lung base opacity which may be related to pulmonary edema but could be an infiltrate or atelectasis. 3. Stable cardiomegaly. CT chest: pending ASSESSMENT: 59 years old female with past medical history of end-stage renal disease on dialysis MWF, type 2 diabetes, CHF with preserved ejection fraction, hypertension admitted for hypertensive urgency, hyperkalemia, chest pain r/o ACS, uncontrolled neuropathic pain. PLAN: 1. Chest pain r/o ACS vs. 2/2 to hypertensive urgency. -Troponin x 1 neg, ECG abnormal but no ST or t wave depression, elevations. Denies SOB -Multiple cardiac risk factors. -CXR above -F/u CT chest to r/o dissection, cycled troponins -C/w blood pressure control below (BB, ARB, clonidine), statin, ASA 2. Hypertensive urgency -Compliant with home meds and dialysis with last session 01/03/20. -S/p hydralazine with improvement of BP to 151/68 -Discussed with nephrology (Dr. Luong), STAT dialysis this AM and c/w home meds. Hydralazine PRN. 3. Hyperkalemia -K 6.9, no ECG changes. Patient admits her potassium has been hovering higher than normal around 5 over the past several weeks and today she ate a banana. -Cr 12 -renal diet -Nephrology consulted, dialysis this AM. 4. Hyponatremia, acute -urine osmolality, urine sodium ordered -F/u AM labs after dialysis to see if improved. 5. Herpes Zoster -Diagnosed on 12/30/19, started on valacyclovir same day. -Was to complete 7 days on 01/06/20, extended it to 01/09/20 for 10 day course. -Wound care, pain control 6. DM type II. -BS 300, patient did take night toujeo prior to coming to ER. -Lipid panel, HbA1c ordered -C/w levemir 30 U SC HS, ISS, AC/HS FS, consistent carb diet. 7. Anemia, chronic. -MCV high, check Vitamin B12, folate levels -H/H near baseline. - CBC daily. 8. ESRD on HD MWF -Complaint with HD sessions, however, not always with diet -last session Friday -HD this AM -nephrology consulted 9. Hyperparathyroidism / to ESRD. -c/w home meds 10. DVT px. -Heparin SC DISPOSITION: Admitted to acute inpatient. STAT dialysis this AM. Plan is discharge home when medically improved. Vital Signs Vital Signs Date Time Temp Pulse Resp B/P (MAP) Pulse Ox O2 Delivery O2 Flow Rate FiO2 01/05/20 02:15 68 20 98 Room Air 01/04/20 23:53 210/92 01/04/20 23:45 97.9 Laboratory Data Labs 24H Laboratory Tests 2 01/05/20 03:12: CBC/BMP Home Medications Scheduled Amlodipine Besylate (Norvasc) 5 Mg Tablet, 5 MG PO QHS Aspirin (Aspir 81) 81 Mg Tablet.dr, 81 MG PO DAILY Carvedilol (Carvedilol) 25 Mg Tab, 25 MG PO BID Cinacalcet HCl (Sensipar) 90 Mg Tablet, 90 MG PO DAILY Clonidine Hcl (Clonidine HCl) 0.1 Mg Tablet, 0.1 MG PO BID HOLD IF SBP<170 Docusate Sodium (Colace) 100 Mg Cap, 200 MG PO DAILY Folic Acid/Vit B Complex and C (Renetta-Guido Tablet) 1 Tab Tab, 1 TAB PO DAILY Insulin Glargine,Hum.rec.anlog (Alesha Ha) 300 Unit/1 Ml Insuln.pen, 30 UNIT SC QPM AT DINNER Insulin Lispro (Humalog) 100 Unit/Ml Inj, 1 DOSE SC AC PER SLIDING SCALE Lanthanum Carbonate (Fosrenol) 1,000 Mg Chw, 1,000 MG PO WM [place]-3/Dha/Epa/Fish Oil ([place]-3 Fish Oil 1,000 mg Sfgl) 1,000 Mg Capsule, 1 CAP PO BID Pravastatin Sodium (Pravastatin Sodium) 80 Mg Tablet, 80 MG PO QHS Ubidecarenone (Coenzyme Q10) 200 Mg Capsule, 200 MG PO DAILY Valacyclovir HCl (Valtrex) 500 Mg Tablet, 500 MG PO DAILY STARTED ON 12/30/2019 Valsartan (Valsartan) 80 Mg Tablet, 80 MG PO DAILY Scheduled PRN Lidocaine (Lidocaine) 5% Adh..patch, 4 PATCH TOP DAILY PRN for PAIN PLACES ONE PATCH ON BREASTS, TWO PATCHES AROUND THE AXILLARY AREA AND ONE BETWEEN THE SHOULDER BLADES Ondansetron HCl (Zofran) 4 Mg Tablet, 4 MG PO Q8H PRN for NAUSEA 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) labetalol (Verified Allergy, Severe, Bronchospasm, 04/12/19) nifedipine (Verified Allergy, Unknown, 04/12/19) morphine (Verified Adverse Reaction, Mild, Vomiting, 12/28/19) A-FIB/CHADSVASC A-FIB History Current/History of A-Fib/PAF?: No Current PO Anticoag Therapy: No Age/Risk Factor Scoring CHADSVASC: CHADSVASC Response (Comments) Value Age Risk Factor Age < 65 years old 0 Gender Risk Factor Female 1 Hx of CHF Yes 1 Hx of HTN Yes 1 Hx of Stroke/TIA/or VTE No 0 Hx of Diabetes Yes 1 Hx of Vascular Disease No 0 Total 4 Treatment Treatment ordered: Other Other anticoagulant ordered: heparin Navya Ledezma MD Jan 05, 2020 03:24
[2020-01-05] MEDS ORDERED: LIDO1PAD TOP (03:26)
[2020-01-05] MEDS ORDERED: VALS1TAB66 PO (03:26)
[2020-01-05] MEDS ORDERED: ZOFR4TAB16 PO (03:26)
[2020-01-05] MEDS ORDERED: VALT500T PO (03:26)
[2020-01-05] MEDS ORDERED: OMEGCAP4 PO (03:26)
[2020-01-05] MEDS ORDERED: hydrALAZINE 20MG/ML 1ML VIAL (J0360 PER 20MG) IV ONE (04:00)
[2020-01-05] MEDS ORDERED: HYDROMORPHONE HCL 0.5 MG/ 0.5 ML SYRINGE (J1170 PER 1) IV PRN (04:00)
[2020-01-05] MEDS ORDERED: ONDANSETRON 4 MG TAB PO PRN (04:15)
[2020-01-05] MEDS ORDERED: hydrALAZINE 20MG/ML 1ML VIAL (J0360 PER 20MG) IV PRN (04:15)
[2020-01-05 04:24] LABS: BLOOD UREA NITROGEN 61 MG/DL (7-18); CALCIUM LEVEL 8.5 MG/DL (8.8-10.2); CARBON DIOXIDE LEVEL 26 MEQ/L (21-32); CHLORIDE LEVEL 94 MEQ/L (98-107); GLOMERULAR FILTRATION RATE 4.1 (>45); GLUCOSE, FASTING 305 MG/DL (70-100); POTASSIUM SERUM 6.9 MEQ/L (3.5-5.1); SODIUM LEVEL 129 MEQ/L (136-145)
[2020-01-05] MEDS ORDERED: HumuLIN R (REGULAR) INSULIN (NovoLIN R) **100U/ML** PER UNIT IV STA (04:30)
[2020-01-05] MEDS ORDERED: DEXTROSE 50% 50 ML SYRINGE IV STA (04:30)
[2020-01-05 04:59] LABS: TROPONIN I < 0.02 NG/ML (< 0.10)
[2020-01-05] MEDS ORDERED: GLUCAGON INJ 1MG VIAL SC PRN (05:00)
[2020-01-05] MEDS ORDERED: GLUCOSE 4GM CHEW TABLET PO PRN (05:00)
[2020-01-05] MEDS ORDERED: DEXTROSE 50% 50 ML SYRINGE IV PRN (05:00)
--- NOTE | 2020-01-05 05:09 | REPVR ---
PROCEDURE INFORMATION: Exam: XR Chest, 2 Views Exam date and time: 01/05/2020 4:54 AM Age: 59 years old Clinical indication: Chest pain; Type not specified; Patient HX: ? Felix TECHNIQUE: Imaging protocol: XR of the chest Views: 2 views. COMPARISON: [facility] PORTABLE CHEST X-RAY 12/28/2019 5:38 PM FINDINGS: Lungs: There is an increase in interstitial thickening with [place] B lines seen toward both lung bases. There is a poorly defined hazy opacity in the right lung base which was not seen previously. Pleural space: There is blunting of left costophrenic angle, likely due to a small left pleural effusion. Heart/Mediastinum: There is stable cardiomegaly. Vasculature: Aortic knob calcifications are noted. There is increased fullness of the vascular pedicles. Bones/joints: A rightward convex curvature centered in the lower thoracic spine is again noted. IMPRESSION: 1. Mild interstitial thickening, not seen previously, an increase in size of the vascular pedicles, and a small left pleural effusion, probably representing pulmonary vascular congestion and mild interstitial pulmonary edema. 2. Right lung base opacity which may be related to pulmonary edema but could be an infiltrate or atelectasis. 3. Stable cardiomegaly. Electronically signed by: Kayleigh Alvarez On 01/05/2020 05:09:06 AM
--- NOTE | 2020-01-05 05:23 | REPVR ---
PROCEDURE INFORMATION: Exam: CT Chest Without Contrast Exam date and time: 01/05/2020 4:42 AM Age: 59 years old Clinical indication: Chest pain; Type not specified; Additional info: Rule out dissection TECHNIQUE: Imaging protocol: Computed tomography of the chest without contrast. 3D rendering (Not supervised by radiologist): MIP and/or 3D reconstructed images were created by the technologist. Radiation optimization: All CT scans at this facility use at least one of these dose optimization techniques: automated exposure control; mA and/or kV adjustment per patient size (includes targeted exams where dose is matched to clinical indication); or iterative reconstruction. COMPARISON: CT Chest without contrast 12/14/2018 4:30 AM FINDINGS: Thyroid: Enlargement, heterogeneous density, and calcifications of the thyroid gland are noted, grossly unchanged from the prior exam. Lungs: There is mild interlobular septal thickening, but less pronounced than on the prior exam. There is a small amount of peripheral consolidation dependently in the bilateral lower lobes, improved compared to previously. Several bands of density consistent with platelike atelectasis are seen in both lungs. A few sub solid nodules are seen, with the largest measuring 8 mm, located in the right upper lobe (image 27 of series 202), and not clearly seen on the prior exam. There is mild patchy ground-glass opacity, most prominent in the right upper lobe and right lower lobe. Pleural space: There is a small right pleural effusion and a trace of left pleural fluid, both slightly smaller than on the prior exam. Heart: The heart is enlarged. Pulmonary arteries: The pulmonary arteries demonstrate mild central enlargement, consistent with mild pulmonary hypertension. The pulmonary trunk measures 3.7 cm in diameter, without significant change. Aorta: The ascending aorta is dilated, measuring 4.3 cm, without significant change.The aorta demonstrates moderate atherosclerotic calcification. Lymph nodes: There is no gross lymphadenopathy. Adrenals: The adrenal glands are diffusely thickened but without discrete nodules. Kidneys and ureters: There is severe diffuse thinning of the renal parenchyma, indicating chronic atrophy. Bones/joints: Diffuse sclerosis of the bones is again noted, likely due to a metabolic disease, and probably renal osteodystrophy in this patient. Soft tissues: The soft tissues appear unremarkable. IMPRESSION: 1. Findings of interlobular septal thickening, mild patchy ground-glass opacity, and small bilateral pleural effusions are most consistent with mild pulmonary edema, which is less pronounced than on the prior exam. 2. A few sub solid pulmonary nodules in the right upper lobe, not definitely seen previously, and may be infectious/inflammatory in etiology. Recommend CT at 6-12 months to confirm persistence of the nodule, then CT at 3 and at 5 years. (Maddison et al., Fleischner Society, 2017) 3. Diffuse sclerosis of the osseous structures, probably related to renal osteodystrophy. 4. Enlargement of the central pulmonary arteries, indicative of pulmonary hypertension. 5. Dilation of the ascending aorta to 4.3 cm, unchanged. Electronically signed by: Kayleigh Alvarez On 01/05/2020 05:23:03 AM
[2020-01-05 05:44] LABS: OSMOLALITY SERUM 307 MOSM/KG (275-295)
[2020-01-05 06:59] LABS: HEMATOCRIT 27.8 % (36.0-47.0); MEAN CORPUSCULAR HGB CONC 32.4 g/dl (32.0-36.5); MEAN CORPUSCULAR VOLUME 101.8 fl (80.0-96.0); PLATELET COUNT, AUTOMATED 113 10^3/uL (150-450); RED BLOOD COUNT 2.73 10^6/uL (4.00-5.40); WHITE BLOOD COUNT 5.3 10^3/uL (4.0-10.0)
[2020-01-05 07:21] LABS: HEMOGLOBIN A1c 7.4 %
[2020-01-05] MEDS: HumaLOG INSULIN (NovoLOG) PER UNIT SC SCH ×4 (07:30→21:00)
[2020-01-05] MEDS: LANTHANUM CARBONATE 500 MG CHEW TABLET PO SCH ×3 (08:00→17:28)
[2020-01-05 09:29] LABS: ALBUMIN 3.1 GM/DL (3.2-5.2); ALT/SGPT 17 U/L (12-78); BILIRUBIN,TOTAL 0.5 MG/DL (0.2-1.0); BLOOD UREA NITROGEN 58 MG/DL (7-18); CALCIUM LEVEL 8.8 MG/DL (8.8-10.2); CARBON DIOXIDE LEVEL 26 MEQ/L (21-32); CHLORIDE LEVEL 95 MEQ/L (98-107); CHOLESTEROL LEVEL 94 MG/DL (<200); CHOLESTEROL RISK RATIO 2.848 (<5); GLOMERULAR FILTRATION RATE 4.3 (>45); GLUCOSE, FASTING 293 MG/DL (70-100); HDL CHOLESTEROL 33 MG/DL (>40); LDL CHOLESTEROL 50 MG/DL (<100); NON-HDL-C 61 MG/DL; POTASSIUM SERUM 5.3 MEQ/L (3.5-5.1); SODIUM LEVEL 130 MEQ/L (136-145); TOTAL PROTEIN 6.3 GM/DL (6.4-8.2); TRIGLYCERIDES LEVEL 57 MG/DL (<150); TROPONIN I 0.02 NG/ML (< 0.10)
[2020-01-05 11:52] VITALS: BP 136/66
[2020-01-05 12:06] LABS: VITAMIN B12 LEVEL 1958 PG/ML (247-911)
[2020-01-05 12:07] LABS: FOLATE > 24.0 NG/ML (>5.4)
[2020-01-05] MEDS: DOCUSATE SODIUM 100 MG CAP PO SCH (12:19)
[2020-01-05] MEDS: VALSARTAN 80 MG TAB (DIOVAN) PO SCH (12:20)
[2020-01-05] MEDS: CINACALCET 30 MG TAB (SENSIPAR) PO SCH (12:20)
[2020-01-05] MEDS: ASPIRIN 81 MG ENTERIC TAB PO SCH (12:21)
[2020-01-05] MEDS: CARVedilol 12.5 MG TAB PO SCH ×2 (12:21→21:51)
[2020-01-05] MEDS: HEPARIN SOD (PORCINE) 5000UNITS/ML 1ML VIAL/SYRINGE SQ SCH ×2 (12:22→21:52)
[2020-01-05] MEDS: cloNIDine 0.1 MG TAB PO SCH ×2 (12:37→21:52)
[2020-01-05] MEDS ORDERED: **NOTE PATIENT COMMENT** MISC XX ONE (13:00)
[2020-01-05] MEDS ORDERED: GABAPENTIN 100 MG CAP PO SCH ×2 (16:00→21:00)
[2020-01-05] MEDS: valACYclovir HCL 500 MG TAB PO SCH (17:27)
[2020-01-05] MEDS: OMEGA-3 1000MG CAPSULE PO SCH ×2 (17:27→21:51)
[2020-01-05] MEDS: HYDROmorphone 2 MG TAB PO PRN (18:47)
[2020-01-05 20:00] VITALS: BP 161/74
[2020-01-05] MEDS ORDERED: **NOTE PATIENT COMMENT** MISC XX PRN (21:00)
--- NOTE | 2020-01-05 21:16 | CR ---
DATE OF CONSULTATION: 01/05/2020 CONSULTATION REQUESTED BY: Navya Ledezma M.D. REASON FOR CONSULTATION: Severe hyperkalemia, uncontrolled hypertension and shortness of breath. HISTORY OF PRESENT ILLNESS: Mrs. Zuñiga is a 59-year-old female with known history of end-stage renal disease, hypertension and diabetes. She has been on maintenance hemodialysis three times a week on Friday, Friday and Friday schedule. She was dialyzed on Friday last time. Apparently she has shingles for the last few days and developed worsening pain on the left side of her chest and back due to shingles lesions. She presented to the Emergency Room and I was called about 4:30 a.m. today with her blood pressure being about 250 mmHg systolic. I was also informed that patient has a potassium level of 6.9 and urgent dialysis was requested. Patient is seen this morning on her bedside. PAST MEDICAL HISTORY: Significant for: 1. Longstanding type 2 diabetes. 2. Hypertension. 3. Hyperlipidemia. 4. End-stage renal disease; currently on maintenance hemodialysis. 5. Hyperparathyroidism. 6. History of anemia. 7. Herpes Zoster. SURGICAL HISTORY: Significant for: 1. Right wrist fistula AV patient; followed by right arm AV fistula. 2. PD catheter placement and removal. FAMILY HISTORY: Mother had history of diabetes and hypertension and she was at age 60. Father had hypertension, at age 70. Sister had hypertension and ERSD, and is also . PERSONAL AND SOCIAL HISTORY: Patient lives by herself. She denies any smoking, alcohol or drug use. 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 ALLERGIES: She has allergy to Labetalol, Nifedipine, morphine and Iodixanol. HOME MEDICATIONS: Include: 1. Amlodipine 5 mg daily. 2. Aspirin 81 mg daily. 3. Carvedilol 25 mg b.i.d. 4. Sensipar 90 mg daily. 5. Clonidine 0.1 mg b.i.d. 6. Colace 100 mg two tablets daily. 7. Multivitamin one tablet daily. 8. Toujeo Insulin 30 units daily. 9. Humalog Insulin per sliding scale. 10. Fosrenol 1,000 mg t.i.d. with meals. 11. Pravastatin 80 mg daily. 12. Coenzyme Q10 200 mg daily. 13. Valtrex 500 mg daily. 14. Valsartan 80 mg daily. 15. Lidocaine patch 5% p.r.n. REVIEW OF SYSTEMS: At the time of my visit, patient seems to be quite comfortable. She denies any fever or chills. Ears, nose and throat are unremarkable. Cardiovascular system is significant for hypertension and mild shortness of breath. She denies any leg edema. Respiratory system is negative for hemoptysis or pleuritic type of chest pain. GI system is negative for vomiting or diarrhea. system is negative for dysuria or hematuria. Endocrine system is significant for secondary hyperparathyroidism and hyperlipidemia, in addition to type 2 diabetes. Hematological system is significant for anemia of chronic kidney disease. Neurological system negative for seizures or stroke. Psychosocial system is negative for any anxiety or depression. Skin is significant for Herpes Zoster rash for the last few days. PHYSICAL EXAMINATION: Blood pressure 174/80 mmHg, heart rate 68 per minute, temperature 97.7 degrees Fahrenheit, and oxygen saturation 98%. Head is atraumatic. Neck supple and without JVD or thyroid enlargement. Heart sounds are regular. Lungs clear to auscultation. She has a rash on her left chest from back, lateral and anterior side. Abdomen is soft, nontender, and bowel sounds are normal. Extremities have no cyanosis or clubbing. Left arm AV fistula is currently being used for dialysis. Neurologically, she is awake, alert and at her baseline mentation. LABORATORY DATA: WBC 5.3, hemoglobin 9.0, hematocrit 27.8, platelets 113,000. Sodium 129, potassium 6.9, BUN 61, creatinine 12.0, glucose 305 and calcium 8.5. Osmolality 307. Troponin less than 0.02. PROBLEMS: 1. Hyperkalemia: Most likely related to dietary indiscretion. Patient will be dialyzed with 1.0 mEq potassium bath. Electrolytes should be rechecked later in the evening. 2. End-stage renal disease: Patient was last dialyzed on Friday. Today is her regular dialysis day. She has already been dialyzed urgently this morning. 3. Hyponatremia: She has mild hyponatremia with blood sugar 305. So some of it is pseudohyponatremia related to hyperglycemia. This will be corrected with dialysis. No other intervention will be needed. 4. Hypertension: Blood pressure is somewhat high. She is probably in pain and also volume overloaded. We will remove about 3 liters of fluid. I hope that with better pain control, her blood pressure will improve. 5. Anemia: Her anemia is related to end-stage renal disease. We will monitor and see how she does. No urgent need for a transfusion. 6. Herpes Zoster rash: Patient has Herpes Zoster rash on her left chest. She is getting Valtrex 500 mg daily and Lidocaine patch for pain control. I will leave her pain management to the hospitalist service. 7. Hyperparathyroidism: She has been on Sensipar 90 mg daily, which should be continued. Thank you for involving me in the care of Mrs. Zuñiga. I will follow her along with you. KAYLEEN
[2020-01-05] MEDS: LIDOCAINE 5% (LIDODERM) PATCH TOP PRN (21:50)
[2020-01-05] MEDS: LEVEMIR (INSULIN DETEMIR) 1 UNITS/0.01ML SC SCH (21:50)
[2020-01-05] MEDS: PRAVASTATIN 20 MG TAB PO SCH (21:51)
[2020-01-05] MEDS: amLODIPine 5 MG TAB PO SCH (21:51)
[2020-01-05] MEDS: AMITRIPTYLINE 25 MG TAB PO SCH (21:52)
[2020-01-05] MEDS: ACETAMINOPHEN 500 MG TAB PO PRN (22:42)
[2020-01-06] MEDS: HYDROmorphone 2 MG TAB PO PRN ×2 (00:24→21:24)
[2020-01-06] MEDS ORDERED: HYDROMORPHONE HCL 0.5 MG/ 0.5 ML SYRINGE (J1170 PER 1) IV ONE (01:30)
[2020-01-06 01:42] VITALS: BP 160/74
[2020-01-06 04:00] VITALS: BP 156/73
[2020-01-06 06:42] LABS: HEMATOCRIT 31.2 % (36.0-47.0); MEAN CORPUSCULAR HEMOGLOBIN 33.1 pg (27.0-33.0); MEAN CORPUSCULAR HGB CONC 32.1 g/dl (32.0-36.5); MEAN CORPUSCULAR VOLUME 103.3 fl (80.0-96.0); PLATELET COUNT, AUTOMATED 125 10^3/uL (150-450); RED BLOOD COUNT 3.02 10^6/uL (4.00-5.40); WHITE BLOOD COUNT 5.8 10^3/uL (4.0-10.0)
[2020-01-06 07:17] LABS: ALBUMIN 3.4 GM/DL (3.2-5.2); BILIRUBIN,TOTAL 0.6 MG/DL (0.2-1.0); CALCIUM LEVEL 8.3 MG/DL (8.8-10.2); CREATININE FOR GFR 8.75 MG/DL (0.55-1.30); POTASSIUM SERUM 5.8 MEQ/L (3.5-5.1)
[2020-01-06 08:00] VITALS: BP 146/70
[2020-01-06] MEDS ORDERED: FLUBLOK(EGG FREE)(QUAD)INFLUENZA VACC 0.5ML SYRINGE 18YRS & OLDER IM ONE (09:00)
[2020-01-06] MEDS: LANTHANUM CARBONATE 500 MG CHEW TABLET PO SCH ×3 (09:17→17:24)
[2020-01-06] MEDS: HEPARIN SOD (PORCINE) 5000UNITS/ML 1ML VIAL/SYRINGE SQ SCH ×2 (09:17→20:48)
[2020-01-06] MEDS: OMEGA-3 1000MG CAPSULE PO SCH ×2 (09:18→20:47)
[2020-01-06] MEDS: DOCUSATE SODIUM 100 MG CAP PO SCH (09:18)
[2020-01-06] MEDS: VALSARTAN 80 MG TAB (DIOVAN) PO SCH (09:18)
[2020-01-06] MEDS: CINACALCET 30 MG TAB (SENSIPAR) PO SCH (09:18)
[2020-01-06] MEDS: cloNIDine 0.1 MG TAB PO SCH ×2 (09:20→20:52)
[2020-01-06] MEDS: CARVedilol 12.5 MG TAB PO SCH ×2 (09:20→20:47)
[2020-01-06] MEDS: valACYclovir HCL 500 MG TAB PO SCH (09:21)
[2020-01-06] MEDS: PERCOCET 5MG/325MG TAB PO SCH ×4 (09:21→22:00)
[2020-01-06] MEDS: HumaLOG INSULIN (NovoLOG) PER UNIT SC SCH ×4 (09:22→20:45)
[2020-01-06] MEDS: ASPIRIN 81 MG ENTERIC TAB PO SCH (09:22)
--- NOTE | 2020-01-06 11:57 | IPNPDOC ---
Text Note Date of Service The patient was seen on 01/06/20. NOTE Subjective: Again had a severe episode of shock like pain Last night needing IV dilaudid and oral dilaudid. She says she is having this sharp shock like pains starting just below the left armpit several times a day lasting about 5 mins each time. Sometimes she would have 2 back to back attacks in 30 mins then she may be pain free for 2 to 4 hours. The pain starts from under the left arm pit then spreads downward and forward then up to the shoulders and down the arm. PHYSICAL EXAMINATION: VITAL SIGNS: Please see below GENERAL APPEARANCE: well nourished female, resting in bed, NAD HEENT: AT/NC, PERRLA, EOM intct CARDIOVASCULAR: S1S2 +, no M/R/G LUNGS: CTAB, no wheezing, rhonchi, rales ABDOMEN: soft, nontender, nondistended, obese, BS + in 4 quad MUSCULOSKELETAL: normal ROM, no cyanosis or clubbing EXTREMITIES: nonpitting edema in b/l extremities, INTEGUMENTARY: multiple areas on the left breast, left flank and left upper back in dermatomal fashion where blisters have popped, tender to touch, not weeping or suppurative, no foul smell, appear clean. NEUROLOGICAL: No focal deficits, CN2-12 intact PSYCHIATRIC: Mood and affect appropriate Labs and Radiology: reviewed. ASSESSMENT and Plan: 59 years old female with past medical history of end-stage renal disease on dialysis MWF, type 2 diabetes, CHF with preserved ejection fraction, hypertension admitted for hypertensive urgency, hyperkalemia, chest pain r/o ACS, uncontrolled neuropathic pain. Chest pain neuropathic pain from Zoster will give gabapentin/ amitriptyline/ lidoderm patch. continue percocet and dilaudid. if does not work will try switching to lyrica/ carbamazepine. ACS ruled out CT chest negative. Herpes Zoster Diagnosed on 12/30/19, started on valacyclovir same day. Was to complete 7 days on 01/06/20, extended it to 01/09/20 for 10 day course. Wound care, pain control Gabapentin/ amitriptyline/ percocet and dilaudid prn. Hypertensive urgency due to severe pain Now improved continue home meds. ESRD on HD MWF Complaint with HD sessions, however, not always with diet continuing maintenance HD Hyponatremia and hyperkalemia to be managed by HD DM type II. A1c 7.4 C/w levemir 30 U SC HS, ISS, AC/HS FS, consistent carb diet. Anemia of chronic disease. due to ESRD. HH at recommended range. No vit B12 or folate def Hyperparathyroidism Ascending Aortic dilatation 4.3 cm stable. DVT px. Heparin SC VS,Fishbone, I+O VS, Fishbone, I+O Laboratory Tests 01/06/20 06:07 Vital Signs Date Time Temp Pulse Resp B/P (MAP) Pulse Ox O2 Delivery O2 Flow Rate FiO2 01/06/20 09:21 20 Room Air 01/06/20 09:20 146/70 01/06/20 09:20 66 01/06/20 08:00 98.2 94 I&O- Last 24 Hours up to 6 AM 01/06/20 05:59 Intake Total 1320 ml Output Total 2500 ml Balance -1180 ml ROOSEVELT WHITING MD Jan 06, 2020 11:57
[2020-01-06] MEDS: GABAPENTIN 100 MG CAP PO SCH ×2 (13:48→20:48)
[2020-01-06 15:05] VITALS: BP 90/56
[2020-01-06] MEDS ORDERED: MOM 30ML SUSPENSION UDC PO ONE (16:00)
[2020-01-06] MEDS: amLODIPine 5 MG TAB PO SCH (20:47)
[2020-01-06] MEDS: AMITRIPTYLINE 25 MG TAB PO SCH (20:48)
[2020-01-06] MEDS: PRAVASTATIN 20 MG TAB PO SCH (20:48)
[2020-01-06] MEDS: LEVEMIR (INSULIN DETEMIR) 1 UNITS/0.01ML SC SCH (20:49)
[2020-01-06] MEDS: LIDOCAINE 5% (LIDODERM) PATCH TOP PRN (21:05)
[2020-01-06 22:00] VITALS: BP 131/59
[2020-01-07 06:00] VITALS: BP 154/75
[2020-01-07] MEDS: PERCOCET 5MG/325MG TAB PO SCH ×2 (06:14→13:58)
[2020-01-07 06:46] LABS: HEMATOCRIT 31.1 % (36.0-47.0); MEAN CORPUSCULAR HEMOGLOBIN 33.2 pg (27.0-33.0); MEAN CORPUSCULAR HGB CONC 32.2 g/dl (32.0-36.5); MEAN CORPUSCULAR VOLUME 103.3 fl (80.0-96.0); PLATELET COUNT, AUTOMATED 131 10^3/uL (150-450); RED BLOOD COUNT 3.01 10^6/uL (4.00-5.40); WHITE BLOOD COUNT 7.4 10^3/uL (4.0-10.0)
[2020-01-07] MEDS: HumaLOG INSULIN (NovoLOG) PER UNIT SC SCH ×4 (07:30→21:00)
[2020-01-07] MEDS ORDERED: MIRALAX *UNIT DOSE* 17GM PACKET PO PRN (07:30)
[2020-01-07 08:09] LABS: ALBUMIN 2.9 GM/DL (3.2-5.2); BILIRUBIN,TOTAL 0.4 MG/DL (0.2-1.0); CALCIUM LEVEL 8.3 MG/DL (8.8-10.2); CREATININE FOR GFR 11.2 MG/DL (0.55-1.30); GLOMERULAR FILTRATION RATE 4.5 (>45); POTASSIUM SERUM 5.3 MEQ/L (3.5-5.1)
[2020-01-07] MEDS: LANTHANUM CARBONATE 500 MG CHEW TABLET PO SCH ×3 (08:13→18:19)
[2020-01-07] MEDS: HEPARIN SOD (PORCINE) 5000UNITS/ML 1ML VIAL/SYRINGE SQ SCH ×2 (09:00→21:40)
[2020-01-07] MEDS ORDERED: DARBEPOETIN 100 MCG/0.5 ML *DIALYSIS* SYRINGE (J0882) IV SCH (11:15)
[2020-01-07 14:05] VITALS: BP 139/85
[2020-01-07] MEDS: cloNIDine 0.1 MG TAB PO SCH ×2 (14:06→21:40)
[2020-01-07] MEDS: CINACALCET 30 MG TAB (SENSIPAR) PO SCH (14:06)
[2020-01-07] MEDS: VALSARTAN 80 MG TAB (DIOVAN) PO SCH (14:06)
[2020-01-07] MEDS: OMEGA-3 1000MG CAPSULE PO SCH ×2 (14:06→21:41)
[2020-01-07] MEDS: DOCUSATE SODIUM 100 MG CAP PO SCH (14:07)
[2020-01-07] MEDS: ASPIRIN 81 MG ENTERIC TAB PO SCH (14:07)
[2020-01-07] MEDS: GABAPENTIN 100 MG CAP PO SCH ×2 (14:07→21:41)
[2020-01-07] MEDS: valACYclovir HCL 500 MG TAB PO SCH (14:07)
[2020-01-07] MEDS: CARVedilol 12.5 MG TAB PO SCH ×2 (14:08→21:42)
[2020-01-07] MEDS: SENOKOT S TAB PO SCH ×2 (14:08→21:39)
[2020-01-07] MEDS: BISACODYL 10 MG SUPP PR SCH ×2 (14:08→21:40)
--- NOTE | 2020-01-07 14:45 | ECGEPIP ---
[facility] - ED Test Date: 2020-01-05 Pat Name: GATITO MILLER Department: Room: Gender: Female Spanish Tutor: joy : 1960 Requested By: Navya Ellison Order Number: [id number] Reading MD: Rosa Pittman Measurements Intervals [place] Rate: 75 P: 86 HI: 224 QRS: 75 QRSD: 107 T: 96 QT: 386 QTc: 434 Interpretive Statements SINUS RHYTHM WITH FIRST DEGREE AV BLOCK SEPTAL MYOCARDIAL INFARCTION, OF INDETERMINATE AGE ABNORMAL ECG NSTTW ABN SEE SCANNED DOWNTIME REPORT
[2020-01-07] MEDS: LEVEMIR (INSULIN DETEMIR) 1 UNITS/0.01ML SC SCH (21:39)
[2020-01-07] MEDS: PRAVASTATIN 20 MG TAB PO SCH (21:40)
[2020-01-07] MEDS: amLODIPine 5 MG TAB PO SCH (21:41)
[2020-01-07] MEDS: AMITRIPTYLINE 25 MG TAB PO SCH (21:41)
[2020-01-07 22:00] VITALS: BP 142/61
[2020-01-07] MEDS: LIDOCAINE 5% (LIDODERM) PATCH TOP PRN (22:35)
[2020-01-07] MEDS: PERCOCET 5MG/325MG TAB PO PRN (23:07)
[2020-01-08] MEDS: HYDROmorphone 2 MG TAB PO PRN ×2 (00:42→08:33)
[2020-01-08] MEDS: ACETAMINOPHEN 500 MG TAB PO PRN (01:54)
[2020-01-08 06:00] VITALS: BP 136/69
[2020-01-08 07:00] LABS: HEMATOCRIT 32.1 % (36.0-47.0); HEMOGLOBIN 10.1 g/dl (12.0-15.5); MEAN CORPUSCULAR HEMOGLOBIN 32.6 pg (27.0-33.0); MEAN CORPUSCULAR HGB CONC 31.5 g/dl (32.0-36.5); MEAN CORPUSCULAR VOLUME 103.5 fl (80.0-96.0); PLATELET COUNT, AUTOMATED 158 10^3/uL (150-450); WHITE BLOOD COUNT 7.7 10^3/uL (4.0-10.0)
[2020-01-08] MEDS: HEPARIN SOD (PORCINE) 5000UNITS/ML 1ML VIAL/SYRINGE SQ SCH (08:28)
[2020-01-08] MEDS: HumaLOG INSULIN (NovoLOG) PER UNIT SC SCH ×2 (08:29→12:00)
[2020-01-08] MEDS ORDERED: PILL CUTTER 1 EACH XX PRN (08:30)
[2020-01-08] MEDS: LANTHANUM CARBONATE 500 MG CHEW TABLET PO SCH ×2 (08:34→12:20)
[2020-01-08] MEDS: ASPIRIN 81 MG ENTERIC TAB PO SCH (08:34)
[2020-01-08] MEDS: VALSARTAN 80 MG TAB (DIOVAN) PO SCH (08:37)
[2020-01-08] MEDS: SENOKOT S TAB PO SCH (08:38)
[2020-01-08] MEDS: DOCUSATE SODIUM 100 MG CAP PO SCH (08:38)
[2020-01-08] MEDS: CINACALCET 30 MG TAB (SENSIPAR) PO SCH (08:38)
[2020-01-08] MEDS: OMEGA-3 1000MG CAPSULE PO SCH (08:39)
[2020-01-08] MEDS: cloNIDine 0.1 MG TAB PO SCH (08:39)
[2020-01-08] MEDS: valACYclovir HCL 500 MG TAB PO SCH (08:40)
[2020-01-08 08:41] VITALS: BP 142/72
[2020-01-08] MEDS: CARVedilol 12.5 MG TAB PO SCH (08:41)
[2020-01-08] MEDS: GABAPENTIN 100 MG CAP PO SCH (08:41)
[2020-01-08] MEDS: BISACODYL 10 MG SUPP PR SCH (08:46)
[2020-01-08] MEDS ORDERED: PERCOCET PO (10:22)
[2020-01-08] MEDS ORDERED: PEG1POW PO (10:22)
[2020-01-08] MEDS ORDERED: AMIT25TA PO (10:22)
[2020-01-08] MEDS ORDERED: GABA-1171 PO (10:22)
--- NOTE | 2020-01-08 10:46 | IPNPDOC ---
Text Note Date of Service The patient was seen on 01/08/20. NOTE SUBJECTIVE: Patient was seen and examined this morning at bedside. She states she continues to have pain along her back and chest from the shingles. She has had some relief with the medication but the pain persists. She overall is feeling some improvement and feels well enough to return home today or tomorrow. OBJECTIVE: PHYSICAL EXAMINATION: VITAL SIGNS: Please see below. GENERAL: Alert, laying comfortably in bed, in no acute distress HEENT: NC, AT, moist mucous membranes, no JVD CARDIOVASCULAR: RRR, normal S1 and S2 RESPIRATORY: CTAB, no wheezing, rhonchi, or rales ABDOMINAL: Soft, nontender, mildly distended EXTREMITIES: no lower extremity edema noted. SKIN: Vesicular rash noted along the mid left back extending under the axilla and across the left breast. ASSESSMENT/PLAN: 59 year old female with ESRD on HD presented with hyperkalemia and herpes zoster infection. 1. Hyperkalemia. Improved with hemodialysis. 2. End-stage renal disease. Continue on her regular HD schedule MWF. She had 3000mL removed yesterday. 3. Hyponatremia, mild. Expect continued improvement with hemodialysis. 4. Hypertension. Remains slightly elevated, likely related to pain. Continue amlodipine 5mg, carvedilol 25mg BID, clonidine 0.1mg BID, and valsartan 80mg. 5. Anemia in ESRD. Hg stable at 10.1, no current indication for infusion. She is on Aranesp with HD. 6. Herpes Zoster. Managed per primary team. She is on Valtrex 500 mg daily. Pain control with gabapentin, amitriptyline, lidocaine patch. 7. Hyperparathyroidism. Continue Sensipar 90 mg daily. Thank you for the consultation on this patient, we will continue to follow along. VS,Fishbone, I+O VS, Fishbone, I+O Laboratory Tests 01/08/20 06:37 Vital Signs Date Time Temp Pulse Resp B/P (MAP) Pulse Ox O2 Delivery O2 Flow Rate FiO2 01/08/20 09:03 18 01/08/20 08:41 71 142/72 01/08/20 06:00 98.1 98 Room Air I&O- Last 24 Hours up to 6 AM 01/08/20 05:59 Intake Total 750 ml Output Total 3200 ml Balance -2450 ml GME ATTESTATION GME ATTESTATION My faculty preceptor for this patient encounter was physically present during the encounter and was fully available. All aspects of the patient interview, examination, medical decision making process, and medical care plan development were reviewed and approved by the faculty preceptor. The faculty preceptor is aware and concurs with the plan as stated in the body of this note and will attest to such by his/her cosignature. ATTENDING NOTE ESRD Shingles HTN anemia in ESRD Hyperkalemia Sec Hyperparathyroid CKD MBD HD done yesterday. 3Kg removed. Pain optimization. Valcyte dose adequate for renal failure. Optimized from nephrology standpoint for DC home. MALLORIE PEREZ D.O. Jan 08, 2020 10:46 PEYTON LOMBARDO MD Jan 08, 2020 11:14
[2020-01-08] MEDS: LIDOCAINE 5% (LIDODERM) PATCH TOP PRN (12:04)
[2020-01-08] MEDS: PERCOCET 5MG/325MG TAB PO PRN (13:13)
--- NOTE | 2020-01-08 17:55 | IPNPDOC ---
Text Note Date of Service The patient was seen on 01/07/20. NOTE Subjective: Had HD today . After that feeling too tired to requested to stay till tomorrow. Her episodes of pain are less frequent and less intense. No fever or chills. She is complaining of somnolence but does not want me to reduce her percocet dosage. PHYSICAL EXAMINATION: VITAL SIGNS: Please see below GENERAL APPEARANCE: well nourished female, resting in bed, NAD HEENT: AT/NC, PERRLA, EOM intct CARDIOVASCULAR: S1S2 +, no M/R/G LUNGS: CTAB, no wheezing, rhonchi, rales ABDOMEN: soft, nontender, nondistended, obese, BS + in 4 quad MUSCULOSKELETAL: normal ROM, no cyanosis or clubbing EXTREMITIES: nonpitting edema in b/l extremities, INTEGUMENTARY: multiple areas on the left breast, left flank and left upper back in dermatomal fashion where blisters have popped, tender to touch, not weeping or suppurative, no foul smell, appear clean. NEUROLOGICAL: No focal deficits, CN2-12 intact PSYCHIATRIC: Mood and affect appropriate Labs and Radiology: reviewed. ASSESSMENT and Plan: 59 years old female with past medical history of end-stage renal disease on dialysis MWF, type 2 diabetes, CHF with preserved ejection fraction, hypertension admitted for hypertensive urgency, hyperkalemia, chest pain r/o ACS, uncontrolled neuropathic pain. Chest pain neuropathic pain from Zoster will give gabapentin/ amitriptyline/ lidoderm patch. continue percocet and dilaudid. if does not work will try switching to lyrica/ carbamazepine. ACS ruled out CT chest negative. Herpes Zoster Diagnosed on 12/30/19, started on valacyclovir same day. Was to complete 7 days on 01/06/20, extended it to 01/09/20 for 10 day course. Wound care, pain control Gabapentin/ amitriptyline/ percocet and dilaudid prn. Hypertensive urgency due to severe pain Now improved continue home meds. ESRD on HD MWF Complaint with HD sessions, however, not always with diet continuing maintenance HD Hyponatremia and hyperkalemia to be managed by HD DM type II. A1c 7.4 C/w levemir 30 U SC HS, ISS, AC/HS FS, consistent carb diet. Anemia of chronic disease. due to ESRD. HH at recommended range. No vit B12 or folate def Hyperparathyroidism Ascending Aortic dilatation 4.3 cm stable. DVT px. Heparin SC VS,Fishbone, I+O VS, Fishbone, I+O Laboratory Tests 01/08/20 06:37 Vital Signs Date Time Temp Pulse Resp B/P (MAP) Pulse Ox O2 Delivery O2 Flow Rate FiO2 01/08/20 13:43 18 01/08/20 08:41 71 142/72 01/08/20 06:00 98.1 98 Room Air I&O- Last 24 Hours up to 6 AM 01/08/20 07:00 Intake Total 900 ml Output Total 3200 ml Balance -2300 ml ROOSEVELT WHITING MD Jan 08, 2020 17:55
--- NOTE | 2020-01-09 11:04 | IPN ---
DATE: 01/06/2020 Mrs. Zuñiga was seen this morning at her bedside. She continues to have pain, skin lesions from her shingles. She denies any dyspnea or nausea or vomiting. She has no fever or chills. She has been requiring intravenous pain medication for severe pain due to shingles rash. She was dialyzed yesterday and she tolerated her dialysis treatment well. On physical examination, temperature is 98.2 degrees Fahrenheit, heart rate is 62 per minute and respiratory rate 18 per minute. Blood pressure 146/70 mmHg and oxygen saturation 94% on room air. Head is atraumatic. Neck supple and without JVD or thyroid enlargement. Heart sounds regular and lungs have been clear to auscultation. Rash on her left chest from shingles is present. Abdomen soft and nontender, and extremities without any cyanosis or clubbing. Neurologically, she is awake, alert and oriented x3. Today's labs show WBC count 5.8, hemoglobin 10.0 and hematocrit 31.2. Platelets 125. Sodium 130, potassium 5.8, CO2 of 29, BUN 39 and creatinine 8.75. Glucose 169 and calcium 8.3. PROBLEMS: 1. End-stage renal disease. Patient was dialyzed yesterday and her next dialysis will be scheduled for tomorrow. 2. Hyperkalemia. Hyperkalemia did improve yesterday; however, slightly worse again today. We will watch it and perform dialysis tomorrow with low potassium bath. 3. Hyponatremia. She has chronic mild hyponatremia probably related to her diabetes and end-stage renal disease. At present, no intervention is needed. 4. Anemia. Anemia is stable at present and there is no need for any urgent intervention. 5. Herpes zoster rash. Patient continues to have pain and requires pain medications. This is being managed by the hospitalist service. KAYLEEN
--- NOTE | 2020-01-09 11:06 | IPN ---
DATE: 01/07/2020 SUBJECTIVE: Ms. Zuñiga is seen this morning during hemodialysis. She reports that her pain is improving. She was started on Gabapentin yesterday. Patient denies any dyspnea, nausea or vomiting. She has no fever or chills. She has a shingles rash on the left side of her chest and back with painful skin lesions. She reports the pain is now improving with medications. PHYSICAL EXAMINATION: VITAL SIGNS: Temperature is 98.7 degrees Fahrenheit, heart rate is 64 per minute, respiratory rate is 18 per minute. Blood pressure is 154/75 mmHg and oxygen saturation 98% on room air. HEENT: Head is atraumatic. NECK: Supple and JVD minimally elevated. HEART: Heart sounds are regular. LUNGS: Clear to auscultation. CHEST: Rash on left side of her chest and back from herpes zoster is present with some skin ulcers. ABDOMEN: Soft and nontender. Bowel sounds are normal. EXTREMITIES: Without any cyanosis or clubbing. NEUROLOGICAL: She is awake, alert and oriented x3. LABORATORY DATA: Todays labs showed a WBC count of 7.4, hemoglobin of 10.0 and hematocrit 31.1, platelets are 131,000. Sodium is 132, potassium is 5.3, BUN 68 and creatinine 1.2, glucose is 102 and calcium is 8.3. PROBLEMS: 1. Endstage renal disease. Patient is being dialyzed and she is tolerating dialysis treatment very well. We are removing three liters of fluid. 2. Hyperkalemia, she has mild hyperkalemia which is likely to correct with dialysis today. We are using 2.0 mEq of potassium bath. 3. Hyponatremia. Her sodium level was 130 yesterday and it is up to 132 today. She needs to continue with fluid restriction at 1500 mL per day. Sodium level is likely to improve with dialysis. 4. Anemia, her anemia is stable and will give her Aranesp 100 mcg today. She has no inflammation due to herpes zoster and likely to get worsening of anemia. 5. Hypertension. Blood pressure seems to be reasonably well-controlled on current antihypertensive medications and no changes are being made. 6. Herpes zoster rash. Patient feels her pain is improving. She is now on Gabapentin 100 mg b.i.d. 7. Disposition: From a renal transplant, the patient can be discharged to home with pain medications. [facility]
--- NOTE | 2020-01-09 11:27 | DS.PDOC ---
Discharge Summary General Date of Admission Jan 05, 2020 at 04:07 Date of Discharge 01/08/20 Discharge Summary PROCEDURES PERFORMED DURING STAY: [None]. DISCHARGE DIAGNOSES: Neuropathic chest pain due to herpes zoster infection. Hypertensive urgency Hyponatremia Hyperkalemia Anemia of chronic disease Secondary hyperparathyroidism SECONDARY DIAGNOSIS: End-stage renal disease on dialysis MWF, type 2 diabetes, CHF with preserved ejection fraction, hypertension, ascending aortic dilatation COMPLICATIONS/CHIEF COMPLAINT: Shingles Polyneuropathy. HOSPITAL COURSE: 59 years old female with past medical history of end-stage renal disease on dialysis MWF, type 2 diabetes, CHF with preserved ejection fraction, hypertension admitted for hypertensive urgency, hyperkalemia, chest pain r/o ACS, uncontrolled neuropathic pain. Chest pain neuropathic pain from Zoster will give gabapentin/ amitriptyline/ lidoderm patch. continue percocet prn if does not work suggested switching to lyrica/ carbamazepine. ACS ruled out CT chest negative. Herpes Zoster Diagnosed on 12/30/19, started on valacyclovir same day. Was to complete 7 days on 01/06/20, extended it to 01/09/20 for 10 day course. Wound care, pain control Gabapentin/ amitriptyline/ percocet Hypertensive urgency due to severe pain Now improved continue home meds. ESRD on HD MWF Complaint with HD sessions, however, not always with diet continuing maintenance HD Hyponatremia and hyperkalemia to be managed by HD DM type II. A1c 7.4 C/w levemir 30 U SC HS, ISS, AC/HS FS, consistent carb diet. Anemia of chronic disease. due to ESRD. HH at recommended range. No vit B12 or folate def Hyperparathyroidism Ascending Aortic dilatation 4.3 cm stable. DISCHARGE MEDICATIONS: Please see below. ALLERGIES: Please see below. PHYSICAL EXAMINATION ON DISCHARGE: VITAL SIGNS: Please see below. GENERAL APPEARANCE: well nourished female, resting in bed, NAD HEENT: AT/NC, PERRLA, EOM intct CARDIOVASCULAR: S1S2 +, no M/R/G LUNGS: CTAB, no wheezing, rhonchi, rales ABDOMEN: soft, nontender, nondistended, obese, BS + in 4 quad MUSCULOSKELETAL: normal ROM, no cyanosis or clubbing EXTREMITIES: nonpitting edema in b/l extremities, INTEGUMENTARY: multiple areas on the left breast, left flank and left upper back in dermatomal fashion where blisters have popped, tender to touch, not weeping or suppurative, no foul smell, appear clean. NEUROLOGICAL: No focal deficits, CN2-12 intact PSYCHIATRIC: Mood and affect appropriate LABORATORY DATA: Please see below. ACTIVITY: [As tolerated]. DIET: As tolerated DISPOSITION: 01 Home, Self-Care. DISCHARGE INSTRUCTIONS: Follow up with PMD in 1 week DISCHARGE CONDITION: [Stable]. TIME SPENT ON DISCHARGE: 35 minutes. Vital Signs/I&Os Vital Signs Date Time Temp Pulse Resp B/P (MAP) Pulse Ox O2 Delivery O2 Flow Rate FiO2 01/08/20 13:43 18 01/08/20 08:41 71 142/72 01/08/20 06:00 98.1 98 Room Air I&O- Last 24 Hours up to 6 AM 01/09/20 05:59 Intake Total 600 ml Output Total 0 ml Balance 600 ml Laboratory Data Labs 24H Laboratory Tests 2 01/08/20 11:34: Bedside Glucose (Misc Panel) 145H FSBS Laboratory Tests Test 01/08/20 11:34 Range/Units Bedside Glucose (Misc Panel) 145 80-115 MG/DL Discharge Medications Scheduled Amitriptyline HCl (Amitriptyline HCl) 25 Mg Tablet, 25 MG PO QHS Amlodipine Besylate (Norvasc) 5 Mg Tablet, 5 MG PO QHS, (Reported) Aspirin (Aspir 81) 81 Mg Tablet.dr, 81 MG PO DAILY, (Reported) Carvedilol (Carvedilol) 25 Mg Tab, 25 MG PO BID, (Reported) Cinacalcet HCl (Sensipar) 90 Mg Tablet, 90 MG PO DAILY, (Reported) Clonidine Hcl (Clonidine HCl) 0.1 Mg Tablet, 0.1 MG PO BID, (Reported) HOLD IF SBP<170 Docusate Sodium (Colace) 100 Mg Cap, 200 MG PO DAILY, (Reported) Folic Acid/Vit B Complex and C (Renetta-Guido Tablet) 1 Tab Tab, 1 TAB PO DAILY, (Reported) Gabapentin (Gabapentin) 100 Mg Capsule, 100 MG PO BID Insulin Glargine,Hum.rec.anlog (Alesha Ha) 300 Unit/1 Ml Insuln.pen, 30 UNIT SC QPM, (Reported) AT DINNER Insulin Lispro (Humalog) 100 Unit/Ml Inj, 1 DOSE SC AC, (Reported) PER SLIDING SCALE Lanthanum Carbonate (Fosrenol) 1,000 Mg Chw, 1,000 MG PO WM, (Reported) [place]-3/Dha/Epa/Fish Oil ([place]-3 Fish Oil 1,000 mg Sfgl) 1,000 Mg Capsule, 1 CAP PO BID, (Reported) Oxycodone/Acetaminophen (Oxycodone-Acetaminophen 5-325) 1 Each Tablet, 1 TAB PO Q6HP for pain Pravastatin Sodium (Pravastatin Sodium) 80 Mg Tablet, 80 MG PO QHS, (Reported) Ubidecarenone (Coenzyme Q10) 200 Mg Capsule, 200 MG PO DAILY, (Reported) Valacyclovir HCl (Valtrex) 500 Mg Tablet, 500 MG PO DAILY, (Reported) STARTED ON 12/30/2019 Valsartan (Valsartan) 80 Mg Tablet, 80 MG PO DAILY, (Reported) Scheduled PRN Lidocaine (Lidocaine) 5% Adh..patch, 4 PATCH TOP DAILY PRN for PAIN, (Reported) PLACES ONE PATCH ON BREASTS, TWO PATCHES AROUND THE AXILLARY AREA AND ONE BETWEEN THE SHOULDER BLADES Ondansetron HCl (Zofran) 4 Mg Tablet, 4 MG PO Q8H PRN for NAUSEA, (Reported) Polyethylene Glycol 3350 (Polyethylene Glycol 3350) 17 Gm Powd.pack, 1 PKT PO DAILYPRN PRN for CONSTIPATION 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
== END 2020-01-08 14:00 | disposition home or self-care (01) | DRG 73 ==
LOC: M ED 23:15 → M ED INP 01-05 04:07 → M PCU 01-05 11:09 → M MSPAV 01-06 14:58
PROVIDERS: ADMIT Internal Medicine; ATTEND Internal Medicine Nephrology
PROC: 5A1D70Z Performance of Urinary Filtration, Intermittent, Less than 6 Hours Per Day (ICD-10-PCS; principal; 2020-01-05)
DX: B02.23 Postherpetic polyneuropathy (principal); N18.6 End stage renal disease; E87.1 Hypo-osmolality and hyponatremia; N25.81 Secondary hyperparathyroidism of renal origin; I13.2 Hypertensive heart and chronic kidney disease with heart failure and with stage 5 chronic kidney disease, or end stage renal disease; E87.5 Hyperkalemia; I16.0 Hypertensive urgency; I50.9 Heart failure, unspecified; B02.8 Zoster with other complications; E11.9 Type 2 diabetes mellitus without complications; D63.1 Anemia in chronic kidney disease; Z79.899 Other long term (current) drug therapy; Z79.82 Long term (current) use of aspirin; Z79.4 Long term (current) use of insulin; Z88.8 Allergy status to other drugs, medicaments and biological substances; Z88.5 Allergy status to narcotic agent; E78.5 Hyperlipidemia, unspecified

== ENCOUNTER → 2020-02-09 | Outpatient (CLI) | payer MEDICARE ==
[~2020-02-09] MED LIST changes: +AMIT25TA PO; +ASPI-161 PO; +CINA30TA5 PO; +GABA-1171 PO; +LIDO1PAD TOP; +MIRA3350 PO; +OMEGCAP4 PO; +PEG1POW PO; +PERCOCET PO; +SILV50CR TOP; +VALT500T PO
== END ==
LOC: M LAB 11:24
PROVIDERS: ATTEND Internal Medicine Nephrology
DX: Z01.83 Encounter for blood typing (principal)

== ENCOUNTER 2020-02-10 09:29 | Outpatient (CLI) | payer MEDICARE ==
[~2020-02-10] VITALS: Ht 167.6 cm; Wt 81.6 kg
[2020-02-10] VITALS (8 sets, daily range): BP systolic 156–180; BP diastolic 73–82
[~2020-02-10 09:29] MED LIST changes: -ASPI-161 PO; -CINA30TA5 PO; -MIRA3350 PO; -SILV50CR TOP
[2020-02-11] MEDS ORDERED: SILV50CR TOP (07:44)
[2020-02-11] MEDS ORDERED: MIRA3350 PO (07:44)
[2020-02-11] MEDS ORDERED: CINA30TA5 PO (07:44)
[2020-02-11] MEDS ORDERED: GABA-1171 PO (07:44)
[2020-02-11] MEDS ORDERED: ASPI-161 PO (07:44)
[2020-02-11] MEDS ORDERED: AMIT25TA PO (07:44)
== END 2020-02-10 15:15 | disposition home or self-care (01) ==
LOC: M INFU 09:29
PROVIDERS: ATTEND Internal Medicine Nephrology
DX: D64.9 Anemia, unspecified (principal)
CPT/HCPCS: 36430; P9016

== ENCOUNTER 2020-02-11 04:40 | Observation (INO) | payer MEDICARE ==
[~2020-02-11] VITALS: Ht 167.6 cm; Wt 78.8 kg
[2020-02-11 05:28] LABS: BASO % 0.4 % (0.0-1.0); EOS # 0.2 10^3/uL (0.0-0.5); EOS % 1.3 % (0.0-3.0); HEMATOCRIT 33.2 % (36.0-47.0); HEMOGLOBIN 10.8 g/dl (12.0-15.5); LYMPH # 0.9 10^3/uL (1.5-5.0); LYMPH % 8.3 % (24.0-44.0); MEAN CORPUSCULAR HEMOGLOBIN 32.7 pg (27.0-33.0); MEAN CORPUSCULAR HGB CONC 32.5 g/dl (32.0-36.5); MEAN CORPUSCULAR VOLUME 100.6 fl (80.0-96.0); MONO # 0.7 10^3/uL (0.0-0.8); MONO % 6.4 % (0.0-5.0); NEUTROPHILS # 9.3 10^3/uL (1.5-8.5); NEUTROPHILS % 83.2 % (36.0-66.0); PLATELET COUNT, AUTOMATED 152 10^3/uL (150-450); WHITE BLOOD COUNT 11.1 10^3/uL (4.0-10.0)
[2020-02-11 05:56] LABS: BLOOD UREA NITROGEN 36 MG/DL (7-18); CALCIUM LEVEL 9.3 MG/DL (8.8-10.2); CARBON DIOXIDE LEVEL 31 MEQ/L (21-32); CHLORIDE LEVEL 94 MEQ/L (98-107); CK-MB VALUE MASS < 1.0 NG/ML (<3.6); CPK CREATINE PHOSPHOKINASE 92 U/L (26-192); CREATININE FOR GFR 9.45 MG/DL (0.55-1.30); GLOMERULAR FILTRATION RATE 5.5 (>45); GLUCOSE, FASTING 105 MG/DL (70-100); MB/CK RELATIVE INDEX 1.09 (< OR =4); POTASSIUM SERUM 5.4 MEQ/L (3.5-5.1); SODIUM LEVEL 133 MEQ/L (136-145); TROPONIN I 0.03 NG/ML (< 0.10)
--- NOTE | 2020-02-11 06:09 | ECGEPIP ---
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
--- NOTE | 2020-02-11 06:27 | REPVR ---
PROCEDURE INFORMATION: Exam: XR Chest, 1 View Exam date and time: 02/11/2020 5:35 AM Age: 59 years old Clinical indication: Other: Chest pain TECHNIQUE: Imaging protocol: XR of the chest Views: 1 view. COMPARISON: CT Chest without contrast 01/05/2020 4:46 AM FINDINGS: Lungs: Bilateral perihilar and bibasilar opacities. Pleural space: Moderate left pleural effusion. Heart/Mediastinum: Unremarkable. No cardiomegaly. Vasculature: Atherosclerotic disease of the thoracic aorta. Bones/joints: Osteopenia. IMPRESSION: Bilateral perihilar and bibasilar opacities. Moderate left pleural effusion. Electronically signed by: Bogdan Mustafa On 02/11/2020 06:27:06 AM
[2020-02-11] MEDS ORDERED: NITROGLYCERIN 2% OINT 1 GM *U/D* PKT TOP ONE (06:30)
[2020-02-11] MEDS ORDERED: ASPI-161 PO (07:44)
[2020-02-11] MEDS ORDERED: AMIT25TA PO (07:44)
[2020-02-11] MEDS ORDERED: CINA30TA5 PO (07:44)
[2020-02-11] MEDS ORDERED: GABA-1171 PO (07:44)
[2020-02-11] MEDS ORDERED: SILV50CR TOP (07:44)
[2020-02-11] MEDS ORDERED: MIRA3350 PO (07:44)
[2020-02-11] MEDS ORDERED: cloNIDine 0.1 MG TAB PO ONE (07:45)
[2020-02-11] MEDS ORDERED: VALSARTAN 80 MG TAB (DIOVAN) PO ONE (07:45)
[2020-02-11] MEDS ORDERED: ACETAMINOPHEN TAB 650MG DOSE (2X325MG) PO ONE (08:00)
[2020-02-11] MEDS ORDERED: MAALOX 30 ML SUSP *UDC PO PRN (09:00)
[2020-02-11] MEDS ORDERED: ACETAMINOPHEN TAB 650MG DOSE (2X325MG) PO PRN (09:00)
[2020-02-11] MEDS ORDERED: MOM 30ML SUSPENSION UDC PO PRN (09:00)
[2020-02-11] MEDS: DOCUSATE SODIUM 100 MG CAP PO SCH ×3 (09:00→22:37)
--- NOTE | 2020-02-11 09:05 | HPEPDOC ---
[facility] Medical History & Physical Date of Admission Feb 11, 2020 Date of Service: Feb 11, 2020 History and Physical CHIEF COMPLAINT: Shortness of breath HISTORY OF PRESENT ILLNESS: Mrs. Heredia is a 59-year-old female with a history of ESRD on HD MWF, hypertension, diabetes type 2, hyperlipidemia, presenting to the ED with the worsening shortness of breath. Last received hemodialysis on February 08. Her prison keeper is Dr. Luong. Patient states that she was due for dialysis on day of admission is 6 AM. But felt that she was too unwell and called 911. On arrival to the ED, she was noted to be hypertensive urgency with a blood pressure of 220/103. Heart rate 82. Respiratory rate 20. Temperature 98.7. Pulse ox 97% on room air. Required to be on 3 L of oxygen to maintain saturation at 96%. Lungs are significant for white blood cell count 11.1. Hemoglobin 10.8. Hematocrit 33.2. MCV 100.6. Sodium 133. Potassium 5.4. B1 36. Creatinine 9.45. In the ED, patient complained of pressure-like chest discomfort. EKG showed p ossible ST elevations in the lateral as well as inferior leads. Troponin was 0.03. Repeat troponin 0.05. Repeat EKG shows no evolution from prior study. EKG from January 04, patient had ST-T wave depressions in V6 as well as aVL. I discussed with Dr. Samaniego, he does not feel the need for transfer at this time. Patient's chest pain has resolved. Recommends repeat troponin in 6 hours to rule out ACS. Hydralazine 10 MG IV given in ED for hypertensive urgency. Patient taken to HD prior to transfer to floor. Chest x-ray showed bilateral perihilar and bibasilar opacities with a left-sided moderate left-sided pleural effusion. PAST MEDICAL HISTORY: Luisgles End-stage renal disease on HD MWF HTN DM type II HLD anemia hyperparathyroidism PAST SURGICAL HISTORY: Right wrist fistula Right forearm fistula PD catheter placement PD catheter removal SOCIAL HISTORY: Patient denies smoking Patient denies etoh use Patient denies illicit drug use FAMILY HISTORY: Mother had diabetes, HTN. at 60 y/o Father had HTN. at 70 y/o Sister had ESRD, HTN. . ALLERGIES: Please see below. REVIEW OF SYSTEMS: CONSTITUTIONAL: patient denies fevers, chills HEENT: patient denies blurred vision, loss of vision, headache,. CARDIOVASCULAR: patient denies chest pain, palpitations. RESPIRATORY: shortness of breath, mild cough, difficulty speaking in full sentences. GASTROINTESTINAL: patient denies abdominal pain, n/v/d, blood in stool. GENITOURINARY: patient denies dysuria, discharge. SKIN: patient denies rashes. MUSCULOSKELETAL: patient denies joint pain, neck pain. NEUROLOGICAL: patient denies focal weakness, numbness, seizures. PSYCHIATRIC: patient denies SI/HI. ENDOCRINE: patient denies polyuria, heat intolerance, cold intolerance. HEMATOLOGIC/LYMPHATIC: patient denies easy bruising. HOME MEDICATIONS: Please see below. PHYSICAL EXAMINATION: VITAL SIGNS: please see below General: NAD, comfortable HEENT: PERRLA, EOMI, sclerae clear Neck: supple, normal ROM, no JVD Respiratory: bilateral bilateral lung field crackles, poor inspiratory effort CVS: RRR, normal S1, S2, no murmurs Abdo: soft, no masses, no hepatosplenomegaly, BS+, no rebound tenderness Extremities: Plus bilateral lower extremity edema, pulses 2+. MSK: no joint deformities, normal ROM Neuro: no focal neuro deficits, moving all 4 extremities, CN2-12 intact. Strength 5/5 in all 4 extremities. No nystagmus. Skin: Scaring noted of the left lower chest wall, recently treated for shingles. Psych: calm, cooperative, AAO x 3 LABORATORY DATA: See below. IMAGING: CXR (02/11/20): FINDINGS: Lungs: Bilateral perihilar and bibasilar opacities. Pleural space: Moderate left pleural effusion. Heart/Mediastinum: Unremarkable. No cardiomegaly. Vasculature: Atherosclerotic disease of the thoracic aorta. Bones/joints: Osteopenia. IMPRESSION: Bilateral perihilar and bibasilar opacities. Moderate left pleural effusion. MICROBIOLOGY: Please see below. ASSESSMENT: Mrs. Zuñiga is a 59-year-old female with a past medical history of ESRD on hemodialysis Friday, Friday, Friday, type 2 diabetes, CHF with preserved ejection fraction, hypertension. She is admitted for fluid overload secondary to ESRD and congestive heart failure. Dr. Luong is aware patient is for dialysis today. PLAN: #SOB: pulmonary edema secondary to ESRD. HD MWF. #Chest pain: Resolved. No evolving changes on EKG. Troponins negative 4. ACS ruled out. Discussed with Dr. Samaniego, no further intervention required. Recent hx of shingles, residual pain likely component. #ESRD: follows with Dr. Luong. Last HD 02/10. Discussed with Dr. Francisco, planned for additional dialysis today. Remove 3L. HD to treat fluid overload. BP control. #Lung opacities: bilateral perihilar and bibasilar opacities. Patient is afebrile. No leukocytosis. No cough, no sputum. Likely due to fluid overload. Monitor clinically. #hyperkalemia: resolved. to be managed by dialysis. #Anemia of chronic disease: ESRD on HD. B12, folate wnl per recent labs. #hypertensive urgency: improved with HD. C/w home BP meds. #DM2: resume home insulin. ISS. FSFB AC and HS. Hypoglycemia precautions. #hypoglycemia: BG 37 overnight. Reduce home levemir to 20 units qhs. hypoglycemic precautions. #ascending aortic dilation, 4.3 cm, stable on CT from 01/05/20. outpatient surveillance. #pulmonary nodules: seen on CT 01/05/20. Repeat CT chest a 6 months for surveillance. #recent shingles: resume home meds. amitriptyline, silvedene. Vital Signs Vital Signs Date Time Temp Pulse Resp B/P (MAP) Pulse Ox O2 Delivery O2 Flow Rate FiO2 02/11/20 08:30 77 22 198/95 (129) 97 Nasal Cannula 3.0 02/11/20 04:44 98.7 Laboratory Data Labs 24H Laboratory Tests 2 02/11/20 05:00: Immature Granulocyte % (Auto) 0.4, Neutrophils (%) (Auto) 83.2H, Lymphocytes (%) (Auto) 8.3L, Monocytes (%) (Auto) 6.4H, Eosinophils (%) (Auto) 1.3, Basophils (%) (Auto) 0.4, Neutrophils # (Auto) 9.3H, Lymphocytes # (Auto) 0.9L, Monocytes # (Auto) 0.7, Eosinophils # (Auto) 0.2, Basophils # (Auto) 0.0, Nucleated Red Blood Cells % (auto) 0.0, Anion Gap 8, Glomerular Filtration Rate 5.5L, Calcium Level 9.3, Total Creatine Kinase 92, Creatine Kinase MB < 1.0, Creatine Kinase MB Relative Index 1.09, Troponin I 0.03 CBC/BMP Laboratory Tests 02/11/20 05:00 Home Medications Scheduled Amitriptyline HCl (Amitriptyline HCl) 25 Mg Tablet, 25 MG PO QHS HAS BEEN OUT FOR ABOUT 2 DAYS Amlodipine Besylate (Norvasc) 5 Mg Tablet, 5 MG PO QHS Aspirin (Aspirin EC) 81 Mg Tablet.dr, 81 MG PO DAILY Carvedilol (Carvedilol) 25 Mg Tab, 25 MG PO BID Cinacalcet HCl (Cinacalcet HCl) 30 Mg Tablet, 90 MG PO DAILY Clonidine Hcl (Clonidine HCl) 0.1 Mg Tablet, 0.1 MG PO BID HOLD IF SBP<170 Docusate Sodium (Colace) 100 Mg Cap, 200 MG PO DAILY Folic Acid/Vit B Complex and C (Renetta-Guido Tablet) 1 Tab Tab, 1 TAB PO DAILY Gabapentin (Gabapentin) 100 Mg Capsule, 100 MG PO BID HAS BEEN OUT FOR ABOUT 2 DAYS Insulin Glargine,Hum.rec.anlog (Toujeo Solostar) 300 Unit/1 Ml Insuln.pen, 30 UNIT SC QPM AT DINNER Insulin Lispro (Humalog) 100 Unit/Ml Inj, 1 DOSE SC AC PER SLIDING SCALE Lanthanum Carbonate (Fosrenol) 1,000 Mg Chw, 1,000 MG PO WM [place]-3/Dha/Epa/Fish Oil ([place]-3 Fish Oil 1,000 mg Sfgl) 1,000 Mg Capsule, 1,000 MG PO BID Pravastatin Sodium (Pravastatin Sodium) 80 Mg Tablet, 80 MG PO QHS Silver Sulfadiazine (Ssd) 50 Gm Cream..g., 1 DOSE TOP DAILY APPLY TO LESIONS ON CHEST AND BACK Ubidecarenone (Coenzyme Q10) 200 Mg Capsule, 200 MG PO DAILY Valsartan (Valsartan) 80 Mg Tablet, 80 MG PO DAILY Scheduled PRN Lidocaine (Lidocaine) 5% Adh..patch, 2 PATCH TOP DAILY PRN for PAIN APPLY TO BILATERAL SHOULDERS Ondansetron HCl (Zofran) 4 Mg Tablet, 4 MG PO Q8H PRN for NAUSEA Polyethylene Glycol 3350 (Miralax) 119 Gm Powder, 17 GM PO DAILY PRN for CONSTIPATION 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
[2020-02-11] MEDS ORDERED: hydrALAZINE 20MG/ML 1ML VIAL (J0360 PER 20MG) IV ONE (09:30)
[2020-02-11] MEDS: LANTHANUM CARBONATE 500 MG CHEW TABLET PO SCH ×2 (12:30→17:43)
[2020-02-11] MEDS ORDERED: LIDOCAINE 5% (LIDODERM) PATCH TOP PRN (14:45)
--- NOTE | 2020-02-11 15:46 | CR ---
DATE: 02/11/2020 REQUESTING CLINICIAN: Praneeth Ying M.D. REASON FOR CONSULTATION: Shortness of breath in this lady with end-stage renal disease. HISTORY OF PRESENT ILLNESS: Ms. Zuñiga is a 59-year-old female with known history of long standing diabetes, hypertension, end-stage renal disease and associated comorbid conditions. She presented to the Emergency Room early this morning with shortness of breath and was found to have congestive heart failure with volume overload. She was also noticed to have mild hyperkalemia. Patient receives her regular dialysis on a Friday, Friday and Friday schedule. She was dialyzed on Friday and there she received 2 units of packed RBCs yesterday due to worsening anemia. This morning she could not wait to go to dialysis as she got short of breath in the middle of the night. PAST MEDICAL HISTORY: Significant for: * Long standing type-2 diabetes. * Hypertension. * End-stage renal disease. * Hyperlipidemia. * Anemia requiring transfusions. * Secondary hyperparathyroidism. * Congestive heart failure with diastolic dysfunction. PAST SURGICAL HISTORY: Significant for: * Right wrist AV fistula. * Peritoneal dialysis catheter placement and removal in the past. * Right arm AV fistula. FAMILY HISTORY: Significant for diabetes and hypertension. Her sister also has history of end-stage renal disease and hypertension and she is . Mother is also at 60 and father at age 70. PERSONAL AND SOCIAL HISTORY: Patient denies any alcohol, tobacco or drug use. She lives by herself. ALLERGIES: She has allergies to: * LABETALOL. * NIFEDIPINE. * MORPHINE. MEDICATIONS: Home medications include: * Amlodipine 5 mg daily. * Aspirin 81 mg daily. * Coreg 25 mg twice a day. * Sensipar 90 mg daily. * Clonidine 0.1 mg twice a day. * Colace 200 mg daily. * Multivitamin 1 tablet daily. * Toujeo insulin 30 units at bedtime. * Humalog insulin per sliding scale. * Fosrenol 1000 mg with meals. * Pravastatin 80 mg daily. * Valacyclovir 500 mg daily for recent shingles. * Valsartan 80 mg daily. * Zofran as needed for nausea. REVIEW OF SYSTEMS: Patient denies any fever or chills. She reports getting short of breath in the middle of the night and she woke up with it. She denies any chest pain at present. Ears, nose and throat: Unremarkable. Cardiovascular system: Significant for shortness of breath and congestive heart failure with volume overload. Respiratory system: Negative for hemoptysis or pleuritic type chest pain. She is noticed to have a pleural effusion on her chest x-ray. GI system: Negative for nausea or vomiting. system: Negative for dysuria or hematuria. Endocrine system: Significant for secondary hyperparathyroidism in addition to diabetes. Psychosocial system: Negative for depression or anxiety. Neurological system: Negative for seizures or stroke. Hematological system: Significant for anemia and required transfusion just yesterday. Skin: Significant for shingles on her left upper chest recently. PHYSICAL EXAMINATION: Patient is feeling somewhat shortness of breath even sitting on the stretcher. Her temperature is 98 degrees Fahrenheit, heart rate is 72 per minute and respiratory rate 20 per minute. Blood pressure 142/72 mmHg and oxygen saturation 97% on 2 liters oxygen. Head: Atraumatic. There is no oral thrush or ulcers. Neck: Supple and JVD is moderately elevated. Heart: Sounds are regular and there is no pericardial friction rib. Lungs: Bilateral rales. Skin: Rash on left chest is noticed from recent shingles. Abdomen: Soft and nontender and bowel sounds are normal. Extremities: Without any cyanosis or clubbing. AV fistula is patent. Neurologically: She is awake, alert and oriented times 3. LABORATORY DATA: Todays labs showed WBC count 11.1, hemoglobin 10.8, hematocrit 33.2, platelets 152. Sodium 233, potassium 5.4, CO2 31, BUN 36 and creatinine 9.45. Troponin is 0.03. PROBLEMS AND PLAN: * Shortness of breath: Patient is volume overloaded and chest x-ray did show alveolar infiltrates. We will try to remove about 4 liters of fluid and urgent hemodialysis is being arranged for her. * End-stage renal disease: Patient is due for dialysis today and we will arrange for dialysis within the next hour. I have reassured the patient that dialysis will be done this morning as soon as a dialysis nurse becomes available. * Hyperkalemia: This is mild and will be corrected with dialysis. No other intervention is indicated. * Anemia: Her anemia has improved following transfusion. She was transfused 2 units of packed RBCs yesterday. * Hypertension: Blood pressure will improve once her volume status and respiratory status improves. I will recommend to continue to continue with her chronic home medications. Thank you for involving me in the care of Ms. Zuñiga. I will follow her along with you. KAYLEEN
[2020-02-11 16:00] VITALS: BP 170/88
[2020-02-11] MEDS: ASPIRIN 81 MG ENTERIC TAB PO SCH (16:30)
[2020-02-11] MEDS: VALSARTAN 80 MG TAB (DIOVAN) PO SCH (16:30)
[2020-02-11] MEDS: HEPARIN SOD (PORCINE) 5000UNITS/ML 1ML VIAL/SYRINGE SC SCH ×2 (16:31→22:38)
[2020-02-11] MEDS ORDERED: DEXTROSE 50% 50 ML SYRINGE IV PRN (17:00)
[2020-02-11] MEDS ORDERED: GLUCOSE 4GM CHEW TABLET PO PRN (17:00)
[2020-02-11] MEDS ORDERED: GLUCAGON INJ 1MG VIAL SC PRN (17:00)
[2020-02-11 17:03] VITALS: O2SAT 95
[2020-02-11] MEDS: HumaLOG INSULIN (NovoLOG) PER UNIT SC SCH ×2 (17:15→21:00)
[2020-02-11] MEDS: CINACALCET 30 MG TAB (SENSIPAR) PO SCH (17:27)
[2020-02-11 20:00] VITALS: BP 154/72; O2SAT 98
[2020-02-11] MEDS ORDERED: LEVEMIR (INSULIN DETEMIR) 1 UNITS/0.01ML SC SCH (21:00)
[2020-02-11] MEDS ORDERED: GABAPENTIN 100 MG CAP PO SCH (21:00)
[2020-02-11] MEDS: GABAPENTIN 100 MG CAP PO SCH (22:36)
[2020-02-11] MEDS: amLODIPine 5 MG TAB PO SCH (22:36)
[2020-02-11] MEDS: cloNIDine 0.1 MG TAB PO SCH (22:36)
[2020-02-11] MEDS: CARVedilol 12.5 MG TAB PO SCH (22:36)
[2020-02-11] MEDS: AMITRIPTYLINE 25 MG TAB PO SCH (23:03)
[2020-02-12] VITALS (15 sets, daily range): BP systolic 128–160; BP diastolic 60–80; O2SAT 95–99
[2020-02-12] MEDS: HEPARIN SOD (PORCINE) 5000UNITS/ML 1ML VIAL/SYRINGE SC SCH ×3 (06:14→21:34)
--- NOTE | 2020-02-12 06:41 | ECGEPIP ---
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
[2020-02-12] MEDS: HumaLOG INSULIN (NovoLOG) PER UNIT SC SCH ×4 (07:30→21:00)
[2020-02-12 07:49] LABS: ALBUMIN 3.4 GM/DL (3.2-5.2); BILIRUBIN,TOTAL 0.7 MG/DL (0.2-1.0); CALCIUM LEVEL 8.9 MG/DL (8.8-10.2); CREATININE FOR GFR 7.22 MG/DL (0.55-1.30); GLOMERULAR FILTRATION RATE 7.5 (>45); MAGNESIUM LEVEL 2.4 MG/DL (1.8-2.4); POTASSIUM SERUM 4.2 MEQ/L (3.5-5.1); TOTAL PROTEIN 7.3 GM/DL (6.4-8.2); TROPONIN I 0.03 NG/ML (< 0.10)
[2020-02-12 08:18] LABS: BASO # 0.1 10^3/uL (0.0-0.2); BASO % 0.5 % (0.0-1.0); EOS # 0.2 10^3/uL (0.0-0.5); HEMATOCRIT 36.2 % (36.0-47.0); HEMOGLOBIN 11.7 g/dl (12.0-15.5); LYMPH # 1.3 10^3/uL (1.5-5.0); LYMPH % 12.6 % (24.0-44.0); MEAN CORPUSCULAR HEMOGLOBIN 33.4 pg (27.0-33.0); MEAN CORPUSCULAR HGB CONC 32.3 g/dl (32.0-36.5); MEAN CORPUSCULAR VOLUME 103.4 fl (80.0-96.0); MONO # 0.7 10^3/uL (0.0-0.8); MONO % 7.1 % (0.0-5.0); NEUTROPHILS # 7.7 10^3/uL (1.5-8.5); NEUTROPHILS % 77.5 % (36.0-66.0); PLATELET COUNT, AUTOMATED 142 10^3/uL (150-450); WHITE BLOOD COUNT 9.9 10^3/uL (4.0-10.0)
[2020-02-12] MEDS: DOCUSATE SODIUM 100 MG CAP PO SCH (09:00)
[2020-02-12] MEDS: LANTHANUM CARBONATE 500 MG CHEW TABLET PO SCH ×3 (09:00→18:00)
[2020-02-12] MEDS: CINACALCET 30 MG TAB (SENSIPAR) PO SCH (09:01)
[2020-02-12] MEDS: VALSARTAN 80 MG TAB (DIOVAN) PO SCH (09:01)
[2020-02-12] MEDS: GABAPENTIN 100 MG CAP PO SCH ×3 (09:02→21:30)
[2020-02-12] MEDS: CARVedilol 12.5 MG TAB PO SCH ×2 (09:02→21:30)
[2020-02-12] MEDS: cloNIDine 0.1 MG TAB PO SCH ×2 (09:02→21:30)
[2020-02-12] MEDS: ASPIRIN 81 MG ENTERIC TAB PO SCH (09:02)
[2020-02-12] MEDS ORDERED: SLF 3 ML SYR IV PRN (11:00)
[2020-02-12] MEDS: SLF 3 ML SYR IV SCH ×2 (13:08→21:34)
--- NOTE | 2020-02-12 16:10 | IPNPDOC ---
Date Seen The patient was seen on 02/12/20. Progress Note SUBJECTIVE: Patient seen and examined at bedside this morning. Comfortable in bed. Shortness of breath has improved. No chest pain. No palpitations. She denies fevers, chills, nausea, vomiting, diarrhea. OBJECTIVE PHYSICAL EXAMINATION: VITAL SIGNS: please see below General: NAD, comfortable HEENT: PERRLA, EOMI, sclerae clear Neck: supple, normal ROM, no JVD Respiratory: bilateral bilateral lung field crackles, poor inspiratory effort CVS: RRR, normal S1, S2, no murmurs Abdo: soft, no masses, no hepatosplenomegaly, BS+, no rebound tenderness Extremities: Plus bilateral lower extremity edema, pulses 2+. MSK: no joint deformities, normal ROM Neuro: no focal neuro deficits, moving all 4 extremities, CN2-12 intact. Strength 5/5 in all 4 extremities. No nystagmus. Skin: Scaring noted of the left lower chest wall, recently treated for shingles. Psych: calm, cooperative, AAO x 3 LABORATORY DATA, IMAGING STUDIES, MICROBIOLOGY: Please see below. DVT prophylaxis ordered?: Yes heparin ASSESSMENT AND PLAN: 59-year-old female with a history of ESRD on HD MWF, hypertension, diabetes type 2, hyperlipidemia, presenting to the ED with the worsening shortness of breath. Last received hemodialysis on February 08. Her molecular modeler is Dr. Luong. Patient states that she was due for dialysis on day of admission is 6 AM. But felt that she was too unwell and called 911. On arrival to the ED, she was noted to be hypertensive urgency with a blood pressure of 220/103. Admitted for hemodialysis. She had complained of chest pain, EKG showed possible ST elevations in lateral and inferior leads. Troponins negative x 4. Patient reports to me that she had a negative prior stress test in 12/2019. EKG on 02/12/20, showing LBBB. Discussed with Dr. Samaniego, cardiology consult placed. Negative troponins are reassuring, hoverer given multiple comorbidities, and suspicious EKG findings, cardiology consult is greatly appreciated. PROBLEMS: #SOB: pulmonary edema secondary to ESRD. She has been dialyzed 02/10, 02/11. Nephrology to clear prior to DC, however her SOB has resolved, she appears near euvolemic. #Chest pain: resolved. trop negative x 5.EKG on 02/11 showing sinus rhythm, with PVC, 1st degree block, inferior ST depression, t wave inversions, occasional ST elevations lateral leads. LBBB seen, appears to be new. I discussed with Dr. Samaniego, placed cardiology consult. #ESRD: follows with Dr. Luong. Last HD 02/10. Discussed with Dr. Francisco, planned for additional dialysis today. Remove 3L. HD to treat fluid overload. BP control. #hyperkalemia: resolved. to be managed by dialysis. #Anemia of chronic disease: ESRD on HD. B12, folate wnl per recent labs. #hypertensive urgency: improved with HD. C/w home BP meds. #DM2: resume home insulin. ISS. FSFB AC and HS. Hypoglycemia precautions. #hypoglycemia: BG 37 overnight. Reduce home levemir to 20 units qhs. hypoglycemic precautions. #ascending aortic dilation, 4.3 cm, stable. #recent shingles: resume home meds. amitriptyline, silvedene. VS, I&O, 24H, [place]bone Vital Signs/I&O Vital Signs Date Time Temp Pulse Resp B/P (MAP) Pulse Ox O2 Delivery O2 Flow Rate FiO2 02/12/20 12:40 22 02/12/20 12:00 2.0 02/12/20 12:00 97.8 74 132/60 (84) 94 Nasal Cannula I&O- Last 24 Hours up to 6 AM 02/12/20 06:00 Intake Total 240 ml Output Total 4000 ml Balance -3760 ml Laboratory Data 24H LABS Laboratory Tests 2 02/11/20 16:06: Troponin I 0.05 02/11/20 17:10: Bedside Glucose (Misc Panel) 84 02/11/20 20:45: Bedside Glucose (Misc Panel) 220H 02/11/20 22:15: Troponin I 0.03# 02/12/20 06:07: Bedside Glucose (Misc Panel) 39*L 02/12/20 06:23: Bedside Glucose (Misc Panel) 73L 02/12/20 06:43: Immature Granulocyte % (Auto) 0.3, Neutrophils (%) (Auto) 77.5H, Lymphocytes (%) (Auto) 12.6L, Monocytes (%) (Auto) 7.1H, Eosinophils (%) (Auto) 2.0, Basophils (%) (Auto) 0.5, Neutrophils # (Auto) 7.7, Lymphocytes # (Auto) 1.3L, Monocytes # (Auto) 0.7, Eosinophils # (Auto) 0.2, Basophils # (Auto) 0.1, Nucleated Red Blood Cells % (auto) 0.0, Anion Gap 10, Glomerular Filtration Rate 7.5L, Calcium Level 8.9, Magnesium Level 2.4, Total Bilirubin 0.7, Aspartate Amino Transf (AST/SGOT) 24, Alanine Aminotransferase (ALT/SGPT) 54, Alkaline Phosphatase 190H, Troponin I 0.03, Total Protein 7.3, Albumin 3.4, Albumin/Globulin Ratio 0 .9L 02/12/20 11:38: Bedside Glucose (Misc Panel) 156H CBC/BMP Laboratory Tests 02/12/20 06:43 RAJ ALONZO MD Feb 12, 2020 16:10
--- NOTE | 2020-02-12 16:30 | ECGEPIP ---
[facility] Test Date: 2020-02-12 Pat Name: GATITO MILLER Department: Room: [place] [address] Gender: Female Take Down Sorter: ARTURO : 1960 Requested By: RAJ ALONZO Order Number: [id number] Reading MD: Cinthya Prescott Measurements Intervals [place] Rate: 69 P: 57 WV: 205 QRS: 25 QRSD: 106 T: -56 QT: 410 QTc: 442 Interpretive Statements SINUS RHYTHM WITH OCCASIONAL VENTRICULAR PREMATURE COMPLEXES 1ST DEGREE BLOCK INFERIOR ST T ABN WITH ST DEPRESSION AND T WAVE INVERSIONS POSSIBLE ISCHEMIA NOW ALSO WITH PRWP POSSIBLE PULM DIS PATTERN PRIOR WITH 1ST DEGREE BLOCK AND LBBB/PVC POSSIBLE LEFT VENTRICULAR HYPERTROPHY WITH DEEP S WAVES V1-3 Electronically Signed on 02-12-2020 16:30:06 EDT by Cinthya Prescott
[2020-02-12] MEDS: SILVER SULFADIAZINE 1% CR 50 GM JAR TOP SCH ×2 (17:24→21:32)
--- NOTE | 2020-02-12 17:28 | REPVR ---
PROCEDURE INFORMATION: Exam: XR Chest, 1 View Exam date and time: 02/12/2020 5:21 PM Age: 59 years old Clinical indication: Other: Fluid; Additional info: Fluid overload TECHNIQUE: Imaging protocol: XR of the chest Views: 1 view. COMPARISON: CR PORTABLE CHEST X-RAY 02/11/2020 5:28 AM FINDINGS: Lungs: Substantial clearing of the previously reported bilateral perihilar densities and basilar infiltrates. Pleural space: Unremarkable. No pleural effusion. No pneumothorax. Heart/Mediastinum: Cardiomegaly. Bones/joints: Dextroscoliosis. The spine demonstrates moderate degenerative changes. IMPRESSION: 1. Cardiomegaly. 2. Substantial clearing of the previously reported bilateral perihilar densities and basilar infiltrates. Electronically signed by: Shaji Snowden On 02/12/2020 17:28:12 PM
[2020-02-12] MEDS: AMITRIPTYLINE 25 MG TAB PO SCH (21:30)
[2020-02-12] MEDS: amLODIPine 5 MG TAB PO SCH (21:30)
[2020-02-12] MEDS: LEVEMIR (INSULIN DETEMIR) 1 UNITS/0.01ML SC SCH (21:32)
[2020-02-13] VITALS (23 sets, daily range): BP systolic 126–159; BP diastolic 58–78; O2SAT 90–100
[2020-02-13] MEDS: HEPARIN SOD (PORCINE) 5000UNITS/ML 1ML VIAL/SYRINGE SC SCH ×3 (06:47→21:07)
[2020-02-13] MEDS: SLF 3 ML SYR IV SCH ×3 (06:47→21:22)
[2020-02-13 06:50] LABS: ALBUMIN 3.3 GM/DL (3.2-5.2); BILIRUBIN,TOTAL 0.5 MG/DL (0.2-1.0); CALCIUM LEVEL 9.2 MG/DL (8.8-10.2); CREATININE FOR GFR 9.22 MG/DL (0.55-1.30); GLOMERULAR FILTRATION RATE 5.6 (>45); MAGNESIUM LEVEL 2.5 MG/DL (1.8-2.4)
[2020-02-13] MEDS: HumaLOG INSULIN (NovoLOG) PER UNIT SC SCH ×4 (07:30→21:00)
[2020-02-13] MEDS: LANTHANUM CARBONATE 500 MG CHEW TABLET PO SCH ×3 (08:47→17:40)
[2020-02-13] MEDS: DOCUSATE SODIUM 100 MG CAP PO SCH (08:48)
[2020-02-13] MEDS: CINACALCET 30 MG TAB (SENSIPAR) PO SCH (08:48)
[2020-02-13] MEDS: ASPIRIN 81 MG ENTERIC TAB PO SCH (08:48)
[2020-02-13] MEDS: GABAPENTIN 100 MG CAP PO SCH ×3 (08:49→21:06)
[2020-02-13] MEDS: cloNIDine 0.1 MG TAB PO SCH ×2 (08:49→21:05)
[2020-02-13] MEDS: CARVedilol 12.5 MG TAB PO SCH ×2 (08:49→21:06)
[2020-02-13] MEDS: VALSARTAN 80 MG TAB (DIOVAN) PO SCH (08:50)
[2020-02-13] MEDS: SILVER SULFADIAZINE 1% CR 50 GM JAR TOP SCH ×3 (08:51→21:07)
[2020-02-13] MEDS: AMITRIPTYLINE 25 MG TAB PO SCH (21:06)
[2020-02-13] MEDS: amLODIPine 5 MG TAB PO SCH (21:06)
[2020-02-13] MEDS: LEVEMIR (INSULIN DETEMIR) 1 UNITS/0.01ML SC SCH (21:07)
[2020-02-14] VITALS (9 sets, daily range): BP systolic 148–168; BP diastolic 64–78; O2SAT 87–92
[2020-02-14 05:57] LABS: ALBUMIN 3.2 GM/DL (3.2-5.2); BILIRUBIN,TOTAL 0.4 MG/DL (0.2-1.0); CREATININE FOR GFR 11.3 MG/DL (0.55-1.30); GLOMERULAR FILTRATION RATE 4.4 (>45); MAGNESIUM LEVEL 2.6 MG/DL (1.8-2.4); POTASSIUM SERUM 5.2 MEQ/L (3.5-5.1); TOTAL PROTEIN 6.8 GM/DL (6.4-8.2)
[2020-02-14] MEDS: SLF 3 ML SYR IV SCH (06:05)
[2020-02-14] MEDS: HEPARIN SOD (PORCINE) 5000UNITS/ML 1ML VIAL/SYRINGE SC SCH (06:05)
[2020-02-14] MEDS: HumaLOG INSULIN (NovoLOG) PER UNIT SC SCH (08:26)
[2020-02-14] MEDS: LANTHANUM CARBONATE 500 MG CHEW TABLET PO SCH (08:26)
[2020-02-14] MEDS: VALSARTAN 80 MG TAB (DIOVAN) PO SCH (09:00)
[2020-02-14] MEDS: DOCUSATE SODIUM 100 MG CAP PO SCH (09:00)
[2020-02-14] MEDS: CINACALCET 30 MG TAB (SENSIPAR) PO SCH (09:00)
[2020-02-14] MEDS: GABAPENTIN 100 MG CAP PO SCH (09:01)
[2020-02-14] MEDS: CARVedilol 12.5 MG TAB PO SCH (09:01)
[2020-02-14] MEDS: ASPIRIN 81 MG ENTERIC TAB PO SCH (09:01)
[2020-02-14] MEDS: cloNIDine 0.1 MG TAB PO SCH (09:01)
[2020-02-14] MEDS: SILVER SULFADIAZINE 1% CR 50 GM JAR TOP SCH (09:02)
--- NOTE | 2020-02-14 09:20 | DS.PDOC ---
Discharge Summary General Date of Admission Feb 11, 2020 at 04:41 Date of Discharge 02/14/20 Discharge Summary PROCEDURES PERFORMED DURING STAY: [None]. ADMITTING DIAGNOSES: Fluid overload ESRD on HD Chest pain Hyperkalemia Anemia of chronic disease HTN urgency DM2 Ascending aortic dilation hx of recent shingles. DISCHARGE DIAGNOSES: Fluid overload ESRD on HD Chest pain Hyperkalemia Anemia of chronic disease HTN urgency DM2 Ascending aortic dilation hx of recent shingles. COMPLICATIONS/CHIEF COMPLAINT: Esrd On Hemodialysis. HISTORY OF PRESENT ILLNESS: Mrs. Zuñiga is a 59-year-old female with a history of ESRD on HD MWF, hypertension, diabetes type 2, hyperlipidemia, presenting to the ED with the worsening shortness of breath. Last received hemodialysis on February 08. Her attache is Dr. Luong. Patient states that she was due for dialysis on day of admission is 6 AM. But felt that she was too unwell and called 911. On arrival to the ED, she was noted to be hypertensive urgency with a blood pressure of 220/103. Heart rate 82. Respiratory rate 20. Temperature 98.7. Pulse ox 97% on room air. Required to be on 3 L of oxygen to maintain saturation at 96%. Lungs are significant for white blood cell count 11.1. Hemoglobin 10.8. Hematocrit 33.2. MCV 100.6. Sodium 133. Potassium 5.4. B1 36. Creatinine 9.45. In the ED, patient complained of pressure-like chest discomfort. EKG showed possible ST elevations in the lateral as well as inferior leads. Troponin was 0.03. Repeat troponin 0.05. Repeat EKG shows no evolution from prior study. EKG from January 04, patient had ST-T wave depressions in V6 as well as aVL. I discussed with Dr. Samaniego, he does not feel the need for guillaume sfer at this time. Patient's chest pain has resolved. Recommends repeat troponin in 6 hours to rule out ACS. Hydralazine 10 MG IV given in ED for hypertensive urgency. Patient taken to HD prior to transfer to floor. Chest x-ray showed bilateral perihilar and bibasilar opacities with a left-sided moderate left-sided pleural effusion. HOSPITAL COURSE: 59-year-old female with a history of ESRD on HD MWF, hypertension, diabetes type 2, hyperlipidemia, presenting to the ED with the worsening shortness of breath. Last received hemodialysis on February 08. Her attache is Dr. Luong. Patient states that she was due for dialysis on day of admission is 6 AM. But felt that she was too unwell and called 911. On arrival to the ED, she was noted to be hypertensive urgency with a blood pressure of 220/103. Admitted for hemodialysis. She had complained of chest pain, EKG showed possible ST eleva tions in lateral and inferior leads. Troponins negative x 4. Patient reports to me that she had a negative prior stress test in 12/2019. EKG on 02/12/20, showing LBBB. Discussed with Dr. Samaniego, cardiology consult placed. Negative troponins are reassuring, hoverer given multiple comorbidities, and suspicious EKG findings, cardiology consult is greatly appreciated. PROBLEMS: #SOB: pulmonary edema secondary to ESRD. She has been dialyzed 02/10, 02/11. Nephrology to clear prior to DC, however her SOB has resolved, she appears near euvolemic. #Chest pain: resolved. trop negative x 5.EKG on 02/11 showing sinus rhythm, with PVC, 1st degree block, inferior ST depression, t wave inversions, occasional ST elevations lateral leads. LBBB seen, appears to be new. Cardiology consult placed. The patient reports a recent normal stress test perfomred in Dr. Merchant' office. I discussed with Dr. Samaniego, recommends no further workup at this time. #ESRD: follows with Dr. Luong. Last HD 02/10. Patient was dialyzed while inpatient. Euvolemic on DC. Discussed with Dr. Gardiner, to c/w regular schedul ed HD MWF. Planned for OP HD on date of DC at 4 pm. #Nocturnial hypoxia: suspect DEENA. Recommend outpatient sleep study. Rx for nocturnal O2 for comfort placed, home health referral placed. Discussed with Dr. Khan, agrees. #hyperkalemia: resolved. #Anemia of chronic disease: ESRD on HD. B12, folate wnl per recent labs. #hypertensive urgency: improved with HD. C/w home BP meds. #DM2: resume home insulin. ISS. FSFB AC and HS. Hypoglycemia precautions. #hypoglycemia: patient became hypoglycemic once on admission, titrated inpatient insulin. Hypoglycemic precautions. #ascending aortic dilation, 4.3 cm, stable. #recent shingles: resume home meds. amitriptyline, silvedene. DISCHARGE MEDICATIONS: Please see below. ALLERGIES: Please see below. PHYSICAL EXAMINATION ON DISCHARGE: VITAL SIGNS: please see below General: NAD, comfortable HEENT: PERRLA, EOMI, sclerae clear Neck: supple, normal ROM, no JVD Respiratory: lungs clear to auscultation bilaterally, no rales, no wheeze, no c rackles. CVS: RRR, normal S1, S2, no murmurs Abdo: soft, no masses, no hepatosplenomegaly, BS+, no rebound tenderness Extremities: no bilateral lower edema noted. pulses 2+. no cyanosis. MSK: no joint deformities, normal ROM Neuro: no focal neuro deficits, moving all 4 extremities, CN2-[address]ngth 5/5 in all 4 extremities. No nystagmus. Skin: Scaring noted of the left lower chest wall, recently treated for shingles. Psych: calm, cooperative, AAO x 3 LABORATORY DATA: Please see below. IMAGING: CXR (02/11/20): FINDINGS: Lungs: Bilateral perihilar and bibasilar opacities. Pleural space: Moderate left pleural effusion. Heart/Mediastinum: Unremarkable. No cardiomegaly. Vasculature: Atherosclerotic disease of the thoracic aorta. Bones/joints: Osteopenia. IMPRESSION: Bilateral perihilar and bibasilar opacities. Moderate left pleural effusion. CXR (02/14/20): FINDINGS: Lungs: Substantial clearing of the previously reported bilateral perihilar densities and basilar infiltrates. Pleural space: Unremarkable. No pleural effusion. No pneumothorax. Heart/Mediastinum: Cardiomegaly. Bones/joints: Dextroscoliosis. The spine demonstrates moderate degenerative changes. IMPRESSION: 1. Cardiomegaly. 2. Substantial clearing of the previously reported bilateral perihilar densities and basilar infiltrates. PROGNOSIS: good ACTIVITY: [As tolerated]. DIET: renal DISCHARGE PLAN: DC home with PCP and nephrology. Per Dr. Francisco, patient to resume MWF HD. Has appointment on 02/14/20 at 4PM for outpatient HD. DISPOSITION: . DISCHARGE INSTRUCTIONS: 1. please follow up with pcp 3-5 days. 2. please follow up with nephrology 1 week 3. please ask your primary care doctor to refer you for a sleep study for suspected DEENA 4. please take your medications as prescribed 5. home health referral for nocturnal home O2 placed 6. if you develop worsening shortness of breath, chest pain, palpitations, fevers, chills, n/v/d or otherwise worsening of your symptoms, please call 911, or return to the nearest ER. ITEMS TO FOLLOWUP ON ON OUTPATIENT: Sleep study as outpatient. Surveillance of R sided pulmonary nodules seen on CT chest 01/05/20 as well as stable descending aortic dilation (4.3cm). DISCHARGE CONDITION: [Stable]. TIME SPENT ON DISCHARGE: Greater than 30 minutes. Vital Signs/I&Os Vital Signs Date Time Temp Pulse Resp B/P (MAP) Pulse Ox O2 Delivery O2 Flow Rate FiO2 02/14/20 09:00 168/78 02/14/20 08:00 97.1 72 17 95 Room Air 02/14/20 00:00 I&O- Last 24 Hours up to 6 AM 02/14/20 06:00 Intake Total 868 ml Output Total 0 ml Balance 868 ml Laboratory Data Labs 24H Laboratory Tests 2 02/13/20 11:43: Bedside Glucose (Misc Panel) 169H 02/13/20 16:43: Bedside Glucose (Misc Panel) 219H 02/13/20 19:53: Bedside Glucose (Misc Panel) 156H 02/14/20 05:01: Anion Gap 10, Glomerular Filtration Rate 4.4L, Calcium Level 9.0, Magnesium Level 2.6H, Total Bilirubin 0.4, Aspartate Amino Transf (AST/SGOT) 13, Alanine Aminotransferase (ALT/SGPT) 34, Alkaline Phosphatase 182H, Total Protein 6.8, Albumin 3.2, Albumin/Globulin Ratio 0.9L CBC/BMP Laboratory Tests 02/14/20 05:01 FSBS Laboratory Tests Test 02/13/20 11:43 02/13/20 16:43 02/13/20 19:53 Range/Units Bedside Glucose (Misc Panel) 169 219 156 80-115 MG/DL Discharge Medications Scheduled Amitriptyline HCl (Amitriptyline HCl) 25 Mg Tablet, 25 MG PO QHS, (Reported) HAS BEEN OUT FOR ABOUT 2 DAYS Amlodipine Besylate (Norvasc) 5 Mg Tablet, 5 MG PO QHS, (Reported) Aspirin (Aspirin EC) 81 Mg Tablet.dr, 81 MG PO DAILY, (Reported) Carvedilol (Carvedilol) 25 Mg Tab, 25 MG PO BID, (Reported) Cinacalcet HCl (Cinacalcet HCl) 30 Mg Tablet, 90 MG PO DAILY, (Reported) Clonidine Hcl (Clonidine HCl) 0.1 Mg Tablet, 0.1 MG PO BID, (Reported) HOLD IF SBP<170 Docusate Sodium (Colace) 100 Mg Cap, 200 MG PO DAILY, (Reported) Folic Acid/Vit B Complex and C (Renetta-Guido Tablet) 1 Tab Tab, 1 TAB PO DAILY, (Reported) Gabapentin (Gabapentin) 100 Mg Capsule, 100 MG PO BID, (Reported) HAS BEEN OUT FOR ABOUT 2 DAYS Insulin Glargine,Hum.rec.anlog (Toujeo Solostar) 300 Unit/1 Ml Insuln.pen, 30 UNIT SC QPM, (Reported) AT DINNER Insulin Lispro (Humalog) 100 Unit/Ml Inj, 1 DOSE SC AC, (Reported) PER SLIDING SCALE Lanthanum Carbonate (Fosrenol) 1,000 Mg Chw, 1,000 MG PO WM, (Reported) Cotton [place]-3/Dha/Epa/Fish Oil ([place]-3 Fish Oil 1,000 mg Sfgl) 1,000 Mg Capsule, 1,000 MG PO BID, (Reported) Pravastatin Sodium (Pravastatin Sodium) 80 Mg Tablet, 80 MG PO QHS, (Reported) Silver Sulfadiazine (Ssd) 50 Gm Cream..g., 1 DOSE TOP DAILY, (Reported) APPLY TO LESIONS ON CHEST AND BACK Ubidecarenone (Coenzyme Q10) 200 Mg Capsule, 200 MG PO DAILY, (Reported) Valsartan (Valsartan) 80 Mg Tablet, 80 MG PO DAILY, (Reported) Scheduled PRN Lidocaine (Lidocaine) 5% Adh..patch, 2 PATCH TOP DAILY PRN for PAIN, (Reported) APPLY TO BILATERAL SHOULDERS Ondansetron HCl (Zofran) 4 Mg Tablet, 4 MG PO Q8H PRN for NAUSEA, (Reported) Polyethylene Glycol 3350 (Miralax) 119 Gm Powder, 17 GM PO DAILY PRN for CONSTIPATION, (Reported) 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
--- NOTE | 2020-02-14 10:58 | IPN ---
DATE: 02/12/2020 SUBJECTIVE: The patient was seen and examined at the bedside today, morning. She was emergently dialyzed yesterday because of fluid overload. She reports her breathing is getting better, but she is still requiring a nasal cannula and she desaturates without nasal cannula. She is otherwise afebrile and hemodynamically stable. OBJECTIVE: VITAL SIGNS: Temperature is 97.8 degrees Fahrenheit, blood pressure 132/60, pulse is 74, respiratory rate of 28, saturating 94% on nasal cannula at 2 liters. Intake and output there is no urine output recorded yesterday. Weight on the bed scale is 78.5 kg. PHYSICAL EXAMINATION: GENERAL APPEARANCE: The patient is awake, alert, and oriented x3, laying in bed in mild respiratory distress. HEAD AND NECK: The extraocular muscles are intact. Pupils are equally round and reactive to light. Mucous membranes are moist. Neck is supple. Mildly elevated JVD. CARDIOVASCULAR: S1, S2, regular rate. EXTREMITIES: Trace edema of the bilateral lower extremities. RESPIRATORY: Decreased breath sounds at the bases with inspiratory crackles at the bases. Left is worst than right. ABDOMEN: soft, positive bowel sounds, nontender, no organomegaly. MUSCULOSKELETAL: No clubbing or cyanosis. Positive edema. DROP HAMMER MECHANIC: No focal deficits, strength 5/5 in all extremities. LABORATORY STUDIES: CBC showed a WBC of 9.9, hemoglobin 11.7, platelet count of 142. BMP sodium 137, potassium 4.2, chloride 98, bicarbonate 29, BUN 25, creatinine of 7.2. IMAGING: A repeat chest x-ray was done today which showed cardiomegaly, substantial clearing of the previously reported bilateral perihilar densities and infiltrates. CURRENT INPATIENT MEDICATIONS: The patient's medications were all reviewed by myself. Her insulin Levemir has been decreased to 20 units subcutaneously q. p.m. No other significant changes in the medications as compared with yesterday. ASSESSMENT AND PLAN: 1. End-stage renal disease - The patient was emergently dialyzed yesterday because of fluid overload. I would do another dialysis today and remove more fluid. 2. Shortness of breath and fluid overload - The patient got 4 liters of fluid removed yesterday. Another session of Ultrafiltration will be done and I will try to remove 3 liters of fluid. 3. Anemia and end-stage renal disease - The patient got 2 units of PRBCs transfusion and after that she got fluid overloaded. Hemoglobin level is 11.7 which is more than the optimal range. No need of Aranesp administration at this time. 4. Hypertension with hypertensive heart disease - continue current dose of Amlodipine 5 mg p.o. daily, Coreg 25 mg p.o. twice a day, Clonidine 0.1 mg p.o. twice a day, Valsartan 80 mg p.o. daily. 5. Secondary hyperparathyroidism - continue current dose of Sensipar 90 mg p.o. daily. 6. Diabetes mellitus type 2 - Levemir dose has already been decreased by the Primary Team. 7. Chronic renal disease, Mineral bone disease - continue current dose of Fosrenol one gram p.o. with meals. 8. Disposition after the second session of Ultrafiltration hopefully the patient should be stable to be discharged home. MTDD
--- NOTE | 2020-02-14 11:08 | IPN ---
DATE: 02/13/2020 SUBJECTIVE: The patient was seen and examined at the bedside today morning. She is afebrile, hemodynamically stable. She got interpretation done yesterday, 3 liters of fluid was removed. Her oxygen saturation is significantly better on room air now. She just desaturates when she is sleeping and she has history of sleep apnea. She also reports intermittent episodes of chest pain. She has history of left sided shingles as well. Cardiology has already been called to evaluate her. OBJECTIVE: Vital signs: Temperature is 98.1 degrees Fahrenheit, blood pressure 126/58, pulse is 71, respiratory rate of 20, saturating 98% on nasal cannula at 2 liters. Intake and output Interpretation with hemodialysis was 3 liters yesterday. Weight on the bed scale was 78.5 kg yesterday. PHYSICAL EXAMINATION: GENERAL APPEARANCE: The patient is awake, alert and oriented x3, laying in bed in no apparent distress. HEAD AND NECK: The extraocular muscles are intact. Pupils are equally round and reactive to light. Mucous membranes are moist. Neck is supple. There is no jugular venous distention. CARDIOVASCULAR: S1, S2, regular rate. EXTREMITIES: No edema. RESPIRATORY: Chest is clear to auscultation bilaterally. Bilaterally currently no rales or rhonchi. ABDOMEN: Soft with positive bowel sounds, nontender, no organomegaly. MUSCULOSKELETAL: No clubbing or cyanosis. Pulses are 2+. DEPUTY K 9: No focal deficits. Strength 5/5 in all extremities. LAB REVIEW: CBC from yesterday and BMP done today morning showed sodium 134, potassium 5, chloride 99, bicarbonate 28, BUN 48, creatinine is 9.2. CURRENT INPATIENT MEDICATIONS: The patient's medications were all reviewed by myself. There is no significant change in her medications as compared with yesterday. ASSESSMENT AND PLAN: 1. End-stage renal disease - The patient was dialyzed on Friday and did interpretation yesterday. Her regular dialysis days are Friday, Friday, Friday. If she stays here, she will be dialyzed tomorrow morning. 2. Anemia and end-stage renal disease - hemoglobin level is 11.7 which is more than optimal. No need of Aranesp administration at this time. 3. Hypertension with hypertensive heart disease - continue current dose of Amlodipine, Coreg, Clonidine and Valsartan. 4. Secondary hyperparathyroidism - continue current dose of Sensipar. 5. Disposition - The patient is optimized from nephrology standpoint to be discharged from the hospital if she is cleared by Cardiology. MTDD
--- NOTE | 2020-02-14 14:07 | NOCOX ---
DATE: 02/13/2020 The study was performed on room air. The total valid sampling time was approximately 7 hours and 3 minutes. The patient's O2 saturation ranged from a low of 78% to a high of 100%. Her heart rate ranged from a low of 60 to a high of 100. The total time spent with an O2 saturation less than 88% was 52 minutes. Graphically the patient was noted to have a pattern of desaturation suggesting Harry-Damico respirations. She did have sig heart rate variability noted overnight as well. IMPRESSION: Abnormal nocturnal oximetry study. The patient did have significant desaturation noted and would qualify for nasal cannula oxygen supplementation. Graphically on her SpO2 waveform she did have a pattern of desaturations suggestive of Harry-Damico respiration. If there is suspicion, however, for underlying sleep-disordered breathing, would refer for more formal sleep testing if indicated. KAYLEEN
--- NOTE | 2020-02-14 15:02 | CR ---
DATE OF CONSULTATION: 02/13/2020 REASON FOR CONSULTATION: Ms. Zuñiga is previously unknown to me. Dr. Ying has asked me to see her because of abnormal electrocardiogram (EKG). HISTORY OF PRESENT ILLNESS: She is a very pleasant 59-year-old -[place] female who has longstanding history of type 2 diabetes and hypertension and has been on dialysis approximately 15 years. She presented to the hospital because of dyspnea and was found to be in congestive heart failure and hypertensive urgency. These issues resolved fairly promptly with dialysis and removal of approximately 4 liters of fluid with the initial dialysis session. I was asked to see her because of abnormalities on electrocardiogram (EKG). She at her baseline has sinus rhythm with nonspecific IVCD and minimal repolarization abnormalities, but she intermittently has left bundle branch block. She also has occasional ventricular ectopy. I reviewed her telemetry tracing and I found at least two ventricular triplets. I did not find anything more sustained. She tells me that she is feeling relatively well since the volume was removed. She no longer has any chest discomfort or shortness of breath. She does not have any established coronary artery disease. She never had heart catheterization, but she reports that she had a nuclear stress test approximately two months ago with [facility]; and to the best of our understanding, the stress test was normal. As recently as about two months ago, she was able to walk easily 30 to 60 minutes without difficulty. PAST MEDICAL HISTORY: 1. Longstanding history of hypertension. She reports at least 30 or more years of that. 2. Type 2 diabetes. 3. End-stage renal disease on dialysis since approximately 2004. She says that she transiently received kidney transplant and was off dialysis between 2009 and 2014. 4. Chronic anemia. 5. Renal osteodystrophy. 6. Secondary hyperparathyroidism. SURGICAL HISTORY: Positive for a peritoneal dialysis catheter placement and then explant for kidney transplant in 2010. Umbilical hernia repair and placement of AV fistula on the right upper extremity. FAMILY HISTORY: Positive for hypertension and diabetes. No coronary artery disease in first degree relatives. SOCIAL HISTORY: The patient is single. She has two grown children that lived in [place]. Her partner of many years last year. No smoking, no significant alcohol use. ALLERGIES: Intolerant of LABETOL, NIFEDIPINE and MORPHINE. OUTPATIENT MEDICATIONS: Amlodipine 5 mg a day, aspirin 81 mg a day, Coreg 25 mg twice a day, Sensipar 90 mg a day, clonidine 0.1 mg twice a day, Colace 200 mg a day, insulin, Fosrenal 1000 mg with meals, pravastatin 80 mg daily, valacyclovir 500 mg for shingles that she just had about six weeks ago, valsartan 80 mg daily REVIEW OF SYSTEMS: She denies any recent fever, chills, nausea, vomiting and diarrhea. She still has some tenderness over the left breast, but is much improved. She denies any syncope or pre-syncope. No atif anginal symptoms. The rest of the review of systems is as per history of present illness, otherwise negative. PHYSICAL EXAMINATION: Ms. Zuñiga is a very pleasant 59-year-old - [place] female. She is alert and oriented and appropriate. I do not appreciate any neurologic abnormality. Vital signs: Blood pressure was 159/77, heart rate has been mostly in the 60s. She is afebrile. Saturation 97 to 98% on 2 liters of oxygen. Previously was 96% on room air. Weight was not recorded today, but yesterday was 78.5 kg, which is 2.5 kg down since admission 81 kg. Her jugular venous pressure (JVP) somewhat difficulty to assess, but does not appear elevated on my examination. Heart examination reveals regular rhythm. There is positive S4 and there is murmur over the base of the heart radiating towards her neck approximately 1 or 2 out of 6 intensity. The second heart sound is well preserved. Lungs are clear with good air movement. There is fistula in her right upper extremity. Abdomen is soft without tenderness. There are still residual pigmentations over her left breast and left side and left posterior chest from recent shingles. Extremities are free of edema. Peripheral pulses are of good quality. Besides shingles related pigmentations, I do not appreciate any additional skin lesions. LABORATORY: As of yesterday, complete blood count (CBC) with a WBC of 11.7, hematocrit 36.2 and platelet count 142,000. Basic metabolic panel (BMP) is of today, sodium 134, potassium 5.0, BUN 48, creatinine 9.2 and glucose 99. Normal liver function test. Albumin is 3.3. Electrocardiogram (EKG) on admission is consistent with congestive heart failure with pleural effusion and vascular distribution. As far as the electrocardiograms (EKGs) are concerned, the initially electrocardiogram (EKG) reveals the presence of sinus rhythm with nonspecific IVCD and secondary repolarization abnormalities, but followup electrocardiogram (EKG) revealed left bundle branch block. ASSESSMENT AND PLAN: Ms. Zuñiga is a 59-year-old female who has longstanding history of hypertensive heart disease and has had years of type 2 diabetes and hypertension, but she does not have any obstructive coronary artery disease to the best of our knowledge. She reports that approximately 2 or 3 months ago before shingles she was able to walk easily 30 to 60 minutes without difficulty and without any anginal symptoms. She reports having outpatient stress test with [facility] within the last few weeks that reportedly was normal. Considering these findings, I would not necessarily purse any additional cardiac evaluation at this point. She is already on beta leti, statin and aspirin, which I would continue. I do believe that we need to get the record of the stress test for hospital files and also for future use. Finally, it was noted by a nurse that her oxygenation often dips down when she sleeps and consequently I would suggest to perform overnight oxymetry before she goes home to screen for possible obstructive sleep apnea. I discussed this plan with Dr. Ying. KAYLEEN
--- NOTE | 2020-02-14 19:08 | ECGEPIP ---
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
--- NOTE | 2020-02-15 11:14 | IPN ---
DATE: 02/14/2020 SUBJECTIVE: The patient was seen and examined at the bedside today morning. She is afebrile and hemodynamically stable. Today is the patients regular day of dialysis. Overnight the patient was desaturating when she is sleeping. She has obstructive sleep apnea. On room air, her pulse os is stable. Her chest pain has improved, and the patient is ready to be discharged home today. OBJECTIVE: VITAL SIGNS: Temperature is 97.1 degenerative Fahrenheit, blood pressure 158/78, pulse 72, respiratory rate of 17, saturating 95% on room air. INTAKE AND OUTPUT: Baseline urine output recorded. Weight on the bed scale is 78.8 kg. GENERAL: The patient is awake, alert, oriented x3, laying in bed, in no apparent distress. HEAD AND NECK: Extraocular muscles intact. Pupils equally round and reactive to light. Mucous membranes are moist. Neck is supple. There is no jugular venous distention (JVD). CARDIOVASCULAR: S1, S2. Regular rate. EXTREMITIES: No edema of the bilateral lower extremities. RESPIRATORY: Mildly decreased breath sounds at the bases. Otherwise no active rales or rhonchi. ABDOMEN: Soft. Positive bowel sounds. Nontender. No organomegaly. MUSCULOSKELETAL: No clubbing or cyanosis. Pulses are 2+. TRICHOLOGIST: No focal deficit. Power is 5/5 in all extremities. LABORATORY REVIEW: CBC from 02/11 and BMP done today morning showed sodium 133, potassium 5.2, chloride 97, bicarb 26, BUN 76, creatinine 11.3. CURRENT INPATIENT MEDICATIONS: The patients medications were all reviewed by myself. There is no significant change in her medications today as compared with yesterday. ASSESSMENT AND PLAN: 1. End-stage renal disease. The patients regular dialysis days are Friday, Friday, and Friday. She will be discharged today, and she will be dialyzed as per her regular schedule today in the evening at the dialysis center. 2. Anemia of end-stage renal disease. Hemoglobin is more than 11, which is optimal. The rest of the anemia management will be done as an outpatient. 3. Hypertension with hypertensive heart disease. Continue current dose of Coreg, valsartan, amlodipine, and Clonidine. 4. Disposition: The patient is optimized from a nephrology standpoint to be discharged home. [facility]
--- NOTE | 2020-02-17 18:01 | IPNPDOC ---
Date Seen The patient was seen on 02/13/20. Progress Note SUBJECTIVE: Patient seen and examined at bedside this morning. Comfortable in bed. Shortness of breath has improved. No chest pain. No palpitations. She denies fevers, chills, nausea, vomiting, diarrhea. OBJECTIVE PHYSICAL EXAMINATION: VITAL SIGNS: please see below General: NAD, comfortable HEENT: PERRLA, EOMI, sclerae clear Neck: supple, normal ROM, no JVD Respiratory: bilateral bilateral lung field crackles, poor inspiratory effort CVS: RRR, normal S1, S2, no murmurs Abdo: soft, no masses, no hepatosplenomegaly, BS+, no rebound tenderness Extremities: Plus bilateral lower extremity edema, pulses 2+. MSK: no joint deformities, normal ROM Neuro: no focal neuro deficits, moving all 4 extremities, CN2-12 intact. Strength 5/5 in all 4 extremities. No nystagmus. Skin: Scaring noted of the left lower chest wall, recently treated for shingles. Psych: calm, cooperative, AAO x 3 LABORATORY DATA, IMAGING STUDIES, MICROBIOLOGY: Please see below. DVT prophylaxis ordered?: Yes heparin ASSESSMENT AND PLAN: 59-year-old female with a history of ESRD on HD MWF, hypertension, diabetes type 2, hyperlipidemia, presenting to the ED with the worsening shortness of breath. Last received hemodialysis on February 08. Her torch straightener is Dr. Luong. Patient states that she was due for dialysis on day of admission is 6 AM. But felt that she was too unwell and called 911. On arrival to the ED, she was noted to be hypertensive urgency with a blood pressure of 220/103. Admitted for hemodialysis. She had complained of chest pain, EKG showed possible ST elevations in lateral and inferior leads. Troponins negative x 4. Patient reports to me that she had a negative prior stress test in 12/2019. EKG on 02/12/20, showing LBBB. Discussed with Dr. Samaniego, cardiology consult placed. Negative troponins are reassuring, hoverer given multiple comorbidities, and suspicious EKG findings, cardiology consult is greatly appreciated. PROBLEMS: #SOB: pulmonary edema secondary to ESRD. She has been dialyzed 02/10, 02/11. Nephrology to clear prior to DC, however her SOB has resolved, she appears near euvolemic. #Chest pain: resolved. trop negative x 5.EKG on 02/11 showing sinus rhythm, with PVC, 1st degree block, inferior ST depression, t wave inversions, occasional ST elevations lateral leads. LBBB seen, appears to be new. I discussed with Dr. Samaniego, placed cardiology consult. #ESRD: follows with Dr. Luong. Last HD 02/10. HD to treat fluid overload. BP control. #hyperkalemia: resolved. to be managed by dialysis. #Anemia of chronic disease: ESRD on HD. B12, folate wnl per recent labs. #hypertensive urgency: improved with HD. C/w home BP meds. #DM2: resume home insulin. ISS. FSFB AC and HS. Hypoglycemia precautions. #hypoglycemia: home levemir hypoglycemic precautions. #ascending aortic dilation, 4.3 cm, stable. #recent shingles: resume home meds. amitriptyline, silvedene. VS, I&O, 24H, Fishbone Vital Signs/I&O Vital Signs Date Time Temp Pulse Resp B/P (MAP) Pulse Ox O2 Delivery O2 Flow Rate FiO2 02/14/20 09:00 168/78 02/14/20 08:00 97.1 72 17 95 Room Air 02/14/20 00:00 RAJ ALONZO MD Feb 17, 2020 18:00
== END 2020-02-14 11:40 | disposition home or self-care (01) ==
LOC: M ED 04:40 → M ED INP 04:41 → ENRESERV 09:50 → M PCU 15:52
PROVIDERS: ADMIT Family Medicine; ATTEND Family Medicine
DX: E87.70 Fluid overload, unspecified (principal); N18.6 End stage renal disease; R07.9 Chest pain, unspecified; E87.5 Hyperkalemia; I16.0 Hypertensive urgency; I12.0 Hypertensive chronic kidney disease with stage 5 chronic kidney disease or end stage renal disease; D63.1 Anemia in chronic kidney disease; E11.9 Type 2 diabetes mellitus without complications; I71.9 Aortic aneurysm of unspecified site, without rupture; E21.3 Hyperparathyroidism, unspecified; Z79.899 Other long term (current) drug therapy; E78.5 Hyperlipidemia, unspecified; R91.8 Other nonspecific abnormal finding of lung field; Z79.82 Long term (current) use of aspirin; Z88.5 Allergy status to narcotic agent; Z88.8 Allergy status to other drugs, medicaments and biological substances
CPT/HCPCS: 36415; 71045; 80048; 80053; 82550; 82553; 83735; 84484; 85025; 93005; 93041; 94760; 94762; 96372; 96374; 99285; G0257; G0378; J0360; J1644

== ENCOUNTER → 2020-02-18 | Outpatient (CLI) | payer MEDICARE ==
[~2020-02-18] MED LIST changes: +ASPI-161 PO; +CINA30TA5 PO; +MIRA3350 PO; +SILV50CR TOP
[2020-02-18 13:58] LABS: BASO # 0.1 10^3/uL (0.0-0.2); BASO % 0.9 % (0.0-1.0); EOS # 0.2 10^3/uL (0.0-0.5); EOS % 3.2 % (0.0-3.0); HEMATOCRIT 36.9 % (36.0-47.0); HEMOGLOBIN 11.7 g/dl (12.0-15.5); LYMPH # 1.8 10^3/uL (1.5-5.0); LYMPH % 26.7 % (24.0-44.0); MEAN CORPUSCULAR HEMOGLOBIN 32.4 pg (27.0-33.0); MEAN CORPUSCULAR HGB CONC 31.7 g/dl (32.0-36.5); MEAN CORPUSCULAR VOLUME 102.2 fl (80.0-96.0); MONO # 0.6 10^3/uL (0.0-0.8); MONO % 9.7 % (0.0-5.0); NEUTROPHILS # 3.9 10^3/uL (1.5-8.5); NEUTROPHILS % 59.3 % (36.0-66.0); PLATELET COUNT, AUTOMATED 181 10^3/uL (150-450); RED BLOOD COUNT 3.61 10^6/uL (4.00-5.40); WHITE BLOOD COUNT 6.6 10^3/uL (4.0-10.0)
[2020-02-18 14:38] LABS: ALBUMIN 3.7 GM/DL (3.2-5.2); BILIRUBIN,TOTAL 0.5 MG/DL (0.2-1.0); CALCIUM LEVEL 9.7 MG/DL (8.8-10.2); CREATININE FOR GFR 4.64 MG/DL (0.55-1.30); GLOMERULAR FILTRATION RATE 12.4 (>45); MAGNESIUM LEVEL 2.3 MG/DL (1.8-2.4); PHOSPHORUS LEVEL 3.1 MG/DL (2.5-4.9); POTASSIUM SERUM 3.8 MEQ/L (3.5-5.1); TOTAL PROTEIN 7.7 GM/DL (6.4-8.2); TROPONIN I 0.02 NG/ML (< 0.10); URIC ACID 2.3 MG/DL (2.6-6.0)
== END ==
LOC: M LAB 12:20
PROVIDERS: ATTEND Physician Assistant
DX: I15.0 Renovascular hypertension (principal)

== ENCOUNTER 2020-04-30 18:58 | Inpatient (IN) | payer MEDICARE ==
[2020-04-30] VITALS (29 sets, daily range): BP systolic 137–208; BP diastolic 63–92; O2SAT 96
[~2020-04-30] VITALS: Ht 167.6 cm; Wt 81.4 kg
[2020-04-30] MEDS ORDERED: EPINEPHrine 1MG/10ML SYRINGE 1.5IN IV STA ×3 (19:10→20:45)
[2020-04-30] MEDS ORDERED: LIDOCAINE 1% MDV 20ML VIAL SC ONE (19:15)
[2020-04-30] MEDS ORDERED: GLUCAGON INJ 1MG VIAL IV STA (19:21)
[2020-04-30] MEDS ORDERED: DOPamine HCL 400 MG in IV 1 EA IV SCH (19:30)
[2020-04-30] MEDS ORDERED: SODIUM BICARBONATE 8.4% INJ 50 ML SYRINGE IV STA ×2 (19:43→20:49)
[2020-04-30] MEDS ORDERED: ONDANSETRON 4MG/2ML VIAL IV ONE (20:00)
[2020-04-30] MEDS ORDERED: CALCIUM CHLORIDE 10% 1 GM in D5W 100 ML IV ONE (20:15)
[2020-04-30 20:31] LABS: ALBUMIN 3.1 GM/DL (3.2-5.2); BILIRUBIN,DIRECT 0.2 MG/DL (0.0-0.2); BILIRUBIN,TOTAL 0.5 MG/DL (0.2-1.0); CALCIUM LEVEL 8.7 MG/DL (8.8-10.2); CK-MB VALUE MASS 1.6 NG/ML (<3.6); CREATININE FOR GFR 15.8 MG/DL (0.55-1.30); MAGNESIUM LEVEL 4.5 MG/DL (1.8-2.4); MB/CK RELATIVE INDEX 1.54 (< OR =4); POTASSIUM SERUM 7.1 MEQ/L (3.5-5.1); THYROID STIMULATING HORMONE 0.767 uIU/ML (0.358-3.740); TOTAL PROTEIN 6.6 GM/DL (6.4-8.2); TROPONIN I 0.03 NG/ML (< 0.10)
[2020-04-30 20:38] LABS: RSV AMPLIFICATION NEGATIVE (NEGATIVE)
[2020-04-30 20:45] LABS: BASO # 0.1 10^3/uL (0.0-0.2); BASO % 0.3 % (0.0-1.0); EOS # 0.1 10^3/uL (0.0-0.5); EOS % 0.6 % (0.0-3.0); HEMATOCRIT 32.8 % (36.0-47.0); LYMPH # 0.8 10^3/uL (1.5-5.0); LYMPH % 4.9 % (24.0-44.0); MEAN CORPUSCULAR HEMOGLOBIN 33.2 pg (27.0-33.0); MEAN CORPUSCULAR HGB CONC 30.5 g/dl (32.0-36.5); MONO # 0.9 10^3/uL (0.0-0.8); MONO % 5.3 % (0.0-5.0); NEUTROPHILS % 88.1 % (36.0-66.0); PLATELET COUNT, AUTOMATED 170 10^3/uL (150-450); RED BLOOD COUNT 3.01 10^6/uL (4.00-5.40); WHITE BLOOD COUNT 15.9 10^3/uL (4.0-10.0)
[2020-04-30] MEDS ORDERED: CALCIUM CHLORIDE 10% 1 GM/10 ML SYR IV STA (20:46)
[2020-04-30 20:47] LABS: ACETONE/KETONE 4.92 MG/DL (<2.81)
[2020-04-30 20:48] LABS: VENOUS BASE EXCESS -11.2 (-2.0-2.0); VENOUS O2 SATURATION 94.2 % (60.0-80.0); VENOUS PARTIAL PRESSURE CO2 48.2 mmHg (38.0-50.0); VENOUS PARTIAL PRESSURE O2 100.5 mmHg (30.0-50.0); VENOUS PH 7.165 UNITS (7.330-7.430); VENOUS STANDARD HCO3 15.5 MEQ/L; VENOUS TOTAL CO2 18.5 MEQ/L (24.0-28.0)
[2020-04-30] MEDS ORDERED: AMLO1TAB24 PO (20:50)
[2020-04-30] MEDS ORDERED: MAGNESIUM SULFATE 1GM/100ML D5W BAG (10MG/ML) As Ordered ONE (20:53)
[2020-04-30 20:57] LABS: INR 1.25
[2020-04-30] MEDS ORDERED: MED REC COMMENT (20:59)
[2020-04-30] MEDS ORDERED: ALBUTEROL SULFATE 2.5 MG/0.5 ML INH NEB SOLN NEB ONE (21:00)
[2020-04-30] MEDS ORDERED: HumuLIN R (REGULAR) INSULIN (NovoLIN R) **100U/ML** PER UNIT IV ONE (21:00)
--- NOTE | 2020-04-30 21:08 | REPVR ---
PROCEDURE INFORMATION: Exam: XR Chest, 1 View Exam date and time: 04/30/2020 8:24 PM Age: 59 years old Clinical indication: Cough and dyspnea; Additional info: Dyspnea/cough TECHNIQUE: Imaging protocol: XR of the chest Views: 1 view. COMPARISON: CR Chest, 1 view 02/12/2020 5:17 PM FINDINGS: Lungs: There is marked prominence of the vascular markings consistent with moderate congestive failure and pulmonary edema. Underlying streaky infiltrate could also be present especially at the right lung base. Pleural space: There is no evidence of pneumothorax. Heart/Mediastinum: There is mild cardiomegaly. Bones/joints: There is a moderate amount of scoliosis of the thoracic spine convexity to the right with some osteophyte formation. IMPRESSION: 1. Moderate congestive failure and pulmonary edema. 2. Possible mild streaky infiltrate at the right lung base. Electronically signed by: Umair Drew On 04/30/2020 21:08:49 PM
[2020-04-30 21:20] LABS: D-DIMER QUANT > 4000 ng/ml (<500)
[2020-04-30] MEDS ORDERED: SODIUM CHLORIDE 0.9% 1000ML IV PRN (21:30)
[2020-04-30] MEDS ORDERED: LIDOCAINE 1% SDV 5ML VIAL SC PRN (21:30)
[2020-04-30] MEDS ORDERED: VANCOMYCIN HCL 1,000 MG, VIAL MATE ADAPTER 1 EACH in D5W 250 ML IV SCH (22:00)
[2020-04-30] MEDS ORDERED: GLUCOSE 4GM CHEW TABLET PO PRN (22:15)
[2020-04-30] MEDS ORDERED: DEXTROSE 50% 50 ML SYRINGE IV PRN (22:15)
[2020-04-30] MEDS ORDERED: GLUCAGON INJ 1MG VIAL SC PRN (22:15)
[2020-04-30] MEDS: PIPERACILLIN/TAZOBACTAM SOD 2.25 GM in D5W MINI-BAG PLUS 50 ML IV SCH (22:41)
[2020-04-30] MEDS: HumaLOG INSULIN (NovoLOG) PER UNIT SC SCH (22:41)
--- NOTE | 2020-04-30 22:52 | CR ---
NEPHROLOGY CONSULTATION DATE: 04/30/2020 REQUESTING PHYSICIAN: Dr. Ten Patterson CONSULTING PHYSICIAN: Dr. Luong REASON FOR CONSULTATION: Fluid overload, hyperkalemia, metabolic acidosis, cardiac arrhythmia in this patient with end-stage renal disease. HISTORY OF PRESENT ILLNESS: Miss Zuñiga is well known to me. She is a 59-year-old female with a past medical history of longstanding insulin dependent diabetes mellitus, hypertension, end-stage renal disease, diastolic congestive heart failure and other associated comorbid conditions listed below. The patient states her last outpatient hemodialysis was on April 27. She was in her usual state of health, she states, until this morning when she felt generally weak, nauseous, had two bouts of vomiting and felt very short of breath. The patient also reported chills and rigors but denied fevers. She came to the Emergency Room and was found to have junctional escape rhythm with a heart rate down into the 20's and she was immediately started on a Dopamine infusion. Laboratory studies subsequently revealed a potassium of 7.1, blood urea nitrogen of 99, lactic acid of 8.9 and a glucose of 555. Chest x-ray revealed pulmonary edema and congestive heart failure and a streaky infiltrate in the right lung base. Nephrology consultation was requested for urgent hemodialysis and the patient required my immediate attention and was seen at the bedside in the Intensive Care Unit, and the on-call hemodialysis nurse was called for urgent dialysis at the bedside in the Intensive Care Unit. PAST MEDICAL HISTORY: The patient's past surgical history is significant for: 1. End-stage renal disease on hemodialysis with a history of recurrent hyperkalemia. 2. Secondary hyperparathyroidism of renal origin. 3. Hypertension. 4. Insulin dependent diabetes mellitus. 5. Anemia of chronic renal failure. 6. Dyslipidemia. 7. Diastolic congestive heart failure. 8. Shingles. SURGICAL HISTORY: The patient's past surgical history is significant for: 1. History of peritoneal dialysis catheter placement and removal. 2. Right wrist AV fistula and right forearm AV fistula. FAMILY HISTORY: The patient's family history is negative for diabetes and hypertension. Her sister also had end-stage renal disease and is . PERSONAL AND SOCIAL HISTORY: She denies any alcohol, tobacco or drug use. 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 She lives by herself. ALLERGIES: 1. Labetalol. 2. Nifedipine. 3. Morphine. HOME MEDICATIONS: 1. Amlodipine 5 mg daily. 2. Aspirin 81 mg daily. 3. Coreg 25 mg twice daily. 4. Sensipar 90 mg daily. 5. Clonidine 0.1 mg twice daily. 6. Colace 200 mg daily. 7. Multivitamin one tab daily. 8. Toujeo Insulin 30 units at bedtime. 9. Humalog insulin per sliding scale. 10. Fosrenol 1,000 mg with meals. 11. Pravastatin 80 mg daily. 12. Valsartan 80 mg daily. 13. Zofran p.r.n. 14. She was also started on Veltassa 8.4 gram packet p.o. on non dialysis days but has been noncompliant with the same. REVIEW OF SYSTEMS: Constitutional: The patient complains of generalized weakness and chills. ENT: She denies rhinorrhea or sore throat. Cardiac: She reports dyspnea with exertion, shortness of breath and a history of congestive heart failure. Presently with notable bradycardia. Respiratory: Positive for shortness of breath and negative for hemoptysis. GI: Positive for nausea and vomiting and constipation. Denies diarrhea. Genitourinary: Negative for dysuria or hematuria. Endocrine: Significant for secondary hyperparathyroidism in addition to insulin dependent diabetes. Psychosocial: Negative for depression or anxiety. Neurologic: Negative for seizures or stroke. Hematologic: Significant for anemia and has required transfusions in the past. Denies anticoagulant use. Skin: History of shingles. Denies ulcers or rashes. Musculoskeletal: Denies acute myalgias or arthralgias. PHYSICAL EXAMINATION: VITAL SIGNS: Temperature 98.1, pulse 45 to 68, respiratory rate 28, blood pressure 192/79, saturating 100% on 40% FiO2 on BIPAP. GENERAL APPEARANCE: The patient is seen lying on the stretcher in the Emergency Room. She appears to be in moderate distress. HEENT: The extraocular muscles are intact. She makes eye contact. There is a BIPAP mask present and she attempts to speak through the mask. HEART: Bradycardic, S1, S2. There is trace leg edema. Peripheral pulses are palpable. LUNGS: Symmetric air entry, diminished at the bases with crackles. ABDOMEN: Soft and nontender. There are bowel sounds. EXTREMITIES: Intraosseous line on the right tibia. There is a patent fistula in the right arm with thrill and bruit. There is no clubbing or cyanosis. SKIN: Warm and dry, normal temperature. NEUROLOGICAL: She is oriented x3 and at baseline mentation, cooperative with physical exam. MUSCULOSKELETAL: She moves all four extremities on command and she is noted to be having chills and rigors. LABORATORY DATA: Sodium is 130, glucose is 555. Corrected sodium is hence 139. Potassium is 7.1, bicarbonate is 19. Anion gap when the corrected sodium is taken into account is greater than 25. Blood urea nitrogen 99. Lactic acid is 8.9. Magnesium is 4.5. AST 387, ALT 504, BNP 9,800. White count 15.9, hemoglobin 10.0, platelet count 170, INR 1.2. COVID-19 test is negative. IMAGING DATA: Chest x-ray shows pulmonary edema and streaky infiltrate right lung base. INPATIENT MEDICATIONS: She received calcium gluconate one gram IV times one. She is on a Dopamine infusion running at 15 mcg. She received Albuterol nebulizer times one, Glucagon one mg IV times one, insulin 10 units IV times one, Lidocaine 20 mL subcutaneously times one, Zofran 4 mg IV times one. ASSESSMENT: This is a 59-year-old female with end-stage renal disease, on hemodialysis, who has a history of recurrent hyperkalemia whose last hemodialysis treatment was on April 27, and who comes in with a one-day history of nausea, vomiting, shortness of breath even at rest and chills and generalized malaise and is found to have junctional escape rhythm, severe bradycardia, hyperkalemia, high anion gap metabolic acidosis, lactic acidosis, fluid overload and probable right lung pneumonia. The patient required Dopamine infusion for maintenance of heart rate and is being admitted to the ICU and requires urgent hemodialysis. 1. End-stage renal disease, on hemodialysis in this patient with severe hyperkalemia - The patient has a history of recurrent hyperkalemia, was prescribed Veltassa as an outpatient, but has not been compliant with the same, and has dietary indiscretion. Her potassium level is 7.1 secondary to end-stage renal disease and also high anion gap metabolic acidosis and also severe hyperglycemia. She is being arranged for urgent hemodialysis with a 1.0 mEq potassium bath for two and a half hours this evening, and I expect that her potassium level will improve with dialysis and correction of her acidosis. She will be reevaluated again tomorrow morning for a second treatment if it is necessary for back to back hemodialysis. 2. Cardiac arrhythmia - The patient had a pulse of 23 on arrival to the Emergency Room, junctional escape rhythm associated with severe hyperkalemia and high anion gap metabolic acidosis. She does take both a beta leti and Clonidine at home and both are discontinued, and she was given Glucagon in the Emergency Room and is presently on a Dopamine infusion. I am hopeful that her arrhythmia will improve with correction of the hyperkalemia. Cardiology is also following. We will avoid use of negative chronotropic agents at this time. 3. High anion gap metabolic acidosis. Her anion gap when the corrected sodium is taken into account is greater than 25. She has a severe lactic acidosis as well, and her beta hydroxybutyrate is also elevated with a blood sugar of 555, suggestive of a DKA component also. Insulin management will be as Primary Service. Her acidosis should improve with the hemodialysis treatments. 4. Decompensated diastolic congestive heart failure - The patient is in moderate fluid overload. Her BNP is almost 10,000. Her chest x-ray shows pulmonary edema. She is presently on BIPAP at 40% FiO2. She is being urgently dialyzed this evening with goal fluid removal of 2 kg with tonight's treatment, and she will be reevaluated for another dialysis treatment tomorrow morning. 5. Healthcare associated pneumonia streaky infiltrated noted on chest x-ray. The patient is having chills and rigors, and she has leukocytosis, white count of 15,000 and there is also considerable lactic acidosis. Blood cultures have been sent and pending, and she should be started on broad spectrum antibiotics as well for a presumed pneumonia. 6. Hypermagnesemia - magnesium level of 4.5. It should improve with dialysis. She is not known to take magnesium containing medications at home. 7. Hypertension - The patient's blood pressures are significantly elevated at the time of my visit, systolic in the 180's. She is on a Dopamine drip for maintenance of heart rate. She is also on moderate fluid overload. We are going to remove 2 liters with today's treatment. Hopefully her Dopamine infusion can be weaned down as her potassium level is corrected and her blood pressure should also improve with fluid removal. Critical care time spent in the management of this patient at the bedside today and in the Emergency Room and later in the ICU was 45 minutes. The plan was discussed with the Radha. physician, ICU nurse and dialysis nurse.
[2020-04-30] MEDS ORDERED: VANCOMYCIN HCL 1,000 MG, VIAL MATE ADAPTER 1 EACH in D5W 250 ML IV ONE (23:00)
[2020-05-01] VITALS (75 sets, daily range): BP systolic 122–213; BP diastolic 52–105; O2SAT 100
[2020-05-01] MEDS ORDERED: VANCOMYCIN HCL 1,000 MG, VIAL MATE ADAPTER 1 EACH in D5W 250 ML IV ONE (01:00)
[2020-05-01] MEDS ORDERED: hydrALAZINE 20MG/ML 1ML VIAL (J0360 PER 20MG) IV ONE (01:30)
[2020-05-01 03:10] LABS: CALCIUM LEVEL 9.3 MG/DL (8.8-10.2); CREATININE FOR GFR 12.6 MG/DL (0.55-1.30); GLOMERULAR FILTRATION RATE 3.9 (>45); POTASSIUM SERUM 6.8 MEQ/L (3.5-5.1)
[2020-05-01] MEDS ORDERED: SOD POLYSTYRENE SULFONATE SUSP 15 GM/60 ML UD PO ONE (03:45)
[2020-05-01 04:15] LABS: BASO % 0.1 % (0.0-1.0); HEMATOCRIT 30.9 % (36.0-47.0); HEMOGLOBIN 9.8 g/dl (12.0-15.5); LYMPH # 0.8 10^3/uL (1.5-5.0); LYMPH % 5.2 % (24.0-44.0); MEAN CORPUSCULAR HEMOGLOBIN 32.7 pg (27.0-33.0); MEAN CORPUSCULAR HGB CONC 31.7 g/dl (32.0-36.5); MONO # 0.7 10^3/uL (0.0-0.8); MONO % 4.9 % (0.0-5.0); NEUTROPHILS # 13.1 10^3/uL (1.5-8.5); NEUTROPHILS % 89.3 % (36.0-66.0); PLATELET COUNT, AUTOMATED 159 10^3/uL (150-450); VENOUS BASE EXCESS -1.1 (-2.0-2.0); VENOUS HCO3 24.7 MEQ/L (23.0-27.0); VENOUS O2 SATURATION 93.4 % (60.0-80.0); VENOUS PARTIAL PRESSURE CO2 45.9 mmHg (38.0-50.0); VENOUS PARTIAL PRESSURE O2 80.4 mmHg (30.0-50.0); VENOUS PH 7.348 UNITS (7.330-7.430); VENOUS STANDARD HCO3 23.5 MEQ/L; VENOUS TOTAL CO2 26.1 MEQ/L (24.0-28.0); WHITE BLOOD COUNT 14.7 10^3/uL (4.0-10.0)
[2020-05-01 04:47] LABS: ALBUMIN 3.4 GM/DL (3.2-5.2); BILIRUBIN,TOTAL 0.5 MG/DL (0.2-1.0); CALCIUM LEVEL 9.1 MG/DL (8.8-10.2); CREATININE FOR GFR 13.2 MG/DL (0.55-1.30); GLOMERULAR FILTRATION RATE 3.7 (>45); MAGNESIUM LEVEL 3.7 MG/DL (1.8-2.4); POTASSIUM SERUM 7.2 MEQ/L (3.5-5.1); TOTAL PROTEIN 6.9 GM/DL (6.4-8.2); VANCOMYCIN RANDOM 20.6 UG/ML
[2020-05-01] MEDS ORDERED: hydrALAZINE 20MG/ML 1ML VIAL (J0360 PER 20MG) IV STA (04:47)
[2020-05-01] MEDS: PIPERACILLIN/TAZOBACTAM SOD 2.25 GM in D5W MINI-BAG PLUS 50 ML IV SCH ×3 (05:03→21:08)
[2020-05-01] MEDS ORDERED: HumuLIN R (REGULAR) INSULIN (NovoLIN R) **100U/ML** PER UNIT IV STA (05:25)
[2020-05-01] MEDS ORDERED: DEXTROSE 50% 50 ML SYRINGE IV STA (05:25)
[2020-05-01] MEDS ORDERED: CALCIUM GLUCONATE 1,000 MG in D5W MINI-BAG PLUS 100 ML IV ONE (05:30)
[2020-05-01] MEDS: HumaLOG INSULIN (NovoLOG) PER UNIT SC SCH ×4 (08:01→21:08)
[2020-05-01] MEDS: LANTHANUM CARBONATE 500 MG CHEW TABLET PO SCH ×4 (08:01→17:45)
[2020-05-01] MEDS: NEPHRO-VIT TAB (NEPHROCAPS) PO SCH (08:02)
[2020-05-01] MEDS: ASPIRIN 81 MG ENTERIC TAB PO SCH (08:02)
[2020-05-01] MEDS: amLODIPine 5 MG TAB PO SCH (08:02)
[2020-05-01] MEDS: GABAPENTIN 100 MG CAP PO SCH ×2 (08:03→21:09)
--- NOTE | 2020-05-01 08:04 | REP ---
INDICATION: pneumonia. COMPARISON: Comparison chest x-ray 30 April 2020. TECHNIQUE: Portable upright AP chest radiograph. FINDINGS: The lungs are well inflated and free of infiltrate. Pleural angles are sharp. Pulmonary vasculature is not increased. Monitoring electrodes are seen. There is a mild dextroconvex curvature in the lower thoracic spine unchanged. Cardiomegaly is observed unchanged. IMPRESSION: Cardiomegaly otherwise no acute disease. Improved aeration.. <Electronically signed by Constantin Morataya > 05/01/20 0800
[2020-05-01] MEDS ORDERED: SODIUM CHLORIDE 0.9% 1000ML IV PRN (10:15)
--- NOTE | 2020-05-01 10:46 | CR ---
CONSULTATION DATE: 05/01/2020 REASON FOR CONSULTATION: Cardiac arrhythmia. HISTORY OF PRESENT ILLNESS: Juany Zuñiga is a 59-year-old female with a past medical history of end-stage renal disease on hemodialysis, hypertension, diabetes mellitus, chronic anemia, and diastolic CHF who presented to the emergency room yesterday after feeling very fatigued and short of breath for one day. She has multiple hospital admissions in the past due to fluid overload and recurrent hyperkalemia. She states this typically causes her to have shortness of breath and that is the reason she usually presents to the ER. However, she notes yesterday was quite different as she was feeling much more weak and fatigued. She states that she was not even able to open the door for the paramedics when she called 911. She states that this had been going on only for one day. She states she has been attending her regular dialysis sessions on Friday, Friday, and Friday. Of note, her dialysis session on Friday was short at only three hours long due to the holiday. She denies any noncompliance with her medications or diet. Currently she denies any chest pain, palpitations, or shortness of breath. She is seen in the intensive care unit receiving bedside hemodialysis. PAST MEDICAL/SURGICAL HISTORY: 1. End-stage renal disease on hemodialysis. 2. Recurrent hyperkalemia. 3. Hypertension. 4. Insulin-dependent diabetes mellitus. 5. Diastolic CHF. 6. Dyslipidemia. 7. Secondary hyperparathyroidism. 8. Anemia of chronic disease. 9. History of placement of peritoneal dialysis catheter and removal. 10. Right wrist AV fistula and right forearm AV fistula. SOCIAL HISTORY: Denies tobacco, alcohol, or illicit drug use. 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 She lives by herself. FAMILY HISTORY: Her sister has and had end-stage renal disease. HOME MEDICATIONS: - amlodipine 5 mg daily - aspirin 81 mg daily - Coreg 25 mg twice a day - Sensipar 90 mg daily - Clonidine 0.1 mg twice a day - Colace 200 mg daily - Toujeo insulin 30 units at bedtime - Humalog insulin per sliding scale with meals - Fosrenol 1000 mg with meals - pravastatin 80 mg daily - valsartan 80 mg daily - Veltassa 8.4 grams daily on nondialysis days ALLERGIES: LABETALOL, NIFEDIPINE, MORPHINE. REVIEW OF SYSTEMS: A 10-point review of systems is negative other than what is described in the HPI. PHYSICAL EXAMINATION: VITAL SIGNS: Heart rate 92, respiratory rate 20, blood pressure 206/97, oxygen saturation 94% on room air. GENERAL: The patient is alert sitting up in bed, in no acute distress. HEENT: Normocephalic, atraumatic. Moist mucous membranes. Sclerae anicteric. LUNGS: Sounds diminished at the bases. Upper lung sounds clear to auscultation bilaterally. HEART: Regular rate with irregular rhythm. No murmurs appreciated. ABDOMEN: Soft, nontender, and nondistended with bowel sounds present. EXTREMITIES: No edema appreciated. Pulses 2+ in the dorsalis pedis arteries and radial arteries bilaterally. NEUROLOGIC: No focal deficits appreciated. LABORATORY DATA: White blood cell count 14.7, hemoglobin 9.8, hematocrit 30.9, platelet count 159,000. Sodium 133, potassium 7.2, chloride 96, bicarb 27, BUN 83, creatinine 13.2, glucose 299. On telemetry monitoring, the patient appears to be in a first-degree AV block currently with some PVCs. ASSESSMENT AND PLAN: Juany Zuñiga is a 63-year-old female with a past medical history of end-stage renal disease, congestive heart failure, insulin-dependent diabetes, and recurrent hyperkalemia who presented with hyperkalemia and acute on chronic renal failure with bradycardia and junctional rhythm. Her heart rate has since improved status post dopamine drip and she appears to have a first-degree atrioventricular (AV) block, which the patient notes is chronic. She continues to be quite hypertensive. Hopefully this will improve with her hemodialysis treatment as she is having 3 liters removed currently. Her home Coreg has been held due to her bradycardia. I would continue to hold that at this point. She remains on the dopamine drip. She may need some additional medication for blood pressure control. She did receive amlodipine 5 mg this morning. We will reconsider her blood pressure control after she completes this round of hemodialysis. We will continue to hold off on using any beta blockers while we monitor her heart rate. Thank you for this consult. We will continue to follow along with the care of this patient. Addendum MD Bry: Agree with the note above. Patients severe bradycardia was a consequence of hyperkalemia. It is likely that with the correction her medications will slowly be reintroduced. The severity of hyperkalemia in a patient on regular dialysis is surprising and I have to suspect that there is some problem with dialysis - ? fistula. JOSED
--- NOTE | 2020-05-01 13:17 | IPNPDOC ---
Date Seen The patient was seen on 05/01/20. Progress Note SUBJECTIVE: Vascular catheter placed in left groin, undergoing HD this AM during exam. BP uncontrolled during HD 201/105, cardiology managing. STAT BMP ordered to f/u after HD. Denies chest pain, shortness of breath, n/v/d, abdominal pain. OBJECTIVE: PHYSICAL EXAMINATION: VS: Please see below CONSTITUTIONAL: No acute distress, resting comfortably, AAO x 3 EYES: PERRLA, EOM intact HENT, MOUTH: Normocephalic, atraumatic, moist mucous membranes NECK: SUPPLE, no JVD, no lymphadenopathy, no carotid bruit CV: tachycardic, Regular rate and rhythm, S1S2 normal, no murmurs/rubs/gallops RESPIRATORY: crackles b/l lung jennings posteriorly, no rales/rhonchi/wheezes GI: Left vascath in place in left groin, BS positive in 4 quadrants, soft, nontender, nondistended, no rebound or guarding, no organomegaly : Deferred MUSCULOSKELETAL: Normal ROM. No cyanosis, clubbing, swelling, joint deformity, +2 lower extremity edema INTEGUMENTARY: dry skin, but Intact, no rashes, no lesions, no erythema NEUROLOGIC: Cranial Nerves II-XII are intact, no focal deficits PSYCHIATRIC: Mood and affect are normal CURRENT MEDICATIONS: Please see below LABORATORY DATA: Please see below MICROBIOLOGY: Bcx x 2 sets Pending IMAGING: CXR 05/01/20: Cardiomegaly otherwise no acute disease. Improved aeration. CXR 04/30/20: 1. Moderate congestive failure and pulmonary edema. 2. Possible mild streaky infiltrate at the right lung base. Last echo 08/2019: EF 70-75% Study is of excellent technical quality. Normal left ventricular (LV) size with moderate left ventricular hypertrophy (LVH) and hyperdynamic LV systolic function. Grade 2 diastolic dysfunction. No significant valvular disease. Likely normal central venous pressure and approximately moderate pulmonary hypertension. ASSESSMENT: 59 year old female with ESRD, DM, HTn called the EMS today for SOB. Patient reported last had HD 2 days ago. EMS found the patient to be in heart block with rate of 26 . They put on pacer pads and started pacing and was brought to the ED. On presentation to ED she had a pulse of 23, BP 98/76 and RR of 60. He was in ventricular escape rhythm. She was listless, but able to answer few questions and extremely short of breath. ABG showed severe metabolic acidosis. She was put on BIPAP, started on dopamine infusion and pacing continued. Labs came back with severe abnormalities as below. She reported that she felt SOB just today and was scheduled for HD Tomorrow. She was hyperkalemic to 7.1 so was given Insulin iv, canlcium gluconate , and albuterol nebs. Her sugar was > 500, Bicarb was 19 adn Agap 18, Her lactate was 8.9, Mag 4.5, Her lefts were elevated with AST of 387 ALT 504, Her ProBNP was 9862. CXR showed pulmonary vascular congestion and possible infiltrates at the right base. She was admitted for Hyperkalemia causing cardiac arrhythmias, HAGMA, severe hyperglycemia, Acute on chronic diastolic CHF, Acute on chronic right heart failure, Acute respiratory failure with hypoxia Congestive hepatopathy, Lactic acidosis, possible pneumonia and possible sepsis. PLAN: Hyperkalemia with ventricular escape rhythm 2/2 to having a 3 day gap due over the holiday weekend and losartan use -Treated medically in ER -Peaked T waves prior to HD -Underwent HD last evening with fistula and again this AM after trialysis catheter placed, f/u STAT BMP -Denies chest pain, currently sinus tachycardia with HR in 90's -BMP PRN and daily Acute resp failure with hypoxia 2/2 to HFpEF with exacerbation -Needed Bipap over evening but now much improved, 99% on RA -Overload to be managed by HD, cardiology to recommend PO regimen -CXR appears improved -Monitor closely HFpEF with exacerbation, EF 70-75% -HF meds being held since admission -Last echo from 08/2019: above -BNP 9800, prior from 12/2019 7000 -CXR repeated, showed improvement of congestions -On RA -C/w fluid management by HD -Cardiology consulted, f/u recommendations Hypertensive urgency -BP 201/105 this AM, not improved with HD -Due to ventricular arrhythmia, hyperkalemia earlier, home medications (clonidine, BB and losartan) were not resumed -Cardiology to suggest treatment -Would recommend Hydralazine IV PRN for systolic >180 mmHg DM type II -BS high on admission; however, dropped as low at 106 during the day -Last BS 12/2019: 7.4 -Will keep only on ISS and can reincorporate home HS insulin at lower dose if needed -FS AC/HS, consistent carb/renal diet RLL healthcare associated pneumonia, sepsis -WBC 14.7, LA now wnl, HR >90, afebrile, BP stable -CXR above -BCx pending -F/u sputum culture -C/w vanco and zosyn Congestive hepatopathy 2/2 to acute on chronic right heart failure. -AST/ALT slightly increased -Monitor daily -C/w fluid volume optimization as mentioned above -Avoid hepatotoxic medications ESRD with chronic anemia and metabolic mineral bone disease. -HD occured initially via right arm AVF but was believed to be malfunctioning -Trialysis catheter placed in left groin today -C/w nephrology recommendations DVT px: Heparin SC Resolved issues: Hypotension due to cardiac arrhythmia Lactic acidosis 2/2 to increased work of breathing. DISPOSITION: Currently admitted to ICU. Nephrology and Cardiology consulted to help manage. Plan is discharge home when medically improved. TOTAL AMOUNT OF TIME SPENT CARING FOR PATIENT IN ICU (nonprocedural): 40 mins VS, I&O, 24H, Fishbone Vital Signs/I&O Vital Signs Date Time Temp Pulse Resp B/P (MAP) Pulse Ox O2 Delivery O2 Flow Rate FiO2 05/01/20 11:15 89 154/68 (96) 99 Room Air 05/01/20 08:30 20 05/01/20 08:00 98.1 05/01/20 05:00 40 I&O- Last 24 Hours up to 6 AM 05/01/20 05:59 Intake Total 835 ml Output Total 0 ml Balance 835 ml Laboratory Data 24H LABS Laboratory Tests 2 04/30/20 19:30: Coronavirus (COVID-19)(PCR) NEGATIVE, Influenza Type A (RT-PCR) NEGATIVE, Influenza Type B (RT-PCR) NEGATIVE, Respiratory Syncytial Virus (PCR) NEGATIVE 04/30/20 19:40: Immature Granulocyte % (Auto) 0.8, Neutrophils (%) (Auto) 88.1H, Lymphocytes (%) (Auto) 4.9L, Monocytes (%) (Auto) 5.3H, Eosinophils (%) (Auto) 0.6, Basophils (%) (Auto) 0.3, Neutrophils # (Auto) 14.0H, Lymphocytes # (Auto) 0.8L, Monocytes # (Auto) 0.9H, Eosinophils # (Auto) 0.1, Basophils # (Auto) 0.1, Nucleated Red Blood Cells % (auto) 0.0, Prothrombin Time 16.0H, Prothromb Time International Ratio 1.25, D-Dimer, Quantitative > 4000H, Blood Gas Puncture Site UNKNOWN, Blood Gas Bicarbonate Standard 15.5, Venous Blood pH 7.165L, Venous Blood Partial Pressure CO2 48.2, Venous Blood Partial Pressure O2 100.5H, Venous Blood Total Carbon Dioxide 18.5L, Venous Blood HCO3 17.0L, Venous Blood Oxygen Saturation 94.2H, Venous Blood Base Excess -11.2L, Anion Gap 18H, Glomerular Filtration Rate 3.0L, Lactic Acid Level 8.9*H, Calcium Level 8.7L, Magnesium Level 4.5H, Total Bilirubin 0.5, Direct Bilirubin 0.2, Aspartate Amino Transf (AST/SGOT) 387H, Alanine Aminotransferase (ALT/SGPT) 504H, Alkaline Phosphatase 163H, Total Creatine Kinase 104, Creatine Kinase MB 1.6, Creatine Kinase MB Relative Index 1.54, Troponin I 0.03, MY-Slg-H-Type Natriuretic Peptide 9862H, T otal Protein 6.6, Albumin 3.1L, Albumin/Globulin Ratio 0.9L, Thyroid Stimulating Hormone (TSH) 0.767, Thyroxine (T4) 6.0, B-Hydroxybutyrate 4.92H 04/30/20 20:25: POC pH (Misc Panel) 7.214*L, POC Base Excess (Misc Panel) -9.0L, POC Saturated Percent O2 (Misc) 99H, POC pO2 (Misc Panel) 170.0H, POC pCO2 (Misc Panel) 46.5H, POC HCO3 (Misc Panel) 18.8L, POC Total CO2 (Misc Panel) 20.0L 04/30/20 20:58: Bedside Glucose (Misc Panel) 546*H 04/30/20 22:25: Bedside Glucose (Misc Panel) 212H 05/01/20 00:24: Lactic Acid Followup at 4 Hours 0.7 05/01/20 01:50: Anion Gap 10, Glomerular Filtration Rate 3.9L, Calcium Level 9.3 05/01/20 04:05: Anion Gap 10, Glomerular Filtration Rate 3.7L, Calcium Level 9.1, Immature Granulocyte % (Auto) 0.5, Neutrophils (%) (Auto) 89.3H, Lymphocytes (%) (Auto) 5.2L, Monocytes (%) (Auto) 4.9, Eosinophils (%) (Auto) 0.0, Basophils (%) (Auto) 0.1, Neutrophils # (Auto) 13.1H, Lymphocytes # (Auto) 0.8L, Monocytes # (Auto) 0.7, Eosinophils # (Auto) 0.0, Basophils # (Auto) 0.0, Nucleated Red Blood Cells % (auto) 0.0, Blood Gas Bicarbonate Standard 23.5, Venous Blood pH 7.348, Venous Blood Partial Pressure CO2 45.9, Venous Blood Partial Pressure O2 80.4H, Venous Blood Total Carbon Dioxide 26.1, Venous Blood HCO3 24.7, Venous Blood Oxygen Saturation 93.4H, Venous Blood Base Excess -1.1, Magnesium Level 3.7H, Total Bilirubin 0.5, Aspartate Amino Transf (AST/SGOT) 568H, Alanine Aminotransferase (ALT/SGPT) 721H, Alkaline Phosphatase 177H, Total Protein 6.9, Albumin 3.4, Albumin/Globulin Ratio 1.0L, Random Vancomycin Level 20.6 05/01/20 07:14: Bedside Glucose (Misc Panel) 211H 05/01/20 10:25: Methicillin-Resist S.aureus DNA PCR NOT DETECTED 05/01/20 11:41: Bedside Glucose (Misc Panel) 106 05/01/20 11:49: Lab Scanned Report Miscellaneous Lab CBC/BMP Laboratory Tests 04/30/20 19:40 05/01/20 01:50 05/01/20 04:05 Microbiology Microbiology 04/30/20 Blood Culture, Received Pending 04/30/20 Blood Culture, Received Pending Current Medications Current Medications Medications (Trade) Dose Ordered Sig/Conrado Route PRN Reason Start Time Stop Time Status Last Admin Dose Admin Amlodipine Besylate (Norvasc) 5 mg DAILY PO 05/01/20 09:00 05/01/20 08:02 Aspirin (Ecotrin) 81 mg DAILY PO 05/01/20 09:00 05/01/20 08:02 Calcium Chloride (Calcium Chloride 10%) 1 gm STAT STAT IV 04/30/20 20:46 04/30/20 21:25 DC 04/30/20 20:46 Dextrose (Dextrose 50%) 25 ml ASDIRECTED PRN IV SEE LABEL COMMENTS 04/30/20 22:15 Dextrose (Dextrose 50%) 50 ml STAT STAT IV 05/01/20 05:25 05/01/20 05:30 DC 05/01/20 05:54 Dopamine HCl 400 mg/IV Miscellaneous Supplies 500 ml @ 3.24 mls/hr Q24H IV 04/30/20 19:30 04/30/20 19:41 Epinephrine HCl (Adrenalin) 1 mg STAT STAT IV 04/30/20 19:10 04/30/20 21:25 DC 04/30/20 19:10 Epinephrine HCl (Adrenalin) 1 mg STAT STAT IV 04/30/20 19:23 04/30/20 21:25 DC 04/30/20 19:23 Epinephrine HCl (Adrenalin) 1 mg STAT STAT IV 04/30/20 20:45 04/30/20 21:25 DC 04/30/20 20:45 Gabapentin (Neurontin) 100 mg BID PO 05/01/20 09:00 05/01/20 08:03 Glucagon (Glucagon) 1 mg ASDIRECTED PRN SC SEE LABEL COMMENTS 04/30/20 22:15 Glucagon (Glucagon) 1 mg STAT STAT IV 04/30/20 19:21 04/30/20 19:22 DC 04/30/20 19:41 Glucose (Glucose) 16 GM ASDIRECTED PRN PO SEE LABEL COMMENTS 04/30/20 22:15 Heparin Sodium (Heparin) Please refer to ... ASDIRECTED XX 04/30/20 21:30 05/01/20 21:29 Heparin Sodium (Heparin) Please refer to ... ASDIRECTED XX 05/01/20 10:15 05/02/20 10:14 Heparin Sodium (Heparin) dose as per volume indica... ASDIRECTED PRN IV SEE LABEL COMMENTS 05/01/20 10:15 05/02/20 10:14 Home Med (Med Rec Complete!) ASDIRECTED XX 04/30/20 21:00 04/30/20 21:02 DC Hydralazine HCl (Apresoline) 10 mg STAT STAT IV 05/01/20 04:47 05/01/20 04:48 DC 05/01/20 04:55 Insulin Human Lispro (HumaLOG INSULIN) See Protocol Table AC SC 05/01/20 07:30 05/01/20 08:01 Insulin Human Lispro (HumaLOG INSULIN) See Protocol Table QHS SC 04/30/20 21:00 Insulin Human Regular (HumuLIN R INSULIN) 10 units STAT STAT IV 05/01/20 05:25 05/01/20 05:30 DC 05/01/20 05:55 Lanthanum Carbonate (Fosrenol) 1,000 mg WM PO 05/01/20 08:00 05/01/20 08:01 Lidocaine HCl (Lidocaine 1% Sdv) 0.5 ml ASDIRECTED PRN SC SEE LABEL COMMENTS 04/30/20 21:30 05/01/20 21:29 Non-Formulary Medication ( See Comment Field Below ) CHECK TO SEE IF THE PATIENT... DAILY@1600 XX 05/01/20 16:00 Piperacillin Sod/ Tazobactam Sod 2.25 gm/Dextrose 50 ml @ 100 mls/hr Q8H IV 04/30/20 22:00 05/01/20 05:03 Sodium Bicarbonate (Sodium Bicarbonate) 50 meq STAT STAT IV 04/30/20 19:43 04/30/20 21:25 DC 04/30/20 19:43 Sodium Bicarbonate (Sodium Bicarbonate) 50 meq STAT STAT IV 04/30/20 20:49 04/30/20 21:25 DC 04/30/20 21:46 Sodium Chloride (Nacl 0.9%) 200 ml ASDIRECTED PRN IV SEE LABEL COMMENTS 04/30/20 21:30 05/01/20 21:29 Sodium Chloride (Nacl 0.9%) 200 ml ASDIRECTED PRN IV SEE LABEL COMMENTS 05/01/20 10:15 05/02/20 10:14 Vancomycin HCl 1000 mg/IV Miscellaneous Supplies 1 each/ Dextrose 270 ml @ 270 mls/hr HD IV 04/30/20 22:00 Vitamin B Complex/ Vit C/Folic Acid (Nephro-Guido Rx) 1 tab DAILY PO 05/01/20 09:00 05/01/20 08:02 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
[2020-05-01] MEDS: **hydrALAZINE** 50 MG TAB PO SCH ×2 (13:38→21:09)
[2020-05-01 14:08] LABS: CALCIUM LEVEL 9.7 MG/DL (8.8-10.2); CREATININE FOR GFR 6.35 MG/DL (0.55-1.30); GLOMERULAR FILTRATION RATE 8.6 (>45); POTASSIUM SERUM 3.2 MEQ/L (3.5-5.1)
[2020-05-01] MEDS: CARVedilol 12.5 MG TAB PO SCH ×2 (15:24→21:09)
--- NOTE | 2020-05-01 15:40 | HPEPDOC ---
General Date of Admission 04/30/20 Date of Service: Apr 30, 2020 Chief Complaint The patient is a 59-year-old female admitted with a reason for visit of Low Heart Rate. History of Present Illness 59 year old female with ESRD, DM, HTn called the EMS today for SOB. Patient reported last had HD 2 days ago. EMS found the pateitn to be in heart block with rate of 26 . They put on pacer pads and started pacing and was brought to the ED. On presentation to ED she had a pulse of 23, BP 98/76 and RR of 60. She was listless, but able to answer few questions and extremely short of breath. ABG showed severe metabolic acidosis. She was put on BIPAP, started on dopamine infusion and pacing continued. Labs came back with severe abnormalities as below. She had a K of 7.1, lactate 8.9, BUN/CT 99/15.4, Agap 18, glucose 555, ast > 300, ALT> 500. Probnp 9872. She was medically treated for hyperkaleia and nephro contacted for urgent HD. Cxr showed pulmonary vascular congestion and possible right lower lobe infiltrates. SHe was admitted for Severe hyperkalemia with cardiac arrhythmia, Acute resp failure with hypoxia, acute on chronic diastolic CHF and acute on chronic right heart failure, Lactic acidosis, severe high anion gap metabolic acidosis, congestive hepatopathy, Pneumonia and possible sepsis. Vital Signs Label Value Date Time Pulse 23 04/30/201906 Respiratory Rate 60 bpm 04/30/201906 Blood Pressure Assessment 98/76 04/30/201906 Item Value Date Time Sodium Level 130 MEQ/L L 04/30/201939 Potassium Level 7.1 MEQ/L *H 04/30/201939 Chloride Level 93 MEQ/L L 04/30/201939 Carbon Dioxide Level 19 MEQ/L L 04/30/201939 Anion Gap 18 MEQ/L H 04/30/201939 Blood Urea Nitrogen 99 MG/DL H 04/30/201939 Creatinine 15.80 MG/DL *H 04/30/201939 Glomerular Filtration Rate 3.0 L 04/30/201939 Fasting Glucose 555 MG/DL *H 04/30/201939 Lactic Acid Level 8.9 MMOL/L *H 04/30/201939 Calcium Level 8.7 MG/DL L 04/30/201939 Magnesium Level 4.5 MG/DL H 04/30/201939 Aspartate Amino Transf (AST/SGOT) 387 U/L H 04/30/201939 Alanine Aminotransferase (ALT/SGPT) 504 U/L H 04/30/201939 Alkaline Phosphatase 163 U/L H 04/30/201939 Total Bilirubin 0.5 MG/DL 04/30/201939 Direct Bilirubin 0.2 MG/DL 04/30/201939 Troponin I 0.03 NG/ML 04/30/201939 DL-Xxb-G-Type Natriuretic Peptide 9862 PG/ML H 04/30/201939 Albumin 3.1 GM/DL L 04/30/201939 White Blood Count 15.9 10^3/uL H 04/30/201939 Hemoglobin 10.0 g/dl L 04/30/201939 Mean Corpuscular Volume 109.0 fl H 04/30/201939 Platelet Count 170 10^3/uL 04/30/201939 Neutrophils (%) (Auto) 88.1 % H 04/30/201939 Venous Blood pH 7.165 UNITS L 04/30/201939 Venous Blood Partial Pressure CO2 48.2 mmHg 04/30/201939 Venous Blood Partial Pressure O2 100.5 mmHg H 04/30/201939 Venous Blood HCO3 17.0 MEQ/L L 04/30/201939 B-Hydroxybutyrate 4.92 MG/DL H 04/30/201939 POC pH (Misc Panel) 7.214 UNITS *L 04/30/202024 POC Base Excess (Misc Panel) -9.0 MMOL/L L 04/30/202024 POC Saturated Percent O2 (Misc) 99 % H 04/30/202024 POC pO2 (Misc Panel) 170.0 MMHG H 04/30/202024 POC pCO2 (Misc Panel) 46.5 MMHG H 04/30/202024 POC HCO3 (Misc Panel) 18.8 MMOL/L L 04/30/202024 Bedside Glucose (Misc Panel) 546 MG/DL *H 04/30/202057 Home Medications Scheduled Amitriptyline HCl (Amitriptyline HCl) 25 Mg Tablet, 25 MG PO QHS, (Reported) Amlodipine Besylate (Norvasc) 5 Mg Tablet, 5 MG PO QHS, (Reported) Amlodipine Besylate (Amlodipine Besylate) 5 Mg Tablet, 5 MG PO DAILY, (Reported) Amoxicillin/Potassium Clav (Augmentin 875-125 Tablet) 1 Each Tablet, 1 TAB PO BID Aspirin (Aspirin EC) 81 Mg Tablet.dr, 81 MG PO DAILY, (Reported) Carvedilol (Carvedilol) 25 Mg Tab, 25 MG PO BID, (Reported) Cinacalcet HCl (Cinacalcet HCl) 30 Mg Tablet, 90 MG PO DAILY, (Reported) Docusate Sodium (Colace) 100 Mg Cap, 200 MG PO DAILY, (Reported) Folic Acid/Vit B Complex and C (Renetta-Guido Tablet) 1 Tab Tab, 1 TAB PO DAILY, (Reported) Gabapentin (Gabapentin) 100 Mg Capsule, 100 MG PO BID, (Reported) Hydralazine HCl (Hydralazine HCl) 50 Mg Tablet, 50 MG PO Q8H Insulin Glargine,Hum.rec.anlog (Toujane Solostar) 300 Unit/1 Ml Insuln.pen, 30 UNIT SC QPM, (Reported) AT DINNER Insulin Lispro (Humalog) 100 Unit/Ml Inj, 1 DOSE SC AC, (Reported) PER SLIDING SCALE Lanthanum Carbonate (Fosrenol) 1,000 Mg Chw, 1,000 MG PO WM, (Reported) Casanova-3/Dha/Epa/Fish Oil (Casanova-3 Fish Oil 1,000 mg Sfgl) 1,000 Mg Capsule, 1,000 MG PO BID, (Reported) Pravastatin Sodium (Pravastatin Sodium) 80 Mg Tablet, 80 MG PO QHS, (Reported) Silver Sulfadiazine (Ssd) 50 Gm Cream..g., 1 DOSE TOP DAILY, (Reported) APPLY TO LESIONS ON CHEST AND BACK Ubidecarenone (Coenzyme Q10) 200 Mg Capsule, 200 MG PO DAILY, (Reported) Scheduled PRN Clonidine Hcl (Clonidine HCl) 0.1 Mg Tablet, 0.1 MG PO BID PRN for SBP, (Reported) FOR SBP >170 Lidocaine (Lidocaine) 5% Adh..patch, 2 PATCH TOP DAILY PRN for PAIN, (Reported) APPLY TO BILATERAL SHOULDERS Ondansetron HCl (Zofran) 4 Mg Tablet, 4 MG PO Q8H PRN for NAUSEA, (Reported) Polyethylene Glycol 3350 (Miralax) 119 Gm Powder, 17 GM PO DAILY PRN for CONSTIPATION, (Reported) Miscellaneous Medications [Med Rec Comment] , (Reported) UNABLE TO SPEAK WITH PATIENT TO VERIFY.USED EXTERNAL AND LAST ADM/DIS FROM 02/14 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 Anemia of chronic disease requiring blood transfusions Secondary hyperparathyroidism HLD. Harry herman breathing and sleep disordered breathing was recommended sleep study Surgical History Status post right upper arm arteriovenous (AV) fistula placement. History of PD catheter placement and removal in the past. History of a failed kidney transplant and explant of tx in 2010. Umbilical Hernia repair surgery thrombectomy and angioplasty of right avf. Family History Significant Family History: Diabetes, Hypertension, Renal disease (Sister ESRD .) A-FIB/CHADSVASC A-FIB History Current/History of A-Fib/PAF?: No Review of Systems Constitutional: Denies: Chills, Fever, Night Sweats Eyes: Denies: Pain, Vision change Skin: Reports: Other (old healed rash on the chest wall) Pulmonary: Reports: Dyspnea, Cough Cardiovascular: Reports: Lt Headedness; Denies: Chest Pain, Palpitations Gastrointestinal: Denies: Nausea, Vomiting, Abdominal Pain, Diarrhea Hematologic: Denies: Bruising, Bleeding Excessively Musculoskeletal: Denies: Neck Pain, Back Pain, Joint Pain, Muscle Pain, Spasms Physical Examination General Exam: Positive: Alert, Cooperative, Moderate Distress Eye Exam: Positive: PERRLA, Conjunctiva & lids normal (swollen), EOMI; Negative: Sclera icteric ENT Exam: Positive: Atraumatic, Pharynx Normal Neck Exam: Positive: Supple, JVD Chest Exam: Positive: Diminished, Other (bilateral crackles. ) Heart Exam: Positive: Bradycardic, Normal S1, Normal S2 Telemetry: Positive: Bradycardia, PVCs Abdomen Exam: Positive: Normal bowel sounds, Soft; Negative: Tenderness, Hepatospenomegaly Extremity Exam: Positive: Edema, Normal pulses (edema. ); Negative: Clubbing, Cyanosis Vital Signs Vital Signs Date Time Temp Pulse Resp B/P (MAP) Pulse Ox O2 Delivery O2 Flow Rate FiO2 04/30/20 21:00 98.1 66 28 100 NIPPV (BIPAP/CPAP) 40 04/30/20 20:58 158/86 (110) Laboratory Data Labs 24H Laboratory Tests 2 04/30/20 19:30: Coronavirus (COVID-19)(PCR) NEGATIVE, Influenza Type A (RT-PCR) NEGATIVE, Influenza Type B (RT-PCR) NEGATIVE, Respiratory Syncytial Virus (PCR) NEGATIVE 04/30/20 19:40: Immature Granulocyte % (Auto) 0.8, Neutrophils (%) (Auto) 88.1H, Lymphocytes (%) (Auto) 4.9L, Monocytes (%) (Auto) 5.3H, Eosinophils (%) (Auto) 0.6, Basophils (%) (Auto) 0.3, Neutrophils # (Auto) 14.0H, Lymphocytes # (Auto) 0.8L, Monocytes # (Auto) 0.9H, Eosinophils # (Auto) 0.1, Basophils # (Auto) 0.1, Nucleated Red Blood Cells % (auto) 0.0, Prothrombin Time 16.0H, Prothromb Time International Ratio 1.25, Blood Gas Puncture Site UNKNOWN, Blood Gas Bicarbonate Standard 15.5, Venous Blood pH 7.165L, Venous Blood Partial Pressure CO2 48.2, Venous Blood Partial Pressure O2 100.5H, Venous Blood Total Carbon Dioxide 18.5L, Venous Blood HCO3 17.0L, Venous Blood Oxygen Saturation 94.2H, Venous Blood Base Excess -11.2L, Anion Gap 18H, Glomerular Filtration Rate 3.0L, Lactic Acid Level 8.9*H, Calcium Level 8.7L, Magnesium Level 4.5H, Total Bilirubin 0.5, Direct Bilirubin 0.2, Aspartate Amino Transf (AST/SGOT) 387H, Alanine Aminotransferase (ALT/SGPT) 504H, Alkaline Phosphatase 163H, Total Creatine Kinase 104, Creatine Kinase MB 1.6, Creatine Kinase MB Relative Index 1.54, Troponin I 0.03, OF-Etr-S-Type Natriuretic Peptide 9862H, Total Protein 6.6, Albumin 3.1L, Albumin/Globulin Ratio 0.9L, Thyroid Stimulating Hormone (TSH) 0.767, Thyroxine (T4) 6.0, B-Hydroxybutyrate 4.92H 04/30/20 20:25: POC pH (Misc Panel) 7.214*L, POC Base Excess (Misc Panel) -9.0L, POC Saturated Percent O2 (Misc) 99H, POC pO2 (Misc Panel) 170.0H, POC pCO2 (Misc Panel) 46.5H, POC HCO3 (Misc Panel) 18.8L, POC Total CO2 (Misc Panel) 20.0L 04/30/20 20:58: Bedside Glucose (Misc Panel) 546*H CBC/BMP Laboratory Tests 04/30/20 19:40 Microbiology Microbiology 04/30/20 Blood Culture, Received Pending 04/30/20 Blood Culture, Received Pending Assessment/Plan 59 year old female with ESRD, DM, HTn called the EMS today for SOB. Patient reported last had HD 2 days ago. EMS found the patient to be in heart block with rate of 26 . They put on pacer pads and started pacing and was brought to the ED. On presentation to ED she had a pulse of 23, BP 98/76 and RR of 60. He was in ventricular escape rhythm. She was listless, but able to answer few questions and extremely short of breath. ABG showed severe metabolic acidosis. She was put on BIPAP, started on dopamine infusion and pacing continued. Labs came back with severe abnormalities as below. She reported that she felt SOB just today and was scheduled for HD Tomorrow. She was hyperkalemic to 7.1 so was given Insulin iv, canlcium gluconate , and albuterol nebs. Her sugar was > 500, Bicarb was 19 adn Agap 18, Her lactate was 8.9, Mag 4.5, Her lefts were elevated with AST of 387 ALT 504, Her ProBNP was 9862. CXR showed pulmonary vascular congestion and pos sible infiltrates at the right base. She was admitted for Hyperkalemia causing cardiac arrhythmias, HAGMA, severe hyperglycemia, Acute on chronic diastolic CHF, Acute on chronic right heart failure, Acute respiratory failure with hypoxia Congestive hepatopathy, Lactic acidosis, possible pneumonia and possible sepsis. Hyperkalemia with ventricular escape rhythm due to having a 3 day gap due to the holiday weekend on the back ground of losartan. Will have to evaluate if AVF working properly or not. first treated medically in the ED then started on urgent HD Acute resp failure with hypoxia Due to Diastolic CHF exacerbation with fluid overload. Fluid balance to be managed by HD. continue BIPAP support. Diastolic CHF exacerbation fluid management by HD Hypotension due to cardiac arrhythmia and severe acidosis. now resolved. Lactic acidosis due to increased work of breathing. Severe hyperglycemia levemir and lispro FS AC and HS Hypertension will continue only amlodipine with hold parameters as was very hypotensive and bradycardic on arrival and was also hyperkalemic will hold clonidine and Betablocker and losartan. Pneumonia/ Sepsis elevated wbc> 15K, elevated lactate possible in right lower lobe infiltrate will start on vanco and zosyn blood cultures ordered. Congestive hepatopathy due to acute on chronic right heart failure and hypotension causing ? shock live r. fluid volume optimization. Follow up LFTs ESRD with chronic anemia and bone mineral disease. HD via right arm AVF. nephrovite Plan / VTE VTE Prophylaxis Ordered?: Yes ROOSEVELT WHITING MD Apr 30, 2020 21:11
[2020-05-01] MEDS ORDERED: **VANCO AFTER HD** MISC XX SCH (16:00)
--- NOTE | 2020-05-01 17:18 | CR ---
CONSULTATION DATE: 05/01/2020 HISTORY OF PRESENT ILLNESS: The patient is 59-year-old female with a past medical history of end-stage renal disease, on hemodialysis Friday, Friday, Friday, hypertension, insulin dependent diabetes, anemia, diastolic congestive heart failure, hyperlipidemia, who presented with complaints of shortness of breath and weakness. The patient states she had been in her usual state of health until the day of her presentation where she started noticing worsening shortness of breath as well as fatigue and some nausea. The patient did have two episodes of vomiting but denied any significant abdominal pain. She did not have any fevers but did have chills. The patient had been compliant with her medications as well as her hemodialysis sessions which she gets Friday, Friday and Friday. She was due for a Friday session, however that Friday evening was feeling so weak and short of breath that she called EMS. In the E.D. the patient was noted to be bradycardic with what appeared to be a junctional escape rhythm with a heart rate in the 20's. She was also hypotensive. She was given Epinephrine as well as started on Dopamine infusion, and she did have improvement in her heart rate as well as her blood pressure. The patient was also noted to be severely hyperkalemic in the E.D. and she was given sodium bicarbonate, calcium gluconate as well as insulin, given her hyperglycemia also. The patient was also given a dose of Glucagon as she is on beta blockers for a home medication. The patient was also given broad spectrum antibiotics as well as placed on BIPAP. The patient also had an emergent session of hemodialysis performed yesterday via her fistula. The patient post dialysis however, continued to be significantly hyperkalemic. She was able to be weaned off of the Dopamine, however as her bradycardia resolved, but she was noted to have persistent bigeminy and a first degree AV block. The patient was also noted to be hypertensive as well this morning and the decision was made for another session of hemodialysis using a hemodialysis catheter as there was concern of fistula recirculation during her dialysis. This morning the patient states she does feel improved compared to when she first presented. Her breathing has improved and she was able to be weaned off of the BIPAP onto room air and was oxygenating well. Her shortness of breath has been significantly improved as well as her generalized weakness. She denies any chest pain currently. No abdominal pain, no nausea or vomiting. She has not noticed any significant lower extremity edema. PAST MEDICAL HISTORY: The patient's past medical history is significant for: 1. End-stage renal disease on hemodialysis with a history of hyperkalemia. 2. Secondary hyperparathyroidism. 3. Hypertension. 4. Insulin dependent diabetes with neuropathy. 5. Anemia of chronic renal disease. 6. Hyperlipidemia. 7. Diastolic congestive heart failure. 8. Shingles. PAST SURGICAL HISTORY: The patient's past surgical history is significant for: 1. Peritoneal dialysis catheter placement and removal with AV fistula. 2. Right forearm AV fistula. FAMILY HISTORY: Sister has history of end-stage renal disease. There is no family history of diabetes or hypertension. 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 She lives by herself. No alcohol tobacco or other drug use. HOME MEDICATIONS: 1. Amlodipine. 2. Aspirin. 3. Coreg. 4. Sensipar. 5. Clonidine. 6. Colace. 7. Multivitamin. 8. Toujeo. 9. Humalog. 10. Fosrenol. 11. Pravastatin. 12. Valsartan. 13. Zofran. 14. Veltassa. ALLERGIES: 1. Labetalol. 2. Nifedipine. 3. Morphine. PHYSICAL EXAMINATION: VITAL SIGNS: Temperature 98.3, pulse 94, respirations 18, blood pressure 195/86, O2 sat 97% on room air. INTAKE AND OUTPUT: In is 455, out is 2 liters. GENERAL APPEARANCE: The patient is lying in the bed, appears awake and alert and comfortable. She is not using any accessory muscles for respirations. HEENT: Normocephalic and atraumatic. Pupils are reactive to light bilaterally. Moist mucous membranes noted. NECK: Supple. Trachea is midline. No cervical adenopathy. CARDIAC: Regular rate and rhythm with bigeminy. There is a possible faint systolic murmur auscultated. LUNGS: Improved breath sounds with crackles bilaterally at the bases. ABDOMEN: Soft, nontender, nondistended. There are bowel sounds present. EXTREMITIES: The patient has improvement with no significant lower extremity edema bilaterally. She has a right arm fistula with a bruit and thrill. The patient has a right femoral triple lumen in place which appears clean, dry and intact. LABORATORY DATA: WBC 14.7, hemoglobin 9.8, platelets are 159. Chemistry is 133, potassium 7.2, chloride is 96, bicarbonate is 27, BUN 83, creatinine is 13.2, glucose is 299, magnesium is 3.7, lactic acid was 8.9, repeat 0.7, calcium is 9.1, AST 553, ALT 721, alkaline phosphatase 177, albumin 3.4. Arterial blood gases: PH of 7.34, pco2 of 45.9, pO2 of 80.4. IMAGING DATA: Chest x-ray on admission showed evidence of cardiomegaly as well as increased pulmonary vascular congestion with alveolar infiltrates suggestive of pulmonary edema. ASSESSMENT AND PLAN: Ms. Zuñiga is a 59-year-old female with a history of hypertension, diabetes, end- stage renal disease on hemodialysis, diastolic congestive heart failure, who presented with complaints of fatigue and worsening shortness of breath. The patient was found on admission to be bradycardic and hypotensive. She was also noted to be severely hyperkalemic as well as with a metabolic acidosis with inappropriate respiratory acidosis. The patient was given multiple medications for her bradycardia and hyperkalemia in the E.D. as well as being placed on BIPAP. She did have improvement in her bradycardia as well as in her acidosis with dialysis and in her respiratory distress with the BIPAP. She was weaned off of BIPAP today to room air. The patient had a repeat chest x-ray done which did show improvement in the alveolar opacities and pulmonary vascular congestion although there are still some increased vascular markings noted. The patient however is still significantly hyperkalemic after dialysis and suspect there is a component of fistula recirculation contributing. The patient is therefore ordered for another session of hemodialysis today using an indwelling hemodialysis catheter which I placed. 2. The patient's bradycardia as well as her bigeminy is likely in the setting of her severe electrolyte derangements as well as her acidosis. Cardiology was consulted and they have been following and appreciate their recommendations. Her beta leti is still on hold, and she did receive Glucagon earlier. Her hypertension is likely in the setting of fluid overload although she did have some fluid removed with dialysis in the evening. She will be having additional fluid removal today. 3. Appreciate renal consult and recommendations. She likely will have improvement in her hyperkalemia post dialysis, and her acidosis has already improved after the first session of hemodialysis. 4. We will discontinue BIPAP and continue to monitor the patient on room air, as her hypoxia and chest x-ray improved, as well as with the improvement in her metabolic acidosis. Her respiratory acidosis has also improved. 5. The patient is on broad spectrum antibiotics for possible pneumonia. With the improvement in imaging, suspect most of it was related to fluid overload and with her hypertension. 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 She does have leukocytosis, and she is at risk for healthcare associated pneumonia. DVT PROPHYLAXIS Heparin. CODE STATUS Full code. Please do not hesitate to call if any further questions or concerns. MTDD
--- NOTE | 2020-05-01 19:24 | ECGEPIP ---
[facility] - ED Test Date: 2020-04-30 Pat Name: GATITO MILLER Department: Room: [place] [address] Gender: Female Bone Density Technician: TS : 1960 Requested By: MARY Delgadillo Order Number: [id number] Reading MD: Jackie Snow Measurements Intervals [place] Rate: 72 P: CT: 0 QRS: -59 QRSD: 178 T: 94 QT: 431 QTc: 472 Interpretive Statements UNCERTAIN REGULAR RHYTHM MARKED LEFT AXIS DEVIATION INTRAVENTRICULAR CONDUCTION DELAY INTERPRETATION BASED ON A DEFAULT AGE OF 40 YEARS ECG UNREADABLE MUST REDO Electronically Signed on 05-01-2020 19:24:26 EST by Jackie Snow
[2020-05-01] MEDS: HEPARIN SOD (PORCINE) 5000UNITS/ML 1ML VIAL/SYRINGE SQ SCH (21:10)
--- NOTE | 2020-05-01 23:31 | ECGEPIP ---
[facility] Test Date: 2020-04-30 Pat Name: GATITO MILLER Department: Room: [place] [address] Gender: Female Maintainer Central Office: WAYNE : 1960 Requested By: ROOSEVELT WHITING Order Number: [id number] Reading MD: Edgard Calvert Measurements Intervals [place] Rate: 22 P: [place]: 0 QRS: -78 QRSD: 185 T: 63 QT: 636 QTc: 388 Interpretive Statements POSSIBLE ATRIAL FIBRILLATION WITH SLOW VENTRICULAR RESPONSE/COMPLETE HEART BLOCK MARKED LEFT AXIS DEVIATION LEFT BUNDLE BRANCH BLOCK INTERPRETATION BASED ON A DEFAULT AGE OF 40 YEARS Compared to prior tracings(2) in the system, above findings of complet heart b block is new Electronically Signed on 05-01-2020 23:31:05 EST by Edgard Calvert
[2020-05-02] VITALS (23 sets, daily range): BP systolic 113–170; BP diastolic 56–82; O2SAT 95–100
[2020-05-02] MEDS: cloNIDine 0.1 MG TAB PO PRN ×2 (02:11→17:23)
[2020-05-02 04:24] LABS: BASO # 0.1 10^3/uL (0.0-0.2); BASO % 0.8 % (0.0-1.0); EOS # 0.5 10^3/uL (0.0-0.5); EOS % 5.2 % (0.0-3.0); HEMATOCRIT 28.8 % (36.0-47.0); HEMOGLOBIN 8.9 g/dl (12.0-15.5); LYMPH # 1.5 10^3/uL (1.5-5.0); LYMPH % 15.8 % (24.0-44.0); MEAN CORPUSCULAR HEMOGLOBIN 32.2 pg (27.0-33.0); MEAN CORPUSCULAR HGB CONC 30.9 g/dl (32.0-36.5); MEAN CORPUSCULAR VOLUME 104.3 fl (80.0-96.0); MONO # 0.5 10^3/uL (0.0-0.8); MONO % 5.1 % (0.0-5.0); NEUTROPHILS # 6.7 10^3/uL (1.5-8.5); NEUTROPHILS % 72.7 % (36.0-66.0); PLATELET COUNT, AUTOMATED 116 10^3/uL (150-450); RED BLOOD COUNT 2.76 10^6/uL (4.00-5.40); WHITE BLOOD COUNT 9.2 10^3/uL (4.0-10.0)
[2020-05-02 04:57] LABS: ALBUMIN 2.9 GM/DL (3.2-5.2); BILIRUBIN,TOTAL 0.6 MG/DL (0.2-1.0); CALCIUM LEVEL 9.7 MG/DL (8.8-10.2); CREATININE FOR GFR 9.2 MG/DL (0.55-1.30); GLOMERULAR FILTRATION RATE 5.6 (>45); MAGNESIUM LEVEL 2.9 MG/DL (1.8-2.4); POTASSIUM SERUM 4.1 MEQ/L (3.5-5.1); TOTAL PROTEIN 6.7 GM/DL (6.4-8.2)
--- NOTE | 2020-05-02 06:01 | ECGEPIP ---
[facility] - ED Test Date: 2020-04-30 Pat Name: GATITO MILLER Department: Room: [place] [address] Gender: Female Composite Bond Technician: REJI : 1960 Requested By: MARY Delgadillo Order Number: [id number] Reading MD: Jackie Snow Measurements Intervals [place] Rate: 88 P: [place]: 0 QRS: -62 QRSD: 191 T: 96 QT: 388 QTc: 472 Interpretive Statements ATRIAL FIBRILLATION MARKED LEFT AXIS DEVIATION LEFT BUNDLE BRANCH BLOCK PEAKED T WAVES CLINICAL CORRELATION ADVISED CW 04/30/20 10:02 INCREASED RATE Electronically Signed on 05-02-2020 6:00:49 EST by Jackie Snow
[2020-05-02] MEDS: **hydrALAZINE** 50 MG TAB PO SCH ×3 (06:28→22:00)
[2020-05-02] MEDS: PIPERACILLIN/TAZOBACTAM SOD 2.25 GM in D5W MINI-BAG PLUS 50 ML IV SCH ×3 (06:29→21:48)
--- NOTE | 2020-05-02 07:14 | RO ---
OPERATIVE NOTE DATE OF OPERATION: 05/01/2020 INDICATIONS: Hemodialysis access. PREPROCEDURE DIAGNOSES: 1. End-stage renal disease (ESRD). 2. Hyperkalemia. PREPROCEDURE DIAGNOSIS: 1. End-stage renal disease (ESRD). 2. Hyperkalemia. ATTENDING PHYSICIAN: Dang Khan MD CONSENT: The procedure was performed emergently and permission was implied because of the emergent nature of the procedure. Patient expressed verbal consent to the procedure. PROCEDURE SUMMARY: A central line insertion practices form was completed by an independent observer. A time-out was performed prior to the procedure. Full sterile technique was maintained throughout the procedure, including surgical cap, mask, protective eyewear, full gown, and sterile gloves. The patient was placed supine. The left femoral region was prepped using chlorhexidine scrub and draped in sterile fashion using a fenestrated drape and a sterile probe cover employed. The left femoral vein was identified using ultrasound. Anesthesia was achieved over the vein using 1% Lidocaine. Using real-time [id number] guidance, the introducer needle was inserted into the femoral vein under direct ultrasound visualization. Venous blood was withdrawn. The syringe was removed and a guidewire was advanced into the introducer needle. The introducer needle was removed over the guidewire. A small incision was made at the skin surface with a scalpel, and a dilator was exchanged over the wire. After appropriate double dilation the dilater was exchanged over the wire by a dual-lumen hemodialysis catheter. The wire was removed and the catheter was sutured in place. A sterile chlorhexidine-impregnated dressing was placed over the catheter at the insertion site. The patient tolerated the procedure without any hemodynamic compromise. At the time of procedure completion, all ports were aspirated and flushed properly. Heparin was then distilled in the ports. Estimated blood loss was less than 3 mL. [facility]
[2020-05-02] MEDS: HumaLOG INSULIN (NovoLOG) PER UNIT SC SCH ×4 (07:30→21:43)
[2020-05-02] MEDS: LANTHANUM CARBONATE 500 MG CHEW TABLET PO SCH ×3 (08:00→17:24)
[2020-05-02] MEDS: HEPARIN SOD (PORCINE) 5000UNITS/ML 1ML VIAL/SYRINGE SQ SCH ×3 (08:23→21:43)
[2020-05-02] MEDS: ASPIRIN 81 MG ENTERIC TAB PO SCH (08:24)
[2020-05-02] MEDS: NEPHRO-VIT TAB (NEPHROCAPS) PO SCH (08:24)
[2020-05-02] MEDS: amLODIPine 5 MG TAB PO SCH (08:25)
[2020-05-02] MEDS: CARVedilol 12.5 MG TAB PO SCH ×2 (08:25→21:44)
[2020-05-02] MEDS: GABAPENTIN 100 MG CAP PO SCH ×2 (08:27→21:44)
--- NOTE | 2020-05-02 09:30 | IPNPDOC ---
Text Note Date of Service The patient was seen on 05/02/20. NOTE SUBJECTIVE: Patient seen and examined at bedside this morning. No acute overnight events reported. Patient notes a very mild cough, nonproductive that worsens when lying down. Otherwise, she has no new medical complaints. OBJECTIVE: VS: Please see below CONSTITUTIONAL: No acute distress, sitting comfortably in chair EYES: PERRLA, EOM intact HENT, MOUTH: Normocephalic, atraumatic, moist mucous membranes NECK: SUPPLE, no JVD, no lymphadenopathy, no carotid bruit CV: tachycardic, Regular rate and rhythm, S1S2 normal, no murmurs/rubs/gallops RESPIRATORY: Clear to auscultation bilaterally GI: Left vascath in place in left groin, BS positive in 4 quadrants, soft, nontender, nondistended, no rebound or guarding, no organomegaly Extremities: Trace edema LABORATORY DATA: Please see below ASSESSMENT: 59 F with ESRD, DM, HTN called EMS for SOB. Patient reported last [facility] HD 2 days ago. EMS found the patient to be in heart block with rate of 26 . They put on pacer pads and started pacing and was brought to the ED. On presentation to ED she had a pulse of 23, BP 98/76 and RR of 60. He was in ventricular escape rhythm. She was listless, but able to answer few questions and extremely short of breath. ABG showed severe metabolic acidosis. She was put on BIPAP, started on dopamine infusion and pacing continued. Labs came back with severe abnormalities as below. She reported that she felt SOB just today and was scheduled for HD Tomorrow. She was hyperkalemic to 7.1 so was given Insulin iv, canlcium gluconate , and albuterol nebs. Her sugar was > 500, Bicarb was 19 adn Agap 18, Her lactate was 8.9, Mag 4.5, Her LFTs were elevated with AST of 387 ALT 504, Her ProBNP was 9862. CXR showed pulmonary vascular congestion and possible infiltrates at the right base. She was admitted for Hyperkalemia causing cardiac arrhythmias, HAGMA, severe hyperglycemia, Acute on chronic diastolic CHF, Acute on chronic right heart failure, Acute respiratory failure with hypoxia Congestive hepatopathy, Lactic acidosis, possible pneumonia and possible sepsis. PLAN: #Cardiac arrhythmia -Hyperkalemia with junctional escape rhythm - pulse 23 on arrival -Treated medically in ER -Peaked T waves prior to HD -Underwent HD - Follow as per nephrology assistance appreciated #Acute hypoxic respiratory failure - 2/2 to decompensated HFpEF -Needed Bipap earlier in admission but now much improved, 99% on RA -Overload to be managed by HD, cardiology recommended PO regimen -CXR appears improved - Follow as per pulmonology assistance appreciated #HFpEF with exacerbation, EF 70-75% -Last echo from 08/2019: above -BNP 9800, prior from 12/2019 7000 -now saturating well on room air -C/w fluid management by HD -Cardiology consulted, f/u recommendations #Hypertensive urgency -Due to ventricular arrhythmia/hyperkalemia, home medications (clonidine, BB and losartan) were not resumed -Follow as per cardiology, assistance appreciated #DM type II -BS high on admission; however, dropped as low at 106 during the day -Last BS 12/2019: 7.4 -Will keep only on ISS and can reincorporate home HS insulin at lower dose if needed -FS AC/HS, consistent carb/renal diet #RLL healthcare associated pneumonia, sepsis -CXR above -BCx pending - sputum culture contaminated - will check procalcitonin - check MRSA screen -C/w vanco and zosyn #Congestive hepatopathy 2/2 to acute on chronic right heart failure. -AST/ALT slightly increased -Monitor daily -C/w fluid volume optimization as mentioned above -Avoid hepatotoxic medications #ESRD with chronic anemia and metabolic mineral bone disease. -HD occured initially via right arm AVF but was believed to be malfunctioning -Trialysis catheter placed in left groin today -C/w nephrology recommendations - fistulogram pending today DVT px: Heparin SC DISPOSITION: Pending clinical improvement VS,Fishbone, I+O VS, Fishbone, I+O Laboratory Tests 05/01/20 13:07 05/02/20 04:14 Vital Signs Date Time Temp Pulse Resp B/P (MAP) Pulse Ox O2 Delivery O2 Flow Rate FiO2 05/02/20 08:25 81 145/67 05/02/20 08:00 97.7 18 95 Nasal Cannula 1.0 05/01/20 05:00 40 I&O- Last 24 Hours up to 6 AM 05/02/20 06:00 Intake Total 670 ml Output Total 3000 ml Balance -2330 ml LALDIN,PRIYA S. MD May 02, 2020 09:30
[2020-05-02] MEDS ORDERED: LIDOCAINE 1% MDV 20ML VIAL As Ordered ONE (12:20)
[2020-05-02] MEDS ORDERED: ISOVUE-300 61% 50ML VIAL As Ordered ONE ×2 (12:21→12:59)
[2020-05-02] MEDS ORDERED: fentaNYL 100 MCG/2 ML INJECTION (J3010) As Ordered ONE (12:23)
[2020-05-02] MEDS ORDERED: MIDAZOLAM INJ 2MG/2ML VIAL (J2250 PER 1MG) As Ordered ONE (12:24)
--- NOTE | 2020-05-02 12:30 | IPN ---
PROGRESS NOTE DATE: 05/02/2020 SUBJECTIVE: The patient was seen and examined at bedside this morning. She states she is feeling much better than when she arrived at the hospital and appears from when she was seen yesterday. She is not sure if her next dialysis session will be today or tomorrow. She denies any shortness of breath. OBJECTIVE: Vital signs: Temperature 97.7 degrees Fahrenheit, heart rate 81, respiratory rate 18, blood pressure 145/67, oxygen saturation 95% on room air. General: The patient appears comfortable sitting up in bed in no acute distress. HEENT: Normocephalic, atraumatic. Sclerae anicteric. Neck: No jugular venous distention (JVD) appreciated. Lungs: Clear to auscultation in the upper lung jennings, but diminished breath sounds at bilateral bases. Heart: Regular rate and rhythm. No murmurs, rubs or gallops appreciated. Abdomen: Soft, nontender, non-distended. Bowel sounds present. Extremities: No lower extremity edema appreciated. Neuro: No focal deficits appreciated. LABORATORY DATA: White blood cell count 9.1, hemoglobin 8.9, hematocrit 28.8, platelet count 116, sodium 132, potassium 4.1, chloride 94, carbon dioxide 32, BUN 43, creatinine 9.2, glucose 168. Telemetry monitoring: The patient continues with first degree AV block, which appears to have improved from yesterday with a shorter ID interval. Rate 70 to 80. Occasional PVCs with some couplets. ASSESSMENT AND PLAN: Juany Zuñiga is a 59-year-old female with a past medical history of end-stage renal disease on hemodialysis Friday, Friday, Friday. Congestive heart failure insulin dependent diabetes and recurrent hyperkalemia presented with hyperkalemia and acute on chronic renal failure with bradycardia. Her heart rate continues to be stable without any episodes of bradycardia overnight. The degree of her AV block has also improved considerably since yesterday. It appears her abnormal cardiac rhythm was metabolic secondary to her hyperkalemia and fluid overload. Her hypertension also improved. She has been restarted on her home Coreg and clonidine. She is also on amlodipine 5mg which the patient states she had not been taking at home. Her hypertension is likely due to fluid overload and she will benefit from continued fluid removal in hemodialysis. The patient also endorses taking valsartan at home, which is on her medication list, but has not been restarted and we will continue to watch her blood pressure and can restart her valsartan if needed. KAYLEEN
--- NOTE | 2020-05-02 12:34 | CR.PDOC ---
General Date of Consultation: May 02, 2020 Consultation REASON FOR CONSULTATION/CHIEF COMPLAINT: Poor function right AV fistula HISTORY OF PRESENT ILLNESS: This very pleasant 59-year-old patient who was admitted with low blood pressure hyperkalemia and EKG changes due to poor flows and inability to successfully dialyze with her right upper extremity AV fistula. I looked at her arm, and it is unclear to me exactly what type of AV fistula th is is, but it appears that she has a mid forearm radiocephalic anastomosis. She has some areas of mild aneurysmal dilation, a good thrill over the fistula, and no obvious pulsatility, but the nurses were having trouble with recirculation during dialysis. A temporary dialysis catheter was placed for this reason. The patient feels that because the needles were too close together, which may be the case, but I told her that we would look with a fistulogram today and see if there is anything we can make better. Additionally, we would ban the fistula on the skin to make it easier for access. She is agreeable to this plan. Risks benefits and alternatives were explained and informed consent was obtained. ALLERGIES: Please see below. HOME MEDICATIONS: Please see below. PAST MEDICAL HISTORY: Hypertension, hypotension, end-stage renal disease on dialysis, diabetes, hyperlipidemia PAST SURGICAL HISTORY: Right upper extremity Mayo fistula creation and revision with a mid forearm radiocephalic AV fistula after Mayo fistula failure. FAMILY HISTORY: Heart disease, diabetes SOCIAL HISTORY: Denies alcohol tobacco or illicit drug use REVIEW OF SYSTEMS: CONSTITUTIONAL: Positive malaise HEENT: No new vision changes CARDIOVASCULAR: Denies chest pain RESPIRATORY: Denies shortness of breath GENITOURINARY: End-stage renal to see MUSCULOSKELETAL: Diabetic neuropathy GASTROINTESTINAL: Denies nausea vomiting diarrhea SKIN: Denies rash NEUROLOGICAL: Denies headaches or seizures PSYCHIATRIC: Denies depression or anxiety ENDOCRINE: Positive diabetes HEMATOLOGIC/LYMPHATIC: Mild anemia ALLERGIC/IMMUNOLOGIC: Denies PHYSICAL EXAMINATION: VITAL SIGNS: Please see below. GENERAL APPEARANCE: Medically stable, no acute distress HEENT: Normocephalic, TMI RESPIRATORY: Clear to auscultation CARDIOVASCULAR: Regular rate and rhythm with occasional ectopic beats ABDOMEN: Soft nontender nondistended EXTREMITIES: Right upper extremity AV fistula has an excellent thrill. It is mildly aneurysmal in the areas of frequent access in the past. There are button holes, but these were not used and there are 2 needle whole bandages between the button holes, fairly close together. There is a good radial pulse and the hand is warm and well-perfused. NEUROLOGICAL: Alert and oriented 3, most all extremities equally PSYCHIATRIC: Pleasant and cooperative LABORATORY DATA: Please see below. ASSESSMENT/PLAN: Very pleasant 5-year-old patient with end-stage renal disease currently dialyzing with a temporary dialysis catheter due to inability successfully dialyze with her right upper extremity AV fistula 1. Right upper extremity fistulogram and potential intervention today We appreciate the opportunity to produce patent care of this patient. Vital Signs/I&O Vital Signs Date Time Temp Pulse Resp B/P (MAP) Pulse Ox O2 Delivery O2 Flow Rate FiO2 05/02/20 10:40 98.6 77 18 100 Nasal Cannula 1 05/02/20 08:25 145/67 05/01/20 05:00 40 I&O- Last 24 Hours up to 6 AM 05/02/20 06:00 Intake Total 670 ml Output Total 3000 ml Balance -2330 ml Laboratory Data Labs 24H Laboratory Tests 2 05/01/20 13:07: Anion Gap 10, Glomerular Filtration Rate 8.6L, Calcium Level 9.7 05/01/20 16:46: Bedside Glucose (Misc Panel) 68L 05/01/20 20:09: Bedside Glucose (Misc Panel) 263H 05/02/20 04:14: Anion Gap 6L, Glomerular Filtration Rate 5.6L, Calcium Level 9.7, Immature Granulocyte % (Auto) 0.4, Neutrophils (%) (Auto) 72.7H, Lymphocytes (%) (Auto) 15.8L, Monocytes (%) (Auto) 5.1H, Eosinophils (%) (Auto) 5.2H, Basophils (%) (Auto) 0.8, Neutrophils # (Auto) 6.7, Lymphocytes # (Auto) 1.5, Monocytes # (Auto) 0.5, Eosinophils # (Auto) 0.5, Basophils # (Auto) 0.1, Nucleated Red Blood Cells % (auto) 0.0, Magnesium Level 2.9H, Total Bilirubin 0.6, Aspartate Amino Transf (AST/SGOT) 123H, Alanine Aminotransferase (ALT/SGPT) 393H, Alkaline Phosphatase 137H, Total Protein 6.7, Albumin 2.9L, Albumin/Globulin Ratio 0.8L 05/02/20 10:12: Procalcitonin 53.92 05/02/20 11:22: Bedside Glucose (Misc Panel) 187H CBC/BMP Laboratory Tests 05/01/20 13:07 05/02/20 04:14 Microbiology Microbiology 05/01/20 Gram Stain - Final, Complete 05/01/20 Sputum Culture - Final, Complete 04/30/20 Blood Culture - Preliminary, Resulted No growth after 24 hours . All specim... 04/30/20 Blood Culture - Preliminary, Resulted No growth after 24 hours . All specim... 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) labetalol (Verified Allergy, Severe, Bronchospasm, 04/12/19) nifedipine (Verified Allergy, Unknown, 04/12/19) morphine (Verified Adverse Reaction, Mild, Vomiting, 12/28/19) Home Medications Scheduled Amitriptyline HCl (Amitriptyline HCl) 25 Mg Tablet, 25 MG PO QHS, (Reported) Amlodipine Besylate (Norvasc) 5 Mg Tablet, 5 MG PO QHS, (Reported) Amlodipine Besylate (Amlodipine Besylate) 5 Mg Tablet, 5 MG PO DAILY, (Reported) Aspirin (Aspirin EC) 81 Mg Tablet.dr, 81 MG PO DAILY, (Reported) Carvedilol (Carvedilol) 25 Mg Tab, 25 MG PO BID, (Reported) Cinacalcet HCl (Cinacalcet HCl) 30 Mg Tablet, 90 MG PO DAILY, (Reported) Docusate Sodium (Colace) 100 Mg Cap, 200 MG PO DAILY, (Reported) Folic Acid/Vit B Complex and C (Renetta-Guido Tablet) 1 Tab Tab, 1 TAB PO DAILY, (Reported) Gabapentin (Gabapentin) 100 Mg Capsule, 100 MG PO BID, (Reported) Insulin Glargine,Hum.rec.anlog (Toujeo Solostar) 300 Unit/1 Ml Insuln.pen, 30 UNIT SC QPM, (Reported) AT DINNER Insulin Lispro (Humalog) 100 Unit/Ml Inj, 1 DOSE SC AC, (Reported) PER SLIDING SCALE Lanthanum Carbonate (Fosrenol) 1,000 Mg Chw, 1,000 MG PO WM, (Reported) [place]-3/Dha/Epa/Fish Oil ([place]-3 Fish Oil 1,000 mg Sfgl) 1,000 Mg Capsule, 1,000 MG PO BID, (Reported) Pravastatin Sodium (Pravastatin Sodium) 80 Mg Tablet, 80 MG PO QHS, (Reported) Silver Sulfadiazine (Ssd) 50 Gm Cream..g., 1 DOSE TOP DAILY, (Reported) APPLY TO LESIONS ON CHEST AND BACK Ubidecarenone (Coenzyme Q10) 200 Mg Capsule, 200 MG PO DAILY, (Reported) Valsartan (Valsartan) 80 Mg Tablet, 80 MG PO DAILY, (Reported) Scheduled PRN Clonidine Hcl (Clonidine HCl) 0.1 Mg Tablet, 0.1 MG PO BID PRN for SBP, (Reported) FOR SBP >170 Lidocaine (Lidocaine) 5% Adh..patch, 2 PATCH TOP DAILY PRN for PAIN, (Reported) APPLY TO BILATERAL SHOULDERS Ondansetron HCl (Zofran) 4 Mg Tablet, 4 MG PO Q8H PRN for NAUSEA, (Reported) Polyethylene Glycol 3350 (Miralax) 119 Gm Powder, 17 GM PO DAILY PRN for CONSTIPATION, (Reported) Miscellaneous Medications [Med Rec Comment] , (Reported) UNABLE TO SPEAK WITH PATIENT TO VERIFY.USED EXTERNAL AND LAST ADM/DIS FROM 02/14 ALIZE GRULLON MD May 02, 2020 12:34
--- NOTE | 2020-05-02 13:16 | IPN ---
INPATIENT PROGRESS NOTE DATE: 05/01/20 SUBJECTIVE: I had a call from the on-call hospitalist overnight that at post urgent hemodialysis last night the patient continued to have EKG changes with peak T waves and a repeat chemistry showed almost no improvement in her hyperkalemia despite 2 and 1/2 hours of dialysis with a 1 mEq bath. Likewise she had almost no improvement in her blood urea nitrogen. This was very concerning for recirculation syndrome of the fistula and subsequently transportation program director was kind enough to place a temporary dialysis catheter in the left femoral and patient again was taken for urgent hemodialysis this morning due to ongoing arrhythmia and ectopic activity. Patient was seen and examined this morning at the bedside in the Intensive Care Unit receiving a second hemodialysis treatment at present via the temporary femoral catheter. She has been off of dopamine infusion since midnight and has been intermittently on BiPAP versus nasal cannula and is awake, alert and reports she feels better than when she came in. PHYSICAL EXAMINATION: Temperature 98.4, pulse 87, respiratory rate 18, blood pressure 177/72, saturating 97 % on 2 liters nasal cannula. Dialysis overnight removed 2 liters and goal fluid removal with dialysis this morning is 3 liters. Weight on the bed scale today was 83.9 kg. General: Patient was seen lying in bed in the Intensive Care Unit receiving hemodialysis at the bedside awake, alert and oriented times 3 in no apparent distress. HEENT: Extraocular muscles are intact. Tongue is moist. Neck: Jugular veins are only mildly elevated. Heart: Sounds are regular and tachycardic S1 and S2. There is no friction murmur. There is no leg edema. Peripheral pulses are palpable. Lungs: Breath sounds are more clear today and there is symmetric air entry without crackle or rhonchus. Abdomen: Soft and nontender. There are bowel sounds. Extremities: The fistula in the right arm does have a thrill and bruit in the distal aspect and less so in the proximal aspect. There is a central line present in the right femoral and a temporary dialysis catheter present in the left femoral which is presently in use. Skin: Normal temperature and turgor. Neurologic: Oriented times 3, interactive and conversational. Musculoskeletal: Moves all 4 extremities on command. LABORATORY DATA: White count 14.7, hemoglobin 9.8, platelets 159. Sodium 133, potassium 7.2, bicarbonate 27, BUN 83, creatinine 13, magnesium 3.7. AST 568, ALT 721. Lactic acid 0.7. Microbiology: Blood cultures are pending. IMAGING: Chest x-ray done this morning shows resolution of pulmonary vascular congestion now with sharp pleural angles. INPATIENT MEDICATIONS: Reviewed by myself. 1. Her dopamine infusion has been off since midnight. 2. She received calcium gluconate 1 gram I.V. times 1. 3. Zosyn 2.25 gram I.V. q8h. 4. Vancomycin with dialysis. 5. Amlodipine 5 mg by mouth daily. 6. Aspirin 81 mg by mouth daily. 7. Carvedilol 25 mg by mouth twice a day. 8. Gabapentin 100 mg by mouth twice a day. 9. Heparin 5000 units subcutaneously q12h. 10. Hydralazine 50 mg by mouth q8h. 11. Insulin. 12. Fosrenol 1 gram by mouth with meal. 13. Nephro-Guido 1 tablet by mouth daily. PROBLEMS/PLAN: 1. End-stage renal disease: On hemodialysis. Patient was urgently hemodialyzed at around 10:00 p.m. last night until about 1:00 a.m. this morning; however, she continued to have EKG changes post-dialysis with peak T wave. Subsequent chemistry showed no significant improvement in either her hyperkalemia or her blood urea nitrogen this despite a 2 and 1/2 hour hemodialysis treatment with a 1 mEq potassium bath and 2 liter of fluid removed. This is suspicious for fistula recirculation syndrome. Engineering Test Mechanic kindly placed a temporary femoral dialysis catheter in an urgent fashion this morning and the patient was taken again for hemodialysis treatment at the bedside this time using the temporary dialysis catheter and 3 liters of fluid are removed and a 1 mEq potassium bath was again used and I suspect that her electrolytes should improve significantly after the treatment with the catheter. 2. Fistula recirculation syndrome: Patient had an insufficient decrease in blood urea nitrogen following urgent hemodialysis yesterday night and no significant improvement in her potassium. She has decreased thrill and bruit at the proximal aspect of the fistula and outpatient dialysis nurses have been having trouble with her venous needle. I have spoken with Dr. Valentin and the patient is for fistulogram tomorrow. At present she is dialyzed via a temporary femoral catheter. 3. Decompensated diastolic congestive heart failure: Patient's volume status has improved. We removed 2 liters with her treatment overnight. Recirculation syndrome does not prevent fluid removal it moreso interferes with clearance. She is being dialyzed again this morning and we are removing another 3 liters of fluid, actually continues to be severely hypertensive and her chest x-ray already shows improvement and resolution of pulmonary vascular congestion. Her oxygen requirements are improving as well with dialysis and fluid removal. 4. Hypertension: Blood pressures are significantly elevated. Systolic overnight 170s-200s. Dopamine infusion has been off. We removed 2 liters last night, we are removing another 3 liters with treatment this morning and I am hopeful that her blood pressures will improve. She is also being restarted on some of her home medications including amlodipine and hydralazine; however, her beta-leti and clonidine are as of yet on-hold. 5. Cardiac arrhythmias, junctional escape rhythm/bradycardia: It is in the setting of severe electrolyte derangement and high anion gap metabolic acidosis and I am hopeful that it will improve with this current dialysis treatment and correction of her potassium level. Her acidemia has already improved. 6. Health care associated pneumonia: Patient's white count is down trending. She remains afebrile. She is on broad spectrum antibiotics with vancomycin and Zosyn. Her blood cultures are no growth for 24 hours times 2 sets. Her chest x-ray today did not show any infiltrate after fluid removal. Antibiotic deescalation is as per primary service. CRITICAL CARE TIME: Time spent in the management and coordination of this patient's care overnight and this morning in the Intensive Care Unit was 45 minutes.
--- NOTE | 2020-05-02 14:43 | ROOPDOC ---
[facility] Report Of Operation Report of Operation DATE OF PROCEDURE: 05/02/20 PREPROCEDURE DIAGNOSES: End-stage renal disease with poorly functioning right upper extremity AV fistula with recirculation syndrome POSTPROCEDURE DIAGNOSES: Same PROCEDURE: 1. Ultrasound-guided access right cephalic vein 2. Right upper extremity fistulogram and central venogram 3. Cross chronic total occlusion left proximal cephalic vein and angioplasty with 7 x 200 [place] balloon, 8 x 20 cutting balloon, 8 x 200 [place] balloon 4. Angioplasty right subclavian vein and subclavian vein SVC junction 8 x 20 cutting balloon and 8 x 200 [place] balloon 5. Completion venogram SURGEON: Alize Valentin MD ANESTHESIA: Local anesthesia 5 mL lidocaine. Moderate intravenous conscious sedation was administered by Dr. Valentin. The patient was independently monitored by registered nurse assigned to the Department of radiology using automated blood pressure, EKG, and pulse oximetry. The detailed sedation record is permanently stored in the hospital information system. The following is a brief sedation record: Start time 12:54, start time 13:59, Versed 1.5 mg IV, fentanyl 50 g IV. CONTRAST: 40 mL Isovue-300 INDICATION FOR PROCEDURE: This is a very pleasant 59-year-old patient with end- stage renal disease who is currently dialyzing with a temporary dialysis catheter due to recirculation syndrome and poor dialysis clearance with her right upper extremity AV fistula. Examine the fistula prior to the procedure, and she does have a good thrill, but this dwindles further up the arm. It is difficult to palpate thrill over the bicep. Risks benefits and alternatives to a fistulogram potential intervention were explained to the patient and she is agreeable to proceed. Informed consent was obtained. INTERPRETATION: 1. Ultrasound was used to examine the AV anastomosis and the cephalic vein at th e forearm and AV anastomosis towards antecubital crease. This was all widely patent on ultrasound. Images were saved. 2. Fistulogram of the right upper extremity revealed the cephalic vein is widely patent over the antecubital crease in the first few centimeters proximal in the bicep, but then has a focal area of 90% stenosis, which causes retrograde flow of contrast into the arterial system and the basilic vein. It is narrowed with limited flow to the shoulder, where there is a near occlusion, then patent followed by an occlusion for 2 cm, then patent with a stenosis at the subclavian junction. Central venogram reveals limited flow through the subclavian at the thoracic outlet and a stenosis at the subclavian SVC junction, and there is retrograde filling into the jugular vein. 3. After crossing the occlusions in the cephalic vein on the right, and angioplasty with a 7 x 200 [place] balloon, 8 x 20 cutting balloon, and 8 x 200 [place] balloon, there is widely patent rapid flow through the cephalic vein all the way to the subclavian vein with no extravasation, no embolization. There is a marked improvement in thrill on exam as well. After angioplasty of the subclavian vein and the subclavian SVC junction on the right with an 8 x 20 cutting balloon and 8 x 200 [place] balloon, there is widely patent inflow to the central system. Following all of this angioplasty, there is no longer any s ignificant retrograde filling into the jugular vein or into the basilic vein. REPORT OF OPERATION: The patient was brought to the angiographic suite in stable condition. Her right upper extremity was prepped and draped in a sterile fashion. A timeout was performed. Local anesthesia was administered to the skin and subcutaneous tissue over the cephalic vein the forearm. Ultrasound was used to examine the AV anastomosis and the vein distal to the antecubital crease. Please interpretation above. We then used ultrasound to access the vein distal to the antecubital crease with a microneedle. A wire was passed through this access and the needle was removed. A 4 [place] sheath was placed and flushed with saline. A Glidewire was advanced towards the central system and a fistulogram and central venogram were performed. Please see interpretation above. We could not advance the wire passed the shoulder, so before trying to cross the occlusion, we exchanges sheath for 7 [place] sheath and flushed the sheath with saline. A Keavy catheter and an O18 wire were used across into the central system. This took a bit of time, we had to keep exchanging back and forth between catheters and wires, utilizing a glide cath, the Keavy catheter, the O35 wire, and the 018 wire. Eventually, we were able to navigate the wire safely into the SVC and then the IVC. We first tried to utilize the 8 x 20 cutting balloon across all of the stenoses, and we were successful over the bicep and initially at the shoulder, we could not pass the balloon through the occlusion at the shoulder. We then exchange this over the wire for 7 x 200 [place] balloon and three-minute inflations were performed which started to alleviate the stenosis at the shoulder. We then exchange the balloon back today 8 x 20 cutting balloon and multiple inflations were performed at the shoulder, and also at the cephalic subclavian junction, the subclavian vein at the thoracic outlet and at the SVC junction. Adequate contrast injection ensure there was no extravasation. We then angioplastied from the SVC junction all the way back to the antecubital crease with an 8 x 200 [place] balloon for three-minute inflations along the length of the vessels. Following this there was widely patent inflow to the central system. There was an excellent thrill and no extravasation or embolization were noted. There was no longer significant retrograde filling into the jugular or the basilic veins, and excellent antegrade flow through the cephalic vein. We then placed a stitch at the exit site which was removed prior to the patient returning to the ICU. We also marked the fistula on the skin to make it easier for the nurses to access. ESTIMATED BLOOD LOSS: Approximately 5 mL. COMPLICATIONS: None. PLAN: It is okay to resume diet and orders per the primary team. It is okay to use the fistula for dialysis. We appreciate the opportunity to participate in the care of this patient. ALIZE VALENTIN MD May 02, 2020 14:43
[2020-05-02] MEDS ORDERED: DARBEPOETIN 100 MCG/0.5 ML *DIALYSIS* SYRINGE (J0882) IV SCH (21:45)
[2020-05-03] VITALS: BP 135/64
[2020-05-03 04:00] VITALS: BP 148/74
[2020-05-03] MEDS: PIPERACILLIN/TAZOBACTAM SOD 2.25 GM in D5W MINI-BAG PLUS 50 ML IV SCH ×3 (05:22→22:03)
[2020-05-03] MEDS: NEPHRO-VIT TAB (NEPHROCAPS) PO SCH (05:24)
[2020-05-03] MEDS: ASPIRIN 81 MG ENTERIC TAB PO SCH (05:25)
[2020-05-03] MEDS: GABAPENTIN 100 MG CAP PO SCH ×2 (05:25→22:01)
[2020-05-03] MEDS: **hydrALAZINE** 50 MG TAB PO SCH ×3 (05:25→22:01)
[2020-05-03] MEDS: amLODIPine 5 MG TAB PO SCH (05:25)
[2020-05-03] MEDS: CARVedilol 12.5 MG TAB PO SCH ×2 (05:26→22:02)
[2020-05-03] MEDS: HEPARIN SOD (PORCINE) 5000UNITS/ML 1ML VIAL/SYRINGE SQ SCH ×2 (05:27→22:02)
[2020-05-03 06:00] LABS: BASO % 0.5 % (0.0-1.0); EOS # 0.6 10^3/uL (0.0-0.5); HEMATOCRIT 28.8 % (36.0-47.0); LYMPH # 1.4 10^3/uL (1.5-5.0); LYMPH % 16.8 % (24.0-44.0); MEAN CORPUSCULAR HGB CONC 31.3 g/dl (32.0-36.5); MEAN CORPUSCULAR VOLUME 102.5 fl (80.0-96.0); MONO # 0.7 10^3/uL (0.0-0.8); MONO % 8.3 % (0.0-5.0); NEUTROPHILS # 5.4 10^3/uL (1.5-8.5); PLATELET COUNT, AUTOMATED 108 10^3/uL (150-450); RED BLOOD COUNT 2.81 10^6/uL (4.00-5.40)
[2020-05-03 06:32] LABS: ALBUMIN 2.9 GM/DL (3.2-5.2); BILIRUBIN,TOTAL 0.5 MG/DL (0.2-1.0); CALCIUM LEVEL 8.8 MG/DL (8.8-10.2); CREATININE FOR GFR 11.5 MG/DL (0.55-1.30); GLOMERULAR FILTRATION RATE 4.4 (>45); MAGNESIUM LEVEL 2.8 MG/DL (1.8-2.4); PERCENT SATURATION 33.1 % (13.2-45.0); POTASSIUM SERUM 4.4 MEQ/L (3.5-5.1); TOTAL PROTEIN 6.3 GM/DL (6.4-8.2)
[2020-05-03 07:18] VITALS: BP 128/60
[2020-05-03] MEDS: LANTHANUM CARBONATE 500 MG CHEW TABLET PO SCH ×3 (08:00→18:49)
[2020-05-03] MEDS: HumaLOG INSULIN (NovoLOG) PER UNIT SC SCH ×4 (08:03→22:03)
[2020-05-03] MEDS: MAGIC MOUTHWASH SUSPENSION BTL SSP SCH ×3 (08:04→18:50)
--- NOTE | 2020-05-03 09:01 | IPNPDOC ---
Text Note Date of Service The patient was seen on 05/03/20. NOTE SUBJECTIVE: Patient seen and examined at bedside this morning. No acute overnight events reported. Patient has no new medical complaints this morning. OBJECTIVE: VS: Please see below CONSTITUTIONAL: No acute distress, sitting comfortably in chair EYES: PERRLA, EOM intact HENT, MOUTH: Normocephalic, atraumatic, moist mucous membranes NECK: SUPPLE, no JVD, no lymphadenopathy, no carotid bruit CV: tachycardic, Regular rate and rhythm, S1S2 normal, no murmurs/rubs/gallops RESPIRATORY: Clear to auscultation bilaterally GI: Left vascath in place in left groin, BS positive in 4 quadrants, soft, nontender, nondistended, no rebound or guarding, no organomegaly Extremities: Trace edema LABORATORY DATA: Please see below ASSESSMENT: 59 F with ESRD, DM, HTN called EMS for SOB. Patient reported last had HD 2 days ago. EMS found the patient to be in heart block with rate of 26 . They put on pacer pads and started pacing and was brought to the ED. On presentation to ED she had a pulse of 23, BP 98/76 and RR of 60. He was in ventricular escape rhythm. She was listless, but able to answer few questions and extremely short of breath. ABG showed severe metabolic acidosis. She was put on BIPAP, started on dopamine infusion and pacing continued. Labs came back with severe abnormalities as below. She reported that she felt SOB just today and was scheduled for HD Tomorrow. She was hyperkalemic to 7.1 so was given Insulin iv, canlcium gluconate , and albuterol nebs. Her sugar was > 500, Bicarb was 19 adn Agap 18, Her lactate was 8.9, Mag 4.5, Her LFTs were elevated with AST of 387 ALT 504, Her ProBNP was 9862. CXR showed pulmonary vascular congestion and possible infiltrates at the right base. She was admitted for Hyperkalemia causing cardiac arrhythmias, HAGMA, severe hyperglycemia, Acute on chronic diastolic CHF, Acute on chronic right heart failure, Acute respiratory failure with hypoxia Congestive hepatopathy, Lactic acidosis, possible pneumonia and possible sepsis. PLAN: #Cardiac arrhythmia -Hyperkalemia with junctional escape rhythm - pulse 23 on arrival -Treated medically in ER -Peaked T waves prior to HD -Underwent HD - Follow as per cardiology - assistance appreciated #Acute hypoxic respiratory failure - resolved - saturating well on room air - 2/2 to decompensated HFpEF -Needed Bipap earlier in admission but now much improved, 99% on RA -Overload to be managed by HD, cardiology recommended PO regimen -CXR appears improved - Follow as per pulmonology assistance appreciated #HFpEF with exacerbation, EF 70-75% -Last echo from 08/2019: above -BNP 9800, prior from 12/2019 7000 -now saturating well on room air -C/w fluid management by HD -Cardiology consulted, f/u recommendations #Hypertensive urgency -Due to ventricular arrhythmia/hyperkalemia - continue currents medications - clonidine, coreg, hydralazine, norvasc #DM type II -BS high on admission; however, dropped as low at 106 during the day -Last BS 12/2019: 7.4 -Will keep only on ISS and can reincorporate home HS insulin at lower dose if needed -FS AC/HS, consistent carb/renal diet #RLL healthcare associated pneumonia, sepsis -CXR above -BCx pending - sputum culture contaminated -procalcitonin - significantly elevated - MRSA screen negative -C/w zosyn day #3 #Congestive hepatopathy 2/2 to acute on chronic right heart failure. -AST/ALT slightly increased -Monitor daily -C/w fluid volume optimization as mentioned above -Avoid hepatotoxic medications #ESRD with chronic anemia and metabolic mineral bone disease. -HD occured initially via right arm AVF but was believed to be malfunctioning -Trialysis catheter placed in left groin today -C/w nephrology recommendations - fistulogram completed yesterday #recent shingles - continue gabapentin #DVT px: Heparin SC DISPOSITION: Pending clinical improvement, transfer to med/surg, plan for HD today, continue PT VS,Fishbone, I+O VS, Fishbone, I+O Laboratory Tests 05/03/20 05:41 Vital Signs Date Time Temp Pulse Resp B/P (MAP) Pulse Ox O2 Delivery O2 Flow Rate FiO2 05/03/20 07:18 100.0 73 18 128/60 (82) 96 Room Air 05/02/20 21:01 1.0 05/01/20 05:00 40 I&O- Last 24 Hours up to 6 AM 05/03/20 06:00 Intake Total 1030 ml Output Total 0 ml Balance 1030 ml PRIYA RAMAN MD May 03, 2020 09:01
--- NOTE | 2020-05-03 09:22 | IPN ---
INPATIENT PROGRESS NOTE DATE: 05/02/20 SUBJECTIVE: Juany is seen and examined this morning at the bedside in the Intensive Care Unit. She reports she feels much better, has no shortness of breath. she was dialyzed successfully yesterday with the temporary dialysis catheter with 3 liters of fluid removed and she is pending fistulogram today for further evaluation given her recent recirculation syndrome and fistula issues. She denies any shortness of breath, nausea, vomiting or diarrhea. PHYSICAL EXAMINATION: Temperature is 97.7, pulse 71, respiratory rate 18, blood pressure 153/73, saturating 97% on 1 liter nasal cannula. Intake yesterday was 1500, dialysis removed 3 liters, net negative 1500. Weight on the bed scale today is 81.4 kg. General: Patient is seen lying in bed, head of the bed elevated, awake, alert, oriented times 3, interactive, in no apparent distress. HEENT: Extraocular muscles are intact. Tongue is moist. Nasal cannula is in place. Neck: Supple. Jugular veins are not elevated. Heart: Sounds are regular S1 and S2. There is no leg edema. Peripheral pulses are palpable. Lungs: Clear to auscultation bilaterally, no crackles or rales. Abdomen: Soft and nontender. There are bowel sounds. Extremities: There is no clubbing or cyanosis. The fistula in the right arm has a thrill and bruit in the distal aspect, but not so much in the proximal aspect. There is a central line present in the right femoral and a temporary dialysis catheter present in the left femoral. Skin: Normal temperature and turgor. Musculoskeletal: Moves all 4 extremities on command. LABORATORY DATA: White count 9.2, hemoglobin 8.9, platelets 116. Sodium 132, potassium 4.1, bicarbonate 32, BUN 43, creatinine 9.2, magnesium 2.9. AST is down to 123 from 568, ALT is down to 393 from 721. Procalcitonin 54. Blood cultures no growth for 48 hours times 2 sets. INPATIENT MEDICATIONS: Reviewed by myself and no change noted as compared as to yesterday. PROBLEMS/PLAN: 1. End-stage renal disease: On hemodialysis. Recent dialysis treatments have been complicated by recirculation syndrome. She is pending fistulogram today with Dr. Valentin and will need a fistuloplasty. She is dialyzing via a temporary dialysis catheter in the femoral and it will need to be discontinued once her fistula is usable. Next dialysis treatment will be on May 03. 2. Hyperkalemia secondary to end-stage renal disease with recirculation syndrome of fistula: It is improved drastically after adequate dialysis via a temporary dialysis catheter. 3. Bradycardia/cardiac arrhythmia: This has also improved since her hyperkalemia and high anion gap metabolic acidosis have resolved. Cardiology has resumed her on her home carvedilol and clonidine and her heart rate remains stable without any recurrent bradycardia. 4. Hypertension: Blood pressures have improved status post a total of 5 liters of fluid removal. Her home anti-hypertensive regimen has been reintroduced. 5. Decompensated diastolic congestive heart failure: Volume status has improved. She will be next dialyzed on May 03. Her oxygen requirements have decreased. Her chest x-ray has cleared. 6. Anemia of chronic renal failure: Hemoglobin is down to 8.9 and I am restarting her on Aranesp. 7. Right lung health care associated pneumonia: Chest x-ray has cleared. Blood cultures are negative times 2 sets. Procalcitonin is noted. Leukocytosis has resolved. Antibiotic deescalation is as per primary service. 8. Congestive hepatopathy: LFTs are improving with fluid removal.
[2020-05-03] MEDS ORDERED: LIDOCAINE 1% SDV 5ML VIAL SC PRN (10:30)
[2020-05-03] MEDS ORDERED: SODIUM CHLORIDE 0.9% 1000ML IV PRN (10:30)
[2020-05-03 18:30] VITALS: BP 169/76
--- NOTE | 2020-05-03 21:14 | IPN ---
NEPHROLOGY PROGRESS NOTE DATE: 05/03/2020 SUBJECTIVE: The patient is seen and examined this morning at the bedside and later in the afternoon receiving her hemodialysis treatment. She is status post cephalogram yesterday with balloon angioplasty of the left proximal cephalic vein and she offers no complaints today. She denies any shortness of breath, chest pain, nausea, vomiting or diarrhea. VITAL SIGNS: Temperature 98.3, pulse 70, respiratory rate 17, blood pressure 148/74, saturating 99% on room air. INTAKE AND OUTPUT: Intake yesterday was one liter. Dialysis today removed 2 liters. Weight in the bed scale today is 81.4 kg. PHYSICAL EXAMINATION: GENERAL APPEARANCE: The patient is seen awake, alert, oriented, in no apparent distress. The extraocular muscles are intact. Tongue is moist. NECK: Supple. Jugular veins are not elevated. HEART: Regular, S1, S2. There is no leg edema. Peripheral pulses are palpable. LUNGS: Clear to auscultation bilaterally. No crackles or rales. ABDOMEN: Soft and nontender. There are bowel sounds. EXTREMITIES: No clubbing or cyanosis. The fistula in the right arm has improved. Thrill and bruit in the proximal aspect along the distal aspect. There is a central line in the right femoral and temporary dialysis catheter in the femoral. SKIN: Normal temperature and turgor. MUSCULOSKELETAL: Moves all four extremities on command. NEUROLOGICAL: Alert and oriented x3, no focal deficits. LABORATORY STUDIES: Today's laboratory studies show a sodium of 130, potassium 4.4, BUN 61, creatinine 11.5. These were pre-dialysis. Her post dialysis labs are pending. Her LFTs are improved. Albumin 2.9, hemoglobin 9.0, platelet count 108. INPATIENT MEDICATIONS: The patient's medications were reviewed by myself. She is ordered for Aranesp with hemodialysis. Her remainder of medications are unchanged from prior. PROBLEMS: 1. End-stage renal disease on hemodialysis her first treatment on this admission was complicated by recirculation syndrome. Her second treatment was via a temporary dialysis catheter in the left groin. Today she is dialyzed using her right arm fistula status post fistulogram and fistuloplasty with Dr. Valentin yesterday and we are pulling the temporary dialysis catheter post successful dialysis via fistula today. Her electrolytes and volume status are acceptable. 2. Hypertension - blood pressures have improved two liters are removed with dialysis today. She is back on her home antihypertensive regimen. She is tolerating her treatments without hypotension of hemodialysis. 3. Diastolic congestive heart failure volume status is now compensated. She is dialyzed today with 2 liters of fluid removed. Chest x-ray is clear and her oxygen requirements have resolved and she is saturating well on room air now. 4. Anemia of chronic renal failure hemoglobin has downtrended to 9.0. Iron stores are acceptable. Aranesp is restarted. 5. Congestive hepatopathy - LFTs continue to improve. 6. Right lung healthcare associated pneumonia - white count has normalized. She has been afebrile. She is on renally dosed antibiotic as per the Primary Team. Her blood cultures were negative. Her chest x-ray has cleared.
[2020-05-03 22:00] VITALS: BP 161/78
[2020-05-03] MEDS: ACETAMINOPHEN TAB 650MG DOSE (2X325MG) PO PRN (22:22)
[2020-05-04 02:00] VITALS: BP 155/75
[2020-05-04] MEDS: PIPERACILLIN/TAZOBACTAM SOD 2.25 GM in D5W MINI-BAG PLUS 50 ML IV SCH ×2 (05:07→13:12)
[2020-05-04] MEDS: **hydrALAZINE** 50 MG TAB PO SCH ×2 (05:11→13:13)
[2020-05-04] MEDS: ACETAMINOPHEN TAB 650MG DOSE (2X325MG) PO PRN (05:54)
[2020-05-04 06:00] VITALS: BP 159/77
[2020-05-04 06:27] LABS: BASO # 0.1 10^3/uL (0.0-0.2); BASO % 0.7 % (0.0-1.0); EOS # 0.4 10^3/uL (0.0-0.5); EOS % 4.8 % (0.0-3.0); HEMATOCRIT 29.5 % (36.0-47.0); HEMOGLOBIN 9.6 g/dl (12.0-15.5); LYMPH # 1.5 10^3/uL (1.5-5.0); LYMPH % 20.4 % (24.0-44.0); MEAN CORPUSCULAR HEMOGLOBIN 33.2 pg (27.0-33.0); MEAN CORPUSCULAR HGB CONC 32.5 g/dl (32.0-36.5); MEAN CORPUSCULAR VOLUME 102.1 fl (80.0-96.0); MONO # 0.9 10^3/uL (0.0-0.8); MONO % 11.3 % (0.0-5.0); NEUTROPHILS # 4.7 10^3/uL (1.5-8.5); NEUTROPHILS % 62.5 % (36.0-66.0); PLATELET COUNT, AUTOMATED 124 10^3/uL (150-450); RED BLOOD COUNT 2.89 10^6/uL (4.00-5.40); WHITE BLOOD COUNT 7.5 10^3/uL (4.0-10.0)
[2020-05-04 07:03] LABS: BILIRUBIN,TOTAL 0.6 MG/DL (0.2-1.0); CALCIUM LEVEL 9.2 MG/DL (8.8-10.2); CREATININE FOR GFR 7.1 MG/DL (0.55-1.30); GLOMERULAR FILTRATION RATE 7.6 (>45); MAGNESIUM LEVEL 2.4 MG/DL (1.8-2.4); TOTAL PROTEIN 6.2 GM/DL (6.4-8.2)
[2020-05-04] MEDS: GABAPENTIN 100 MG CAP PO SCH (09:25)
[2020-05-04] MEDS: NEPHRO-VIT TAB (NEPHROCAPS) PO SCH (09:25)
[2020-05-04] MEDS: ASPIRIN 81 MG ENTERIC TAB PO SCH (09:25)
[2020-05-04] MEDS: LANTHANUM CARBONATE 500 MG CHEW TABLET PO SCH ×2 (09:25→13:13)
[2020-05-04] MEDS: HumaLOG INSULIN (NovoLOG) PER UNIT SC SCH ×2 (09:26→13:14)
[2020-05-04] MEDS: MAGIC MOUTHWASH SUSPENSION BTL SSP SCH ×2 (09:26→13:13)
[2020-05-04] MEDS: amLODIPine 5 MG TAB PO SCH (09:28)
[2020-05-04] MEDS: HEPARIN SOD (PORCINE) 5000UNITS/ML 1ML VIAL/SYRINGE SQ SCH (09:28)
[2020-05-04] MEDS: CARVedilol 12.5 MG TAB PO SCH (09:29)
[2020-05-04 13:13] VITALS: BP 168/86
--- NOTE | 2020-05-04 13:29 | IPN ---
PROGRESS NOTE DATE: 05/04/2020 SUBJECTIVE: The patient was seen and examined this morning at the bedside. Her dialysis treatment yesterday with her fistula went well. There were no issues. She is working with Physical Therapy. She denies any shortness of breath. She remains afebrile. PHYSICAL EXAMINATION: VITAL SIGNS: Temperature 99.2, pulse is 78, respiratory rate 18, blood pressure 155/88, saturating 94% on room air. INTAKE AND OUTPUT: Intake yesterday was 1 liter, dialysis yesterday removed 2 liters, weight on the bed scale today is not recorded. GENERAL: Patient is seen awake, alert and oriented and in no apparent distress. HEENT: Extraocular muscles are intact. Tongue is moist. NECK: Supple. Jugular veins are not elevated. HEART: Heart sounds are regular, S1 and S2. There is no leg edema. LUNGS: Clear to auscultation bilaterally. No crackle, rale or rhonchus. ABDOMEN: Soft and nontender. EXTREMITIES: The two central lines in both the right and left femoral area have been removed. There is a dressing at the site where she previously had an interosseous line. There is a fistula in the right arm with good thrill and bruit. SKIN: Normal temperature and turgor. MUSCULOSKELETAL: Moves all four extremities on command. No clubbing or cyanosis. NEUROLOGIC: Alert and oriented x3, no focal deficits. LABORATORY DATA: Labs today showed a white count of 7.5, hemoglobin 9.6, platelets 124,000. Sodium 129 with a glucose of 260 for a corrected sodium of 131. Magnesium 2.4. LFTs continue to improve. INPATIENT MEDICATIONS: She is resumed on Aranesp 100 mcg with dialysis. Her remainder of medications are unchanged as compared to yesterday. PROBLEMS: 1. Endstage renal disease on hemodialysis on a Friday, Friday and Friday schedule. Her fistula was used successfully yesterday. Her temporary dialysis catheter was discontinued. There is no further sign of recirculation syndrome of the fistula. Her electrolytes and volume status are acceptable. Continue current dialysis prescription. 2. Status post hypertensive urgency. Blood pressures have improved and she is back on her home antihypertensive regimen and she is tolerating dialysis and fluid removal without hypotension of hemodialysis. 3. Diastolic congestive heart failure, chronic. She is saturating well on room air. She is fairly well-compensated. Next dialysis will be on Friday with goal removal of 2-3 liters as tolerated by hemodynamics. 4. Congestive hepatopathy. Her LFTs are improving nicely. 5. Anemia of chronic renal failure. She is resumed on Aranesp. Her iron stores are adequate. 6. Hypervolemic hyponatremia. Her corrected sodium is around 131. Continue dialysis and fluid removal and oral fluid restriction.
--- NOTE | 2020-05-04 13:39 | IPNPDOC ---
Text Note Date of Service The patient was seen on 05/04/20. NOTE SUBJECTIVE: Patient seen and examined at bedside this morning. No acute overnight events reported. Patient has no new medical complaints this morning. OBJECTIVE: VS: Please see below CONSTITUTIONAL: No acute distress, sitting comfortably in chair EYES: PERRLA, EOM intact HENT, MOUTH: Normocephalic, atraumatic, moist mucous membranes NECK: SUPPLE, no JVD, no lymphadenopathy, no carotid bruit CV: +S1S2, RRR, no murmurs/rubs/gallops RESPIRATORY: Clear to auscultation bilaterally Extremities: Trace edema LABORATORY DATA: Please see below ASSESSMENT: 59 F with ESRD, DM, HTN called EMS for SOB. Patient reported last had HD 2 days ago. EMS found the patient to be in heart block with rate of 26 . They put on pacer pads and started pacing and was brought to the ED. On p resentation to ED she had a pulse of 23, BP 98/76 and RR of 60. He was in ventricular escape rhythm. She was listless, but able to answer few questions and extremely short of breath. ABG showed severe metabolic acidosis. She was put on BIPAP, started on dopamine infusion and pacing continued. Labs came back with severe abnormalities as below. She reported that she felt SOB just today and was scheduled for HD Tomorrow. She was hyperkalemic to 7.1 so was given Insulin iv, canlcium gluconate , and albuterol nebs. Her sugar was > 500, Bicarb was 19 adn Agap 18, Her lactate was 8.9, Mag 4.5, Her LFTs were elevated with AST of 387 ALT 504, Her ProBNP was 9862. CXR showed pulmonary vascular congestion and possible infiltrates at the right base. She was admitted for Hyperkalemia causing cardiac arrhythmias, HAGMA, severe hyperglycemia, Acute on chronic diastolic CHF, Acute on chronic right heart failure, Acute respiratory failure with hypoxia Congestive hepatopathy, Lactic acidosis, possible pneumonia and possible sepsis. PLAN: #Cardiac arrhythmia - resolved -Hyperkalemia with junctional escape rhythm - pulse 23 on arrival -Treated medically in ER -Peaked T waves prior to HD -Underwent HD - Follow as per cardiology - assistance appreciated #Acute hypoxic respiratory failure - resolved - saturating well on room air - 2/2 to decompensated HFpEF -Needed Bipap earlier in admission but now much improved, 99% on RA -Overload to be managed by HD, cardiology recommended PO regimen -CXR appears improved - Follow as per pulmonology assistance appreciated #HFpEF with exacerbation, EF 70-75% - compensated -Last echo from 08/2019: above -now saturating well on room air -C/w fluid management by HD -Cardiology consulted, f/u recommendations #Hypertensive urgency -Due to ventricular arrhythmia/hyperkalemia - continue currents medications - clonidine, coreg, hydralazine, norvasc #DM type II -FS AC/HS, consistent carb/renal diet #RLL healthcare associated pneumonia, sepsis -CXR above -BCx negative to date - sputum culture contaminated -procalcitonin - significantly elevated - MRSA screen negative -C/w zosyn day #4 #Congestive hepatopathy 2/2 to acute on chronic right heart failure. -AST/ALT slightly increased - trending down -Avoid hepatotoxic medications #ESRD with chronic anemia and metabolic mineral bone disease. - follow as per nephrology #recent shingles - continue gabapentin - requesting lidoderm patch #DVT px: Heparin SC DISPOSITION: follow up with PT, anticipate discharge in 24-48 hours VS,Zaidbone, I+O VS, Fishbone, I+O Laboratory Tests 05/04/20 05:51 Vital Signs Date Time Temp Pulse Resp B/P (MAP) Pulse Ox O2 Delivery O2 Flow Rate FiO2 05/04/20 13:13 168/86 05/04/20 09:28 87 05/04/20 06:00 99.2 18 94 Room Air 05/02/20 21:01 1.0 05/01/20 05:00 40 I&O- Last 24 Hours up to 6 AM 05/04/20 06:00 Intake Total 1440 ml Output Total 2000 ml Balance -560 ml PRIYA RAMAN MD May 04, 2020 13:39
[2020-05-04 14:00] VITALS: BP 161/64
[2020-05-04] MEDS ORDERED: LIDOCAINE 5% (LIDODERM) PATCH TD ONE (14:00)
[2020-05-04] MEDS ORDERED: HYDR50TA PO (14:26)
[2020-05-04] MEDS ORDERED: AUGM875T28 PO (14:26)
--- NOTE | 2020-05-04 14:29 | DS.PDOC ---
Discharge Summary General Date of Admission Apr 30, 2020 at 20:52 Date of Discharge 05/04/20 Specialist/Consultants Involve cardiology, nephrology, pulmonology Discharge Summary PROCEDURES PERFORMED DURING STAY: [None]. ADMITTING DIAGNOSES: 1. . DISCHARGE DIAGNOSES: 1. . COMPLICATIONS/CHIEF COMPLAINT: Esrd On Hemodialysis,Hyperkalemia. HISTORY OF PRESENT ILLNESS: 59 year old female with ESRD, DM, HTn called EMS for SOB. Patient reported last had HD 2 days prior. EMS found the patient to be in heart block with rate of 26 . They put on pacer pads and started pacing and was brought to the ED. On presentation to ED she had a pulse of 23, BP 98/76 and RR of 60. She was listless, but able to answer few questions and extremely short of breath. ABG showed severe metabolic acidosis. She was put on BIPAP, started on dopamine infusion and pacing continued. Labs came back with severe abnormalities as below. She had a K of 7.1, lactate 8.9, BUN/CT 99/15.4, Agap 18, glucose 555, a st > 300, ALT> 500. Probnp 9872. She was medically treated for hyperkaleia and nephro contacted for urgent HD. Cxr showed pulmonary vascular congestion and possible right lower lobe infiltrates. SHe was admitted for Severe hyperkalemia with cardiac arrhythmia, Acute resp failure with hypoxia, acute on chronic diastolic CHF and acute on chronic right heart failure, Lactic acidosis, severe high anion gap metabolic acidosis, congestive hepatopathy, Pneumonia and possible sepsis. HOSPITAL COURSE: #Cardiac arrhythmia - resolved -Hyperkalemia with junctional escape rhythm - pulse 23 on arrival -Treated medically in ER -Peaked T waves prior to HD -Underwent HD #Acute hypoxic respiratory failure - resolved - saturating well on room air - 2/2 to decompensated HFpEF -Needed Bipap earlier in admission but now much improved, 99% on RA -Overload to be managed by HD, cardiology recommended PO regimen #HFpEF with exacerbation, EF 70-75% - compensated -now saturating well on room air #Hypertensive urgency -Due to ventricular arrhythmia/hyperkalemia - continue currents medications - clonidine, coreg, hydralazine, norvasc #DM type II -FS AC/HS, consistent carb/renal diet #RLL healthcare associated pneumonia, sepsis -CXR above -BCx negative to date - sputum culture contaminated -procalcitonin - significantly elevated - MRSA screen negative - received zosyn x 4 days #Congestive hepatopathy 2/2 to acute on chronic right heart failure. -AST/ALT slightly increased - trending down -Avoid hepatotoxic medications #ESRD with chronic anemia and metabolic mineral bone disease. - follow as per nephrology #recent shingles #gait dysfunction - seen and evaluated by PT - with instructions patient is safe for discharge home today DISCHARGE MEDICATIONS: Please see below. ALLERGIES: Please see below. PHYSICAL EXAMINATION ON DISCHARGE: VS: Please see below CONSTITUTIONAL: No acute distress, sitting comfortably in chair EYES: PERRLA, EOM intact HENT, MOUTH: Normocephalic, atraumatic, moist mucous membranes NECK: SUPPLE, no JVD, no lymphadenopathy, no carotid bruit CV: +S1S2, RRR, no murmurs/rubs/gallops RESPIRATORY: Clear to auscultation bilaterally Extremities: Trace edema LABORATORY DATA: Please see below. ACTIVITY: [As tolerated]. DISPOSITION: Discharge home DISCHARGE INSTRUCTIONS: 1. Follow up PCP in 3-5 days 2. Follow up nephrology as scheduled. DISCHARGE CONDITION: [Stable]. TIME SPENT ON DISCHARGE: 35 minutes. Vital Signs/I&Os Vital Signs Date Time Temp Pulse Resp B/P (MAP) Pulse Ox O2 Delivery O2 Flow Rate FiO2 05/04/20 13:13 168/86 05/04/20 09:28 87 05/04/20 06:00 99.2 18 94 Room Air 05/02/20 21:01 1.0 05/01/20 05:00 40 I&O- Last 24 Hours up to 6 AM 05/04/20 06:00 Intake Total 1440 ml Output Total 2000 ml Balance -560 ml Laboratory Data Labs 24H Laboratory Tests 2 05/03/20 18:33: Bedside Glucose (Misc Panel) 160H 05/03/20 20:10: Bedside Glucose (Misc Panel) 259H 05/04/20 05:51: Immature Granulocyte % (Auto) 0.3, Neutrophils (%) (Auto) 62.5, Lymphocytes (%) (Auto) 20.4L, Monocytes (%) (Auto) 11.3H, Eosinophils (%) (Auto) 4.8H, Basophils (%) (Auto) 0.7, Neutrophils # (Auto) 4.7, Lymphocytes # (Auto) 1.5, Monocytes # (Auto) 0.9H, Eosinophils # (Auto) 0.4, Basophils # (Auto) 0.1, Nucleated Red Blood Cells % (auto) 0.0, Anion Gap 8, Glomerular Filtration Rate 7.6L, Calcium Level 9.2, Magnesium Level 2.4, Total Bilirubin 0.6, Aspartate Amino Transf (AST/SGOT) 25, Alanine Aminotransferase (ALT/SGPT) 168H, Alkaline Phosphatase 124H, Total Protein 6.2L, Albumin 3.0L, Albumin/Globulin Ratio 0.9L 05/04/20 11:29: Bedside Glucose (Misc Panel) 219H CBC/BMP Laboratory Tests 05/04/20 05:51 FSBS Laboratory Tests Test 05/03/20 18:33 05/03/20 20:10 05/04/20 11:29 Range/Units Bedside Glucose (Misc Panel) 160 259 219 80-115 MG/DL Microbiology Microbiology 05/01/20 Gram Stain - Final, Complete 05/01/20 Sputum Culture - Final, Complete 04/30/20 Blood Culture - Preliminary, Resulted No Growth after 72 hours. All specime... 04/30/20 Blood Culture - Preliminary, Resulted No Growth after 72 hours. All specime... Discharge Medications Scheduled Amitriptyline HCl (Amitriptyline HCl) 25 Mg Tablet, 25 MG PO QHS, (Reported) Amlodipine Besylate (Norvasc) 5 Mg Tablet, 5 MG PO QHS, (Reported) Amlodipine Besylate (Amlodipine Besylate) 5 Mg Tablet, 5 MG PO DAILY, (Reported) Amoxicillin/Potassium Clav (Augmentin 875-125 Tablet) 1 Each Tablet, 1 TAB PO BID Aspirin (Aspirin EC) 81 Mg Tablet.dr, 81 MG PO DAILY, (Reported) Carvedilol (Carvedilol) 25 Mg Tab, 25 MG PO BID, (Reported) Cinacalcet HCl (Cinacalcet HCl) 30 Mg Tablet, 90 MG PO DAILY, (Reported) Docusate Sodium (Colace) 100 Mg Cap, 200 MG PO DAILY, (Reported) Folic Acid/Vit B Complex and C (Renetta-Guido Tablet) 1 Tab Tab, 1 TAB PO DAILY, (Reported) Gabapentin (Gabapentin) 100 Mg Capsule, 100 MG PO BID, (Reported) Hydralazine HCl (Hydralazine HCl) 50 Mg Tablet, 50 MG PO Q8H Insulin Glargine,Hum.rec.anlog (Toujeo Solostar) 300 Unit/1 Ml Insuln.pen, 30 UNIT SC QPM, (Reported) AT DINNER Insulin Lispro (Humalog) 100 Unit/Ml Inj, 1 DOSE SC AC, (Reported) PER SLIDING SCALE Lanthanum Carbonate (Fosrenol) 1,000 Mg Chw, 1,000 MG PO WM, (Reported) [place]-3/Dha/Epa/Fish Oil ([place]-3 Fish Oil 1,000 mg Sfgl) 1,000 Mg Capsule, 1,000 MG PO BID, (Reported) Pravastatin Sodium (Pravastatin Sodium) 80 Mg Tablet, 80 MG PO QHS, (Reported) Silver Sulfadiazine (Ssd) 50 Gm Cream..g., 1 DOSE TOP DAILY, (Reported) APPLY TO LESIONS ON CHEST AND BACK Ubidecarenone (Coenzyme Q10) 200 Mg Capsule, 200 MG PO DAILY, (Reported) Scheduled PRN Clonidine Hcl (Clonidine HCl) 0.1 Mg Tablet, 0.1 MG PO BID PRN for SBP, (Reported) FOR SBP >170 Lidocaine (Lidocaine) 5% Adh..patch, 2 PATCH TOP DAILY PRN for PAIN, (Reported) APPLY TO BILATERAL SHOULDERS Ondansetron HCl (Zofran) 4 Mg Tablet, 4 MG PO Q8H PRN for NAUSEA, (Reported) Polyethylene Glycol 3350 (Miralax) 119 Gm Powder, 17 GM PO DAILY PRN for CONSTIPATION, (Reported) Miscellaneous Medications [Med Rec Comment] , (Reported) UNABLE TO SPEAK WITH PATIENT TO VERIFY.USED EXTERNAL AND LAST ADM/DIS FROM 02/14 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
[2020-05-05] MEDS ORDERED: **NOTE PATIENT COMMENT** MISC XX SCH (02:00)
== END 2020-05-04 16:56 | disposition home or self-care (01) | DRG 853 ==
LOC: M ED 18:58 → M ED INP 20:52 → ENRESERV 21:10 → M PCU 21:32 → M MSPAV 05-03 16:01
PROVIDERS: ADMIT Internal Medicine Nephrology; ATTEND Internal Medicine
PROC: 02HV33Z Insertion of Infusion Device into Superior Vena Cava, Percutaneous Approach (ICD-10-PCS; 2020-05-01)
PROC: 0JH63XZ Insertion of Tunneled Vascular Access Device into Chest Subcutaneous Tissue and Fascia, Percutaneous Approach (ICD-10-PCS; 2020-05-01)
PROC: 5A1D70Z Performance of Urinary Filtration, Intermittent, Less than 6 Hours Per Day (ICD-10-PCS; 2020-05-01)
PROC: B548ZZA Ultrasonography of Superior Vena Cava, Guidance (ICD-10-PCS; 2020-05-02)
PROC: B51W1ZZ Fluoroscopy of Dialysis Shunt/Fistula using Low Osmolar Contrast (ICD-10-PCS; 2020-05-02)
PROC: 057F3ZZ Dilation of Left Cephalic Vein, Percutaneous Approach (ICD-10-PCS; principal; 2020-05-02 06:46)
DX: A41.9 Sepsis, unspecified organism (principal); N18.6 End stage renal disease; J18.9 Pneumonia, unspecified organism; K72.00 Acute and subacute hepatic failure without coma; J96.01 Acute respiratory failure with hypoxia; I50.33 Acute on chronic diastolic (congestive) heart failure; E11.10 Type 2 diabetes mellitus with ketoacidosis without coma; I13.2 Hypertensive heart and chronic kidney disease with heart failure and with stage 5 chronic kidney disease, or end stage renal disease; E87.2 Acidosis; N25.81 Secondary hyperparathyroidism of renal origin; E87.1 Hypo-osmolality and hyponatremia; E87.5 Hyperkalemia; I16.0 Hypertensive urgency; D63.1 Anemia in chronic kidney disease; Z79.899 Other long term (current) drug therapy; Z79.82 Long term (current) use of aspirin; Z88.8 Allergy status to other drugs, medicaments and biological substances; E11.65 Type 2 diabetes mellitus with hyperglycemia; Z79.4 Long term (current) use of insulin; E78.5 Hyperlipidemia, unspecified; E83.41 Hypermagnesemia; Z88.5 Allergy status to narcotic agent

== ENCOUNTER → 2020-08-25 | Outpatient (REF) | payer MEDICARE ==
[~2020-08-25] MED LIST changes: -AMIT25TA PO; +AMIT25TA17 PO; +HYDR50TA PO; +MED REC COMMENT; -PEG1POW PO; +POLY17PO18 PO
[2020-08-25 11:56] LABS: BASO % 0.3 % (0.0-1.0); EOS # 0.1 10^3/uL (0.0-0.5); EOS % 0.9 % (0.0-3.0); HEMATOCRIT 33.3 % (36.0-47.0); LYMPH # 0.7 10^3/uL (1.5-5.0); LYMPH % 10.1 % (24.0-44.0); MEAN CORPUSCULAR HEMOGLOBIN 30.9 pg (27.0-33.0); MEAN CORPUSCULAR VOLUME 102.8 fl (80.0-96.0); MONO # 0.6 10^3/uL (0.0-0.8); MONO % 8.7 % (2.0-8.0); NEUTROPHILS # 5.5 10^3/uL (1.5-8.5); NEUTROPHILS % 79.7 % (36.0-66.0); PLATELET COUNT, AUTOMATED 225 10^3/uL (150-450); RED BLOOD COUNT 3.24 10^6/uL (4.00-5.40); WHITE BLOOD COUNT 6.9 10^3/uL (4.0-10.0)
[2020-08-25 12:30] LABS: ALBUMIN 3.7 GM/DL (3.2-5.2); BILIRUBIN,TOTAL 0.4 MG/DL (0.2-1.0); CALCIUM LEVEL 10.8 MG/DL (8.8-10.2); CREATININE FOR GFR 1.38 MG/DL (0.55-1.30); GLOMERULAR FILTRATION RATE 50.1 (>45); MAGNESIUM LEVEL 1.2 MG/DL (1.8-2.4); PHOSPHORUS LEVEL 2.4 MG/DL (2.5-4.9); POTASSIUM SERUM 3.2 MEQ/L (3.5-5.1); TOTAL PROTEIN 6.9 GM/DL (6.4-8.2)
[2020-08-25 12:31] LABS: APPEARANCE, URINE CLEAR (CLEAR); BACTERIA, URINE AUTO 1+ (NEGATIVE); BILIRUBIN, URINE AUTO NEGATIVE (NEGATIVE); BLOOD, URINE BLOOD 2+ (NEGATIVE); COLOR, URINE STRAW (YELLOW); GLUCOSE, URINE (UA) AUTO NEGATIVE (NEGATIVE); KETONE, URINE AUTO NEGATIVE (NEGATIVE); LEUKOCYTE ESTERASE, URINE AUTO 3+ (NEGATIVE); MUCUS, URINE SMALL (NEGATIVE); NITRITE, URINE AUTO NEGATIVE (NEGATIVE); PROTEIN, URINE AUTO NEGATIVE (NEGATIVE); RBC, URINE AUTO 8 /HPF (0-3); SPECIFIC GRAVITY URINE AUTO 1.006 (1.002-1.035); SQUAMOUS EPITHELIAL CELL UR AU 0 /HPF (0-6); UROBILINOGEN, URINE AUTO 0.2 mg/dL (0.0-2.0); WBC, URINE AUTO 28 /HPF (0-3)
[2020-08-25 12:53] LABS: CREATININE, URINE 29.1 MG/DL; MALB URINE SIEMENS 78.1 MG/L; MAU/CREAT RATIO 268.3 MCG/MG (0.0-30.0)
== END ==
LOC: M SHH 10:52
PROVIDERS: ATTEND Internal Medicine
DX: Z94.0 Kidney transplant status (principal); N18.30 Chronic kidney disease, stage 3 unspecified; Z79.899 Other long term (current) drug therapy

== ENCOUNTER → 2021-03-26 | Outpatient (REF) | payer MEDICARE ==
[~2021-03-26] MED LIST changes: -KLOR10TA76 PO; +LOSA25TA13 PO; -LOSA25TA14 PO; +POTA-136 PO
== END ==
LOC: M LAB REF 13:07
PROVIDERS: ATTEND Internal Medicine Nephrology
DX: Z94.0 Kidney transplant status (principal)

== ENCOUNTER 2021-04-29 23:36 | Emergency (ER) | payer MEDICARE ==
[~2021-04-29 23:36] MED LIST changes: -LOSA25TA13 PO; +LOSA25TA14 PO
--- NOTE | 2021-04-30 00:40 | REPVR ---
PROCEDURE INFORMATION: Exam: XR Chest Exam date and time: 04/30/2021 12:33 AM Age: 60 years old Clinical indication: Shortness of breath; Additional info: SOB TECHNIQUE: Imaging protocol: XR of the chest. Views: 1 view. COMPARISON: CR PORTABLE CHEST X-RAY 05/01/2020 7:42 AM FINDINGS: Lungs: The lungs are unchanged. There are no interval infiltrates. Pleural spaces: Unremarkable. No pleural effusion. No pneumothorax. Heart/Mediastinum: Borderline cardiomegaly in view of AP and lordotic projection which is similar to the prior study. Bones/joints: Unremarkable. Soft tissues: There are moderately generous overlying soft tissues. IMPRESSION: Essentially stable chest since 05/01/2020 in view of increased lordotic projection. No acute interval process is identified. Electronically signed by: Jorge Cam On 04/30/2021 00:40:27 AM
[2021-04-30 01:02] LABS: BASO % 0.4 % (0.0-1.0); EOS # 0.1 10^3/uL (0.0-0.5); EOS % 1.1 % (0.0-3.0); HEMATOCRIT 35.5 % (36.0-47.0); HEMOGLOBIN 10.7 g/dl (12.0-15.5); LYMPH % 14.1 % (24.0-44.0); MEAN CORPUSCULAR HEMOGLOBIN 31.1 pg (27.0-33.0); MEAN CORPUSCULAR HGB CONC 30.1 g/dl (32.0-36.5); MEAN CORPUSCULAR VOLUME 103.2 fl (80.0-96.0); MONO # 0.8 10^3/uL (0.0-0.8); MONO % 10.5 % (2.0-8.0); NEUTROPHILS # 5.3 10^3/uL (1.5-8.5); NEUTROPHILS % 73.6 % (36.0-66.0); PLATELET COUNT, AUTOMATED 167 10^3/uL (150-450); RED BLOOD COUNT 3.44 10^6/uL (4.00-5.40); WHITE BLOOD COUNT 7.2 10^3/uL (4.0-10.0)
[2021-04-30 01:31] LABS: ALBUMIN 3.8 GM/DL (3.2-5.2); ALT/SGPT 44 U/L (12-78); BILIRUBIN,DIRECT 0.2 MG/DL (0.0-0.2); BILIRUBIN,TOTAL 0.4 MG/DL (0.2-1.0); BLOOD UREA NITROGEN 26 MG/DL (7-18); CARBON DIOXIDE LEVEL 29 MEQ/L (21-32); CHLORIDE LEVEL 107 MEQ/L (98-107); CREATININE FOR GFR 0.77 MG/DL (0.55-1.30); FREE T4 1.12 NG/DL (0.76-1.46); GLOMERULAR FILTRATION RATE > 60.0 (>45); GLUCOSE, FASTING 68 MG/DL (70-100); POTASSIUM SERUM 3.6 MEQ/L (3.5-5.1); SODIUM LEVEL 139 MEQ/L (136-145); THYROID STIMULATING HORMONE 0.704 uIU/ML (0.358-3.740); TOTAL PROTEIN 6.1 GM/DL (6.4-8.2)
--- NOTE | 2021-04-30 01:49 | REPVR ---
PROCEDURE INFORMATION: Exam: US Duplex Right Upper Extremity Veins, Limited Exam date and time: 04/30/2021 1:33 AM Age: 60 years old Clinical indication: Edema, localized; Upper extremity, right; Prior surgery; Surgery date: 6+ months; Surgery type: Fistula in place 16 years per patient; Additional info: Rue swelling eval for dvt TECHNIQUE: Imaging protocol: Real-time Duplex ultrasound of the Right Upper Extremity with 2-D read scale, color Doppler flow and spectral waveform analysis with image documentation. Limited exam focused on the right upper extremity veins. COMPARISON: CT Chest without contrast 01/05/2020 4:46 AM FINDINGS: Right deep veins: Unremarkable. Axillary and brachial veins are patent throughout without thrombus. Normal Doppler waveforms. Normal compressibility and/or augmentation response. Visualized internal jugular and subclavian veins are patent. Right superficial veins: Unremarkable. Visualized cephalic and basilic veins are patent without thrombus. There is a patent right arm AV fistula. Soft tissues: Unremarkable. IMPRESSION: 1. Negative right upper extremity venous duplex exam without evidence of deep venous thrombosis. 2. Patent right arm AV fistula. Electronically signed by: Jorge Cam On 04/30/2021 01:48:41 AM
[2021-04-30] MEDS: CARVedilol 12.5 MG TAB PO ONE ×2 (02:15→03:46)
[2021-04-30] MEDS ORDERED: NS 1,000 ML IV SCH (02:15)
[2021-04-30 02:59] LABS: RSV AMPLIFICATION NEGATIVE (NEGATIVE)
[2021-04-30 03:00] VITALS: BP 186/82
[2021-04-30 03:46] VITALS: BP 186/82
--- NOTE | 2021-04-30 06:29 | ECGEPIP ---
[facility] - ED Test Date: 2021-04-30 Pat Name: GATITO MILLER Department: Room: - Gender: Female Manager Analysis: Adolfo TOWNSEND : 1960 Requested By: CAIO Bennett Order Number: [id number] Reading MD: Jackie Snow Measurements Intervals [place] Rate: 69 P: 81 TN: 204 QRS: -61 QRSD: 150 T: 104 QT: 422 QTc: 452 Interpretive Statements Sinus rhythm with premature atrial complexes Left axis deviation Left bundle branch block cw 04/30/20 now sinus rhythm Nonspecific ST T wave changes Electronically Signed on 04-30-2021 6:29:40 EST by Jackie Snow
== END 2021-04-30 04:10 | disposition home or self-care (01) ==
LOC: EDBD 23:36 → M ED 23:36
DX: R22.31 Localized swelling, mass and lump, right upper limb (principal); E11.9 Type 2 diabetes mellitus without complications; I11.0 Hypertensive heart disease with heart failure; I50.9 Heart failure, unspecified; N18.6 End stage renal disease; Z88.8 Allergy status to other drugs, medicaments and biological substances; Z99.2 Dependence on renal dialysis

== ENCOUNTER → 2021-05-10 | Outpatient (CLI) | payer MEDICARE ==
[~2021-05-10] MED LIST changes: +LOSA25TA13 PO; -LOSA25TA14 PO
== END ==
LOC: M RAD 11:46
PROVIDERS: ATTEND Physician Assistant
DX: Q27.31 Arteriovenous malformation of vessel of upper limb (principal); R09.89 Other specified symptoms and signs involving the circulatory and respiratory systems

== ENCOUNTER → 2021-09-28 | Outpatient (REF) | payer MEDICARE | LOC: M LAB REF 17:02 | PROVIDERS: ATTEND Internal Medicine Nephrology | DX: Z94.0 Kidney transplant status (principal) ==

== ENCOUNTER → 2022-03-19 | Outpatient (CLI) | payer MEDICARE ==
[~2022-03-19] MED LIST changes: +FISH10005 PO; -FISH7.5C PO
== END ==
LOC: M RAD 15:59
PROVIDERS: ATTEND Physician Assistant
DX: E04.2 Nontoxic multinodular goiter (principal)

== ENCOUNTER → 2022-04-05 | Outpatient (CLI) | payer MEDICARE ==
[2022-04-05 15:11] LABS: APPEARANCE, URINE MANUAL HAZY (CLEAR); BILIRUBIN, URINE MANUAL NEGATIVE (NEGATIVE); BLOOD URINE MANUAL TRACE (NEGATIVE); COLOR, URINE MANUAL YELLOW (YELLOW); GLUCOSE, URINE (UA) MANUAL 1+(100 MG/DL) mg/dL (NEGATIVE); KETONE, URINE MANUAL NEGATIVE (NEGATIVE); LEUKOCYTE ESTERASE, URINE MAN TRACE (NEGATIVE); NITRITE, URINE MANUAL NEGATIVE (NEGATIVE); PROTEIN, URINE MANUAL NEGATIVE (NEGATIVE); UROBILINOGEN, URINE MANUAL NORMAL (NORMAL)
[2022-04-05 15:22] LABS: BASO % 0.3 % (0.0-1.0); EOS # 0.1 10^3/uL (0.0-0.5); EOS % 1.1 % (0.0-3.0); HEMATOCRIT 41.9 % (36.0-47.0); HEMOGLOBIN 13.3 g/dl (12.0-15.5); LYMPH % 15.3 % (24.0-44.0); MEAN CORPUSCULAR HGB CONC 31.7 g/dl (32.0-36.5); MEAN CORPUSCULAR VOLUME 97.7 fl (80.0-96.0); MONO # 0.6 10^3/uL (0.0-0.8); MONO % 9.7 % (2.0-8.0); NEUTROPHILS # 4.5 10^3/uL (1.5-8.5); NEUTROPHILS % 73.3 % (36.0-66.0); PLATELET COUNT, AUTOMATED 175 10^3/uL (150-450); RED BLOOD COUNT 4.29 10^6/uL (4.00-5.40); WHITE BLOOD COUNT 6.2 10^3/uL (4.0-10.0)
[2022-04-05 15:25] LABS: BACTERIA, URINE SMALL AMOUNT; HYALINE CAST, URINE NONE SEEN /lpf (0-1); SQUAMOUS EPITHELIAL CELL URINE SMALL AMOUNT /hpf (SMALL AMT)
[2022-04-05 15:26] LABS: YEAST, URINE MOD AMOUNT
[2022-04-05 15:31] LABS: MAGNESIUM LEVEL 1.4 MG/DL (1.8-2.4)
[2022-04-05 15:33] LABS: ALKALINE PHOSPHATASE 67 U/L (46-116); ALT/SGPT 30 U/L (7.0-40); AST/SGOT 22 U/L (<34); BILIRUBIN,TOTAL 0.6 MG/DL (0.3-1.2); BLOOD UREA NITROGEN 13 MG/DL (9-23); CALCIUM LEVEL 9.4 MG/DL (8.3-10.6); CARBON DIOXIDE LEVEL 28 MMOL/L (20-31); CHLORIDE LEVEL 104 MMOL/L (98-107); CHOLESTEROL LEVEL 158 MG/DL (<200); CHOLESTEROL RISK RATIO 2.28 (<5); GLOMERULAR FILTRATION RATE > 60.0 (>45); GLUCOSE, FASTING 154 MG/DL (74-106); LDL CHOLESTEROL 71.2 MG/DL (<100); NON-HDL-C 89 MG/DL; SODIUM LEVEL 139 MMOL/L (136-145); TOTAL PROTEIN 6.8 G/DL (5.7-8.2); TRIGLYCERIDES LEVEL 89 MG/DL (<150)
[2022-04-05 15:34] LABS: THYROID STIMULATING HORMONE 1.203 uIU/ML (0.55-4.78)
[2022-04-05 15:47] LABS: HEMOGLOBIN A1c 6.7 % (4.0-6.0)
== END ==
LOC: M LAB 14:05
PROVIDERS: ATTEND Physician Assistant
DX: Z00.01 Encounter for general adult medical examination with abnormal findings (principal); E11.22 Type 2 diabetes mellitus with diabetic chronic kidney disease; N18.9 Chronic kidney disease, unspecified; E78.5 Hyperlipidemia, unspecified

== ENCOUNTER → 2022-05-14 | Outpatient (REF) | payer MEDICARE ==
[~2022-05-14] MED LIST changes: +ELDE350C PO; +L-LY500T23 PO; +MYCO250C PO; +PRED5PAK PO; +PROG1CAP11 PO; +SPIR-10 PO; +TORS5TAB2 PO; +VITA100093 PO
[2022-05-14 18:16] LABS: CREATININE, URINE 63.6 MG/DL; MAU/CREAT RATIO 17.2 MCG/MG (0.0-30.0)
== END ==
LOC: M LAB REF 17:00
PROVIDERS: ATTEND Internal Medicine Nephrology
DX: T86.12 Kidney transplant failure (principal); N18.31 Chronic kidney disease, stage 3a; E11.22 Type 2 diabetes mellitus with diabetic chronic kidney disease

== ENCOUNTER → 2022-05-19 | Outpatient (CLI) | payer MEDICARE | LOC: M LABSMTC 11:47 | PROVIDERS: ATTEND Anesthesiology | DX: Z01.812 Encounter for preprocedural laboratory examination (principal); Z20.822 Contact with and (suspected) exposure to COVID-19 ==

== ENCOUNTER → 2022-05-21 | Outpatient (CLI) | payer MEDICARE ==
[~2022-05-21] MED LIST changes: +DEXTROSE 50% 50ML SYRINGE As Ordered ONE; +DEXTROSE 50% 50ML SYRINGE IV STA; +FAMOTIDINE 20MG/2ML VIAL IV ONE; +HEPARIN 1,000UNITS/ML 10ML VIAL (FOR RADIOLOGY & DIALYSIS ONLY) As Ordered ONE; +ISOVUE-300 61% 100ML VIAL As Ordered ONE; +LIDOCAINE 1% MDV 20ML VIAL As Ordered ONE; +MIDAZOLAM INJ 2MG/2ML VIAL As Ordered ONE; +ceFAZolin 2 GM/D5W 50 ML IV BAG As Ordered ONE; +ceFAZolin SOD 2 GM in IV 1 EA IV ONE; +diphenhydrAMINE 50MG/ML VIAL As Ordered ONE; +diphenhydrAMINE 50MG/ML VIAL IV ONE; +fentaNYL 100 MCG/2 ML INJECTION As Ordered ONE; +methylPREDNISolone 125MG 2ML VIAL As Ordered ONE; +methylPREDNISolone 125MG 2ML VIAL IV ONE
[2022-05-21 08:57] LABS: HEMATOCRIT 42.7 % (36.0-47.0); HEMOGLOBIN 13.4 g/dl (12.0-15.5); MEAN CORPUSCULAR HEMOGLOBIN 30.9 pg (27.0-33.0); MEAN CORPUSCULAR HGB CONC 31.4 g/dl (32.0-36.5); MEAN CORPUSCULAR VOLUME 98.6 fl (80.0-96.0); PLATELET COUNT, AUTOMATED 143 10^3/uL (150-450); RED BLOOD COUNT 4.33 10^6/uL (4.00-5.40); WHITE BLOOD COUNT 7.7 10^3/uL (4.0-10.0)
[2022-05-21 09:31] LABS: BLOOD UREA NITROGEN 15 MG/DL (9-23); CALCIUM LEVEL 8.9 MG/DL (8.3-10.6); CARBON DIOXIDE LEVEL 26 MMOL/L (20-31); CHLORIDE LEVEL 105 MMOL/L (98-107); CREATININE FOR GFR 0.88 MG/DL (0.55-1.30); GLOMERULAR FILTRATION RATE > 60.0 (>45); GLUCOSE, FASTING 105 MG/DL (74-106); POTASSIUM SERUM 5.7 MMOL/L (3.5-5.1); SODIUM LEVEL 139 MMOL/L (136-145)
[2022-05-21 09:52] LABS: PROTHROMBIN TIME 13.4 SECONDS (12.5-14.5)
[2022-05-21 15:30] VITALS: BP 164/71
== END ==
LOC: M IRPRO 07:58
PROVIDERS: ATTEND Surgery Vascular Surgery
DX: I87.1 Compression of vein (principal); N18.6 End stage renal disease; I89.0 Lymphedema, not elsewhere classified
CPT/HCPCS: 36415; 36902; 80048; 85027; 85610; 85730; 86850; 86900; 86901; 99152; 99153; C1725; C1769; C1887; C1894; J0690; J1200; J1644; J2250; J2930; J3010; Q9967

== ENCOUNTER 2022-06-24 10:45 | Outpatient (RCR) | payer MEDICARE ==
[~2022-06-24 10:45] MED LIST changes: -DEXTROSE 50% 50ML SYRINGE As Ordered ONE; -DEXTROSE 50% 50ML SYRINGE IV STA; -FAMOTIDINE 20MG/2ML VIAL IV ONE; -HEPARIN 1,000UNITS/ML 10ML VIAL (FOR RADIOLOGY & DIALYSIS ONLY) As Ordered ONE; +INSU100I6 SC; -ISOVUE-300 61% 100ML VIAL As Ordered ONE; -LEVE1INJ5 SC; -LIDOCAINE 1% MDV 20ML VIAL As Ordered ONE; -MIDAZOLAM INJ 2MG/2ML VIAL As Ordered ONE; -ceFAZolin 2 GM/D5W 50 ML IV BAG As Ordered ONE; -ceFAZolin SOD 2 GM in IV 1 EA IV ONE; -diphenhydrAMINE 50MG/ML VIAL As Ordered ONE; -diphenhydrAMINE 50MG/ML VIAL IV ONE; -fentaNYL 100 MCG/2 ML INJECTION As Ordered ONE; -methylPREDNISolone 125MG 2ML VIAL As Ordered ONE; -methylPREDNISolone 125MG 2ML VIAL IV ONE
== END 2022-06-25 ==
LOC: M PT 10:45
PROVIDERS: ATTEND Surgery Vascular Surgery
DX: I89.0 Lymphedema, not elsewhere classified (principal); I87.1 Compression of vein

== ENCOUNTER 2022-07-19 10:45 | Outpatient (RCR) | payer MEDICARE | END 2022-07-26 | LOC: M PT 10:45 | PROVIDERS: ATTEND Surgery Vascular Surgery | DX: I89.0 Lymphedema, not elsewhere classified (principal); I87.1 Compression of vein ==

== ENCOUNTER 2022-07-22 15:56 | Emergency (ER) | payer MEDICARE ==
[~2022-07-22] VITALS: Ht 167.6 cm; Wt 79.1 kg
[2022-07-22 15:57] VITALS: BP 168/74
== END 2022-07-22 17:20 | disposition left against medical advice (07) ==
LOC: M ED 15:56
DX: Z53.21 Procedure and treatment not carried out due to patient leaving prior to being seen by health care provider (principal)

== ENCOUNTER → 2022-07-30 | Outpatient (REF) | payer MEDICARE | LOC: M LAB REF 17:43 | PROVIDERS: ATTEND Internal Medicine Nephrology | DX: Z94.0 Kidney transplant status (principal) ==

== ENCOUNTER 2022-08-20 10:45 | Outpatient (RCR) | payer MEDICARE | END 2022-08-25 | LOC: M PT 10:45 | PROVIDERS: ATTEND Surgery Vascular Surgery | DX: M54.59 Other low back pain (principal) ==

== ENCOUNTER → 2022-09-25 | Outpatient (RCR) | payer MEDICARE | LOC: M PT 08-26 12:48 | PROVIDERS: ATTEND Surgery Vascular Surgery | DX: M54.16 Radiculopathy, lumbar region (principal) ==

== ENCOUNTER 2022-10-22 15:00 | Outpatient (RCR) | payer MEDICARE | END 2022-10-25 | LOC: M PT 15:00 | PROVIDERS: ATTEND Surgery Vascular Surgery | DX: I87.1 Compression of vein (principal); I89.0 Lymphedema, not elsewhere classified ==

== ENCOUNTER 2022-12-22 15:54 | Emergency (ER) | payer MEDICARE ==
[~2022-12-22] VITALS: Ht 167.6 cm; Wt 83.6 kg
[~2022-12-22 15:54] MED LIST changes: -AMIT25TA17 PO; +AMIT25TA19 PO
[2022-12-22] MEDS ORDERED: LIDOCAINE 5% (LIDODERM) PATCH TD ONE (16:30)
[2022-12-22] MEDS ORDERED: ONDANSETRON 4MG 2ML VIAL IV ONE (16:35)
[2022-12-22] MEDS ORDERED: MORPHINE 2 MG/ML 1ML VIAL IV ONE (16:35)
[2022-12-22 16:46] LABS: BASO % 0.2 % (0.0-1.0); EOS # 0.1 10^3/uL (0.0-0.5); EOS % 0.7 % (0.0-3.0); HEMATOCRIT 38.5 % (36.0-47.0); HEMOGLOBIN 12.8 g/dl (12.0-15.5); LYMPH # 0.8 10^3/uL (1.5-5.0); LYMPH % 8.5 % (24.0-44.0); MEAN CORPUSCULAR HEMOGLOBIN 31.1 pg (27.0-33.0); MEAN CORPUSCULAR HGB CONC 33.2 g/dl (32.0-36.5); MEAN CORPUSCULAR VOLUME 93.7 fl (80.0-96.0); MONO # 0.7 10^3/uL (0.0-0.8); MONO % 6.7 % (2.0-8.0); NEUTROPHILS # 8.1 10^3/uL (1.5-8.5); NEUTROPHILS % 83.6 % (36.0-66.0); PLATELET COUNT, AUTOMATED 149 10^3/uL (150-450); RED BLOOD COUNT 4.11 10^6/uL (4.00-5.40); WHITE BLOOD COUNT 9.7 10^3/uL (4.0-10.0)
[2022-12-22 17:09] LABS: CK-MB VALUE MASS 1.4 NG/ML (<3.6)
[2022-12-22 17:11] LABS: BLOOD UREA NITROGEN 26 MG/DL (9-23); CALCIUM LEVEL 8.9 MG/DL (8.3-10.6); CARBON DIOXIDE LEVEL 22 MMOL/L (20-31); CHLORIDE LEVEL 106 MMOL/L (98-107); CPK CREATINE PHOSPHOKINASE 86 U/L (34-145); CREATININE FOR GFR 1.04 MG/DL (0.55-1.30); GLOMERULAR FILTRATION RATE > 60.0 (>45); GLUCOSE, FASTING 265 MG/DL (74-106); MB/CK RELATIVE INDEX 1.62 (< OR =4); POTASSIUM SERUM 4.9 MMOL/L (3.5-5.1); SODIUM LEVEL 137 MMOL/L (136-145)
[2022-12-22 18:38] LABS: CK-MB VALUE MASS < 1.0 NG/ML (<3.6)
[2022-12-22 18:41] LABS: CPK CREATINE PHOSPHOKINASE 81 U/L (34-145); MB/CK RELATIVE INDEX 1.23 (< OR =4)
[2022-12-22 18:42] LABS: INR 1.16; PROTHROMBIN TIME 14.4 SECONDS (12.5-14.5)
[2022-12-22 18:43] LABS: PARTIAL THROMBOPLASTIN TIME 27.8 SECONDS (24.8-34.2)
[2022-12-22] MEDS ORDERED: DOXY100C82 PO (19:17)
[2022-12-22] MEDS ORDERED: CEFD300C PO (19:17)
[2022-12-22] MEDS ORDERED: LIDO1PAD TOP (19:17)
[2022-12-22] MEDS ORDERED: CEFDINIR 300 MG CAP (OMNICEF) PO ONE (19:25)
[2022-12-22] MEDS ORDERED: DOXYCYCLINE HYCLATE 100MG TABLET PO ONE (19:25)
[2022-12-22 19:36] VITALS: BP 150/69; TEMP 96.5; O2SAT 98
== END 2022-12-22 22:20 | disposition home or self-care (01) ==
LOC: EDBD 15:54 → M ED 15:54
DX: J18.9 Pneumonia, unspecified organism (principal); M62.830 Muscle spasm of back; I10 Essential (primary) hypertension; E78.5 Hyperlipidemia, unspecified; Z86.79 Personal history of other diseases of the circulatory system; Z88.5 Allergy status to narcotic agent; Z88.8 Allergy status to other drugs, medicaments and biological substances; Z79.811 Long term (current) use of aromatase inhibitors; Z79.82 Long term (current) use of aspirin; Z79.4 Long term (current) use of insulin; Z79.899 Other long term (current) drug therapy
CPT/HCPCS: 71045; 80048; 82550; 82553; 84484; 85025; 85610; 85730; 93041; 94760; 96374; 99284; J2405

== ENCOUNTER → 2023-10-29 | Outpatient (REF) | payer MEDICARE ==
[~2023-10-29] MED LIST changes: -ASPI-161 PO; +ASPI-615 PO; +CEFD300C PO; +DOXY100C82 PO; +HYDR-161 PO; -HYDR10TAB PO; -HYDR50TA PO; +HYDR50TA47 PO
== END ==
LOC: M LAB REF 17:09
PROVIDERS: ATTEND Internal Medicine Nephrology
DX: Z94.0 Kidney transplant status (principal)

== ENCOUNTER 2024-01-30 14:00 | Emergency (ER) | payer MEDICARE ==
[~2024-01-30] VITALS: Ht 167.6 cm; Wt 81.4 kg
[2024-01-30 16:05] VITALS: TEMP 97.7
[2024-01-30 17:27] LABS: BASO % 0.5 % (0.0-1.0); EOS # 0.1 10^3/uL (0.0-0.5); EOS % 1.6 % (0.0-3.0); HEMATOCRIT 39.5 % (36.0-47.0); HEMOGLOBIN 12.8 g/dl (12.0-15.5); LYMPH # 0.9 10^3/uL (1.5-5.0); LYMPH % 15.8 % (24.0-44.0); MEAN CORPUSCULAR HEMOGLOBIN 31.8 pg (27.0-33.0); MEAN CORPUSCULAR HGB CONC 32.4 g/dl (32.0-36.5); MONO # 0.6 10^3/uL (0.0-0.8); MONO % 10.9 % (2.0-8.0); NEUTROPHILS # 4.1 10^3/uL (1.5-8.5); NEUTROPHILS % 70.9 % (36.0-66.0); PLATELET COUNT, AUTOMATED 146 10^3/uL (150-450); RED BLOOD COUNT 4.03 10^6/uL (4.00-5.40); WHITE BLOOD COUNT 5.8 10^3/uL (4.0-10.0)
[2024-01-30 17:38] LABS: INR 1.09; PARTIAL THROMBOPLASTIN TIME 27.4 SECONDS (24.8-34.2); PROTHROMBIN TIME 13.8 SECONDS (12.5-14.5)
[2024-01-30 17:46] LABS: BLOOD UREA NITROGEN 17 MG/DL (9-23); CALCIUM LEVEL 9.5 MG/DL (8.3-10.6); CARBON DIOXIDE LEVEL 29 MMOL/L (20-31); CHLORIDE LEVEL 106 MMOL/L (98-107); CREATININE FOR GFR 0.91 MG/DL (0.55-1.30); GLOMERULAR FILTRATION RATE > 60.0 (>45); GLUCOSE, FASTING 302 MG/DL (74-106); SODIUM LEVEL 139 MMOL/L (136-145)
[2024-01-30] MEDS ORDERED: ELIQ5TAB PO (18:14)
[2024-01-30] MEDS: ACETAMINOPHEN 325 MG TAB PO ONE (18:21)
[2024-01-30] MEDS: APIXABAN 5 MG TAB (ELIQUIS) PO ONE (18:22)
[2024-01-30 18:40] VITALS: BP 188/94; O2SAT 100
== END 2024-01-30 18:42 | disposition home or self-care (01) ==
LOC: M ED 14:00
DX: I82.621 Acute embolism and thrombosis of deep veins of right upper extremity (principal); E11.9 Type 2 diabetes mellitus without complications; I10 Essential (primary) hypertension; Z88.5 Allergy status to narcotic agent; Z88.8 Allergy status to other drugs, medicaments and biological substances; Z79.4 Long term (current) use of insulin; Z79.899 Other long term (current) drug therapy; Z79.01 Long term (current) use of anticoagulants

== ENCOUNTER → 2024-02-10 | Outpatient (CLI) | payer MEDICARE ==
[~2024-02-10] MED LIST changes: +ELIQ5TAB PO
[2024-02-10 13:14] LABS: BASO # 0.1 10^3/uL (0.0-0.2); BASO % 0.7 % (0.0-1.0); EOS # 0.1 10^3/uL (0.0-0.5); EOS % 0.9 % (0.0-3.0); HEMATOCRIT 43.9 % (36.0-47.0); HEMOGLOBIN 14.4 g/dl (12.0-15.5); LYMPH # 0.8 10^3/uL (1.5-5.0); LYMPH % 9.9 % (24.0-44.0); MEAN CORPUSCULAR HEMOGLOBIN 32.1 pg (27.0-33.0); MEAN CORPUSCULAR HGB CONC 32.8 g/dl (32.0-36.5); MEAN CORPUSCULAR VOLUME 97.8 fl (80.0-96.0); MONO # 0.4 10^3/uL (0.0-0.8); MONO % 5.8 % (2.0-8.0); NEUTROPHILS # 6.2 10^3/uL (1.5-8.5); NEUTROPHILS % 82.3 % (36.0-66.0); PLATELET COUNT, AUTOMATED 157 10^3/uL (150-450); RED BLOOD COUNT 4.49 10^6/uL (4.00-5.40); WHITE BLOOD COUNT 7.5 10^3/uL (4.0-10.0)
[2024-02-10 13:38] LABS: CREATININE, URINE 26.1 MG/DL; MAU/CREAT RATIO 356.3 MCG/MG (0.0-30.0)
[2024-02-10 13:43] LABS: ALKALINE PHOSPHATASE 69 U/L (46-116); ALT/SGPT 34 U/L (7.0-40); AST/SGOT 25 U/L (<34); BILIRUBIN,TOTAL 0.9 MG/DL (0.3-1.2); BLOOD UREA NITROGEN 22 MG/DL (9-23); CALCIUM LEVEL 9.9 MG/DL (8.3-10.6); CARBON DIOXIDE LEVEL 32 MMOL/L (20-31); CHLORIDE LEVEL 103 MMOL/L (98-107); CHOLESTEROL LEVEL 216 MG/DL (<200); CHOLESTEROL RISK RATIO 2.86 (<5); CREATININE FOR GFR 0.81 MG/DL (0.55-1.30); GLOMERULAR FILTRATION RATE > 60.0 (>45); GLUCOSE, FASTING 188 MG/DL (74-106); HDL CHOLESTEROL 75.3 MG/DL (>40); LDL CHOLESTEROL 123.7 MG/DL (<100); NON-HDL-C 140.7 MG/DL; SODIUM LEVEL 139 MMOL/L (136-145); TOTAL PROTEIN 6.9 G/DL (5.7-8.2); TRIGLYCERIDES LEVEL 85 MG/DL (<150)
[2024-02-10 13:44] LABS: FREE T4 1.59 NG/DL (0.89-1.76); THYROID STIMULATING HORMONE 0.995 uIU/ML (0.55-4.78)
[2024-02-10 14:22] LABS: HEMOGLOBIN A1c 10.9 % (4.0-6.0)
== END ==
LOC: M LAB 11:54
PROVIDERS: ATTEND Physician Assistant
DX: E11.22 Type 2 diabetes mellitus with diabetic chronic kidney disease (principal); N18.9 Chronic kidney disease, unspecified; D63.1 Anemia in chronic kidney disease

== ENCOUNTER → 2024-03-08 | Outpatient (REF) | payer MEDICARE ==
[~2024-03-08] MED LIST changes: -CYCL5TAB PO; +CYCL5TAB4 PO
== END ==
LOC: M LAB REF 17:18
PROVIDERS: ATTEND Internal Medicine Nephrology
DX: Z94.0 Kidney transplant status (principal)

== ENCOUNTER 2024-06-01 21:09 | Emergency (ER) | payer MEDICARE ==
[~2024-06-01] VITALS: Ht 167.6 cm; Wt 82.9 kg
[2024-06-01 21:12] VITALS: BP 181/78; TEMP 97.5; O2SAT 96
[2024-06-02] MEDS ORDERED: XARE15TA PO (01:26)
== END 2024-06-02 02:08 | disposition home or self-care (01) ==
LOC: M ED 21:09
DX: G56.31 Lesion of radial nerve, right upper limb (principal); I82.B11 Acute embolism and thrombosis of right subclavian vein; I82.621 Acute embolism and thrombosis of deep veins of right upper extremity; Z79.01 Long term (current) use of anticoagulants; Z79.82 Long term (current) use of aspirin; Z79.52 Long term (current) use of systemic steroids; Z79.899 Other long term (current) drug therapy; Z88.5 Allergy status to narcotic agent; Z88.8 Allergy status to other drugs, medicaments and biological substances; Z91.048 Other nonmedicinal substance allergy status

== ENCOUNTER → 2024-07-05 | Outpatient (REF) | payer MEDICARE ==
[~2024-07-05] MED LIST changes: +XARE15TA PO
== END ==
LOC: M LAB REF 17:22
PROVIDERS: ATTEND Internal Medicine Nephrology
DX: Z94.0 Kidney transplant status (principal)